=== PATIENT | female | born 1970 | race Caucasian/White ===

== ENCOUNTER 2021-07-23 21:54 | Inpatient (IN) | payer BC, SELFPAY ==
[2021-07-23 21:56] VITALS: BP 127/75; PULSE 112; RESP 18; O2SAT 98; BMI 48.0
--- NOTE | 2021-07-23 22:06 | ECG_ITS ---
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
--- NOTE | 2021-07-23 22:11 | W.ED.WEAKNES ---
Documented by User: Ruslan Mojica MD 07/23/21 22:58 HPI - Weakness General: Chief complaint: Weakness Stated complaint: GENERAL WEAKNESS Time Seen by Provider: 07/23/21 21:57 Source: patient Mode of arrival: EMS Limitations: no limitations History of Present Illness: HPI Narrative: Patient states she has generalized weakness that has been ongoing for few days. She states that she felt like she needed to take a bath last night and got in the bathtub around 5:30 PM. She states she was unable to get out of the bathtub until 7 AM when her cut her out of the tub. She states she has been laying on a blanket since 7 AM. She states she is too weak to stand on her own. She states she has had some nausea and vomiting this evening. Emesis is bilious. She states she has chronic liver disease due to fatty liver and alcoholic cirrhosis. She states her last alcohol use was in April of last year. She denies any particular pain. Complaint: generalized weakness, lack of energy and difficulty walking Duration: constant Location: generalized Migration: none Severity: severe Relieving factors: none Exacerbating factors: none Associated symptoms: Reports easy bruising, nausea and vomiting; Denies chest pain, chills, confusion, melena, decreased appetite, diaphoresis, dysuria, fever(s), headache(s), myalgias, rash, short of breath or syncope Review of Systems Const: Reports: fatigue and malaise; Denies: fever(s), chills or diaphoresis Eyes: Denies: change in vision ENMT: Denies: throat pain Card: Denies: chest pain or syncope Resp: Denies: dyspnea or wheezing GI: Reports: nausea and vomiting; Denies: abdominal pain or melena : Denies: flank pain or dysuria Musc: Reports: extremity swelling; Denies: neck pain or back pain Skin/Breast: Reports: other (Ecchymoses); Denies: rash or pruritus Neuro: Denies: headache(s) or confusion Psych: Denies: anxiety Rtevon/Lymph: Reports: easy bruising; Denies: easy bleeding or petechiae Physical Exam Const: COMMON NORMALS: no acute distress, patient oriented x3, no limitations and well nourished EXAM LIMITATIONS: no altered mental status GENERAL APPEARANCE: cooperative NUTRITIONAL APPEARANCE: obese and other (Morbid obesity) HENMT: COMMON NORMALS: normocephalic and atraumatic HEAD & SCALP: normocephalic and atraumatic FACE & SINUS: normal facial exam Eye: COMMON NORMALS: Equal, round and reactive pupils present and EOMs intact bilaterally SCLERA: scleral abnormal Laterality of scleral abnormality: positive bilateral (Mild) scleral icterus PUPIL: Yes Equal, round and reactive pupils present Neck/C-Spine: COMMON NORMALS: full ROM, no lymphadenopathy, supple, no meningeal signs and no JVD GENERAL: Yes normal visual inspection Lymph: LYMPHATIC: no lymphadenopathy noted Chest: COMMONS NORMALS: normal inspection of the chest and normal palpation of entire chest wall CHEST: No Ecchymosis present and No rash Resp: COMMON NORMALS: normal respiratory effort, No retractions, No use of accessory muscles and clear to auscultation bilaterally EFFORT & INSPECTION: No respiratory distress AUSCULTATION: clear to auscultation bilaterally Cardio: COMMON NORMALS: no JVD, regular rhythm and Peripheral pulses 2+ throughout JUGULAR VENOUS DISTENTION: no JVD RATE: tachycardic RHYTHM: regular rhythm PERIPHERAL PULSES: Peripheral pulses 2+ throughout OTHER: 3+ pitting edema of the lower extremities bilaterally. GI: COMMON NORMALS: Normal to inspection, nondistended, normoactive bowel sounds present and non-tender : COMMON NORMALS: Yes no CVA tenderness BLADDER/KIDNEY EXAM: Yes no CVA tenderness Back/Pelvis: COMMON NORMALS: no CVA tenderness Extremity: COMMON NORMALS: normal to inspection, full ROM and capillary refill normal OTHER: Bilateral lower extremity 3+ pitting edema Neuro: ADRIAN COMA SCALE: document GCS findings [place] coma scale eye opening: Spontaneous [place] coma scale verbal response: Orientated [place] coma scale motor response: Obey commands [place] coma scale total score: 15 COMMON NORMALS: patient oriented x3, CN's II-XII intact bilaterally, moves all extremities, no focal motor deficits and no sensory deficits noted MENINGEAL SIGNS: Yes no meningeal signs Psych: COMMON NORMALS: mental status grossly normal, Normal thought process present and cooperative THOUGHT PROCESS: Normal thought process present Skin: COMMON NORMALS: no rashes or lesions noted and no wounds NARRATIVE SKIN EXAM: Patient has mild jaundice. A few new ecchymoses. GENERAL SKIN EXAM: no rashes or lesions noted Course Vital Signs: Vital signs: Vital Signs Pulse Rate 112 H 01/15/22 21:56 Respiratory Rate 18 07/23/21 21:56 Blood Pressure 127/75 07/23/21 21:56 Pulse Oximetry 98 07/23/21 21:56 MDM - Weakness MDM Narrative: Medical decision making narrative: 2300 care was transferred to Dr. Moreno at shift change Lab Data: Labs: Lab Results 07/23/21 07/23/21 07/23/21 22:41 22:55 22:55 WBC RBC Hgb Hct MCV MCH MCHC RDW Plt Count MPV Neut % (Auto) Lymph % (Auto) [place] % (Auto) Eos % (Auto) Baso % (Auto) Neut # (Auto) Lymph # (Auto) [place] # (Auto) Eos # (Auto) Baso # (Auto) Nucleated RBC % (a uto) Nucleated RBCs # PT 20.70 SECONDS H S ECONDS (12.1-14.9) INR 1.74 H (0.8-1.2) APTT 39.2 SECONDS H SE CONDS (23.9-36.7) Sodium 124 mmol/L L mmol /L (136-145) Potassium 2.8 mmol/L L* mmo l/L (3.5-5.1) Chloride 82 mmol/L L mmol/ L (98-107) Carbon Dioxide 29 mmol/L mmol/L (22-29) Anion Gap 15.8 (5-19) BUN 10 mg/dL mg/dL (6-20) Creatinine 1.4 mg/dL H mg/dL (0.5-0.9) GFR Calculation 39.8 mL/min L mL/ min (90-130) Glucose 100 mg/dL mg/dL (65-115) Calculated Osmolal ity 257 mOsm/kg L mOs m/kg (285-295) Calcium 9.0 mg/dL mg/dL (8.5-10.5) Total Bilirubin 9.2 mg/dL H* mg/d L (0.15-1.2) AST 71 U/L H U/L (0-32) ALT 19 U/L U/L (0-33) Alkaline Phosphata se 210 IU/L H IU/L (35-105) Ammonia Creatine Kinase 211 U/L H U/L (26-192) Total Protein 7.8 g/dL g/dL (6.6-8.7) Albumin 3.2 g/dL L g/dL (3.5-5.2) Globulin 4.6 g/dL g/dL (1.3-4.6) TSH 0.57 uIU/mL uIU/m L (0.27-4.20) Free T4 2.00 ng/dL H ng/d L (0.82-1.77) Urine Color Ebony (Yellow) Urine Appearance Sl cloudy A (CLEAR) Urine pH 5 (5-7) Ur Specific Gravit y 1.025 (1.005-1.030) Urine Protein 1+ H (Negative) Urine Glucose (UA) Norm (Normal) Urine Ketones 1+ H (Negative) Urine Blood Neg (Negative) Urine Nitrate Negative (Negative) Urine Bilirubin 2+ H (Negative) Urine Urobilinogen 4+ mg/dL H mg/dL (Negative) Ur Leukocyte Dolores ase Trace H (Negative) Urine RBC 0-4 /hpf H /hpf (0-2) Urine WBC 5-10 /hpf H /hpf (0-5) Ur Squamous Epith Cells 15-25 /hpf H /hpf (0-5) Amorphous Sediment Not Reportable Urine Bacteria 3+ /hpf H /hpf (NONE) Hyaline Casts 10-15 /lpf H /lpf Urine Mucus 2+ /hpf /hpf 07/23/21 07/23/21 22:55 22:55 WBC 15.4 10^3/uL H 10 ^3/uL (4.0-10.0) RBC 3.20 10^6/uL L 10 ^6/uL (4.1-5.3) Hgb 10.4 g/dL L g/dL (11.5-15.3) Hct 29.3 % L % (37.0-47.0) MCV 91.6 fl fl (81-99) MCH 32.5 pg pg (28.0-34.0) MCHC 35.5 g/dL g/dL (30.0-36.0) RDW 16.4 % H % (12.1-15.1) Plt Count 214 10^3/cmm 10^3 /cmm (130-400) MPV 9.8 fL fL (7.4-10.4) Neut % (Auto) 83.6 % % Lymph % (Auto) 8.6 % % [place] % (Auto) 7.0 % % Eos % (Auto) 0.2 % % Baso % (Auto) 0.2 % % Neut # (Auto) 12.91 10^3/uL H 1 0^3/uL (1.8-7.7) Lymph # (Auto) 1.3 10^3/uL 10^3/ uL (0.8-4.8) [place] # (Auto) 1.1 10^3/uL H 10^ 3/uL (0.2-0.9) Eos # (Auto) 0.0 10^3/uL 10^3/ uL (0.0-0.8) Baso # (Auto) 0.0 10^3/uL 10^3/ uL (0.0-0.1) Nucleated RBC % (a uto) 0 % % Nucleated RBCs # 0.0 /100WBC /100W BC PT INR APTT Sodium Potassium Chloride Carbon Dioxide Anion Gap BUN Creatinine GFR Calculation Glucose Calculated Osmolal ity Calcium Total Bilirubin AST ALT Alkaline Phosphata se Ammonia 36 umol/L umol/L (11-51) Creatine Kinase Total Protein Albumin Globulin TSH Free T4 Urine Color Urine Appearance Urine pH Ur Specific Gravit y Urine Protein Urine Glucose (UA) Urine Ketones Urine Blood Urine Nitrate Urine Bilirubin Urine Urobilinogen Ur Leukocyte Dolores ase Urine RBC Urine WBC Ur Squamous Epith Cells Amorphous Sediment Urine Bacteria Hyaline Casts Urine Mucus EKG Data^: EKG 1: Attestation: I personally reviewed and interpreted this EKG as follows: EKG interpretation date: 07/23/21 EKG interpretation time: 22:38 Prior EKG tracings: not available for review Ischemic changes: non-specific ST-T wave changes Interpretation: EKG shows sinus tachycardia with nonspecific ST-T changes. Normal axis. Normal OR interval. Normal QRS. Normal QT interval. Discharge Plan Discharge Patient Disposition: Admitted As Inpatient Clinical Impression: Chronic alcoholic liver disease, Generalized weakness, Hyponatremia Condition: Stable Coding Level of Care Code ED Ecological Economist for Chg Fwd Exam Comprehensive Documented by User: Vinnie Moreno MD 07/24/21 00:06 HPI - Weakness General: Chief complaint: Weakness Stated complaint: GENERAL WEAKNESS Time Seen by Provider: 07/23/21 21:57 Course Vital Signs: Vital signs: Vital Signs Pulse Rate 112 H 07/23/21 21:56 Respiratory Rate 18 07/23/21 21:56 Blood Pressure 127/75 07/23/21 21:56 Pulse Oximetry 98 07/23/21 21:56 MDM - Weakness MDM Narrative: Medical decision making narrative: Patient presents here with generalized weakness with hyponatremia. She has alcoholic liver cirrhosis calling saying her elevated bilirubin as well. Lab Data: Labs: Lab Results 07/23/21 07/23/21 07/23/21 22:41 22:55 22:55 WBC RBC Hgb Hct MCV MCH MCHC RDW Plt Count MPV Neut % (Auto) Lymph % (Auto) [place] % (Auto) Eos % (Auto) Baso % (Auto) Neut # (Auto) Lymph # (Auto) [place] # (Auto) Eos # (Auto) Baso # (Auto) Nucleated RBC % (a uto) Nucleated RBCs # PT 20.70 SECONDS H S ECONDS (12.1-14.9) INR 1.74 H (0.8-1.2) APTT 39.2 SECONDS H SE CONDS (23.9-36.7) Sodium 124 mmol/L L mmol /L (136-145) Potassium 2.8 mmol/L L* mmo l/L (3.5-5.1) Chloride 82 mmol/L L mmol/ L (98-107) Carbon Dioxide 29 mmol/L mmol/L (22-29) Anion Gap 15.8 (5-19) BUN 10 mg/dL mg/dL (6-20) Creatinine 1.4 mg/dL H mg/dL (0.5-0.9) GFR Calculation 39.8 mL/min L mL/ min (90-130) Glucose 100 mg/dL mg/dL (65-115) Calculated Osmolal ity 257 mOsm/kg L mOs m/kg (285-295) Calcium 9.0 mg/dL mg/dL (8.5-10.5) Total Bilirubin 9.2 mg/dL H* mg/d L (0.15-1.2) AST 71 U/L H U/L (0-32) ALT 19 U/L U/L (0-33) Alkaline Phosphata se 210 IU/L H IU/L (35-105) Ammonia Creatine Kinase 211 U/L H U/L (26-192) Total Protein 7.8 g/dL g/dL (6.6-8.7) Albumin 3.2 g/dL L g/dL (3.5-5.2) Globulin 4.6 g/dL g/dL (1.3-4.6) TSH 0.57 uIU/mL uIU/m L (0.27-4.20) Free T4 2.00 ng/dL H ng/d L (0.82-1.77) Urine Color Ebony (Yellow) Urine Appearance Sl cloudy A (CLEAR) Urine pH 5 (5-7) Ur Specific Gravit y 1.025 (1.005-1.030) Urine Protein 1+ H (Negative) Urine Glucose (UA) Norm (Normal) Urine Ketones 1+ H (Negative) Urine Blood Neg (Negative) Urine Nitrate Negative (Negative) Urine Bilirubin 2+ H (Negative) Urine Urobilinogen 4+ mg/dL H mg/dL (Negative) Ur Leukocyte Dolores ase Trace H (Negative) Urine RBC 0-4 /hpf H /hpf (0-2) Urine WBC 5-10 /hpf H /hpf (0-5) Ur Squamous Epith Cells 15-25 /hpf H /hpf (0-5) Amorphous Sediment Not Reportable Urine Bacteria 3+ /hpf H /hpf (NONE) Hyaline Casts 10-15 /lpf H /lpf Urine Mucus 2+ /hpf /hpf 07/23/21 07/23/21 22:55 22:55 WBC 15.4 10^3/uL H 10 ^3/uL (4.0-10.0) RBC 3.20 10^6/uL L 10 ^6/uL (4.1-5.3) Hgb 10.4 g/dL L g/dL (11.5-15.3) Hct 29.3 % L % (37.0-47.0) MCV 91.6 fl fl (81-99) MCH 32.5 pg pg (28.0-34.0) MCHC 35.5 g/dL g/dL (30.0-36.0) RDW 16.4 % H % (12.1-15.1) Plt Count 214 10^3/cmm 10^3 /cmm (130-400) MPV 9.8 fL fL (7.4-10.4) Neut % (Auto) 83.6 % % Lymph % (Auto) 8.6 % % [place] % (Auto) 7.0 % % Eos % (Auto) 0.2 % % Baso % (Auto) 0.2 % % Neut # (Auto) 12.91 10^3/uL H 1 0^3/uL (1.8-7.7) Lymph # (Auto) 1.3 10^3/uL 10^3/ uL (0.8-4.8) [place] # (Auto) 1.1 10^3/uL H 10^ 3/uL (0.2-0.9) Eos # (Auto) 0.0 10^3/uL 10^3/ uL (0.0-0.8) Baso # (Auto) 0.0 10^3/uL 10^3/ uL (0.0-0.1) Nucleated RBC % (a uto) 0 % % Nucleated RBCs # 0.0 /100WBC /100W BC PT INR APTT Sodium Potassium Chloride Carbon Dioxide Anion Gap BUN Creatinine GFR Calculation Glucose Calculated Osmolal ity Calcium Total Bilirubin AST ALT Alkaline Phosphata se Ammonia 36 umol/L umol/L (11-51) Creatine Kinase Total Protein Albumin Globulin TSH Free T4 Urine Color Urine Appearance Urine pH Ur Specific Gravit y Urine Protein Urine Glucose (UA) Urine Ketones Urine Blood Urine Nitrate Urine Bilirubin Urine Urobilinogen Ur Leukocyte Dolores ase Urine RBC Urine WBC Ur Squamous Epith Cells Amorphous Sediment Urine Bacteria Hyaline Casts Urine Mucus Discharge Plan Discharge Patient Disposition: Admitted As Inpatient Clinical Impression: Chronic alcoholic liver disease, Generalized weakness, Hyponatremia Condition: Stable Coding Level of Care Code ED Ecological Economist for Karli Fwd Exam Comprehensive
--- NOTE | 2021-07-23 22:45 | PC.NURSE ---
patient received with c/o generalized weakness worse in legs. states normally uses a cane and a lift chair to get around the house. reprots getting in bath tub last night around 1700 and was unable to get out of tub till 0600 this AM when cut her out of the tub. then he drug her on a blanket to the living room where whe was unable to get in to chair. he helped her from lying to sitting through out the day by using the blanket. then terry decided to call for help because she was worried about dehydration and a pinched nerve because of no urination and no fluids since last night. plastic molding operator are strong and equal but little to no arm strength but it is equal upper and lower extremities. legs move with assist equal both sides. tele in place. no further emesis since ambulance. casey placed, IV attempted x2 unsuccessful, charge nurse called for attempt.
[2021-07-23 23:05] LABS: Basophils % 0.2 %; Eosinophils % 0.2 %; Hematocrit 29.3 % (37.0-47.0); Hemoglobin 10.4 g/dL (11.5-15.3); Lymphocytes # 1.3 10^3/uL (0.8-4.8); Lymphocytes % 8.6 %; Mean Corpuscular HGB Conc 35.5 g/dL (30.0-36.0); Mean Corpuscular Hemoglobin 32.5 pg (28.0-34.0); Mean Corpuscular Volume 91.6 fl (81-99); Mean Platelet Volume 9.8 fL (7.4-10.4); Monocytes # 1.1 10^3/uL (0.2-0.9); Neutrophils # 12.91 10^3/uL (1.8-7.7); Neutrophils % 83.6 %; Nucleated Red Blood Cells % 0 %; Platelet Count 214 10^3/cmm (130-400); Red Cell Distribution Width 16.4 % (12.1-15.1); White Blood Count 15.4 10^3/uL (4.0-10.0)
--- NOTE | 2021-07-23 23:14 | XRR_ITS ---
PROCEDURE INFORMATION: Exam: XR Chest Exam date and time: 07/23/2021 11:14 PM Age: 51 years old Clinical indication: Dyspnea; Additional info: SOB TECHNIQUE: Imaging protocol: XR of the chest. Views: 1 view. COMPARISON: No relevant prior studies available. FINDINGS: Lungs: The lungs are underinflated. Right apical and left basilar atelectasis versus scarring is appreciated. The lungs are otherwise clear. Pleural spaces: Unremarkable. No pleural effusion. No pneumothorax. Heart/Mediastinum: Unremarkable. No cardiomegaly. Bones/joints: Unremarkable. XR/XR chest 1V portable [id number] IMPRESSION: No acute cardiopulmonary abnormality.
[2021-07-23 23:20] LABS: INR 1.74 (0.8-1.2)
[2021-07-23 23:21] LABS: Partial Thromboplastin Time 39.2 SECONDS (23.9-36.7)
[2021-07-23 23:26] LABS: Ammonia 36 umol/L (11-51)
[2021-07-23 23:26] LABS: Protein Urine 1+ (Negative); Specific Gravity, Urine 1.025 (1.005-1.030); Urine Color Amber (Yellow); pH Urine 5 (5-7)
[2021-07-23 23:27] LABS: Add Urine Microscopic? YES; Bilirubin Urine 2+ (Negative); Blood Urine Neg (Negative); Glucose Urine UA Norm (Normal); Ketones Urine 1+ (Negative); Leukocyte Esterase Urine Trace (Negative); Nitrate Urine Negative (Negative); Urobilinogen Urine 4+ mg/dL (Negative)
[2021-07-23 23:30] LABS: Add Urine Culture? No; Bacteria Urine 3+ /hpf; Mucus Urine 2+ /hpf; RBC Urine 0-4 /hpf (0-2); Squamous Epithelial Cell Urine 15-25 /hpf (0-5)
[2021-07-23 23:36] LABS: Alanine Aminotransferase 19 U/L (0-33); Albumin Level 3.2 g/dL (3.5-5.2); Alkaline Phosphatase 210 IU/L (35-105); Anion Gap 15.8 (5-19); Aspartate Amino Transferase 71 U/L (0-32); Blood Urea Nitrogen 10 mg/dL (6-20); Carbon Dioxide 29 mmol/L (22-29); Chloride 82 mmol/L (98-107); Creatine Phosphokinase 211 U/L (26-192); Globulin 4.6 g/dL (1.3-4.6); Glomerular Filtration Rate 39.8 mL/min (90-130); Glucose 100 mg/dL (65-115); Osmolality Calculated 257 mOsm/kg (285-295); Sodium 124 mmol/L (136-145); Thyroid Stimulating Hormone 0.57 uIU/mL (0.27-4.20); Total Protein 7.8 g/dL (6.6-8.7)
[2021-07-23 23:38] LABS: Potassium 2.8 mmol/L (3.5-5.1); Total Bilirubin 9.2 mg/dL (0.15-1.2)
[2021-07-24] VITALS (10 sets, daily range): BP systolic 85–112; BP diastolic 48–72; PULSE 62–108; RESP 14–19; TEMP 36.4–36.7; O2SAT 92–98
[2021-07-24] MEDS: sodium chloride 0.9% 500 ML IV (00:03)
[2021-07-24 00:30] LABS: Adenovirus Not Detected (NOT DETECT); Chlamydia Pneumoniae Not Detected (NOT DETECT); Coronavirus 229E,HKU1,NL63,OC4 Not Detected (NOT DETECT); Human Metapneumovirus Not Detected (NOT DETECT); Human Rhinovirus/Enterovirus Not Detected (NOT DETECT); Influenza A Not Detected (NOT DETECT); Influenza A H1 Not Detected (NOT DETECT); Influenza A H1-2009 Not Detected (NOT DETECT); Influenza A H3 Not Detected (NOT DETECT); Influenza B Not Detected (NOT DETECT); Mycoplasma Pneumoniae Not Detected (NOT DETECT); Parainfluenza Virus Type 1 Not Detected (NOT DETECT); Parainfluenza Virus Type 2 Not Detected (NOT DETECT); Parainfluenza Virus Type 3 Not Detected (NOT DETECT); Parainfluenza Virus Type 4 Not Detected (NOT DETECT); Respiratory Syncytial Virus A Not Detected (NOT DETECT); Respiratory Syncytial Virus B Not Detected (NOT DETECT); SARS-COV-2 Not Detected (NOT DETECT)
--- NOTE | 2021-07-24 00:36 | P.HP_ITS ---
Providers/Chief Complaint Admitting Physician: Diamond Delgado Chief Complaint: GENERAL WEAKNESS History of Present Illness 51 y/o with past medical history significant for hypothyroidism, alcoholism unclear if in remission and chronic alcoholic liver cirrhosis who presented to ER with generalized weakness. History is somewhat limited as patient is a poor historian. She reported to be that she was in the bathtub where it is unclear if she had a fall but was unable to get herself out due to extreme weakness. This has been progressively worsening for the past week. She denied any documented fever, chills however did note some nausea. No chest pain or dyspnea. Denied abdominal pain, diarrhea or constipation. Lives at home with who helped her get out of the tub and contact EMS. Upon arrival to ER Her initial laboratory workup showed a WBC of 15.4, hemoglobin 10.4, hematocrit 29.3 and platelet count of 214. INR 1.74. Sodium 124, potassium 2.8, chloride 82, bicarb 29, BUN 10 and creatinine of 1.4. Total bilirubin elevated 9.2. AST of 71, ALT of 19 and alkaline phosphatase of 210. Ammonia level of 36. CK of 211. TSH is 0.57, free T4 of 2.0. Urinalysis showed trace leukocyte esterase, negative nitrites 5 to 10 WBC however 15 to 25 squamous epithelial cells. COVID-19 PCR was negative.Chest x-ray did not show a ny evidence of acute cardiopulmonary abnormality. In emergency room patient was given 500 cc bolus of IV fluids admitted to medicine. Review of Systems General: Reports: ROS unobtainable due to medical condition Medications/Allergies Allergies Allergy/AdvReac Type Severity Reaction Status Date / Time No Known Allergies Allergy Verified 07/23/21 22:07 PFSH Acute PFSH: Medical History (Updated 07/24/21 @ 06:06 by Diamond Delgado MD) Chronic alcoholic liver disease No pertinent family history Surgical History (Updated 07/24/21 @ 06:05 by Diamond Delgado MD) No pertinent past surgical history Social History (Updated 07/24/21 @ 06:05 by Diamond Delgado MD) Smoking and tobacco status: unknown if ever smoked Alcohol intake: former Substance/Drug Use: never Vitals/I&O/Wt Last Vital Signs Pulse 112 H 07/23/21 21:56 Resp 18 07/23/21 21:56 BP 127/75 07/23/21 21:56 Pulse Ox 98 07/23/21 21:56 Weight last 48 hrs Weight 127.006 kg Physical Exam Narrative: EXAM NARRATIVE: General: Alert, awake, unkempt HEENT: +Scleral icterus , EOMI CVS: RRR Chest ; non-labored respiration Abd: mild distended, nontender Ext; B/L LE edema Urinary Catheter Management^: Rainey: Cath Placed During This Visit: yes Urinary Catheter Date of Insertion: 07/23/21 Urinary Catheter Time of Insertion: 22:43 Data : 07/23/21 22:55 07/23/21 22:55 A&P Assessment and plan (1) Decompensation of cirrhosis of liver: Status: Acute Additional A&P Information Decompensated liver cirrhosis Ast 71, T.Bili 9.2, Cr 1.4, Grade 1 hepatic encephalopathy Repeat labs in am MELD 30 MDS 49.2 Will hold on steroids Repeat labs in am Verify if on aldactone/lactulose Will need close outpatient follow up with GI after discharge Hyponatremia NA 124 Likely due to liver cirrhosis in setting of Intravascular volume depletion UA NA,CL,Osm ordered Hold diuretics for now IVF in ER, hold on further IVF Repeat BMP in am Acute Kidney Injury No prior creatinine Cr. 1.4 Avoid nephrotoxic meds BMP in am Monitor u/o Hypokalemia K- 2.8 KCL 40 IV x1 Repeat BMP in am Telemetry Hypothyroidism TSH 0.57, FT4 2.0 Verify dose, will likely need to be decreased Abnormal UA UA trace leuk, neg nit, possible contaminated specimen Rocephin 1g IV q24hr Follow upon culture May need to repeat UA Procal in am GERD Protonix 40 mg PO daily Debility PT/OT consult Fall Precautions DVT ppx SCDs Verify home meds in am and resume Attestations Medical Necessity Statement*: Anticipate over 2 midnights stay in hospital for evaluation treatment Time Spent in Patient Care: Greater than 35 minutes (>than 50% of time spent in counselling and/or direct pt care on unit) . Coding Level of Care Code Acute Cable Engineer Outside Plant for Karli Medina Diagnoses Decompensation of cirrhosis of liver K72.90; K74.60
[2021-07-24] MEDS: potassium chloride premix 100 ML 25 MEQ IV (01:10)
[2021-07-24] MEDS: cefTRIAXone 1,000 MG in sodium chloride 0.9% (plus) 50 ML 100 MG IV ×2 (06:45→18:14)
[2021-07-24 07:58] LABS: Urine Random Chloride 10 mmol/L; Urine Random Sodium 10 mmol/L
--- NOTE | 2021-07-24 08:45 | USR_ITS ---
PROCEDURE INFORMATION: Exam: US Abdomen, Limited; Right Upper Quadrant Exam date and time: 07/24/2021 8:45 AM Age: 51 years old Clinical indication: Cirrhosis/liver failure. TECHNIQUE: Imaging protocol: US abdomen. Real time ultrasound with image documentation. Limited exam focused on the right upper quadrant. COMPARISON: No relevant prior studies available. FINDINGS: The liver is enlarged measuring 18.2 cm. There is cirrhotic hepatic morphology. There is poor color flow within the portal vein suggesting thrombosis or diminished flow. Moderate ascites. No biliary ductal dilatation. The common bile duct measures 0.3 cm. Gallbladder sludge is seen with thickened gallbladder wall. Probable poorly calcified gallbladder stone versus hypovascular mass. The right kidney measures 11.1 cm. No suspicious mass or hydronephrosis. The pancreas, aorta and IVC are not well seen due to bowel gas. US/US liver [id number] IMPRESSION: 1. Hepatomegaly with cirrhotic hepatic morphology and moderate ascites. 2. Poor color flow within the portal vein suggesting thrombosis or diminished flow. 3. Gallbladder sludge is seen with thickened gallbladder wall. Probable poorly calcified gallbladder stone versus hypovascular mass. Acute cholecystitis is not excluded. This can be further assessed on CT. HIDA scan may be required for definitive characterization. 4. Recommend CT of the abdomen hepatic protocol with and without contrast to further assess.
--- NOTE | 2021-07-24 09:08 | PM.PN ---
Subjective Subjective: Interval history: Patient is more alert this morning. Able to get more history from her. Apparently back in April she got diagnosed with cirrhosis and she has been seen by GI down in [place] namely Dr. Fiore. Apparently she has been in the hospital in April, May, June of last year. All of these hospitalizations were at [facility]. She states that her diagnosis is cirrhosis from a fatty liver and alcohol use. She has not drank any alcohol since April when she was diagnosed though. Each of her 3 previous hospitalizations she had an elevated white blood cell count and they were concerned of infection then as well. She is placed on antibiotics at those times also. Apparently ultrasound done in June showed some gallbladder issues but they did not feel it was safe to try to remove it. She has had a gastric bypass procedure in the past. Her called EMS this time after she had a significant increase in her weakness. Apparently she got down her tub over 48 hours ago. Her was not able to get her out and she remained in her tub for 24 hours. Her then cut the tub open and was able to get her out. They got her to her bed and let her rest over the next 24 hours hoping she would improve. When she did not they called EMS and they brought her in. She denies any fevers or chills or chest pain. She does have increased swelling a little more than baseline. Apparently she takes spironolactone 50 mg at home daily and also Lasix but does not know the dosing of that. She has had problems with her potassium being low in the past also. Vitals/I&O/Wt Last Vital Signs Temp 98.1 F 07/24/21 04:00 Pulse 103 H 07/24/21 04:00 Resp 16 07/24/21 04:00 BP 101/61 07/24/21 04:00 Pulse Ox 96 07/24/21 04:00 07/23/21 07/24/21 07/24/21 22:59 06:59 14:59 Intake Total 600 / 600 50 / 50 Output Total 100 / 100 Balance 500 / 500 50 / 50 Weight last 48 hrs Weight 284 lb Weight 284 lb 14.4 oz Weight 280 lb Physical Exam Narrative: EXAM NARRATIVE: General: No acute distress, Alert. Well nourished. Morbidly obese Heart: Regular rate and rhythm. No murmurs, rubs or gallops. Normal capillary refill. Lungs: Clear to auscultation. No wheezes, rhonchi or rales. Abdomen: Positive bowel sounds. Non-tender, significantly distended. No hepatosplenomegaly appreciated but she is morbidly obese.. No gaurding. Extremities: No clubbing, cyanosis. Negative Rylan's. She has 3+ pitting edema Urinary Catheter Management^: Rainey: Cath Placed During This Visit: yes Reason for Continuing Indwelling Catheter: Assist Healing of Perineal & Sacral Wounds- Incontinent Patients Urinary Catheter Date of Insertion: 07/23/21 Urinary Catheter Time of Insertion: 22:43 Data : 07/23/21 22:55 07/23/21 22:55 A&P Assessment and plan (1) Decompensation of cirrhosis of liver: - This is her primary concern manifesting as hyperbilirubinemia, weakness, hypokalemia, hyponatremia. -She also has an elevated white blood cell count. No obvious sign of infection at this time. Abdomen is not tender but cannot rule out hepatorenal syndrome. We will monitor closely for symptoms. She is currently on Rocephin and we will continue that for now. -We will try to obtain records from [facility] in regards to her work-up and evaluations. -Ultrasound of her liver today. Be aware of the fact that she has a known history of gallbladder disease. She also has a history of gastric bypass surgery. -Go and repeat her labs including her potassium and sodium. -Go ahead and restart her spironolactone. May need to add Lasix but will wait to see what her labs show. -Have physical therapy assess and treat. -Discussed with her that she may need to consider rehab or outpatient physical therapy at discharge. Status: Acute (2) Hypokalemia: Status: Acute (3) Acute kidney failure: Status: Acute (4) Hyponatremia: Status: Acute (5) Generalized weakness: Status: Acute Attestations Medical Necessity Statement*: This is a 51-year-old female with cirrhosis and acute decompensation of her liver requiring inpatient monitoring and treatment. Coding Level of Care Code Acute [employer] Field Coordinator for [facility] Diagnoses Decompensation of cirrhosis of liver K72.90; K74.60 Hypokalemia E87.6 Acute kidney failure N17.9 Hyponatremia E87.1 Generalized weakness R53.1
[2021-07-24] MEDS: pantoprazole DR 40 mg Tablet PO (09:44)
[2021-07-24] MEDS: spironolactone 25 mg Tablet 50 MG PO (09:50)
[2021-07-24 11:32] LABS: Alanine Aminotransferase 19 U/L (0-33); Albumin Level 2.4 g/dL (3.5-5.2); Alkaline Phosphatase 180 IU/L (35-105); Anion Gap 16.4 (5-19); Aspartate Amino Transferase 69 U/L (0-32); Blood Urea Nitrogen 11 mg/dL (6-20); Calcium 8.3 mg/dL (8.5-10.5); Carbon Dioxide 26 mmol/L (22-29); Chloride 83 mmol/L (98-107); Globulin 4.5 g/dL (1.3-4.6); Glomerular Filtration Rate 31.8 mL/min (90-130); Glucose 88 mg/dL (65-115); Osmolality Calculated 253 mOsm/kg (285-295); Potassium 3.4 mmol/L (3.5-5.1); Sodium 122 mmol/L (136-145); Total Protein 6.9 g/dL (6.6-8.7)
[2021-07-24] MEDS: sodium chloride 3% 500 ML 30 ML IV (13:07)
[2021-07-24 16:13] LABS: Anion Gap 13.4 (5-19); Blood Urea Nitrogen 12 mg/dL (6-20); Calcium 8.4 mg/dL (8.5-10.5); Carbon Dioxide 29 mmol/L (22-29); Chloride 86 mmol/L (98-107); Glomerular Filtration Rate 34.1 mL/min (90-130); Glucose 103 mg/dL (65-115); Osmolality Calculated 260 mOsm/kg (285-295); Potassium 3.4 mmol/L (3.5-5.1); Sodium 125 mmol/L (136-145)
[2021-07-24] MEDS: acetaminophen 325 mg Tablet 650 MG PO (22:11)
[2021-07-25] VITALS (8 sets, daily range): BP systolic 92–110; BP diastolic 48–62; PULSE 97–106; RESP 16–18; TEMP 36.6–36.7; O2SAT 92–98
[2021-07-25] MEDS: cefTRIAXone 1,000 MG in sodium chloride 0.9% (plus) 50 ML 100 MG IV ×2 (05:27→18:02)
[2021-07-25 05:32] LABS: Basophils % 0.2 %; Eosinophils # 0.4 10^3/uL (0.0-0.8); Eosinophils % 3.2 %; Hemoglobin 7.9 g/dL (11.5-15.3); Lymphocytes # 1.6 10^3/uL (0.8-4.8); Lymphocytes % 12.6 %; Mean Corpuscular HGB Conc 34.3 g/dL (30.0-36.0); Mean Corpuscular Hemoglobin 32.6 pg (28.0-34.0); Mean Platelet Volume 9.6 fL (7.4-10.4); Monocytes # 1.2 10^3/uL (0.2-0.9); Monocytes % 9.1 %; Neutrophils # 9.61 10^3/uL (1.8-7.7); Neutrophils % 74.3 %; Nucleated Red Blood Cells % 0 %; Platelet Count 153 10^3/cmm (130-400); Red Blood Count 2.42 10^6/uL (4.1-5.3); Red Cell Distribution Width 17.4 % (12.1-15.1)
[2021-07-25 05:48] LABS: Alanine Aminotransferase 17 U/L (0-33); Albumin Level 2.5 g/dL (3.5-5.2); Alkaline Phosphatase 163 IU/L (35-105); Anion Gap 14.4 (5-19); Aspartate Amino Transferase 56 U/L (0-32); Blood Urea Nitrogen 13 mg/dL (6-20); Calcium 8.1 mg/dL (8.5-10.5); Carbon Dioxide 28 mmol/L (22-29); Chloride 87 mmol/L (98-107); Globulin 3.5 g/dL (1.3-4.6); Glomerular Filtration Rate 29.8 mL/min (90-130); Glucose 86 mg/dL (65-115); Osmolality Calculated 261 mOsm/kg (285-295); Potassium 3.4 mmol/L (3.5-5.1); Sodium 126 mmol/L (136-145); Total Bilirubin 6.2 mg/dL (0.15-1.2)
[2021-07-25 05:53] LABS: Lactic Sepsis W/Reflex 0.9 mmol/L (0.5-2.2)
[2021-07-25 05:55] LABS: Procalcitonin 0.39 ng/mL (0-0.5)
[2021-07-25] MEDS: potassium chloride ER 20 mEq Tablet 40 MEQ PO (09:33)
[2021-07-25] MEDS: pantoprazole DR 40 mg Tablet PO (09:41)
[2021-07-25] MEDS: midodrine 5 mg TABLET 10 MG PO ×3 (09:41→20:03)
--- NOTE | 2021-07-25 11:58 | P.PN_ITS ---
Subjective Subjective: Interval history: History and physical was reviewed. Patient denies any abdominal pain currently. She denies any nausea. She feels perhaps slightly stronger than she did when she came in. She is hopeful she can go home eventually with home health. Medications: Reviewed: Yes Vitals/I&O/Wt Last Vital Signs Temp 97.9 F 07/25/21 04:00 Pulse 100 07/25/21 11:30 Resp 18 07/25/21 11:30 BP 96/59 07/25/21 11:30 Pulse Ox 98 07/25/21 11:30 07/24/21 07/25/21 07/25/21 22:59 06:59 14:59 Intake Total 170 / 340 910 / 1250 480 / 480 Output Total 420 / 420 Balance 170 / 340 490 / 830 480 / 480 Weight last 48 hrs Weight 128.82 kg Weight 128.82 kg Weight 129.228 kg Weight 127.006 kg Physical Exam Narrative: EXAM NARRATIVE: General exam is conversant and pleasant white female Skin demonstrate multiple bruises of various ages which she reports are secondary to her liver disease Neck is supple Cardiovascular regular rate and rhythm without murmur Lungs clear Abdomen is soft. Positive bowel sounds. Obese. No obvious fluid wave. Extremities 1+ edema bilaterally Neuro no obvious focal deficits. Urinary Catheter Management^: Rainey: Cath Placed During This Visit: yes Reason for Continuing Indwelling Catheter: Assist Healing of Perineal & Sacral Wounds- Incontinent Patients Urinary Catheter Date of Insertion: 07/23/21 Urinary Catheter Time of Insertion: 22:43 Data : 07/25/21 05:02 07/25/21 05:02 A&P Assessment and plan (1) Decompensation of cirrhosis of liver: From past history of this has been determined by previous gastroenterology evaluation to be secondary to chronic alcohol use as well as fatty liver. This appears decompensated on admission, with elevated bilirubin level INR is elevated, as expected with chronic liver disease. She follows up with Dr. Fiore, charge master specialist in [place]. MELD score is 30. No alcohol intake since April 2021 per patient. Currently she is on ceftriaxone. Although she does not have significant abdominal pain, this was started on admission possibly for prophylaxis. We will obtain a blood culture as infection could not be completely ruled out. We will also get a urine culture. Note her ammonia level was normal on admission Status: Acute (2) Acute kidney failure: Renal function has slowly worsened, while inpatient. She did get initial fluids in the ER. Aldactone, but not Lasix was continued Blood pressures have been somewhat soft, usually in the 90s systolic. Cannot rule out hepatorenal syndrome at this time Initiate midodrine, as well as albumin. [id number] cc bolus x1. She does not look significantly fluid overloaded currently. If renal function does not improve, consider nephrology consultation Check renal ultrasound Avoid renal toxic medications Status: Acute (3) Hyponatremia: Sodium is relatively stable currently, slightly up from admission Getting a small saline bolus today Recheck tomorrow No fluid restriction, or diuretics currently secondary to her renal failure Status: Acute (4) Hypokalemia: Supplement orally Magnesium was checked today and normal Status: Acute (5) Generalized weakness: May be secondary to her comorbidities Physical therapy and Occupational Therapy consultations are ongoing. Status: Acute (6) Anemia: Continue GI prophylaxis Repeat CBC tomorrow Consider transfusion if hemoglobin less than 7 or patient's symptomatic Anemia panel Fecal Hemoccult Status: Acute Additional A&P Information Full code Anticoagulation contraindicated secondary to significant anemia, elevated INR. SCDs are used. Attestations Medical Necessity Statement*: Will need continued hospitalization secondary to significant renal failure, possible hepatorenal syndrome Coding Level of Care Code Acute [place] for Karli Medina Diagnoses Decompensation of cirrhosis of liver K72.90; K74.60 Acute kidney failure N17.9 Hyponatremia E87.1 Hypokalemia E87.6 Generalized weakness R53.1 Anemia D64.9
[2021-07-25] MEDS: sodium chloride 0.9% 500 ML 999 ML IV (13:45)
[2021-07-25 13:55] LABS: Ferritin 960 ng/mL (15-150); Iron 47 ug/dL (37-145)
[2021-07-25 14:09] LABS: Vitamin B12 769 pg/mL (232-1245)
[2021-07-25 15:33] LABS: Osmolality Urine 330 mOsm/kg (50-1200)
[2021-07-25 19:01] LABS: Unsaturated Iron Binding < 17 ug/dL (112-347)
[2021-07-25] MEDS: acetaminophen 325 mg Tablet 650 MG PO (22:22)
[2021-07-26] VITALS (9 sets, daily range): BP systolic 102–117; BP diastolic 58–70; PULSE 86–100; RESP 17–18; TEMP 36.5–36.7; O2SAT 91–98
[2021-07-26] MEDS: cefTRIAXone 1,000 MG in sodium chloride 0.9% (plus) 50 ML 100 MG IV ×2 (05:52→17:48)
--- NOTE | 2021-07-26 06:00 | US_ITS ---
WS: [id number] RENAL ULTRASOUND HISTORY: renal failure COMPARISON: None available. TECHNIQUE: 2-D and color Doppler imaging of the kidney submitted. Right kidney: 12.3 cm x 6.8 cm x 4.5 cm. Normal echogenicity with no hydronephrosis or mass. Left kidney: 13.0 cm x 6.6 cm x 5.2 cm. Normal echogenicity with no hydronephrosis or mass. Aorta: Not visualized. Urinary Bladder: Rainey catheter in place. The urinary bladder is not distended. There is a small amount of ascites within the abdomen. Greatest in Morison's pouch and around the RIG HT kidney. US/US renal BI* [id number] IMPRESSION: 1. Normal renal ultrasound with no hydronephrosis. 2. Small amount of ascites.
[2021-07-26 07:29] LABS: Basophils % 0.4 %; Eosinophils # 0.7 10^3/uL (0.0-0.8); Eosinophils % 5.9 %; Hematocrit 23.5 % (37.0-47.0); Hemoglobin 7.8 g/dL (11.5-15.3); Lymphocytes # 1.7 10^3/uL (0.8-4.8); Lymphocytes % 15.4 %; Mean Corpuscular HGB Conc 33.2 g/dL (30.0-36.0); Mean Corpuscular Hemoglobin 32.2 pg (28.0-34.0); Mean Corpuscular Volume 97.1 fl (81-99); Monocytes # 1.1 10^3/uL (0.2-0.9); Monocytes % 9.5 %; Neutrophils # 7.71 10^3/uL (1.8-7.7); Neutrophils % 68.1 %; Nucleated Red Blood Cells % 0 %; Platelet Count 152 10^3/cmm (130-400); Red Blood Count 2.42 10^6/uL (4.1-5.3); Red Cell Distribution Width 17.8 % (12.1-15.1); White Blood Count 11.3 10^3/uL (4.0-10.0)
[2021-07-26 07:55] LABS: Alanine Aminotransferase 17 U/L (0-33); Albumin Level 3.1 g/dL (3.5-5.2); Alkaline Phosphatase 165 IU/L (35-105); Anion Gap 15.6 (5-19); Aspartate Amino Transferase 48 U/L (0-32); Blood Urea Nitrogen 14 mg/dL (6-20); Calcium 8.5 mg/dL (8.5-10.5); Carbon Dioxide 26 mmol/L (22-29); Chloride 88 mmol/L (98-107); Globulin 3.2 g/dL (1.3-4.6); Glomerular Filtration Rate 29.8 mL/min (90-130); Glucose 79 mg/dL (65-115); Osmolality Calculated 261 mOsm/kg (285-295); Potassium 3.6 mmol/L (3.5-5.1); Sodium 126 mmol/L (136-145); Total Bilirubin 6.2 mg/dL (0.15-1.2); Total Protein 6.3 g/dL (6.6-8.7)
[2021-07-26] MEDS: levothyroxine 125 mcg Tablet PO (08:26)
[2021-07-26] MEDS: midodrine 5 mg TABLET 10 MG PO ×3 (08:26→20:15)
[2021-07-26] MEDS: folic acid 1 mg Tablet PO (08:26)
[2021-07-26] MEDS: pantoprazole DR 40 mg Tablet PO (08:26)
--- NOTE | 2021-07-26 10:31 | P.PN_ITS ---
Subjective Subjective: Interval history: Feels better today. Less weak. Able to get up better. Think she could potentially go home with home health when she discharges. Urinating okay. Medications: Reviewed: Yes Vitals/I&O/Wt Last Vital Signs Temp 98.0 F 07/26/21 08:00 Pulse 98 07/26/21 08:00 Resp 18 07/26/21 08:00 BP 117/70 07/26/21 08:00 Pulse Ox 98 07/26/21 08:00 07/25/21 07/26/21 07/26/21 22:59 06:59 14:59 Intake Total 630 / 1950 390 / 2340 Output Total 250 / 250 680 / 930 Balance 380 / 1700 -290 / 1410 Weight last 48 hrs Weight 128.82 kg Physical Exam Narrative: EXAM NARRATIVE: General exam no distress Neck is supple Cardiovascular regular rate and rhythm without murmur Lungs clear Abdomen is soft. Positive bowel sounds. Obese. No obvious fluid wave. Extremities 1+ edema bilaterally Urinary Catheter Management^: Rainey: Cath Placed During This Visit: yes Reason for Continuing Indwelling Catheter: Assist Healing of Perineal & Sacral Wounds- Incontinent Patients Urinary Catheter Date of Insertion: 07/23/21 Urinary Catheter Time of Insertion: 22:43 Data : 07/26/21 06:29 07/26/21 06:29 Micro: Microbiology 07/25/21 13:08 Blood Culture - Preliminary Blood SPECIMEN COLLECTED 07/25/21 13:06 Blood Culture - Preliminary Blood SPECIMEN COLLECTED Other data: Renal ultrasound no obstruction A&P Assessment and plan (1) Decompensation of cirrhosis of liver: From past history of this has been determined by previous gastroenterology evaluation to be secondary to chronic alcohol use as well as fatty liver. This appears decompensated on admission, with elevated bilirubin level INR is elevated, as expected with chronic liver disease. She follows up with Dr. Fiore, telephone services sales representative in [place]. MELD score is 30. No alcohol intake since April 2021 per patient. Currently she is on ceftriaxone. Although she does not have significant abdominal pain, this was started on admission possibly for prophylaxis. Blood and urine culture have now been obtained Note her ammonia level was normal on admission Status: Acute (2) Acute kidney failure: Renal function seems to have stabilized over the last 24 hours on albumin and midodrine. Blood pressure has improved on midodrine Continue both midodrine and albumin, monitoring renal function for significant improvement Cannot rule out hepatorenal syndrome at this time If renal function does not improve as expected, consider nephrology consultation Avoid renal toxic medications Status: Acute (3) Hyponatremia: Sodium is relatively stable currently, slightly up from admission No fluid restriction, or diuretics currently secondary to her renal failure Status: Acute (4) Hypokalemia: Resolved Magnesium was checked and normal Status: Acute (5) Generalized weakness: May be secondary to her comorbidities Physical therapy and Occupational Therapy consultations are ongoing. Status: Acute (6) Anemia: Continue GI prophylaxis Repeat CBC tomorrow Consider transfusion if hemoglobin less than 7 or patient's symptomatic Mild decrease in folate noted on anemia panel. Folate started Fecal Hemoccult pending Status: Acute Additional A&P Information Full code Anticoagulation contraindicated secondary to significant anemia, elevated INR. SCDs are used. Attestations Medical Necessity Statement*: Needs continued hospitalization secondary to acute kidney injury in the face of hepatic failure Coding Level of Care Code Acute [employer] [facility] Diagnoses Decompensation of cirrhosis of liver K72.90; K74.60 Acute kidney failure N17.9 Hyponatremia E87.1 Hypokalemia E87.6 Generalized weakness R53.1 Anemia D64.9
[2021-07-26] MEDS: acetaminophen 325 mg Tablet 650 MG PO (21:55)
[2021-07-27] VITALS (8 sets, daily range): BP systolic 95–133; BP diastolic 56–73; PULSE 82–105; RESP 16–18; TEMP 36.5–36.9; O2SAT 92–96; BMI 48.7
[2021-07-27] MEDS: cefTRIAXone 1,000 MG in sodium chloride 0.9% (plus) 50 ML 100 MG IV ×2 (05:30→17:58)
[2021-07-27 06:13] LABS: Basophils # 0.1 10^3/uL (0.0-0.1); Basophils % 0.5 %; Eosinophils # 0.6 10^3/uL (0.0-0.8); Hematocrit 23.2 % (37.0-47.0); Hemoglobin 7.8 g/dL (11.5-15.3); Lymphocytes # 1.7 10^3/uL (0.8-4.8); Mean Corpuscular HGB Conc 33.6 g/dL (30.0-36.0); Mean Corpuscular Hemoglobin 32.1 pg (28.0-34.0); Mean Corpuscular Volume 95.5 fl (81-99); Mean Platelet Volume 9.8 fL (7.4-10.4); Monocytes # 1.1 10^3/uL (0.2-0.9); Monocytes % 11.6 %; Neutrophils # 6.25 10^3/uL (1.8-7.7); Neutrophils % 63.9 %; Nucleated Red Blood Cells % 0 %; Platelet Count 148 10^3/cmm (130-400); Red Blood Count 2.43 10^6/uL (4.1-5.3); Red Cell Distribution Width 17.8 % (12.1-15.1); White Blood Count 9.8 10^3/uL (4.0-10.0)
[2021-07-27 06:39] LABS: Alanine Aminotransferase 14 U/L (0-33); Albumin Level 3.2 g/dL (3.5-5.2); Alkaline Phosphatase 142 IU/L (35-105); Anion Gap 17.6 (5-19); Aspartate Amino Transferase 38 U/L (0-32); Blood Urea Nitrogen 13 mg/dL (6-20); Calcium 8.6 mg/dL (8.5-10.5); Carbon Dioxide 25 mmol/L (22-29); Chloride 88 mmol/L (98-107); Globulin 3.3 g/dL (1.3-4.6); Glomerular Filtration Rate 31.8 mL/min (90-130); Glucose 92 mg/dL (65-115); Osmolality Calculated 264 mOsm/kg (285-295); Potassium 3.6 mmol/L (3.5-5.1); Sodium 127 mmol/L (136-145); Total Bilirubin 5.3 mg/dL (0.15-1.2); Total Protein 6.5 g/dL (6.6-8.7)
[2021-07-27] MEDS: midodrine 5 mg TABLET 10 MG PO ×3 (08:32→21:47)
[2021-07-27] MEDS: levothyroxine 125 mcg Tablet PO (08:32)
[2021-07-27] MEDS: folic acid 1 mg Tablet PO (08:33)
[2021-07-27] MEDS: pantoprazole DR 40 mg Tablet PO (08:33)
--- NOTE | 2021-07-27 09:02 | PM.PN ---
Subjective Subjective: Interval history: Talia reports she feels okay. Even stronger today. No pain. Medications: Reviewed: Yes Vitals/I&O/Wt Last Vital Signs Temp 97.8 F 07/27/21 08:00 Pulse 100 07/27/21 08:00 Resp 16 07/27/21 08:00 BP 100/62 07/27/21 08:00 Pulse Ox 96 07/27/21 08:00 07/26/21 07/27/21 07/27/21 22:59 06:59 14:59 Intake Total 890 / 1230 150 / 1380 Output Total 1400 / 1400 Balance 890 / 1230 -1250 / -20 Physical Exam Narrative: EXAM NARRATIVE: General exam no distress Neck is supple Cardiovascular regular rate and rhythm without murmur Lungs clear Abdomen is soft. Positive bowel sounds. Obese. No obvious fluid wave. Extremities trace edema bilaterally Urinary Catheter Management^: Rainey: Cath Placed During This Visit: yes Reason for Continuing Indwelling Catheter: Assist Healing of Perineal & Sacral Wounds- Incontinent Patients Urinary Catheter Date of Insertion: 07/23/21 Urinary Catheter Time of Insertion: 22:43 Data : 07/27/21 05:28 07/27/21 05:28 Micro: Microbiology 07/25/21 14:45 Urine Culture - Final Urine Catheterized 07/25/21 13:06 Blood Culture - Preliminary Blood NEGATIVE TO DATE 07/25/21 13:08 Blood Culture - Preliminary Blood NEGATIVE TO DATE A&P Assessment and plan (1) Decompensation of cirrhosis of liver: From past history of this has been determined by previous gastroenterology evaluation to be secondary to chronic alcohol use as well as fatty liver. This appears decompensated on admission, with elevated bilirubin level INR is elevated, as expected with chronic liver disease. She follows up with Dr. Fiore, trend investigator in [place]. MELD score is 30. No alcohol intake since April 2021 per patient. Currently she is on ceftriaxone. Although she does not have significant abdominal pain, this was started on admission possibly for prophylaxis. Blood and urine culture have now been obtained and negative to date Note her ammonia level was normal on admission Status: Acute (2) Acute kidney failure: Renal function slightly better today. If it continues to improve consider discontinuing albumin and possibly midodrine tomorrow Holding diuretics Cannot rule out hepatorenal syndrome at this time Avoid renal toxic medications Continue Rainey currently. If renal function improves by tomorrow discontinue. Status: Acute (3) Hyponatremia: Sodium slightly improved No fluid restriction, or diuretics currently secondary to her renal failure Status: Acute (4) Hypokalemia: Resolved Magnesium was checked and normal Status: Acute (5) Generalized weakness: May be secondary to her comorbidities Physical therapy and Occupational Therapy consultations are ongoing. Status: Acute (6) Anemia: Continue GI prophylaxis Hemoglobin stable currently, 7.8 Consider EGD as an outpatient to screen for varices Mild decrease in folate noted on anemia panel. Folate started Fecal Hemoccult pending Status: Acute Additional A&P Information Full code Anticoagulation contraindicated secondary to significant anemia, elevated INR. SCDs are used. Possible discharge tomorrow depending upon renal function, blood pressure, etc. Attestations Medical Necessity Statement*: Needs can continued close follow-up for concern of acute kidney injury with injury in the face of liver failure Coding Level of Care Code Acute Permit Review Assistant for [facility] Diagnoses Decompensation of cirrhosis of liver K72.90; K74.60 Acute kidney failure N17.9 Hyponatremia E87.1 Hypokalemia E87.6 Generalized weakness R53.1 Anemia D64.9
--- NOTE | 2021-07-27 10:11 | PC.CHAP ---
Pastoral Care Encounter/Spiritual Assessment Type of Contact [] Declined die forger visit [] Patient/Family/Request visit [] Outpatient visit [] Follow-up visit [] Physician referral [] Code/Alert [x] Routine visit [] Staff referral [] Actively dying [] Patient sleeping [] Family support [] [] Out of room [] Palliative care [] [] Receiving care in room [] Pre-surgical visit [] Trauma [] Long length of stay [] ICU visit [] Other: Relational/Emotional Strength [x] Patient feels connected with others/family/visitors/staff [] Distress [] Loneliness/isolation [] Abandonment Spirituality of Patient [x] Person of Linn [] Attends Anabaptist of their Linn [x] Believes in Prayer [] Reads Bible or Mormonism materials [] There are Spiritual issues to be addressed Water Plumber Interventions [x] Prayer [x] Active listening [x] Non-anxious presence [x] Spiritual/emotional support [] Crisis/trauma care [] Spiritual counseling [] Bereavement support [] Provided bereavement packet [] Provided Bible/devotional materials [] Provided toy/stuffed animal, coloring book to patient or family member [] Provided Communion [] Anointing/[place] [] Salvation x Completed spiritual assessment [] Other: Impact on Illness or Injury [] Angry [] Fearful [] Anxious [] Often cries [] Exhaustion [] Unable to work [x]x Unable to attend yazdanism [x] Unable to walk/stand [] Unable to read [] Unable to drive [] Unable to eat/drink [] Unable to sleep [] Unable to be with family [] Patient intubated [] Other: Summary Time spent with patient 1`0 min
--- NOTE | 2021-07-27 19:23 | PC.NURSE ---
Report to shift mechanic nurse at this time.
[2021-07-28] VITALS: BP 115/64; PULSE 106; RESP 18; TEMP 36.6; O2SAT 94
[2021-07-28 04:00] VITALS: BP 116/70; PULSE 105; RESP 18; TEMP 36.7; O2SAT 95
[2021-07-28 05:06] LABS: Basophils # 0.1 10^3/uL (0.0-0.1); Basophils % 0.6 %; Eosinophils # 0.8 10^3/uL (0.0-0.8); Eosinophils % 7.6 %; Hematocrit 22.8 % (37.0-47.0); Hemoglobin 7.7 g/dL (11.5-15.3); Lymphocytes # 1.7 10^3/uL (0.8-4.8); Lymphocytes % 15.9 %; Mean Corpuscular HGB Conc 33.8 g/dL (30.0-36.0); Mean Corpuscular Hemoglobin 32.2 pg (28.0-34.0); Mean Corpuscular Volume 95.4 fl (81-99); Mean Platelet Volume 9.9 fL (7.4-10.4); Monocytes # 1.3 10^3/uL (0.2-0.9); Monocytes % 12.4 %; Neutrophils # 6.47 10^3/uL (1.8-7.7); Neutrophils % 62.2 %; Nucleated Red Blood Cells % 0 %; Platelet Count 153 10^3/cmm (130-400); Red Blood Count 2.39 10^6/uL (4.1-5.3); Red Cell Distribution Width 18.1 % (12.1-15.1); White Blood Count 10.4 10^3/uL (4.0-10.0)
[2021-07-28 05:30] LABS: Alanine Aminotransferase 13 U/L (0-33); Albumin Level 3.7 g/dL (3.5-5.2); Alkaline Phosphatase 136 IU/L (35-105); Anion Gap 17.6 (5-19); Aspartate Amino Transferase 36 U/L (0-32); Blood Urea Nitrogen 12 mg/dL (6-20); Calcium 8.9 mg/dL (8.5-10.5); Carbon Dioxide 25 mmol/L (22-29); Chloride 90 mmol/L (98-107); Glomerular Filtration Rate 36.8 mL/min (90-130); Glucose 92 mg/dL (65-115); Osmolality Calculated 267 mOsm/kg (285-295); Potassium 3.6 mmol/L (3.5-5.1); Sodium 129 mmol/L (136-145); Total Bilirubin 5.1 mg/dL (0.15-1.2); Total Protein 6.7 g/dL (6.6-8.7)
[2021-07-28 06:00] VITALS: PULSE 102
[2021-07-28 08:00] VITALS: BP 128/74; PULSE 115; RESP 18; TEMP 36.5; O2SAT 94
[2021-07-28] MEDS: cefTRIAXone 1,000 MG in sodium chloride 0.9% (plus) 50 ML 100 MG IV (08:00)
[2021-07-28] MEDS: folic acid 1 mg Tablet PO (08:41)
[2021-07-28] MEDS: pantoprazole DR 40 mg Tablet PO (08:41)
[2021-07-28] MEDS: levothyroxine 125 mcg Tablet PO (08:41)
[2021-07-28] MEDS: midodrine 5 mg TABLET PO (08:42)
--- NOTE | 2021-07-28 10:00 | PC.NURSE ---
Patient's Rainey Catheter removed intact at this time. Patient tolerated well.
[2021-07-28 12:00] VITALS: BP 127/73; PULSE 102; RESP 18; TEMP 36.8; O2SAT 96
--- NOTE | 2021-07-28 12:53 | PM.DCS ---
Discharge Providers Date of Admission: 07/24/21 00:11 Date of Discharge: July 28, 2021 Attending Provider at Admission: Diamond Delgado Attending Provider at Discharge: Al Alejandra MD Diagnoses at Discharge Discharge Diagnosis (1) Decompensation of cirrhosis of liver: Status: Acute (2) Acute kidney failure: Status: Acute (3) Hyponatremia: Status: Acute (4) Hypokalemia: Status: Acute (5) Generalized weakness: Status: Acute (6) Anemia: Status: Acute Reason for Visit Reason for Visit: GENERAL WEAKNESS Hospital Course Hospital Course Talia is a 51-year-old white female with history of liver disease who presented to the hospital with significant weakness. She did not have abdominal discomfort. Anemia was discovered with hemoglobin around 8 on admission. She was placed on IV antibiotics prophylactically. There was no obvious easily obtained ascitic fluid to rule out SBP. Blood cultures were drawn. Secondary to some acute kidney injury also present diuretics were held. There was possibility of hepatorenal syndrome so midodrine, as well as albumin was initiated. Over the course of her hospital stay initial hypotension improved, renal function slowly improved, and by July 28 it was thought she could be discharged to home. She will finish at least 5 more days of Cipro, have a CBC and BMP in 4 days, close follow-up with her primary care provider as well as her agricultural equipment salesperson. also wanted me to look at her left axilla which she had had some bumps that are going on for quite some time with occasional drainage. This appears to be hidradenitis suppurativa, but I counseled them to follow-up with her primary care provider regarding further instructions. Renal ultrasound was also done while in the hospital which showed no obstruction. I discussed with him to avoid anti-inflammatories, take all medicine as directed, weigh daily, fluid restriction and diuretics would likely need to be readded in the coming week as directed by their primary. I discussed with them that she may need an EGD for screening for esophageal varices in the near future. Physical Exam Narrative: EXAM NARRATIVE: General exam no distress Neck is supple Cardiovascular regular rate and rhythm without murmur. She was not tachycardic Lungs clear Abdomen is soft, nontender Extremities no cyanosis clubbing or edema Urinary Catheter Management^: Rainey: Cath Placed During This Visit: yes, but has since been removed by the nurse Reason for Continuing Indwelling Catheter: Decision to DC Catheter Urinary Catheter Date of Insertion: 07/23/21 Urinary Catheter Time of Insertion: 22:43 Date Urinary Catheter Removed: 07/28/21 Time Urinary Catheter Discontinued: 10:00 Discharge Data Data Completed and Pending: Completed Studies During Hospitalization Category Date Time Status XR chest 1V jasmin ble [id number] Stat Exams 07/23/21 23:14 Completed US liver [id number] Ro utine Ultrasound 07/24/21 08:45 Completed US renal BI* [id number] Routine Ultrasound 07/26/21 06:00 Completed Pending at discharge Category Date Time Status Blood Culture Sta t Lab 07/25/21 13:08 Results Immunochemical Fe edith OCB Routine Lab 07/25/21 12:14 Uncollected Labs from last 24 hours 07/28/21 07/28/21 04:32 04:32 WBC 10.4 H RBC 2.39 L Hgb 7.7 L Hct 22.8 L MCV 95.4 MCH 32.2 MCHC 33.8 RDW 18.1 H Plt Count 153 MPV 9.9 Neut % (Auto) 62.2 Lymph % (Auto) 15.9 [place] % (Auto) 12.4 Eos % (Auto) 7.6 Baso % (Auto) 0.6 Neut # (Auto) 6.47 Lymph # (Auto) 1.7 [place] # (Auto) 1.3 H Eos # (Auto) 0.8 Baso # (Auto) 0.1 Nucleated RBC % (a uto) 0 Nucleated RBCs # 0.0 Sodium 129 L Potassium 3.6 Chloride 90 L Carbon Dioxide 25 Anion Gap 17.6 BUN 12 Creatinine 1.5 H GFR Calculation 36.8 L Glucose 92 Calculated Osmolal ity 267 L Calcium 8.9 Total Bilirubin 5.1 H AST 36 H ALT 13 Alkaline Phosphata se 136 H Total Protein 6.7 Albumin 3.7 Globulin 3.0 Vitals: Last Vital Signs Temp 97.7 F 07/28/21 08:00 Pulse 115 H 07/28/21 08:00 Resp 18 07/28/21 08:00 BP 128/74 07/28/21 08:00 Pulse Ox 94 07/28/21 08:00 Discharge Plan Discharge Patient Disposition: Home Condition: Stable Prescriptions: New pantoprazole 40 mg Tablet,Delayed Release (Dr/Ec) 40 mg PO DAILY Qty: 30 RF: 0 ciprofloxacin HCl [Cipro] 500 mg tablet 500 mg PO BID Qty: 10 RF: 0 Continued Euthyrox 125 mcg tablet 125 mcg PO DAILY RF: 0 Discontinued furosemide 40 mg tablet 40 mg PO DAILY RF: 0 spironolactone 25 mg tablet 50 mg PO DAILY RF: 0 Discharge Orders: Discharge Order (Routine); Ordered 07/28/21 Ordered By: Al Alejandra Discharge Diet: Regular Discharge Activity: Increase activity as tolerated Patient Instructions: Opioid Safety Activity Restrictions/Additional Instructions: Take all medicine as prescribed Follow-up as directed Consider EGD in the future, with history of anemia esophageal varices will need to be ruled out Weigh yourself daily CBC, CMP per [facility] August 01 Follow-up with Dr. Fiore, your hepatology/c.o.d. biller in [place] on August 09 Follow-up with your primary care provider in the next week, moving up appointment if possible. Note that your blood work will need to go to your primary care provider that you are having drawn on Sunday. Discharge Attestations Time Spent in Discharge Care*: greater than 30 min Quality Metrics Clinical Quality Measures During this hospital stay, did patient experience: None Coding Level of Care Code Acute Chg FW DC note Diagnoses Decompensation of cirrhosis of liver K72.90; K74.60 Acute kidney failure N17.9 Hyponatremia E87.1 Hypokalemia E87.6 Generalized weakness R53.1 Anemia D64.9
[2021-07-28 14:50] VITALS: BP 127/73; PULSE 102; RESP 18; TEMP 36.8; O2SAT 96
--- NOTE | 2021-07-28 14:51 | PC.NURSE ---
IV removed intact. Patient tolerated well. Patient is A&Ox3. Respirations even and non-labored on room air. Reviewed patient discharge with patient and at this time. Patient and verbalized understanding of discharge instructions including follow up appointments and medications. Patient assisted into wheel chair and pushed to private car.
== END 2021-07-28 14:30 | disposition home or self-care (01) | DRG 441 ==
LOC: ER 07-24 00:05 → MEDSURG 07-24 00:12
PROVIDERS: Family Medicine; Admitting Provider Hospitalist; Emergency Provider Emergency Medicine; Visit Provider Internal Medicine
DX: K72.90 Hepatic failure, unspecified without coma (principal); K76.7 Hepatorenal syndrome; N17.9 Acute kidney failure, unspecified; E87.1 Hypo-osmolality and hyponatremia; E87.6 Hypokalemia; D64.9 Anemia, unspecified; K76.0 Fatty (change of) liver, not elsewhere classified; E03.9 Hypothyroidism, unspecified; F10.20 Alcohol dependence, uncomplicated; K21.9 Gastro-esophageal reflux disease without esophagitis; Z98.84 Bariatric surgery status; K70.31 Alcoholic cirrhosis of liver with ascites; I95.9 Hypotension, unspecified; L73.2 Hidradenitis suppurativa
CPT/HCPCS: 12345; 36415; 51702; 71045; 76705; 76770; 76857; 80048; 80053; 81001; 82140; 82436; 82550; 82607; 82728; 82746; 83540; 83550; 83605; 83735; 83935; 84145; 84300; 84439; 84443; 85025; 85610; 85730; 87040; 87086; 87635; 93005; 94664; 96360; 97110; 97116; 97161; 97167; 97530; 99285; J0696; J3480; J7040; J7131; P9047

== ENCOUNTER 2021-08-13 18:49 | Inpatient (IN) | payer BC, SELFPAY ==
[2021-08-13 19:04] VITALS: BP 100/59; PULSE 103; RESP 22; TEMP 36.6; O2SAT 99; BMI 52.3
--- NOTE | 2021-08-13 19:19 | XRR_ITS ---
PROCEDURE INFORMATION: Exam: XR Chest Exam date and time: 08/13/2021 7:19 PM Age: 51 years old Clinical indication: Dyspnea; Additional info: SOB, left shoulder pain TECHNIQUE: Imaging protocol: XR of the chest. Views: 1 view. COMPARISON: CR (CHEST, ) 07/23/2021 11:25 PM FINDINGS: Lungs: Hazy opacification of left lower lung is new from prior. Pleural spaces: Probable left pleural effusion. Negative for pneumothorax. Heart/Mediastinum: Unremarkable. No cardiomegaly. Bones/joints: Unremarkable. XR/XR chest 1V portable [id number] IMPRESSION: 1. Query small left pleural effusion new since comparison. 2. Left lower lobe airspace opacification is nonspecific. This may represent atelectasis or pneumonia.
--- NOTE | 2021-08-13 19:19 | ECG_ITS ---
[facility] Test Date: 2021-08-13 Pat Name: Talia Randhawa Department: Room: 255 Gender: Female Account Development Associate: : 1970 Requested By: Jose Rolon Order Number: [id number] Lyndsey MD: Jessica Ruiz M.D. Measurements Intervals [place] Rate: 98 P: 32 SD: 140 QRS: 30 QRSD: 104 T: -20 QT: 371 QTc: 474 Interpretive Statements SINUS RHYTHM PROBABLE LATERAL MYOCARDIAL INFARCTION , OF INDETERMINATE AGE [35 ms Q WAVE IN I/aVL/V5/V6] INFERIOR MYOCARDIAL INFARCTION , OF INDETERMINATE AGE [40+ ms Q WAVE AND/OR ST/T ABNORMALITY IN II/aVF] Compared to ECG 07/23/2021 22:33:44 Myocardial infarct finding now present Sinus tachycardia no longer present T-wave abnormality no longer present Electronically Signed On 08-14-2021 17:00:17 DEPLOYMENT MANAGER by Jessica Ruiz M.D. [email or web address]
--- NOTE | 2021-08-13 19:26 | W.ED.SOB ---
HPI - SOB/Dyspnea General: Chief Complaint: ER Hold Stated Complaint: SOB Time Seen by Provider: 08/13/21 18:56 Source: patient History of Present Illness: HPI Narrative: 51-year-old female who was released from an outside facility last night. She called an ambulance to her home today because she was increasingly short of breath. She says that she was placed on oxygen by EMS, with some improvement. She is generally weak. She had been admitted for renal failure and hyponatremia at this facility a couple of weeks ago, and readmitted there for similar complaints. She states that she has gained quite a bit of water weight . She has had a cough, but no sputum production and no fever. She has a history of chronic liver disease as well MD elicited complaint: shortness of breath and cough Pertinent past history: other Onset (ago): day(s) Context: recent illness Timing: constant Severity: moderate Exacerbating factors: exertion Relieving factors: oxygen Known history of: other Associated symptoms: Reports cough; Deny abdominal pain, chest congestion, chest pain, diaphoresis, dizziness, extremity pain, fever(s), nausea or vomiting Treatment prior to arrival: oxygen Review of Systems Const: Denies: fever(s) or diaphoresis ENMT: Denies: throat pain Card: Denies: chest pain Resp: Denies: chest congestion GI: Denies: abdominal pain, nausea or vomiting Musc: Denies: extremity pain Skin/Breast: Denies: rash Neuro: Denies: dizziness [facility] ED PFSH: Medical History (Updated 08/13/21 @ 22:11 by Jose Alcantara DO) Chronic alcoholic liver disease No pertinent family history Surgical History (Updated 07/24/21 @ 06:05 by Diamond Delgado MD) No pertinent past surgical history Social History (Updated 07/24/21 @ 06:05 by Diamond Delgado MD) Smoking and tobacco status: unknown if ever smoked Alcohol intake: former Physical Exam Const: GENERAL APPEARANCE: cooperative NUTRITIONAL APPEARANCE: obese ORIENTATION/CONSCIOUSNESS: Yes awake, Yes oriented to person, Yes oriented to place and Yes oriented to time HENMT: COMMON NORMALS: normocephalic and Normal external nose present HEAD & SCALP: normocephalic FACE & SINUS: normal facial exam NOSE: Normal external nose present and Normal nares present Eye: COMMON NORMALS: Equal, round and reactive pupils present and EOMs intact bilaterally SCLERA: scleral abnormal Laterality of scleral abnormality: positive bilateral scleral icterus PUPIL: Yes Equal, round and reactive pupils present Chest: COMMONS NORMALS: normal inspection of the chest Resp: COMMON NORMALS: normal respiratory effort, No use of accessory muscles and clear to auscultation bilaterally AUSCULTATION: clear to auscultation bilaterally Cardio: COMMON NORMALS: regular rate and regular rhythm RATE: regular rate RHYTHM: regular rhythm GI: COMMON NORMALS: Soft to palpation INSPECTION: Yes Abdominal wall edema and Yes abdominal distension PALPATION: Yes Soft to palpation Extremity: GENERAL: Yes edema (3+) Neuro: SENSORIUM/ORIENTATION: Yes oriented to person, Yes oriented to place and Yes oriented to time Psych: ATTITUDE: Yes calm ACTIVITY/MOTOR BEHAVIOR: Yes appropriate eye contact Course Consultations: Consultation #Dhaval: cherelle Time: 02:03 Vital Signs: Vital signs: Vital Signs Temperature 97.8 F 08/13/21 19:04 Pulse Rate 93 08/14/21 01:02 Respiratory Rate 18 08/14/21 01:04 Blood Pressure 104/57 08/14/21 01:04 Pulse Oximetry 100 08/14/21 01:04 MDM - SOB/Dyspnea Medical Decision Making Hemoglobin is stable at 7.7. Sodium is 131. Creatinine is stable at 1.3. She is not hypoxic on her blood gas. Her saturations have been 100% on her 2 L here. She does have a small pleural effusion on chest x-ray. Her BNP is 3400, which we have no comparison for earlier. She had been taken off of her diuretics due to the acute renal failure. She says that she was placed back on them during her hospital stay at the outside facility, and took her dose, but had not urinated. She has mild mental status changes on exam. Her ammonia level is 97. 2 weeks ago was 36. She will be admitted for pulmonary edema, with oxygen dependence, and hepatic encephalopathy. Lab Data : 08/13/21 19:38 08/13/21 19:38 Labs/Radiology: Radiology Impressions Chest X-Ray 08/13/21 19:19 IMPRESSION: 1. Query small left pleural effusion new since comparison. 2. Left lower lobe airspace opacification is nonspecific. This may represent atelectasis or pneumonia. Abdomen/Pelvis CT 08/13/21 23:01 IMPRESSION: 1. Large volume ascites. 2. Negative for biliary obstruction. Laboratory Results WBC 10.3 10^3/uL (4.0-10.0) H 08/13/21 19:38 RBC 2.33 10^6/uL (4.1-5.3) L 08/13/21 19:38 Hgb 7.7 g/dL (11.5-15.3) L 08/13/21 19:38 Hct 22.8 % (37.0-47.0) L 08/13/21 19: MCV 97.9 fl (81-99) 08/13/21 19:38 MCH 33.0 pg (28.0-34.0) 08/13/21 19: MCHC 33.8 g/dL (30.0-36.0) 08/13/21 19: RDW 19.3 % (12.1-15.1) H 08/13/21 19:38 Plt Count 144 10^3/cmm (130-400) 08/13/21 19: MPV 9.1 fL (7.4-10.4) 08/13/21 19:38 Neut % (Auto) 61.1 % 08/13/21 19:38 Lymph % (Auto) 15.5 % 08/13/21 19:38 [place] % (Auto) 12.8 % 08/13/21 19:38 Eos % (Auto) 8.8 % 08/13/21 19:38 Baso % (Auto) 0.9 % 08/13/21 19:38 Neut # (Auto) 6.28 10^3/uL (1.8-7.7) 08/13/21 19:38 Lymph # (Auto) 1.6 10^3/uL (0.8-4.8) 08/13/21 19:38 [place] # (Auto) 1.3 10^3/uL (0.2-0.9) H 08/13/21 19:38 Eos # (Auto) 0.9 10^3/uL (0.0-0.8) H 08/13/21 19:38 Baso # (Auto) 0.1 10^3/uL (0.0-0.1) 08/13/21 19:38 Nucleated RBC % (auto) 0 % 08/13/21 19: Nucleated RBCs # 0.0 /100WBC 08/13/21 19:38 D-Dimer 10.99 ug/mIFEU (0-0.59) H 08/13/21 21:21 Specimen Type Arterial 08/13/21 19:56 Sample Site Radial, left 08/13/21 19:56 ABG pH 7.45 (7.35-7.45) 08/13/21 19:56 ABG pCO2 36.3 mmHg (35-45) 08/13/21 19:56 ABG pO2 98.4 mmHg (80.0-100.0) 08/13/21 19:56 ABG HCO3 25.3 mmol/L (22-26) 08/13/21 19:56 ABG Base Excess 1.3 mmol/L (-2.0-2.0) 08/13/21 19:56 Caleb Test Pos 08/13/21 19:56 Hematocrit 24.5 % (37-47) L 08/13/21 19:56 Hgb O2 Saturation 96.8 % (95-100) 08/13/21 19:56 Carboxyhemoglobin 1.5 %THgb (0.4-20.1) 08/13/21 19:56 Methemoglobin 0.6 % (0.4-1.5) 08/13/21 19:56 Total Hemoglobin 8.0 g/dL (12-16) L 08/13/21 19:56 O2 Delivery Device Nc 08/13/21 19:56 O2 Liters/Min 2.0 % 08/13/21 19:56 Slitting Machine Operator Helper ID Buttr 08/13/21 19:56 Sodium 131 mmol/L (136-145) L 08/13/21 19:38 Potassium 3.9 mmol/L (3.5-5.1) 08/13/21 19:38 Chloride 99 mmol/L (98-107) 08/13/21 19:38 Carbon Dioxide 20 mmol/L (22-29) L 08/13/21 19:38 Anion Gap 15.9 (5-19) 08/13/21 19:38 BUN 19 mg/dL (6-20) 08/13/21 19:38 Creatinine 1.3 mg/dL (0.5-0.9) H 08/13/21 19:38 GFR Calculation 43.4 mL/min (90-130) L 08/13/21 19:38 Glucose 120 mg/dL (65-115) H 08/13/21 19:38 Calculated Osmolality 275 mOsm/kg (285-295) L 08/13/21 19:38 Lactic Acid 1.3 mmol/L (0.5-2.2) 08/13/21 19:38 Calcium 8.8 mg/dL (8.5-10.5) 08/13/21 19:38 Total Bilirubin 5.3 mg/dL (0.15-1.2) H 08/13/21 19:38 AST 61 U/L (0-32) H 08/13/21 19:38 ALT 13 U/L (0-33) 08/13/21 19:38 Alkaline Phosphatase 143 IU/L (35-105) H 08/13/21 19:38 Ammonia 97 umol/L (11-51) H 08/13/21 21:21 C-Reactive Protein 37.6 mg/L (0.0-4.9) H 08/13/21 19:38 NT-Pro-B Natriuret Pep 3483 pg/mL (0-125) H 08/13/21 19:38 Total Protein 6.3 g/dL (6.6-8.7) L 08/13/21 19:38 Albumin 2.9 g/dL (3.5-5.2) L 08/13/21 19:38 Globulin 3.4 g/dL (1.3-4.6) 08/13/21 19:38 Procalcitonin 0.21 ng/mL (0-0.5) 08/13/21 19:38 Urine Color Yellow (Yellow) 08/13/21 22:43 Urine Appearance Sl cloudy (CLEAR) A 08/13/21 22:43 Urine pH 5 (5-7) 08/13/21 22:43 Ur Specific [place] 1.015 (1.005-1.030) 08/13/21 22:43 Urine Protein Neg (Negative) 08/13/21 22:43 Urine Glucose (UA) Norm (Normal) 08/13/21 22:43 Urine Ketones Negative (Negative) 08/13/21 22:43 Urine Blood Trace (Negative) H 08/13/21 22:43 Urine Nitrate Negative (Negative) 08/13/21 22:43 Urine Bilirubin 1+ (Negative) H 08/13/21 22:43 Urine Urobilinogen Norm mg/dL (Negative) 08/13/21 22:43 Ur Leukocyte Esterase 2+ (Negative) H 08/13/21 22:43 Urine RBC 5-10 /hpf (0-2) H 08/13/21 22:43 Urine WBC >100 /hpf (0-5) H 08/13/21 22:43 Ur Squamous Epith Cells 5-10 /hpf (0-5) H 08/13/21 22:43 Amorphous Sediment Not Reportable 08/13/21 22:43 Urine Bacteria 1+ /hpf (NONE) H 08/13/21 22:43 Hyaline Casts 0-4 /lpf H 08/13/21 22:43 Urine Yeast 2+ /hpf H 08/13/21 22:43 SARS-CoV-2 Ag (Rapid) Negative (Negative) 08/13/21 19:35 Discharge Plan Discharge Patient Disposition: Admitted As Inpatient Clinical Impression: Acute hepatic encephalopathy, Pulmonary edema, Acute hypoxemic respiratory failure Condition: Stable Coding Level of Care Code ED Licensed Life And Health Agent for Karli Fwd Exam Comprehensive
[2021-08-13 20:02] LABS: Basophils # 0.1 10^3/uL (0.0-0.1); Basophils % 0.9 %; Eosinophils # 0.9 10^3/uL (0.0-0.8); Eosinophils % 8.8 %; Hematocrit 22.8 % (37.0-47.0); Hemoglobin 7.7 g/dL (11.5-15.3); Lymphocytes # 1.6 10^3/uL (0.8-4.8); Lymphocytes % 15.5 %; Mean Corpuscular HGB Conc 33.8 g/dL (30.0-36.0); Mean Corpuscular Volume 97.9 fl (81-99); Mean Platelet Volume 9.1 fL (7.4-10.4); Monocytes # 1.3 10^3/uL (0.2-0.9); Monocytes % 12.8 %; Neutrophils # 6.28 10^3/uL (1.8-7.7); Neutrophils % 61.1 %; Nucleated Red Blood Cells % 0 %; Platelet Count 144 10^3/cmm (130-400); Red Blood Count 2.33 10^6/uL (4.1-5.3); Red Cell Distribution Width 19.3 % (12.1-15.1); White Blood Count 10.3 10^3/uL (4.0-10.0)
[2021-08-13 20:08] LABS: ABG PCO2 36.3 mmHg (35-45); ABG PH Result 7.45 (7.35-7.45); Arterial Blood Gas Hematocrit 24.5 % (37-47); Base Excess ABG 1.3 mmol/L (-2.0-2.0); Blood Gas Allen Test Pos; Blood Gas Sample Site Radial, left; Blood Gas Sample Type Arterial; Carboxyhemoglobin 1.5 %THgb (0.4-20.1); HCO3 ABG 25.3 mmol/L (22-26); HGB O2 Sat 96.8 % (95-100); Methemoglobin 0.6 % (0.4-1.5); Oxygen Device NC; PO2 ABG 98.4 mmHg (80.0-100.0)
[2021-08-13 20:28] LABS: Lactic Sepsis W/Reflex 1.3 mmol/L (0.5-2.2)
[2021-08-13 20:33] LABS: SARS Covid-2 Antigen Negative (Negative)
[2021-08-13 20:38] LABS: NT Pro B Type Natriuretic Pept 3483 pg/mL (0-125); Procalcitonin 0.21 ng/mL (0-0.5)
[2021-08-13 20:49] LABS: Alanine Aminotransferase 13 U/L (0-33); Albumin Level 2.9 g/dL (3.5-5.2); Alkaline Phosphatase 143 IU/L (35-105); Anion Gap 15.9 (5-19); Aspartate Amino Transferase 61 U/L (0-32); Blood Urea Nitrogen 19 mg/dL (6-20); C Reactive Protein 37.6 mg/L (0.0-4.9); Calcium 8.8 mg/dL (8.5-10.5); Carbon Dioxide 20 mmol/L (22-29); Chloride 99 mmol/L (98-107); Globulin 3.4 g/dL (1.3-4.6); Glomerular Filtration Rate 43.4 mL/min (90-130); Glucose 120 mg/dL (65-115); Osmolality Calculated 275 mOsm/kg (285-295); Potassium 3.9 mmol/L (3.5-5.1); Sodium 131 mmol/L (136-145); Total Bilirubin 5.3 mg/dL (0.15-1.2); Total Protein 6.3 g/dL (6.6-8.7)
[2021-08-13 21:45] LABS: Ammonia 97 umol/L (11-51)
[2021-08-13 21:59] LABS: D Dimer 10.99 ug/mIFEU (0-0.59)
--- NOTE | 2021-08-13 23:01 | CTR_ITS ---
PROCEDURE INFORMATION: Exam: CT Abdomen And Pelvis With Contrast Exam date and time: 08/13/2021 11:01 PM Age: 51 years old Clinical indication: Condition or disease; Prior surgery; Surgery date: 6+ months; Surgery type: Hyst, gastric bypass; Patient HX: Known liver disease, ascites, distention; Additional info: Ascites hyperbilirubinemia, per Dr. Gaspar TECHNIQUE: Imaging protocol: Computed tomography of the abdomen and pelvis with contrast. Radiation optimization: All CT scans at this facility use at least one of these dose optimization techniques: automated exposure control; mA and/or kV adjustment per patient size (includes targeted exams where dose is matched to clinical indication); or iterative reconstruction. Contrast material: VISI 320; Contrast volume: 95 ml; Contrast route: INTRAVENOUS (IV); COMPARISON: [place] liver [id number] 07/24/2021 1:07 PM RADIATION DOSE METRICS: Total DLP (mGy-cm): 1963.69 FINDINGS: Tubes, catheters and devices: Rainey catheter present. Lungs: Left lower lobe compressive atelectasis. Pleural spaces: Moderate volume left pleural effusion. Liver: Normal. No mass. Gallbladder and bile ducts: Cholelithiasis. No inflammatory gallbladder wall thickening. Negative for biliary system dilation. Pancreas: Atrophic pancreas. Spleen: Normal. No splenomegaly. Adrenal glands: Normal. No mass. Kidneys and ureters: Normal. No hydronephrosis. Stomach and bowel: Surgical change to the proximal stomach. Probable gastric bypass surgery. Negative for bowel obstruction. Negative for bowel perforation. Diverticulosis coli. Appendix: No evidence of appendicitis. Intraperitoneal space: Large volume diffuse ascites without loculation. No free air. Vasculature: Unremarkable. No abdominal aortic aneurysm. Lymph nodes: Unremarkable. No enlarged lymph nodes. Urinary bladder: Decompressed bladder. Reproductive: Hysterectomy. Bones/joints: Unremarkable. No acute fracture. Soft tissues: Body wall anasarca. CT/CT abdomen pelvis w con* [id number] IMPRESSION: 1. Large volume ascites. 2. Negative for biliary obstruction.
[2021-08-13] MEDS: FUROsemide 10 mg/mL SDV 10mL 80 MG IVP (23:20)
[2021-08-13 23:24] LABS: Bilirubin Urine 1+ (Negative); Blood Urine Trace (Negative); Glucose Urine UA Norm (Normal); Ketones Urine Negative (Negative); Nitrate Urine Negative (Negative); Protein Urine Neg (Negative); Specific Gravity, Urine 1.015 (1.005-1.030); Urine Color Yellow (Yellow); Urobilinogen Urine Norm (Negative); pH Urine 5 (5-7)
[2021-08-13 23:25] VITALS: BP 98/71; PULSE 80; RESP 38; O2SAT 100
[2021-08-13 23:25] LABS: Add Urine Microscopic? YES; Leukocyte Esterase Urine 2+ (Negative)
[2021-08-13 23:36] LABS: Add Urine Culture? Yes; Bacteria Urine 1+ /hpf; Hyaline Casts Urine 0-4 /lpf; Other Sediment, Urine BUD YEAST W/HYPHAE; WBC Urine >100 /hpf (0-5)
[2021-08-13] MEDS: iodixanol 320 mg/mL 100mL Btl IV (23:38)
[2021-08-14] VITALS (9 sets, daily range): BP systolic 96–115; BP diastolic 55–76; PULSE 72–105; RESP 18–87; TEMP 36.7–36.9; O2SAT 95–100
--- NOTE | 2021-08-14 01:48 | PM.HP ---
Providers/Chief Complaint Chief Complaint: SOB History of Present Illness Talia Randhawa is a 51 year old female With past medical history of decompensated liver cirrhosis likely secondary to alcohol use disorder, hypothyroidism came in with chief complaint of , worsening shortness of breath, generalized weakness, confusion, worsening bilateral lower extremity edema, she was discharged from [facility] likely after being managed for KAT yesterday, came in today as she continued to feel bad. She denies any fever, abdominal pain , nausea vomiting. Upon arrival in the ER she was worked up for above-mentioned complaint: Pertinent imaging studies: CT abdomen pelvis w con:Large volume ascites. Left lower lobe compressive atelectasis.Moderate volume left pleural effusion. Xray Chest : 1. Query small left pleural effusion new since comparison. Left lower lobe airspace opacification is nonspecific. This may represent atelectasis or pneumonia. Pertinent labs: WBC 10.3, H&H 7.7 / 22.8 , plt : 144 , serum sodium 131, serum potassium 3.9, BUN serum creatinine 19/ 1.3, Total bilirubin 5.3, AST 61 ALT 13 ALP 143, proBNP 3483, procalcitonin 0.21, serum ammonia 96 D-dimer 10.99 ABG: pH 7.45 PCO2 36, PO2 98.4 Urinalysis dirty: Rapid Covid negative She received 80 of Lasix IV one-time dose in the ER Review of Systems General: Reports: 10 or more systems reviewed and unremarkable except in HPI and below Const: Denies: fever(s), chills, body aches, change in appetite or diaphoresis Resp: Denies: wheezing or pain on inspiration GI: Denies: abdominal pain, nausea, vomiting, diarrhea or constipation : Denies: flank pain Musc: Denies: back pain or extremity pain Neuro: Denies: headache(s), difficulty walking or confusion Medications/Allergies Home Medications Medication Instructions Recorded Confirmed Last Taken Type levothyroxine 125 mcg tablet 125 mcg PO DAILY 07/24/21 07/24/21 Unknown History (Euthyrox) ciprofloxacin HCl 500 mg tablet 500 mg PO BID #10 tab 07/28/21 Unknown Rx (Cipro) pantoprazole 40 mg tablet,delayed 40 mg PO DAILY #30 tab 07/28/21 Unknown Rx release Allergies Allergy/AdvReac Type Severity Reaction Status Date / Time No Known Allergies Allergy Verified 07/23/21 22:07 PFSH Acute PFSH: Medical History (Updated 08/14/21 @ 02:33 by Phillip Gaspar MD) Chronic alcoholic liver disease No pertinent family history Surgical History (Updated 07/24/21 @ 06:05 by Diamond Delgado MD) No pertinent past surgical history Social History (Updated 07/24/21 @ 06:05 by Diamond Delgado MD) Smoking and tobacco status: unknown if ever smoked Alcohol intake: former Vitals/I&O/Wt Last Vital Signs Temp 97.8 F 08/13/21 19:04 Pulse 93 08/14/21 01:02 Resp 18 08/14/21 01:04 BP 104/57 08/14/21 01:04 Pulse Ox 100 08/14/21 01:04 Weight last 48 hrs Weight 138.346 kg Physical Exam HENMT: COMMON NORMALS: normocephalic and atraumatic HEAD & SCALP: normocephalic and atraumatic Chest: COMMONS NORMALS: normal inspection of the chest and normal palpation of entire chest wall CHEST: Yes Symmetrical chest wall rise Resp: COMMON NORMALS: normal respiratory effort, No retractions, No use of accessory muscles and clear to auscultation bilaterally EFFORT & INSPECTION: Yes symmetric chest movement AUSCULTATION: clear to auscultation bilaterally OTHER: Diminished Air Entry in lt lung daugherty Cardio: COMMON NORMALS: regular rate, regular rhythm, S1 normal heart sound present, S2 normal heart sound present, No gallops present (Cardio), No murmurs present (Cardio), No rub (Cardio) and Peripheral pulses 2+ throughout RATE: regular rate RHYTHM: regular rhythm HEART SOUNDS: S1 normal heart sound present and S2 normal heart sound present PERIPHERAL PULSES: Peripheral pulses 2+ throughout GI: COMMON NORMALS: Soft to palpation, non-tender, No hepatosplenomegaly present and no masses AUSCULTATION: Yes normoactive bowel sounds PALPATION: Yes Soft to palpation and Yes No hepatosplenomegaly present RECTAL EXAM: deferred OTHER: Obese abdomen Extremity: OTHER: 2 + b/l Pitting Edema Neuro: COMMON NORMALS: patient oriented x3 Urinary Catheter Management: Rainey: Cath Placed During This Visit: yes Urinary Catheter Date of Insertion: 08/13/21 Urinary Catheter Time of Insertion: 23:04 Data : 08/14/21 04:38 08/14/21 04:38 Micro: Microbiology 08/13/21 19:21 Blood Culture - Preliminary Blood SPECIMEN COLLECTED 08/13/21 19:38 Blood Culture - Preliminary Blood SPECIMEN COLLECTED A&P Assessment and plan (1) Acute hepatic encephalopathy: Status: Acute (2) Hyponatremia: Status: Acute (3) Chronic alcoholic liver disease: Status: Acute (4) Generalized weakness: Status: Acute (5) Hyponatremia: Status: Acute (6) Hepatic encephalopathy: Status: Acute (7) SOB (shortness of breath): Status: Acute (8) Pleural effusion: Status: Acute (9) Ascites: Status: Acute (10) Anemia: Status: Acute (11) Acute kidney injury superimposed on CKD: Status: Acute (12) Hyperbilirubinemia: Status: Acute (13) UTI (urinary tract infection): Status: Acute (14) Decompensated hepatic cirrhosis: Status: Acute Plan Assessment Grade 1 hepatic encephalopathy Shortness of breath secondary to gross ascites and left-sided pleural effusion Gross ascites Left-sided pleural effusion Decompensated liver cirrhosis ( MELD , CHILD -Rivera ) Hyperbilirubinema Hypothyroidism UTI anemia CKD stage 3b Plan: Continue Lasix 40 mg IV daily with spironolactone 50 mg PO BID Ultrasound-guided paracentesis Follow ascitic fluid cell count and differential Low clinical suspicion for SBP as the patient has no abdominal tenderness no fever Follow urine culture Blood culture Continue ceftriaxone 1 g IV daily Continue fluconazole 200 mg IV daily Monitor CBC, transfuse if hemoglobin level less than 7 Lactulose 30 g p.o. every 6H target 3 to 4 soft bowel movements Monitor serum ammonia level Continue Protonix 40 mg p.o. daily Lovenox for DVT prophylaxis CODE STATUS: Full code Attestations Medical Necessity Statement*: Patient needs to be in hospital for management of hepatic encephalopathy gross ascites shortness of breath. Anticipated length of stay greater than 2 midnightS. Time Spent in Patient Care: Greater than 35 minutes (>than 50% of time spent in counselling and/or direct pt care on unit). Coding Level of Care Code Acute Net Developer Contract for Vidhyag Fwd Exam Detailed Diagnoses Acute hepatic encephalopathy K72.00 Hyponatremia E87.1 Chronic alcoholic liver disease K70.9 Generalized weakness R53.1 Hyponatremia E87.1 Hepatic encephalopathy K72.90 SOB (shortness of breath) R06.02 Pleural effusion J90 Ascites R18.8 Anemia D64.9 Acute kidney injury superimposed on CKD N17.9; N18.9 Hyperbilirubinemia E80.6 UTI (urinary tract infection) N39.0 Decompensated hepatic cirrhosis K72.90; K74.60
[2021-08-14] MEDS: lactulose oral liq 20 gm/30 mL UDC 30 GM PO ×3 (02:56→20:53)
[2021-08-14] MEDS: enoxaparin 40 mg/0.4 mL Syringe SUBCUT (02:56)
[2021-08-14] MEDS: cefTRIAXone 1,000 MG in sodium chloride 0.9% (plus) 50 ML 100 MG IV (02:56)
[2021-08-14] MEDS: fluconazole premix 200 MG/100 ML PREMIX 100 MG IV (04:14)
[2021-08-14 04:56] LABS: Basophils # 0.1 10^3/uL (0.0-0.1); Eosinophils # 0.8 10^3/uL (0.0-0.8); Eosinophils % 8.5 %; Hematocrit 23.2 % (37.0-47.0); Hemoglobin 7.5 g/dL (11.5-15.3); Lymphocytes # 1.7 10^3/uL (0.8-4.8); Lymphocytes % 18.6 %; Mean Corpuscular HGB Conc 32.3 g/dL (30.0-36.0); Mean Corpuscular Hemoglobin 32.6 pg (28.0-34.0); Mean Corpuscular Volume 100.9 fl (81-99); Mean Platelet Volume 9.6 fL (7.4-10.4); Monocytes # 1.2 10^3/uL (0.2-0.9); Neutrophils # 5.41 10^3/uL (1.8-7.7); Nucleated Red Blood Cells % 0 %; Platelet Count 141 10^3/cmm (130-400); Red Cell Distribution Width 19.5 % (12.1-15.1); White Blood Count 9.3 10^3/uL (4.0-10.0)
[2021-08-14 05:12] LABS: INR 1.72 (0.8-1.2)
--- NOTE | 2021-08-14 05:14 | PC.NURSE ---
Pt. spouse is helping patient to scoot to the top of the bed. I offered to help them move her up in bed and they stated , No, they had it, and it helps build her strength to do it herself.
[2021-08-14 05:30] LABS: Alanine Aminotransferase 13 U/L (0-33); Albumin Level 3.1 g/dL (3.5-5.2); Alkaline Phosphatase 153 IU/L (35-105); Anion Gap 15.6 (5-19); Aspartate Amino Transferase 65 U/L (0-32); Blood Urea Nitrogen 21 mg/dL (6-20); Calcium 8.1 mg/dL (8.5-10.5); Carbon Dioxide 24 mmol/L (22-29); Chloride 98 mmol/L (98-107); Globulin 3.3 g/dL (1.3-4.6); Glomerular Filtration Rate 39.8 mL/min (90-130); Glucose 130 mg/dL (65-115); NT Pro B Type Natriuretic Pept 3198 pg/mL (0-125); Osmolality Calculated 283 mOsm/kg (285-295); Potassium 3.6 mmol/L (3.5-5.1); Sodium 134 mmol/L (136-145); Total Bilirubin 5.9 mg/dL (0.15-1.2); Total Protein 6.4 g/dL (6.6-8.7)
[2021-08-14 05:36] LABS: Creatinine Clr Calc Pharmacy 66.9059
--- NOTE | 2021-08-14 07:24 | PC.NURSE ---
report to Sherry on [employer]
[2021-08-14] MEDS: spironolactone 25 mg Tablet 50 MG PO (11:13)
[2021-08-14] MEDS: pantoprazole DR 40 mg Tablet PO (11:14)
--- NOTE | 2021-08-14 11:28 | PM.PN ---
Subjective Subjective: Interval history: Patient has alcohol-related liver cirrhosis Her diagnosis was done in April last year She was recently discharged from [facility] a day ago was not able to move her legs at all at home that is why she presented to this hospital She has not been diagnosed with hepatorenal syndrome however is stating that her kidney function improved with use of fluids instead of diuretics at back to [facility] She does not have a biopsy of her liver however mining plant operator in [place] has diagnosed her, if needed is requesting following up with a physical therapist assistant or mining plant operator back in [place] She will be a good candidate for TIPS and liver transplant Does not take lactulose or rifaximin at home She does not have DIC abnormal coagulation profile related to liver failure Vitals/I&O/Wt Last Vital Signs Temp 98.0 F 08/14/21 07:57 Pulse 92 08/14/21 07:57 Resp 18 08/14/21 07:57 BP 96/61 08/14/21 07:57 Pulse Ox 100 08/14/21 07:57 08/13/21 08/14/21 08/14/21 22:59 06:59 14:59 Intake Total 150 / 150 Balance 150 / 150 Weight last 48 hrs Weight 138.346 kg Physical Exam Narrative: EXAM NARRATIVE: Generalized anasarca Morbidly obese Ascites No active signs of hepatic encephalopathy Does not have strokelike symptoms Able to move her arms, because of anasarca not able to freely move her extremities Awake and alert Icteric, pale complexion Abdomen is soft, distended, visceral obesity and ascites Urinary Catheter Management: Rainey: Cath Placed During This Visit: yes Urinary Catheter Date of Insertion: 08/13/21 Urinary Catheter Time of Insertion: 23:04 Data : 08/14/21 04:38 08/14/21 04:38 Micro: Microbiology 08/13/21 19:21 Blood Culture - Preliminary Blood SPECIMEN COLLECTED 08/13/21 19:38 Blood Culture - Preliminary Blood SPECIMEN COLLECTED A&P Assessment and plan (1) Decompensated hepatic cirrhosis: Status: Acute (2) UTI (urinary tract infection): Status: Acute (3) Hyperbilirubinemia: Status: Acute (4) Acute kidney injury superimposed on CKD: Status: Acute (5) Ascites: Status: Acute (6) Pleural effusion: Status: Acute (7) SOB (shortness of breath): Status: Acute (8) Pulmonary edema: Status: Acute (9) Anemia: Status: Acute (10) Coagulopathy: Status: Acute (11) Chronic alcoholic liver disease: Status: Acute (12) Generalized weakness: Status: Acute Plan Decompensated liver cirrhosis Abnormal coagulation profile Jaundice without fever however hypotension noted, no active signs of cholangitis, high bilirubin noted We will give her albumin for next 2 days She is not hypoperfusion lactic acid is 1.3 She has severe anasarca To prevent further deterioration she will need liver transplant evaluation and TIPS procedure evaluation as well Creatinine has worsened concern for hepatorenal syndrome Continue ceftriaxone empirical coverage Currently on lower regimen of Lasix and spironolactone because of low blood pressure I will continue midodrine and albumin Family prefers [place] physical therapist assistant Regular diet Requested paracentesis INR is 1.7 related to liver pathology, might happen on Sunday Add lactulose and rifaximin however does not have severe hepatic encephalopathy grade, We will follow with urine cultures ceftriaxone will suffice UTI microorganism coverage child sullivan class C Attestations Medical Necessity Statement*: Continue medical management Time Spent in Patient Care: 15 Coding Level of Care Code Acute Manufacturing Engineering Technician for Chg Fwd Diagnoses Decompensated hepatic cirrhosis K72.90; K74.60 UTI (urinary tract infection) N39.0 Hyperbilirubinemia E80.6 Acute kidney injury superimposed on CKD N17.9; N18.9 Ascites R18.8 Pleural effusion J90 SOB (shortness of breath) R06.02 Pulmonary edema J81.1 Anemia D64.9 Coagulopathy D68.9 Chronic alcoholic liver disease K70.9 Generalized weakness R53.1
--- NOTE | 2021-08-14 15:45 | PC.NURSE ---
PER DR. FOREMAN CAN STAY AT BEDSIDE.
[2021-08-14] MEDS: midodrine 5 mg TABLET PO ×2 (16:10→20:53)
[2021-08-14] MEDS: FUROsemide 10 mg/mL SDV 4mL 40 MG IVP (21:47)
[2021-08-14] MEDS: acetaminophen 325 mg Tablet 650 MG PO (23:40)
[2021-08-15] VITALS: BP 100/65; PULSE 97; RESP 16; TEMP 36.6; O2SAT 100
[2021-08-15] MEDS: cefTRIAXone 1,000 MG in sodium chloride 0.9% (plus) 50 ML 100 MG IV (02:16)
[2021-08-15] MEDS: enoxaparin 40 mg/0.4 mL Syringe SUBCUT (02:16)
--- NOTE | 2021-08-15 02:25 | US_ITS ---
WS: [id number] ULTRASOUND-GUIDED PARACENTESIS CLINICAL INFORMATION: Ascites COMPARISON: None. Procedure Informed consent: The risks, benefits, and alternatives of the procedure were discussed with the alexis ent. Verbal and written consent was obtained. Timeout: A timeout was performed to confirm the correct patient, procedure, and site. Preparation: A suitable skin site was identified. The patient was prepped and draped in usual sterile fashion. Lidocaine 1% was used for local anesthesia. Catheter: 4 [place] One-step Yueh catheter. Side: RIGHT Lower quadrant. Fluid Volume: 5000 ml Color: Brown Complications: None. US/US paracentesis abd w [id number] IMPRESSION: Uncomplicated ultrasound-guided paracentesis. Removal of 5000 cc ascites
[2021-08-15] MEDS: fluconazole premix 200 MG/100 ML PREMIX 100 MG IV (02:47)
[2021-08-15 04:00] VITALS: BP 98/58; PULSE 98; RESP 24; TEMP 36.8; O2SAT 95
--- NOTE | 2021-08-15 06:43 | PC.NURSE ---
SHIFT SUMMARY Has slept for intervals tonight. On bedpan X5 for mod to large loose BM's. Is obese as well as quite edematous judy in bilat legs and ascitic abdomen. Is to have a US Guided paracentesis today. Says has never had this done but is hoping she will feel better. c/o not being able to lay flat due to SOB. Only tolerates HOB down for brief periods when on and off bedpain and cleaning. O2 in place per NC. Says doesn't think it helps much. Has occ coughing episodes with prod of some clesr sputum. Occ blood noted from nost when she cleans it out. Humidity was applied to O2. Receiving IV antibiotics as well as Albumin and IV Lasix. Rainey with 350ml output. Urine very dark. Skin with jaundice noted. Was given po Tylenol X1 for c/o headache. Redness in dmo area, groins and under breasts and abd folds. Interdry in place and [facility] [place] ointment used. Stool for OB was sent to lab tonight. stays at bedside
[2021-08-15 06:45] LABS: Basophils # 0.1 10^3/uL (0.0-0.1); Basophils % 0.6 %; Eosinophils % 9.5 %; Hematocrit 22.3 % (37.0-47.0); Hemoglobin 7.2 g/dL (11.5-15.3); Lymphocytes # 1.6 10^3/uL (0.8-4.8); Lymphocytes % 15.2 %; Mean Corpuscular HGB Conc 32.3 g/dL (30.0-36.0); Mean Corpuscular Volume 99.1 fl (81-99); Mean Platelet Volume 9.3 fL (7.4-10.4); Monocytes # 1.4 10^3/uL (0.2-0.9); Neutrophils # 6.37 10^3/uL (1.8-7.7); Nucleated Red Blood Cells % 0 %; Platelet Count 132 10^3/cmm (130-400); Red Blood Count 2.25 10^6/uL (4.1-5.3); Red Cell Distribution Width 19.9 % (12.1-15.1); White Blood Count 10.4 10^3/uL (4.0-10.0)
[2021-08-15 06:53] LABS: INR 1.81 (0.8-1.2)
[2021-08-15 07:03] LABS: Alanine Aminotransferase 13 U/L (0-33); Albumin Level 3.4 g/dL (3.5-5.2); Alkaline Phosphatase 140 IU/L (35-105); Anion Gap 17.7 (5-19); Aspartate Amino Transferase 64 U/L (0-32); Blood Urea Nitrogen 20 mg/dL (6-20); Calcium 9.5 mg/dL (8.5-10.5); Carbon Dioxide 20 mmol/L (22-29); Chloride 102 mmol/L (98-107); Globulin 3.2 g/dL (1.3-4.6); Glomerular Filtration Rate 34.1 mL/min (90-130); Glucose 112 mg/dL (65-115); Magnesium 1.7 mg/dL (1.7-2.3); Osmolality Calculated 285 mOsm/kg (285-295); Potassium 3.7 mmol/L (3.5-5.1); Sodium 136 mmol/L (136-145); Total Bilirubin 5.4 mg/dL (0.15-1.2); Total Protein 6.6 g/dL (6.6-8.7)
[2021-08-15 08:00] VITALS: BP 115/67; PULSE 94; RESP 18; TEMP 36.4; O2SAT 100
[2021-08-15] MEDS: levothyroxine 125 mcg Tablet PO (09:19)
[2021-08-15] MEDS: pantoprazole DR 40 mg Tablet PO (09:19)
[2021-08-15] MEDS: midodrine 5 mg TABLET PO ×3 (09:19→20:44)
[2021-08-15] MEDS: FUROsemide 10 mg/mL SDV 4mL 40 MG IVP (09:19)
[2021-08-15 12:00] VITALS: BP 98/59; PULSE 95; RESP 18; TEMP 36.6; O2SAT 99
[2021-08-15] MEDS: FUROsemide 10 mg/mL SDV 4mL 80 MG IVP (13:50)
[2021-08-15 16:00] VITALS: BP 102/58; PULSE 94; RESP 18; TEMP 36.7; O2SAT 99
[2021-08-15 16:41] LABS: Mononuclear #, Pertinoneal Fl 0.075 10^3/uL; Polynuclear # Cells, Perit 0.033 10^3/uL
[2021-08-15 16:44] LABS: Color, Peritoneal Fluid Yellow (Pale Yellow)
[2021-08-15 16:45] LABS: Pathology Referral Yes; RBC Pertioneal Fluid 2 10^3/uL; WBC Peritoneal Fluid 108 /uL
--- NOTE | 2021-08-15 16:53 | P.PN_ITS ---
Subjective Subjective: Interval history: Patient reports being very uncomfortable and short of breath. Full the paracentesis will improve her breathing. also in room at time of exam. Patient has on been unable to stay out of the hospital long enough to have follow-up with GI and/or liver specialist. Medications: Medication Review Details: Patient was not on spironolactone. Vitals/I&O/Wt Last Vital Signs Temp 98.1 F 08/15/21 16:00 Pulse 94 08/15/21 16:00 Resp 18 08/15/21 16:00 BP 102/58 08/15/21 16:00 Pulse Ox 99 08/15/21 16:00 08/15/21 08/15/21 08/15/21 06:59 14:59 22:59 Intake Total 490 / 790 340 / 340 100 / 440 Output Total 350 / 1350 Balance 140 / -560 340 / 340 100 / 440 Weight last 48 hrs Weight 138.346 kg Physical Exam Narrative: EXAM NARRATIVE: Patient seen sitting upright in bed. She is in mild distress at rest. Skin: Patient with scratches and currently itching skin while during exam. Heart: Normal S1-S2 without murmurs clicks gallops rubs Lungs: Clear to auscultation without wheezes rales or rhonchi Abdomen: Anasarca firm indurated skin in pannus right side worse than left due to patient's laying more on right side. Erythematous appearance to the skin as well. Patient has veins visualized in abdomen Extremities diffuse pitting edema to groin Neurologic: Oriented to person place time and situation Urinary Catheter Management: Rainey: Cath Placed During This Visit: yes Urinary Catheter Date of Insertion: 08/13/21 Urinary Catheter Time of Insertion: 23:04 Data : 08/15/21 05:10 08/15/21 05:10 Micro: Microbiology 08/13/21 22:43 Urine Culture - Preliminary Urine Catheterized Yeast species 08/15/21 04:00 Occult Blood (FIT) - Final Stool Routine Collection 08/13/21 19:21 Blood Culture - Preliminary Blood NEGATIVE TO DATE 08/13/21 19:38 Blood Culture - Preliminary Blood NEGATIVE TO DATE A&P Assessment and plan (1) Decompensated hepatic cirrhosis: Status: Acute (2) UTI (urinary tract infection): Status: Acute (3) Hyperbilirubinemia: Status: Acute (4) Acute kidney injury superimposed on CKD: Status: Acute (5) Ascites: Status: Acute (6) Pleural effusion: Status: Acute (7) SOB (shortness of breath): Status: Acute (8) Pulmonary edema: Status: Acute (9) Anemia: Status: Acute (10) Coagulopathy: Status: Acute (11) Chronic alcoholic liver disease: Status: Acute (12) Generalized weakness: Status: Acute Plan Decompensated liver cirrhosis-patient's Lasix dose increased to twice daily dosing and albumin dosed AC Lasix. I discussed this with pharmacy to schedule appropriately. Patient is planned for paracentesis today with ascitic fluid analysis. Abnormal coagulation profile Jaundice without fever however hypotension noted, no active signs of cholangitis, high bilirubin noted She is not hypoperfusion lactic acid is 1.3 She has severe anasarca To prevent further deterioration she will need liver transplant evaluation and TIPS procedure evaluation as well. Patient needs outpatient GI/liver specialist follow-up. Will attempt to arrange. 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 Patient will require IV diuresis and albumin for improvement may need to consider transfer for to a transplant center. Coding Level of Care Code Acute [place] Fishing Crew [facility] Diagnoses Decompensated hepatic cirrhosis K72.90; K74.60 UTI (urinary tract infection) N39.0 Hyperbilirubinemia E80.6 Acute kidney injury superimposed on CKD N17.9; N18.9 Ascites R18.8 Pleural effusion J90 SOB (shortness of breath) R06.02 Pulmonary edema J81.1 Anemia D64.9 Coagulopathy D68.9 Chronic alcoholic liver disease K70.9 Generalized weakness R53.1
[2021-08-15 18:14] LABS: Appearance, Peritoneal Fluid Clear (Clear)
[2021-08-15 20:00] VITALS: BP 97/56; PULSE 101; RESP 18; TEMP 36.7; O2SAT 97
--- NOTE | 2021-08-15 20:56 | PC.NURSE ---
i reported high pulse 101 to nurse
[2021-08-15] MEDS: hyDROXYzine 25 mg Capsule PO (21:59)
[2021-08-16] VITALS: BP 94/56; PULSE 99; RESP 18; TEMP 36.7; O2SAT 96
[2021-08-16] MEDS: enoxaparin 40 mg/0.4 mL Syringe SUBCUT (01:43)
[2021-08-16] MEDS: cefTRIAXone 1,000 MG in sodium chloride 0.9% (plus) 50 ML 100 MG IV (01:43)
[2021-08-16] MEDS: fluconazole premix 200 MG/100 ML PREMIX 100 MG IV (02:18)
[2021-08-16 04:00] VITALS: BP 110/60; PULSE 95; RESP 18; TEMP 36.6; O2SAT 92
[2021-08-16 06:33] LABS: Basophils # 0.1 10^3/uL (0.0-0.1); Basophils % 0.9 %; Eosinophils # 1.2 10^3/uL (0.0-0.8); Eosinophils % 12.7 %; Hematocrit 22.5 % (37.0-47.0); Hemoglobin 7.1 g/dL (11.5-15.3); Lymphocytes # 1.5 10^3/uL (0.8-4.8); Lymphocytes % 16.4 %; Mean Corpuscular HGB Conc 31.6 g/dL (30.0-36.0); Mean Corpuscular Hemoglobin 32.3 pg (28.0-34.0); Mean Corpuscular Volume 102.3 fl (81-99); Mean Platelet Volume 9.4 fL (7.4-10.4); Monocytes # 1.3 10^3/uL (0.2-0.9); Monocytes % 13.7 %; Neutrophils # 5.19 10^3/uL (1.8-7.7); Neutrophils % 55.7 %; Nucleated Red Blood Cells % 0 %; Platelet Count 126 10^3/cmm (130-400); Red Cell Distribution Width 20.3 % (12.1-15.1); White Blood Count 9.3 10^3/uL (4.0-10.0)
[2021-08-16 07:10] LABS: Alanine Aminotransferase 12 U/L (0-33); Albumin Level 3.4 g/dL (3.5-5.2); Alkaline Phosphatase 122 IU/L (35-105); Anion Gap 17.6 (5-19); Aspartate Amino Transferase 53 U/L (0-32); Blood Urea Nitrogen 24 mg/dL (6-20); Calcium 9.2 mg/dL (8.5-10.5); Carbon Dioxide 19 mmol/L (22-29); Chloride 102 mmol/L (98-107); Glomerular Filtration Rate 34.1 mL/min (90-130); Glucose 111 mg/dL (65-115); Osmolality Calculated 285 mOsm/kg (285-295); Potassium 3.6 mmol/L (3.5-5.1); Sodium 135 mmol/L (136-145); Total Bilirubin 4.9 mg/dL (0.15-1.2); Total Protein 6.4 g/dL (6.6-8.7)
[2021-08-16 07:42] VITALS: BP 103/61; PULSE 93; RESP 15; TEMP 36.9; O2SAT 97
[2021-08-16 08:00] VITALS: BP 103/61; PULSE 93; RESP 15; TEMP 36.9
[2021-08-16] MEDS: midodrine 5 mg TABLET PO ×3 (08:52→21:24)
[2021-08-16] MEDS: levothyroxine 125 mcg Tablet PO (08:52)
[2021-08-16] MEDS: pantoprazole DR 40 mg Tablet PO (08:52)
[2021-08-16] MEDS: FUROsemide 10 mg/mL SDV 4mL 80 MG IVP ×2 (08:53→16:05)
[2021-08-16] MEDS: lactulose oral liq 20 gm/30 mL UDC 30 GM PO ×2 (08:55→16:05)
--- NOTE | 2021-08-16 10:01 | PM.PN ---
Subjective Subjective: Patient remains uncomfortable and short of breath. Not feeling that the paracentesis helped her breathing. remains at bedside. Patient has not been unable to stay out of the hospital long enough to have follow-up with GI and/or liver specialist. Requests something for itch. Medications: Medication Review Details: Patient was not on spironolactone on admission Vitals/I&O/Wt Last Vital Signs Temp 98.5 F 08/16/21 07:42 Pulse 93 08/16/21 07:42 Resp 15 08/16/21 07:42 BP 103/61 08/16/21 07:42 Pulse Ox 97 08/16/21 07:42 08/15/21 08/16/21 08/16/21 22:59 06:59 14:59 Intake Total 220 / 560 390 / 950 Output Total 670 / 670 50 / 50 Balance 220 / 560 -280 / 280 -50 / -50 Physical Exam Narrative: Patient seen sitting upright in bed. She looks more comfortable to me. Skin: Patient with scratches and currently itching skin while during exam. Heart: Normal S1-S2 without murmurs clicks gallops rubs Lungs: Clear to auscultation without wheezes rales or rhonchi Abdomen: Anasarca firm indurated skin in pannus right side worse than left due to patient's laying more on right side. Erythematous appearance to the skin as well. Patient has veins visualized in abdomen Extremities diffuse non-pitting edema to groin Neurologic: Oriented to person place time and situation Urinary Catheter Management: Rainey: Cath Placed During This Visit: yes Urinary Catheter Date of Insertion: 08/13/21 Urinary Catheter Time of Insertion: 23:04 Data : 08/16/21 06:04 08/16/21 06:04 Micro: Microbiology 08/15/21 15:15 Gram Stain - Final Ankle - Ascites 08/13/21 22:43 Urine Culture - Preliminary Urine Catheterized Yeast species 08/15/21 04:00 Occult Blood (FIT) - Final Stool Routine Collection A&P Assessment and plan (1) Decompensated hepatic cirrhosis: Status: Acute (2) UTI (urinary tract infection): Status: Acute (3) Hyperbilirubinemia: Status: Acute (4) Acute kidney injury superimposed on CKD: Status: Acute (5) Ascites: Status: Acute (6) Pleural effusion: Status: Acute (7) SOB (shortness of breath): Status: Acute (8) Pulmonary edema: Status: Acute (9) Anemia: Status: Acute (10) Coagulopathy: Status: Acute (11) Chronic alcoholic liver disease: Status: Acute (12) Generalized weakness: Status: Acute Plan Decompensated liver cirrhosis with severe diuretic resistant anasarca- patient's Lasix dose doubled and increased to twice daily dosing and albumin dosed AC Lasix. Will assess outpt today and adjust as needed. Patient only had 5 L removed yesterday. May need another 5 L off prior to d/c? Otherwise schedule q2 week paracentesis as outpt with removal of 10 L and dose of albumin at time of paracentesis. Abnormal coagulation profile consistent with liver cirrhosis/failure. Jaundice To prevent further deterioration she will need liver transplant evaluation and TIPS procedure evaluation as well. Patient needs outpatient GI/liver specialist follow-up. Светлана PICKARD with CM called [place] and made appointment for October and pt is placed on cancelation list. Instructions given to pt/ to call daily. Pt needs set up with a liver transplant service. Pt requests [place] so [facility]? Will attempt to arrange. Creatinine currently stable. Stop ceftriaxone since cell count is ok. continue midodrine and albumin 2 g Na diet Pt on lactulose and rifaximin placed on admission however does not have hepatic encephalopathy grade, urine cultures negative for bacterial infection - ceftriaxone stopped. Yeast in urine. asymptomatic. child sullivan class C Attestations Medical Necessity Statement*: Severe ansarca. Evaluate for need for further paracentesis. 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
--- NOTE | 2021-08-16 10:07 | PC.CHAP ---
Pastoral Care Encounter/Spiritual Assessment Type of Contact [] Declined liability claims adjuster visit [] Patient/Family/Request visit [] Outpatient visit [] Follow-up visit [] Physician referral [] Code/Alert [x] Routine visit [] Staff referral [] Actively dying [] Patient sleeping [] Family support [] [] Out of room [] Palliative care [] [] Receiving care in room [] Pre-surgical visit [] Trauma [] Long length of stay [] ICU visit [] Other: Relational/Emotional Strength [x] Patient feels connected with others/family/visitors/staff [] Distress [] Loneliness/isolation [] Abandonment Spirituality of Patient [x] Person of Linn [x] Attends Druze of their Linn [x] Believes in Prayer [x] Reads Bible or Taoism materials [] There are Spiritual issues to be addressed Drop Count Associate Interventions [x] Prayer [x] Active listening [x] Non-anxious presence [x] Spiritual/emotional support [] Crisis/trauma care [] Spiritual counseling [] Bereavement support [] Provided bereavement packet [] Provided Bible/devotional materials [] Provided toy/stuffed animal, coloring book to patient or family member [] Provided Communion [] Anointing/[place] [] Salvation [x] Completed spiritual assessment [] Other: Impact on Illness or Injury [] Angry [] Fearful [] Anxious [] Often cries [] Exhaustion [] Unable to work [] Unable to attend samaritan [] Unable to walk/stand [] Unable to read [] Unable to drive [] Unable to eat/drink [] Unable to sleep [] Unable to be with family [] Patient intubated [] Other: Summary Pt has fatty liver disease and has been in the hospital six times since April. As liability claims adjuster was visiting, doctor came in so liability claims adjuster left and returned a short time later. Pt says she needs to see a specialist. She has insurance in [place] so hoping to be able to go to [place] rather than [place]. She and her , who was present for the visit, are familiar with [place] since her youngest son has seizures since age 9 [facility]. Pt stated she is a person of linn but not currently attending christianity. She had her attended a christianity for a long period of time but there was a split in the christianity and they have yet to find another christianity they are comfortable in. They like small churches and old hymns. Pt has two sons that live in the area and her has 4 children. Time spent with patient 20m
[2021-08-16] MEDS: hyDROXYzine 25 mg Capsule PO ×2 (10:46→17:39)
[2021-08-16 12:00] VITALS: BP 110/70; PULSE 96; RESP 17; TEMP 37; O2SAT 98
[2021-08-16 20:00] VITALS: BP 98/70; PULSE 93; RESP 17; TEMP 36.9; O2SAT 97
[2021-08-16] MEDS: acetaminophen 325 mg Tablet 650 MG PO (23:50)
[2021-08-17] VITALS (9 sets, daily range): BP systolic 92–118; BP diastolic 58–71; PULSE 86–100; RESP 17–113; TEMP 36.5–37; O2SAT 94–100
[2021-08-17] MEDS: fluconazole premix 200 MG/100 ML PREMIX 100 MG IV (02:50)
[2021-08-17] MEDS: enoxaparin 40 mg/0.4 mL Syringe SUBCUT (02:55)
[2021-08-17 05:51] LABS: Basophils # 0.1 10^3/uL (0.0-0.1); Basophils % 0.9 %; Eosinophils # 1.3 10^3/uL (0.0-0.8); Eosinophils % 12.6 %; Hemoglobin 7.3 g/dL (11.5-15.3); Lymphocytes # 1.5 10^3/uL (0.8-4.8); Mean Corpuscular HGB Conc 30.4 g/dL (30.0-36.0); Mean Corpuscular Hemoglobin 32.4 pg (28.0-34.0); Mean Corpuscular Volume 106.7 fl (81-99); Mean Platelet Volume 9.3 fL (7.4-10.4); Monocytes # 1.5 10^3/uL (0.2-0.9); Monocytes % 14.2 %; Neutrophils # 6.09 10^3/uL (1.8-7.7); Neutrophils % 57.8 %; Nucleated Red Blood Cells % 0 %; Platelet Count 126 10^3/cmm (130-400); Red Blood Count 2.25 10^6/uL (4.1-5.3); Red Cell Distribution Width 21.1 % (12.1-15.1); White Blood Count 10.5 10^3/uL (4.0-10.0)
[2021-08-17 06:18] LABS: Alanine Aminotransferase 12 U/L (0-33); Albumin Level 3.5 g/dL (3.5-5.2); Alkaline Phosphatase 127 IU/L (35-105); Anion Gap 18.3 (5-19); Aspartate Amino Transferase 64 U/L (0-32); Blood Urea Nitrogen 23 mg/dL (6-20); Carbon Dioxide 18 mmol/L (22-29); Chloride 103 mmol/L (98-107); Globulin 2.5 g/dL (1.3-4.6); Glomerular Filtration Rate 34.1 mL/min (90-130); Glucose 110 mg/dL (65-115); Osmolality Calculated 286 mOsm/kg (285-295); Potassium 3.3 mmol/L (3.5-5.1); Sodium 136 mmol/L (136-145); Total Bilirubin 4.3 mg/dL (0.15-1.2)
[2021-08-17] MEDS: lactulose oral liq 20 gm/30 mL UDC 30 GM PO (09:11)
[2021-08-17] MEDS: FUROsemide 10 mg/mL SDV 4mL 80 MG IVP ×2 (09:11→15:32)
[2021-08-17] MEDS: midodrine 5 mg TABLET PO ×3 (09:11→20:28)
[2021-08-17] MEDS: levothyroxine 125 mcg Tablet PO (09:11)
[2021-08-17] MEDS: pantoprazole DR 40 mg Tablet PO (09:11)
[2021-08-17] MEDS: sodium chloride 0.9% (100 ml) 100 ML 50 ML (12:52)
--- NOTE | 2021-08-17 13:47 | P.PN_ITS ---
Subjective Subjective: Patient was seen and examined this morning, she is awake and alert No active signs of encephalopathy She is okay with transfer to [facility] or [facility] for TIPS liver transplant evaluation, she is avoiding to go to [facility], is stating that they will be more than happy for outpatient skilled therapy or home health services if available Vitals/I&O/Wt Last Vital Signs Temp 98.0 F 08/17/21 13:20 Pulse 100 08/17/21 13:20 Resp 113 H 08/17/21 13:20 BP 113/68 08/17/21 13:20 Pulse Ox 98 08/17/21 13:20 08/16/21 08/17/21 08/17/21 22:59 06:59 14:59 Intake Total 100 / 450 120 / 570 200 / 200 Output Total 550 / 600 Balance -450 / -150 120 / -30 200 / 200 Physical Exam Narrative: Patient was laying supine in her bed Saturating well on 2 L nasal cannula Ascites no significant improvement Bilateral lower extremity pitting edema, generalized body wall anasarca Awake and alert No active signs of encephalopathy Bilateral breath sounds with mild rhonchi at the bases Awake and alert cooperative Urinary Catheter Management: Rainey: Cath Placed During This Visit: yes Urinary Catheter Date of Insertion: 08/13/21 Urinary Catheter Time of Insertion: 23:04 Data : 08/17/21 05:18 08/17/21 05:18 Micro: Microbiology 08/15/21 15:15 Gram Stain - Final Ankle - Ascites Body Fluid Culture - Preliminary A&P Assessment and plan (1) Decompensated hepatic cirrhosis: Status: Acute (2) Hyperbilirubinemia: Status: Acute (3) Acute kidney injury superimposed on CKD: Status: Acute (4) Ascites: Status: Acute (5) Pleural effusion: Status: Acute (6) Coagulopathy: Status: Acute (7) Generalized weakness: Status: Acute (8) Anemia: Status: Acute Plan Decompensated liver cirrhosis 5 L removed, resistant to hypervolemia Creatinine stable at 1.6 Patient is agreeable to be transferred to [facility] or [place] if she gets accepted for liver transplant evaluation or TIPS For her acute on chronic anemia I will give her 1 unit PRBC, this mostly related to hypersplenism No active GI bleed, FOBT negative DVT prophylaxis Lovenox we will put on hold Continue IV Lasix Add bicarb Change lactulose frequency to every 12 No active signs of hepatic encephalopathy Active jaundice, no signs of cholangitis, afebrile Attestations Medical Necessity Statement*: Continue medical management Time Spent in Patient Care: 15mins Coding Level of Care Code 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
[2021-08-17] MEDS: sodium bicarbonate 650 mg Tablet PO ×2 (15:31→20:28)
[2021-08-17 16:12] LABS: Hematocrit 22.6 % (37.0-47.0); Hemoglobin 7.5 g/dL (11.5-15.3)
--- NOTE | 2021-08-17 20:13 | PC.NURSE ---
i reported high reps 20 to nurse
[2021-08-18] VITALS: BP 110/67; PULSE 88; RESP 18; O2SAT 92
--- NOTE | 2021-08-18 | US_ITS ---
WS: [id number] ULTRASOUND-GUIDED THERAPEUTIC PARACENTESIS Procedure, risks, and complications have been explained to the patient. Consent is obtained. Utilizing aseptic technique and 1% buffered lidocaine, a small dermatome was made through which a 5 F rench Yueh catheter was inserted. Approximately 2300 ml of dark yellow peritoneal fluid was obtained without difficulty. No complications encountered. US/US paracentesis abd w [id number] IMPRESSION: Uncomplicated paracentesis yielding 2300 ml of peritoneal fluid.
[2021-08-18 04:00] VITALS: BP 116/72; PULSE 84; RESP 18; TEMP 36.7; O2SAT 93
[2021-08-18 05:36] LABS: Basophils # 0.1 10^3/uL (0.0-0.1); Basophils % 0.5 %; Eosinophils # 1.4 10^3/uL (0.0-0.8); Eosinophils % 13.1 %; Hematocrit 23.7 % (37.0-47.0); Hemoglobin 7.8 g/dL (11.5-15.3); Lymphocytes # 1.3 10^3/uL (0.8-4.8); Lymphocytes % 12.6 %; Mean Corpuscular HGB Conc 32.9 g/dL (30.0-36.0); Mean Corpuscular Volume 97.1 fl (81-99); Mean Platelet Volume 10.2 fL (7.4-10.4); Monocytes # 1.2 10^3/uL (0.2-0.9); Monocytes % 11.7 %; Neutrophils # 6.34 10^3/uL (1.8-7.7); Neutrophils % 61.6 %; Nucleated Red Blood Cells % 0 %; Platelet Count 142 10^3/cmm (130-400); Red Blood Count 2.44 10^6/uL (4.1-5.3); White Blood Count 10.3 10^3/uL (4.0-10.0)
[2021-08-18 05:56] LABS: Alanine Aminotransferase 13 U/L (0-33); Albumin Level 3.7 g/dL (3.5-5.2); Alkaline Phosphatase 121 IU/L (35-105); Aspartate Amino Transferase 65 U/L (0-32); Blood Urea Nitrogen 22 mg/dL (6-20); Calcium 9.4 mg/dL (8.5-10.5); Carbon Dioxide 20 mmol/L (22-29); Chloride 102 mmol/L (98-107); Creatinine Clr Calc Pharmacy 66.9059; Globulin 2.4 g/dL (1.3-4.6); Glomerular Filtration Rate 39.8 mL/min (90-130); Glucose 114 mg/dL (65-115); Osmolality Calculated 286 mOsm/kg (285-295); Sodium 136 mmol/L (136-145); Total Bilirubin 4.8 mg/dL (0.15-1.2); Total Protein 6.1 g/dL (6.6-8.7)
[2021-08-18 05:57] LABS: Anion Gap 17.2 (5-19); Potassium 3.2 mmol/L (3.5-5.1)
[2021-08-18 08:00] VITALS: BP 99/57; PULSE 102; RESP 17; TEMP 37.1; O2SAT 99
[2021-08-18] MEDS: levothyroxine 125 mcg Tablet PO (09:59)
[2021-08-18] MEDS: FUROsemide 10 mg/mL SDV 4mL 80 MG IVP ×2 (09:59→15:34)
[2021-08-18] MEDS: sodium bicarbonate 650 mg Tablet PO ×3 (09:59→20:04)
[2021-08-18] MEDS: midodrine 5 mg TABLET PO ×3 (09:59→20:04)
[2021-08-18] MEDS: pantoprazole DR 40 mg Tablet PO (09:59)
--- NOTE | 2021-08-18 13:27 | PM.PN ---
Subjective Subjective: Unfortunately she did not qualify for home health services, [facility] school plant consultant recommended continuing albumin, diuretics may be another paracentesis for symptom relief No acute indication for TIPS or liver transplant evaluation, she does not live in [place] however does have insurance from [place] which will not benefit to expedite her case at [facility] Hemoglobin stable Plan for another paracentesis Vitals/I&O/Wt Last Vital Signs Temp 98.7 F 08/18/21 08:00 Pulse 102 H 08/18/21 08:00 Resp 17 08/18/21 08:00 BP 99/57 08/18/21 08:00 Pulse Ox 99 08/18/21 08:00 08/17/21 08/18/21 08/18/21 22:59 06:59 14:59 Intake Total 460 / 760 360 / 1120 200 / 200 Output Total 800 / 800 Balance -340 / -40 360 / 320 200 / 200 Physical Exam Narrative: Patient endorsing feeling better Appropriate mood and affect S1, S2 Complexion slightly better however still icteric Anasarca Distended abdomen ascites visceral obesity with prominent abdominal wall veins 2+ pitting edema of legs Awake and alert Nonfocal neuro exam EOMI, PERRLA Urinary Catheter Management: Rainey: Cath Placed During This Visit: yes Urinary Catheter Date of Insertion: 08/13/21 Urinary Catheter Time of Insertion: 23:04 Data : 08/18/21 05:26 08/18/21 05:26 Micro: Microbiology 08/15/21 15:15 Gram Stain - Final Ankle - Ascites Body Fluid Culture - Final 08/13/21 19:21 Blood Culture - Preliminary Blood NEGATIVE TO DATE 08/13/21 22:43 Urine Culture - Final Urine Catheterized Xiao albicans A&P Assessment and plan (1) Decompensated hepatic cirrhosis: Status: Acute (2) Hyperbilirubinemia: Status: Acute (3) Acute kidney injury superimposed on CKD: Status: Acute (4) Ascites: Status: Acute (5) Hepatic encephalopathy: Status: Acute (6) Hypokalemia: Status: Acute (7) Chronic alcoholic liver disease: Status: Acute (8) Generalized weakness: Status: Acute Plan Anemia secondary to portal hypertension status post 1 unit PRBC Status post 5 L paracentesis Hypokalemia: Repleted Encephalopathy resolved Discontinue lactulose current regimen and do 30 mg p.o. daily Continue IV Lasix with albumin Hold DVT prophylaxis Spironolactone held due to worsening creatinine Acute on chronic kidney disease, creatinine did respond to some extent with diuretics, hepatorenal syndrome has not been officially diagnosed [facility] did not recommend TIPS or liver transplant evaluation on stat basis, facesheet has been faxed, they will call the patient to make an appointment in the clinic for further evaluation I did speak with Dr. 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
--- NOTE | 2021-08-18 14:54 | PC.NURSE ---
DR. SOSA IN ROOM AT THIS TIME, PERFORMING BEDSIDE PARACENTESIS, CONSENT WAS SIGNED WITH DR. SOSA, TIME OUT PERFORMED. PT VSS-COMFORTABLE WITH NO COMPLAINTS AT THIS TIME.
[2021-08-18] MEDS: potassium chloride ER 20 mEq Tablet 40 MEQ PO (15:33)
[2021-08-18 15:42] VITALS: BP 106/64; PULSE 97; RESP 16; TEMP 36.8; O2SAT 100
--- NOTE | 2021-08-18 18:43 | PC.NURSE ---
2350 pulled off during paracentesis
[2021-08-18 20:00] VITALS: BP 100/61; PULSE 94; RESP 16; TEMP 36.7; O2SAT 100
[2021-08-18] MEDS: acetaminophen 325 mg Tablet 650 MG PO (20:04)
[2021-08-19] VITALS: BP 99/62; PULSE 103; RESP 18; O2SAT 97
--- NOTE | 2021-08-19 01:11 | PC.NURSE ---
i reported high pulse 103 to nurse
[2021-08-19 04:00] VITALS: BP 98/50; PULSE 79; RESP 16; TEMP 36.8; O2SAT 96
[2021-08-19 06:29] LABS: Basophils # 0.1 10^3/uL (0.0-0.1); Basophils % 0.6 %; Eosinophils # 1.4 10^3/uL (0.0-0.8); Eosinophils % 13.1 %; Hematocrit 23.8 % (37.0-47.0); Hemoglobin 7.7 g/dL (11.5-15.3); Lymphocytes # 1.3 10^3/uL (0.8-4.8); Lymphocytes % 12.4 %; Mean Corpuscular HGB Conc 32.4 g/dL (30.0-36.0); Mean Corpuscular Hemoglobin 31.8 pg (28.0-34.0); Mean Corpuscular Volume 98.3 fl (81-99); Monocytes # 1.3 10^3/uL (0.2-0.9); Monocytes % 12.4 %; Neutrophils # 6.32 10^3/uL (1.8-7.7); Nucleated Red Blood Cells % 0 %; Platelet Count 146 10^3/cmm (130-400); Red Blood Count 2.42 10^6/uL (4.1-5.3); Red Cell Distribution Width 21.2 % (12.1-15.1); White Blood Count 10.4 10^3/uL (4.0-10.0)
[2021-08-19 07:39] VITALS: BP 95/57; PULSE 101; RESP 16; TEMP 36.7; O2SAT 99
[2021-08-19] MEDS: sodium bicarbonate 650 mg Tablet PO ×2 (08:42→15:07)
[2021-08-19] MEDS: FUROsemide 10 mg/mL SDV 4mL 80 MG IVP (08:42)
[2021-08-19] MEDS: levothyroxine 125 mcg Tablet PO (08:42)
[2021-08-19] MEDS: midodrine 5 mg TABLET PO ×2 (08:42→15:07)
[2021-08-19] MEDS: pantoprazole DR 40 mg Tablet PO (08:42)
[2021-08-19] MEDS: potassium chloride ER 20 mEq Tablet 40 MEQ PO (08:42)
--- NOTE | 2021-08-19 11:00 | PM.DCS ---
Discharge Providers Date of Admission: 08/14/21 00:32 Date of Discharge: August 19, 2021 Attending Provider at Admission: Phillip Gaspar MD Attending Provider at Discharge: Kandy Ji MD Diagnoses at Discharge Discharge Diagnosis (1) Decompensated hepatic cirrhosis: Status: Acute (2) Hyperbilirubinemia: Status: Acute (3) Acute kidney injury superimposed on CKD: Status: Acute (4) Ascites: Status: Acute (5) Hepatic encephalopathy: Status: Acute (6) Hypokalemia: Status: Acute (7) Chronic alcoholic liver disease: Status: Acute (8) Generalized weakness: Status: Acute Reason for Visit Reason for Visit: SOB Hospital Course Hospital Course HPI by admitting MD Talia Randhawa is a 51 year old female With past medical history of decompensated liver cirrhosis likely secondary to alcohol use disorder, hypothyroidism came in with chief complaint of , worsening shortness of breath, generalized weakness, confusion, worsening bilateral lower extremity edema, she was discharged from [facility] likely after being managed for KAT yesterday, came in today as she continued to feel bad. She denies any fever, abdominal pain ,? nausea vomiting. Upon arrival in the ER she was worked up for above-mentioned complaint: Pertinent imaging studies: CT abdomen pelvis w con:Large volume ascites. Left lower lobe compressive atelectasis.Moderate volume left pleural effusion. Xray Chest : 1. Query small left pleural effusion new since comparison.? Left lower lobe airspace opacification is nonspecific. This may represent? atelectasis or pneumonia. Pertinent labs: WBC 10.3, H&H 7.7 / 22.8 , plt : 144 , serum sodium 131, serum potassium 3.9, BUN serum creatinine 19/ 1.3, Total bilirubin 5.3, AST 61 ALT 13 ALP 143, proBNP 3483, procalcitonin 0.21, serum ammonia 96 D-dimer 10.99 ABG: pH 7.45 PCO2 36, PO2 98.4 Urinalysis dirty: Rapid Covid negative She received 80 of Lasix IV one-time dose in the ER Hosp course:- Patient was admitted for management and evaluation of worsening anasarca related to alcohol-related cirrhosis. Her case was presented to team lead in [place] and liver transplant specialist in [place] Dr. Rojas. Paracentesis was requested during hospitalization, 3300 ml and then 2300 mL drained. No signs of SBP, ceftriaxone was discontinued along lactulose and rifaximin. Initially there was concern for hepatic encephalopathy with high ammonia level of 97 which improved with lactulose. She did not straits any hemoptysis or GI bleed however hemoglobin was trickling down. She was given 1 unit PRBC. She was kept on higher dose of IV Lasix twice daily regimen along albumin every 8 hour regimen. Despite albumin, Lasix and paracentesis her anasarca did not improve at all, liver transplant team will call her to make arrangements for outpatient evaluation. is telling me that they already bought [employer] insurance and they are in the midst of getting [place] address so liver transplant evaluation could be expedited at [facility]. She will be discharged home on spironolactone and diuretic high regimen, I have given her prescription for every 3-week paracentesis Child Rivera class C She will need TIPS procedure in the interim before liver transplant for recurrent ascites Physical Exam Narrative: Generalized anasarca Appropriate mood and affect S1, S2 Complexion slightly better however still icteric Anasarca Distended abdomen ascites visceral obesity with prominent abdominal wall veins 2+ pitting edema of legs Awake and alert Nonfocal neuro exam EOMI, PERRLA Urinary Catheter Management: Rainey: Cath Placed During This Visit: yes Urinary Catheter Date of Insertion: 08/13/21 Urinary Catheter Time of Insertion: 23:04 Discharge Data Studies Completed and Pending Completed Studies During Hospitalization Category Date Time Status CT abdomen pelvis w con* [id number] Urgent Cat Scan 08/13/21 23:01 Completed XR chest 1V portable [id number] Urgent Exams 08/13/21 19:19 [place] w [id number] Routine Ultrasound 08/18/21 Completed [place]acentesis abd w [id number] Urgent Ultrasound 08/15/21 02:25 Completed Radiology Impressions Chest X-Ray 08/13/21 19:19 IMPRESSION: 1. Query small left pleural effusion new since comparison. 2. Left lower lobe airspace opacification is nonspecific. This may represent atelectasis or pneumonia. Abdomen/Pelvis CT 08/13/21 23:01 IMPRESSION: 1. Large volume ascites. 2. Negative for biliary obstruction. Paracentesis Ultrasound 08/18/21 00:00 IMPRESSION: Uncomplicated paracentesis yielding 2300 ml of peritoneal fluid. Laboratory Results WBC 10.4 10^3/uL (4.0-10.0) H 08/19/21 05:47 RBC 2.42 10^6/uL (4.1-5.3) L 08/19/21 05:47 Hgb 7.7 g/dL (11.5-15.3) L 08/19/21 05:47 Hct 23.8 % (37.0-47.0) L 08/19/21 05:47 MCV 98.3 fl (81-99) 08/19/21 05:47 MCH 31.8 pg (28.0-34.0) 08/19/21 05:47 MCHC 32.4 g/dL (30.0-36.0) 08/19/21 05:47 RDW 21.2 % (12.1-15.1) H 08/19/21 05:47 Plt Count 146 10^3/cmm (130-400) 08/19/21 05:47 MPV 11.0 fL (7.4-10.4) H 08/19/21 05:47 Neut % (Auto) 61.0 % 08/19/21 05:47 Lymph % (Auto) 12.4 % 08/19/21 05:47 [place] % (Auto) 12.4 % 08/19/21 05:47 Eos % (Auto) 13.1 % 08/19/21 05:47 Baso % (Auto) 0.6 % 08/19/21 05:47 Neut # (Auto) 6.32 10^3/uL (1.8-7.7) 08/19/21 05:47 Lymph # (Auto) 1.3 10^3/uL (0.8-4.8) 08/19/21 05:47 [place] # (Auto) 1.3 10^3/uL (0.2-0.9) H 08/19/21 05:47 Eos # (Auto) 1.4 10^3/uL (0.0-0.8) H 08/19/21 05:47 Baso # (Auto) 0.1 10^3/uL (0.0-0.1) 08/19/21 05:47 Nucleated RBC % (auto) 0 % 08/19/21 05:47 Total Counted Cancelled 08/15/21 15:15 Nucleated RBCs # 0.0 /100WBC 08/19/21 05:47 Differential Comment Cancelled 08/15/21 15:15 PT 21.40 SECONDS (12.1-14.9) H 08/15/21 05:10 INR 1.81 (0.8-1.2) H 08/15/21 05:10 APTT 50.0 SECONDS (23.9-36.7) H 08/15/21 05:10 D-Dimer 10.99 ug/mIFEU (0-0.59) H 08/13/21 21:21 Specimen Type Arterial 08/13/21 19:56 Sample Site Radial, left 08/13/21 19:56 ABG pH 7.45 (7.35-7.45) 08/13/21 19:56 ABG pCO2 36.3 mmHg (35-45) 08/13/21 19:56 ABG pO2 98.4 mmHg (80.0-100.0) 08/13/21 19:56 ABG HCO3 25.3 mmol/L (22-26) 08/13/21 19:56 ABG Base Excess 1.3 mmol/L (-2.0-2.0) 08/13/21 19:56 Caleb Test Pos 08/13/21 19:56 Hematocrit 24.5 % (37-47) L 08/13/21 19:56 Hgb O2 Saturation 96.8 % (95-100) 08/13/21 19:56 Carboxyhemoglobin 1.5 %THgb (0.4-20.1) 08/13/21 19:56 Methemoglobin 0.6 % (0.4-1.5) 08/13/21 19:56 Total Hemoglobin 8.0 g/dL (12-16) L 08/13/21 19:56 O2 Delivery Device Nc 08/13/21 19:56 O2 Liters/Min 2.0 % 08/13/21 19:56 Poker Dealer ID Buttr 08/13/21 19:56 Sodium Cancelled 08/19/21 05:47 Potassium Cancelled 08/19/21 05:47 Chloride Cancelled 08/19/21 05:47 Carbon Dioxide Cancelled 08/19/21 05:47 Anion Gap Cancelled 08/19/21 05:47 BUN Cancelled 08/19/21 05:47 Creatinine Cancelled 08/19/21 05:47 GFR Calculation Cancelled 08/19/21 05:47 Glucose Cancelled 08/19/21 05:47 Calculated Osmolality Cancelled 08/19/21 05:47 Lactic Acid 1.3 mmol/L (0.5-2.2) 08/13/21 19:38 Calcium Cancelled 08/19/21 05:47 Magnesium 1.7 mg/dL (1.7-2.3) 08/15/21 05:10 Total Bilirubin 4.8 mg/dL (0.15-1.2) H 08/18/21 05:26 AST 65 U/L (0-32) H 08/18/21 05:26 ALT 13 U/L (0-33) 08/18/21 05:26 Alkaline Phosphatase 121 IU/L (35-105) H 08/18/21 05:26 Ammonia 97 umol/L (11-51) H 08/13/21 21:21 C-Reactive Protein 37.6 mg/L (0.0-4.9) H 08/13/21 19:38 NT-Pro-B Natriuret Pep 3198 pg/mL (0-125) H 08/14/21 04:38 Total Protein 6.1 g/dL (6.6-8.7) L 08/18/21 05:26 Albumin 3.7 g/dL (3.5-5.2) 08/18/21 05:26 Globulin 2.4 g/dL (1.3-4.6) 08/18/21 05:26 Procalcitonin 0.21 ng/mL (0-0.5) 08/13/21 19:38 Urine Color Yellow (Yellow) 08/13/21 22:43 Urine Appearance Sl cloudy (CLEAR) A 08/13/21 22:43 Urine pH 5 (5-7) 08/13/21 22:43 Ur Specific [place] 1.015 (1.005-1.030) 08/13/21 22:43 Urine Protein Neg (Negative) 08/13/21 22:43 Urine Glucose (UA) Norm (Normal) 08/13/21 22:43 Urine Ketones Negative (Negative) 08/13/21 22:43 Urine Blood Trace (Negative) H 08/13/21 22:43 Urine Nitrate Negative (Negative) 08/13/21 22:43 Urine Bilirubin 1+ (Negative) H 08/13/21 22:43 Urine Urobilinogen Norm mg/dL (Negative) 08/13/21 22:43 Ur Leukocyte Esterase 2+ (Negative) H 08/13/21 22:43 Urine RBC 5-10 /hpf (0-2) H 08/13/21 22:43 Urine WBC >100 /hpf (0-5) H 08/13/21 22:43 Ur Squamous Epith Cells 5-10 /hpf (0-5) H 08/13/21 22:43 Amorphous Sediment Not Reportable 08/13/21 22:43 Urine Bacteria 1+ /hpf (NONE) H 08/13/21 22:43 Hyaline Casts 0-4 /lpf H 08/13/21 22:43 Urine Yeast 2+ /hpf H 08/13/21 22:43 Fluid Color Cancelled 08/15/21 15:15 Fluid Appearance Cancelled 08/15/21 15:15 Fluid WBC Cancelled 08/15/21 15:15 Fluid RBC Cancelled 08/15/21 15:15 Fluid Tot Cell Count Cancelled 08/15/21 15:15 Fld Polynuclear WBCs # Cancelled 08/15/21 15:15 Fld Polynuclear WBCs % Cancelled 08/15/21 15:15 Fl Mononucl WBCs #(Auto) Cancelled 08/15/21 15:15 Fl Mononuclear % Auto Cancelled 08/15/21 15:15 Peritoneal Color Yellow (Pale Yellow) 08/15/21 15:15 Peritoneal Appearance Clear (Clear) 08/15/21 15:15 Peritoneal WBC 108 /uL 08/15/21 15:15 Peritoneal RBC 2 10^3/uL 08/15/21 15:15 Periton Mononu # Auto 0.075 10^3/uL 08/15/21 15:15 Mononuclear WBCs % 69.500 % 08/15/21 15:15 Polynuclear WBCs % 30.500 % 08/15/21 15:15 Perit Polynuc WBCs # 0.033 10^3/uL 08/15/21 15:15 Peritoneal Diff Commnt Yes 08/15/21 15:15 Pleural Color Cancelled 08/15/21 15:15 Pleural Appearance Cancelled 08/15/21 15:15 Pleural WBC Cancelled 08/15/21 15:15 Pleural RBC Cancelled 08/15/21 15:15 Pleural Other Cells Cancelled 08/15/21 15:15 Pleural Polynuclear % Cancelled 08/15/21 15:15 Pleural Mononuclear % Cancelled 08/15/21 15:15 SARS-CoV-2 Ag (Rapid) Negative (Negative) 08/13/21 19:35 Path Cons w/Slide Cancelled 08/15/21 15:15 Blood Type A Positive 08/17/21 09:05 Rho(D) Type Positive 08/17/21 09:05 Antibody Screen Negative 08/17/21 09:05 Crossmatch See Detail 08/17/21 09:05 Vitals Last Vital Signs Temp 98.0 F 08/19/21 07:39 Pulse 101 H 08/19/21 07:39 Resp 16 08/19/21 07:39 BP 95/57 08/19/21 07:39 Pulse Ox 99 08/19/21 07:39 Discharge Plan Discharge Patient Disposition: Home Condition: Stable Prescriptions: New Lasix 80 mg tablet 80 mg PO BID Qty: 90 7RF spironolactone 100 mg tablet 100 mg PO DAILY Qty: 90 5RF lactulose 10 gram/15 mL solution 10 g PO DAILY PRN (Reason: laxative effect) Qty: 946 5RF potassium chloride 20 mEq tablet extended release 20 meq PO DAILY Qty: 90 5RF Continued levothyroxine [Euthyrox] 125 mcg tablet 125 mcg PO DAILY 0RF pantoprazole 40 mg Tablet,Delayed Release (Dr/Ec) 40 mg PO DAILY Qty: 30 0RF midodrine 5 mg tablet 5 mg PO TID 0RF Discontinued furosemide 40 mg tablet 40 mg PO BID 0RF spironolactone 25 mg tablet 25 mg PO DAILY 0RF Discharge Orders: Discharge Order (Routine); Ordered 08/19/21 Ordered By: Kandy Ji Other Ambulatory Orders: US paracentesis abd w [id number] ( DIRECTED) Timeframe: [id number] Facility: [facility] - Location: Radiology Ordered By: Kandy Ji US paracentesis abd w [id number] ( DIRECTED) Timeframe: 20210910 Facility: [facility] - Location: Radiology Ordered By: Kandy Ji US paracentesis abd w [id number] ( DIRECTED) Timeframe: [id number] Facility: [facility] - Location: Radiology Ordered By: Gaitan Garrison US paracentesis abd w [id number] ( DIRECTED) Timeframe: [id number] Facility: [facility] - Location: Radiology Ordered By: Gaitan Garrison US paracentesis abd w [id number] ( DIRECTED) Timeframe: [id number] Facility: [facility] - Location: Radiology Ordered By: Gaitan Garrison US paracentesis abd w [id number] ( DIRECTED) Timeframe: [id number] Facility: [facility] - Location: Radiology Ordered By: Gaitan Garrison US paracentesis abd w [id number] ( DIRECTED) Timeframe: [id number] Facility: [facility] - Location: Radiology Ordered By: Gaitan Garrison US paracentesis abd w [id number] ( DIRECTED) Timeframe: [id number] Facility: [facility] - Location: Radiology Ordered By: Gaitan Garrison US paracentesis abd w [id number] ( DIRECTED) Timeframe: [id number] Facility: [facility] - Location: Radiology Ordered By: Gaitan Garrison US paracentesis abd w [id number] ( DIRECTED) Timeframe: [id number] Facility: [facility] - Location: Radiology Ordered By: Kandy Ji DME: Walker (Order) Timeframe: 2 Days Location: None Selected Ordered By: Kandy Ji Physical Therapy Eval and Treat Outpatient ( DIRECTED) Timeframe: [id number] Facility: [facility] - Location: Physical Therapy [facility] Ordered By: Kandy Ji Referrals: Dr. Leroy Fiore [Other] - 10/25/21 1:30 pm (You are currently scheduled to see Dr Fiore as listed. They have placed you on the cancellation list and will be calling you to come in sooner if at all possible. You might check with them a few times a week at end of day to see if anyone has cancelled for the following day or two. Your information has been sent to them for continuity of care purposes for this hospitalization. ) Discharge Diet: Cardiac Discharge Activity: Use walker/crutches as instructed Patient Instructions: Spironolactone (By mouth), Furosemide (By mouth), Potassium Chloride (By mouth), Lactulose (By mouth), Pulmonary Edema (ED), Opioid Safety Activity Restrictions/Additional Instructions: Continue the diuretics/Lasix you were prescribed during your hospitalization. You should see your primary physician by Sunday for repeat blood count, as well as to check your kidney function. Return for chest pain, worsening shortness of breath despite treatment, any other concerning symptoms. Please call centralized scheduling at to schedule your outpatient ultrasound paracentesis of the abdomen. Please make sure to be NPO (nothing by mouth) 4 hours prior to procedure. Discharge Attestations Time Spent in Discharge Care*: less than 30 min Quality Metrics Clinical Quality Measures [ No reported AMI, CVA or VTE this stay] Coding Level of Care Code Acute Chg FW DC note Diagnoses Decompensated hepatic cirrhosis K72.90; K74.60 Hyperbilirubinemia E80.6 Acute kidney injury superimposed on CKD N17.9; N18.9 Ascites R18.8 Hepatic encephalopathy K72.90 Hypokalemia E87.6 Chronic alcoholic liver disease K70.9 Generalized weakness R53.1
[2021-08-19 11:20] VITALS: BP 92/56; PULSE 97; RESP 16; TEMP 36.6; O2SAT 98
[2021-08-19 16:39] VITALS: BP 100/50; PULSE 97; RESP 16; TEMP 36.6; O2SAT 98
--- NOTE | 2021-08-19 16:41 | PC.NURSE ---
IV's removed intact. Patient tolerated well. Patient is A&Ox3. Respirations even and non-labored on room air. Reviewed discharge instructions with patient and at this time. Patient and verbalized understanding of follow up appointment and how to take medications. Patient assisted into wheel chaired and pushed to private car.
== END 2021-08-19 16:30 | disposition home or self-care (01) | DRG 432 ==
LOC: ER 22:42 → MEDSURG 08-14 05:47
PROVIDERS: Admitting Provider Internal Medicine; Emergency Provider Emergency Medicine; Visit Provider Internal Medicine
DX: K70.31 Alcoholic cirrhosis of liver with ascites (principal); J96.01 Acute respiratory failure with hypoxia; E87.1 Hypo-osmolality and hyponatremia; K76.6 Portal hypertension; N17.9 Acute kidney failure, unspecified; N39.0 Urinary tract infection, site not specified; J90 Pleural effusion, not elsewhere classified; D68.9 Coagulation defect, unspecified; F10.10 Alcohol abuse, uncomplicated; K70.40 Alcoholic hepatic failure without coma; E03.9 Hypothyroidism, unspecified; D64.9 Anemia, unspecified; N18.32 Chronic kidney disease, stage 3b; I95.9 Hypotension, unspecified
CPT/HCPCS: 36415; 36430; 36600; 49083; 51702; 71045; 74177; 80053; 80500; 81001; 82140; 82274; 82805; 83605; 83735; 83880; 84145; 85014; 85018; 85025; 85378; 85610; 85730; 86140; 86850; 86900; 86920; 87040; 87070; 87075; 87086; 87106; 87205; 87426; 89050; 93005; 96365; 96367; 96372; 96375; 99285; J0696; J1450; J1650; J1940; P9016; P9047; Q9967

== ENCOUNTER 2021-08-26 10:29 | Day surgery (SDC) | payer BC, SELFPAY ==
[2021-08-24 10:11] VITALS: BMI 52.8
--- NOTE | 2021-08-26 10:50 | US_ITS ---
WS: [id number] ULTRASOUND-GUIDED THERAPEUTIC PARACENTESIS Procedure, risks, and complications have been explained to the patient. Consent is obtained. Utilizing aseptic technique and 1% buffered lidocaine, a small dermatome was made through which a 5 F rench Yueh catheter was inserted. Approximately 1600 ml of clear peritoneal fluid was obtained witho ut difficulty. No complications encountered. US/US paracentesis abd w [id number] IMPRESSION: Uncomplicated paracentesis yielding 1600 ml of peritoneal fluid.
[2021-08-26 11:02] VITALS: BP 89/57; PULSE 101; RESP 20; TEMP 37; O2SAT 99
[2021-08-26 11:19] VITALS: BP 90/52
[2021-08-26 12:10] LABS: INR 1.89 (0.8-1.2)
== END 2021-08-26 13:34 | disposition home or self-care (01) ==
LOC: GILAB 10:31
PROVIDERS: Radiology Diagnostic Radiology; Visit Provider Internal Medicine
PROC: (CPT 49082; principal; 2021-08-26 12:00)
DX: R18.8 Other ascites (principal); K72.90 Hepatic failure, unspecified without coma; E80.6 Other disorders of bilirubin metabolism
CPT/HCPCS: 36415; 49083; 85610

== ENCOUNTER 2021-08-29 10:34 | Outpatient (RCR) | payer BC, SELFPAY | END 2021-09-05 23:59 | disposition home or self-care (01) | LOC: SPT 10:34 | PROVIDERS: Referring Provider Internal Medicine; Visit Provider Internal Medicine | DX: K70.9 Alcoholic liver disease, unspecified (principal); R53.1 Weakness; E87.1 Hypo-osmolality and hyponatremia; K72.90 Hepatic failure, unspecified without coma | CPT/HCPCS: 97163 ==

== ENCOUNTER 2021-09-02 17:36 | Inpatient (IN) | payer BC, SELFPAY ==
--- NOTE | 2021-09-02 17:48 | XRR_ITS ---
PROCEDURE INFORMATION: Exam: XR Chest Exam date and time: 09/02/2021 5:48 PM Age: 51 years old Clinical indication: Dyspnea TECHNIQUE: Imaging protocol: XR of the chest. Views: 1 view. COMPARISON: CR (CHEST, ) 08/13/2021 8:04 PM FINDINGS: Lungs: Interval development of mild interstitial pulmonary edema with superimposed alveolar edema versus atelectasis versus pneumonia in the left lower lobe. Pleural spaces: Interval development of a small left pleural effusion. No pneumothorax. Heart/Mediastinum: The cardiac silhouette is mildly enlarged. Mediastinal contours are unremarkable. Vasculature: Vascular calcifications in the aorta. Bones/joints: Unremarkable for age. XR/XR chest 1V portable [id number] IMPRESSION: 1. Interval development of mild interstitial pulmonary edema with superimposed alveolar edema versus atelectasis versus pneumonia in the left lower lobe. Recommend followup chest imaging to insure resolution of these findings. 2. Interval development of a small left pleural effusion. 3. Incidental/nonacute findings are listed in the report.
--- NOTE | 2021-09-02 17:48 | ECG_ITS ---
[facility] [place] [facility] Test Date: 2021-09-02 Pat Name: Talia Randhawa Department: Room: Gender: Female Signal Integrity Engineer: : 1970 Requested By: Kath Kohli Order Number: [id number] Lyndsey MD: Cody Hebert M.D. Measurements Intervals [place] Rate: 85 P: 48 NC: 155 QRS: 65 QRSD: 104 T: 31 QT: 414 QTc: 495 Interpretive Statements SINUS RHYTHM POSSIBLE INFERIOR MYOCARDIAL INFARCTION , PROBABLY OLD [30 ms Q WAVE IN II/aVF] Compared to ECG 08/13/2021 19:29:22 No significant changes Electronically Signed On 09-03-2021 6:58:09 [employer] by Cody Hebert M.D. [id number]
[2021-09-02 17:55] VITALS: PULSE 87; RESP 19; O2SAT 96; BMI 42.2
[2021-09-02 18:06] VITALS: BP 107/46; PULSE 85; RESP 19; O2SAT 98
--- NOTE | 2021-09-02 18:27 | CTR_ITS ---
PROCEDURE INFORMATION: Exam: CT Head Without Contrast Exam date and time: 09/02/2021 6:27 PM Age: 51 years old Clinical indication: Altered mental status/memory loss; Confusion or disorientation; Patient HX: Confusion and weakness; Additional info: AMS TECHNIQUE: Imaging protocol: Computed tomography of the head without contrast. Sagittal and coronal reformatted images were created and reviewed. Radiation optimization: All CT scans at this facility use at least one of these dose optimization techniques: automated exposure control; mA and/or kV adjustment per patient size (includes targeted exams where dose is matched to clinical indication); or iterative reconstruction. COMPARISON: No relevant prior studies available. RADIATION DOSE METRICS: Total DLP (mGy-cm): 1697.31 FINDINGS: Brain: Focal area of increased density in the posterior left frontal lobe periventricular white matter measuring 3.6 x 2.4 x 8.4 mm (series 602, image 12 and series 5, image 36). Is uncertain whether this represents a focal acute intraparenchymal hemorrhage or a parenchymal calcification. No acute infarct. No intra-axial or extra-axial masses. No midline shift. No extra-axial fluid collections. Cruz-white matter differentiation is unremarkable. Cerebral ventricles: No hydrocephalus. Paranasal sinuses: Small mucous retention cysts in the posterior left ethmoid and right sphenoid sinuses. Other visualized paranasal sinuses are clear. Mastoid air cells: Mastoid air cells are clear bilaterally. Orbital cavity: Globes and lenses, extraocular muscles, and optic nerves are intact bilaterally. No acute intraorbital abnormality. Bones/joints: Mild right nasal septal deviation. Soft tissues: The extracranial soft tissues are unremarkable. CT/CT head wo con* [id number] IMPRESSION: Focal area of increased density in the posterior left frontal lobe periventricular white matter. Is uncertain whether this represents a focal acute intraparenchymal hemorrhage or a parenchymal calcification. No cerebral edema. No mass effect. No midline shift. No hydrocephalus. Recommend short-term follow-up imaging in 6 hours for re-evaluation of this finding.
[2021-09-02] MEDS: sodium chloride 0.9% 1,000 ML 999 ML IV (18:49)
--- NOTE | 2021-09-02 18:54 | ED_ITS ---
Documented by User: Kath Kohli MD 09/02/21 22:09 HPI - General Adult General: Chief complaint: Altered Mental Status Stated complaint: WEAKNESS Time Seen by Provider: 09/02/21 17:47 History of Present Illness: Patient is a 51-year-old female with a history of De Jesus cirrhosis, chronic hyponatremia, who presents the emergency room for evaluation of altered mental status since 9 AM this morning. Per , patient at baseline is fully functional. However around 9 AM this morning, patient was noted upon awakening to be confused and forgetful. Patient reports feeling increasingly fatigued. reports the patient is unable to take her breakfast and unable to perform her daily ADLs. In the past, patient has had a history of hyponatremia and when she feels confused, usually her sodium runs low per . Patient denies any chest pain, shortness breath, palpitation, nausea/vomiting, diarrhea, melena/hematochezia. denies any prior history of hepatic encephalopathy. Patient denies any hematemesis or abdominal pain. Onset: 9am Duration:ongoing Location:home Severity:moderate Associated symptoms: Reports confusion; Deny chest pain, dyspnea, nausea, rash, palpitations or vomiting Review of Systems Const: Denies: fever(s) or chills Eyes: Denies: change in vision ENMT: Denies: mouth pain Card: Denies: chest pain or palpitations Resp: Denies: dyspnea or non-productive cough GI: Denies: abdominal pain, nausea, vomiting or diarrhea : Denies: dysuria Musc: Denies: extremity pain Skin/Breast: Denies: rash or new lesions Neuro: Reports: confusion; Denies: weakness in extremities Psych: Reports: other (Normal mood) Trevon/Lymph: Denies: easy bruising PFS ED PFSH: Medical History Chronic alcoholic liver disease Coagulopathy Generalized weakness Hyponatremia Hyponatremia No pertinent family history Pulmonary edema Surgical History No pertinent past surgical history Social History Smoking and tobacco status: unknown if ever smoked Alcohol intake: former Physical Exam Const: COMMON NORMALS: alert HENMT: COMMON NORMALS: atraumatic HEAD & SCALP: atraumatic MOUTH: moist mucous membranes not abnormal Eye: COMMON NORMALS: EOMs intact bilaterally and conjunctivae normal CONJUNCTIVA: Yes conjunctivae normal Neck/C-Spine: COMMON NORMALS: full ROM and supple Resp: COMMON NORMALS: normal respiratory effort and clear to auscultation bilaterally AUSCULTATION: clear to auscultation bilaterally Cardio: COMMON NORMALS: regular rate RATE: regular rate GI: COMMON NORMALS: Soft to palpation and non-tender PALPATION: Yes Soft to palpation OTHER: +abdominal distension, positive fluid wave. No focal TTP. NO guarding rebound, guarding, rigidity. No CVA tenderness to percussion. Neg Carter/Neg McBurney's point tenderness, no suprabupic tenderness to palpation. Extremity: COMMON NORMALS: full ROM Neuro: SENSORIUM/ORIENTATION: Yes alert MOTOR EXAM: No Abnormal motor strength present and Other motor observations present (no focal motor deficits) OTHER: AAOx2, GCS 14, following command, no focal neurological deficit. Neuro exam grossly intact Psych: COMMON NORMALS: speech normal SPEECH: Yes normal speech MOOD & AFFECT: Yes euthymic mood Course Vital Signs: Vital signs: Vital Signs Pulse Rate 88 09/02/21 23:58 Respiratory Rate 19 H 09/02/21 23:58 Blood Pressure 102/57 09/02/21 23:58 Pulse Oximetry 99 09/02/21 23:58 MDM - General Adult Medical Decision Making 81-year-old female with history of hyponatremia, De Jesus cirrhosis presenting to the emergency room for concerns of acute altered mental status/confusion since diarrhea this morning. On arrival, patient is AAO x2, GCS 14. Hemodynamically stable. Abdominal distention noted. No focal tenderness to palpation. Lab work-up for altered mental status showed ammonia level of 157. Cr of 2.4 w/ baseline of 1.4-1.6. CT brain showed possible artifact versus brain bleed. I discussed case with virtual radiologist recommend repeat CT scan. Patient will have a repeat CT scan at 12:30 AM. Case signed out to Dr. Alcantara pending repeat CT scan at 12:30am Lab Data : 09/02/21 19:45 09/02/21 19:45 Radiology Impressions Chest X-Ray 09/02/21 17:48 IMPRESSION: 1. Interval development of mild interstitial pulmonary edema with superimposed alveolar edema versus atelectasis versus pneumonia in the left lower lobe. Recommend followup chest imaging to insure resolution of these findings. 2. Interval development of a small left pleural effusion. 3. Incidental/nonacute findings are listed in the report. Head CT 09/03/21 00:30 IMPRESSION: 1. Negative for acute intracranial abnormality. 2. Stable findings from prior imaging. Laboratory Results WBC 11.2 10^3/uL (4.0-10.0) H 09/02/21 19:45 Corrected WBC Cancelled 09/02/21 18:21 RBC 2.50 10^6/uL (4.1-5.3) L 09/02/21 19:45 Hgb 7.9 g/dL (11.5-15.3) L 09/02/21 19:45 Hct 27.6 % (37.0-47.0) L 09/02/21 19:45 MCV 110.4 fl (81-99) H 09/02/21 19:45 MCH 31.6 pg (28.0-34.0) 09/02/21 19:45 MCHC 28.6 g/dL (30.0-36.0) L 09/02/21 19:45 RDW 20.8 % (12.1-15.1) H 09/02/21 19:45 Plt Count 158 10^3/cmm (130-400) 09/02/21 19:45 MPV 10.9 fL (7.4-10.4) H 09/02/21 19:45 Gran % Cancelled 09/02/21 18:21 Neut % (Auto) 76.6 % 09/02/21 19:45 Lymph % (Auto) 8.2 % 09/02/21 19:45 Garza % (Auto) 13.2 % 09/02/21 19:45 Eos % (Auto) 0.9 % 09/02/21 19:45 Baso % (Auto) 0.4 % 09/02/21 19:45 Neut # (Auto) 8.57 10^3/uL (1.8-7.7) H 09/02/21 19:45 Lymph # (Auto) 0.9 10^3/uL (0.8-4.8) 09/02/21 19:45 Garza # (Auto) 1.5 10^3/uL (0.2-0.9) H 09/02/21 19:45 Eos # (Auto) 0.1 10^3/uL (0.0-0.8) 09/02/21 19:45 Baso # (Auto) 0.0 10^3/uL (0.0-0.1) 09/02/21 19:45 Absolute Gran (auto) Cancelled 09/02/21 18:21 Nucleated RBC % (auto) 0 % 09/02/21 19:45 Nucleated RBCs # 0.0 /100WBC 09/02/21 19:45 Sodium 135 mmol/L (136-145) L 09/02/21 19:45 Potassium 5.2 mmol/L (3.5-5.1) H 09/02/21 19:45 Chloride 99 mmol/L (98-107) 09/02/21 19:45 Carbon Dioxide 21 mmol/L (22-29) L 09/02/21 19:45 Anion Gap 20.2 (5-19) H 09/02/21 19:45 BUN 32 mg/dL (6-20) H 09/02/21 19:45 Creatinine 2.4 mg/dL (0.5-0.9) H 09/02/21 19:45 GFR Calculation 21.4 mL/min (90-130) L 09/02/21 19:45 Glucose 122 mg/dL (65-115) H 09/02/21 19:45 Calculated Osmolality 288 mOsm/kg (285-295) 09/02/21 19:45 Calcium 9.6 mg/dL (8.5-10.5) 09/02/21 19:45 Total Bilirubin 6.9 mg/dL (0.15-1.2) H 09/02/21 19:45 AST 61 U/L (0-32) H 09/02/21 19:45 ALT 22 U/L (0-33) 09/02/21 19:45 Alkaline Phosphatase 243 IU/L (35-105) H 09/02/21 19:45 Ammonia 157 umol/L (11-51) H 09/02/21 19:45 Troponin T Baseline 41 ng/L (0-10) H 09/02/21 19:45 Troponin T 120 Minute 41.16 ng/L (0-10) H 09/02/21 22:05 Delta Troponin T 0.16 ABS# (0-10) 09/02/21 22:05 Total Protein 6.6 g/dL (6.6-8.7) 09/02/21 19:45 Albumin 3.1 g/dL (3.5-5.2) L 09/02/21 19:45 Globulin 3.5 g/dL (1.3-4.6) 09/02/21 19:45 Lipase 24 U/L (13-60) 09/02/21 19:45 Urine Color Ebony (Yellow) 09/02/21 18:55 Urine Appearance Clear (CLEAR) 09/02/21 18:55 Urine pH 5 (5-7) 09/02/21 18:55 Ur Specific [place] 1.020 (1.005-1.030) 09/02/21 18:55 Urine Protein Neg (Negative) 09/02/21 18:55 Urine Glucose (UA) Norm (Normal) 09/02/21 18:55 Urine Ketones Negative (Negative) 09/02/21 18:55 Urine Blood Neg (Negative) 09/02/21 18:55 Urine Nitrate Negative (Negative) 09/02/21 18:55 Urine Bilirubin 1+ (Negative) H 09/02/21 18:55 Urine Urobilinogen Neg mg/dL (Negative) 09/02/21 18:55 Ur Leukocyte Esterase Negative (Negative) 09/02/21 18:55 Imaging Data Other Imaging: Radiologist's impression: [address] [address] XRay Report Signed Patient: Talia Randhawa Unit #: [id number] : 1970 Age/Sex: 51 / F ADM Date: 09/02/21 Loc: ER Room/Bed: Attending Dr: Ordering Provider/Ordering MD: Kath Kohli MD Date of Service: 09/02/21 Procedure(s): XR chest 1V portable [id number] Accession Number(s): [id number] Report Number: [id number] PROCEDURE INFORMATION: Exam: XR Chest Exam date and time: 09/02/2021 5:48 PM Age: 51 years old Clinical indication: Dyspnea TECHNIQUE: Imaging protocol: XR of the chest. Views: 1 view. COMPARISON: CR (CHEST, ) 08/13/2021 8:04 PM FINDINGS: Lungs: Interval development of mild interstitial pulmonary edema with superimposed alveolar edema versus atelectasis versus pneumonia in the left lower lobe. Pleural spaces: Interval development of a small left pleural effusion. No pneumothorax. Heart/Mediastinum: The cardiac silhouette is mildly enlarged. Mediastinal contours are unremarkable. Vasculature: Vascular calcifications in the aorta. Bones/joints: Unremarkable for age. XR/XR chest 1V portable [id number] IMPRESSION: 1. Interval development of mild interstitial pulmonary edema with superimposed alveolar edema versus atelectasis versus pneumonia in the left lower lobe. Recommend followup chest imaging to insure resolution of these findings. 2. Interval development of a small left pleural effusion. 3. Incidental/nonacute findings are listed in the report. ? Dictated By: Carol Ann Booker MD Signed By: Carol Ann Booker MD Signed Date/Time: 09/02/211825 DD/ [address] [place] [address] CT Scan Report Signed with Addenda Patient: Talia Randhawa Unit #: [id number] : 1970 Age/Sex: 51 / F ADM Date: 09/02/21 Loc: ER Room/Bed: Attending Dr: Ordering Provider/Ordering MD: Kath Kohli MD Date of Service: 09/02/21 Procedure(s): CT head wo con* [id number] Accession Number(s): [id number] Report Number: [id number]/CT head wo con* [id number] THIS REPORT CONTAINS FINDINGS THAT MAY BE CRITICAL TO PATIENT CARE. The findings were verbally communicated via telephone conference with KATH Brito at 7:29 PM STRATEGIC PLANNING DIRECTOR on 09/02/2021. The findings were acknowledged and understood. ? Addendum Dictated By: ?Carol Ann Booker MD Addendum Signed By: ?Carol Ann Booker MD Signed Date/Time: 09/02/211930 Addendum Cosigned By: ? PROCEDURE INFORMATION: Exam: CT Head Without Contrast Exam date and time: 09/02/2021 6:27 PM Age: 51 years old Clinical indication: Altered mental status/memory loss; Confusion or disorientation; Patient HX: Confusion and weakness; Additional info: AMS TECHNIQUE: Imaging protocol: Computed tomography of the head without contrast.? Sagittal and coronal reformatted images were created and reviewed.? Radiation optimization: All CT scans at this facility use at least one of these dose optimization techniques: automated exposure control; mA and/or kV adjustment per patient size (includes targeted exams where dose is matched to clinical indication); or iterative reconstruction. COMPARISON: No relevant prior studies available. RADIATION DOSE METRICS: Total DLP (mGy-cm): 1697.31 FINDINGS: Brain: Focal area of increased density in the posterior left frontal lobe periventricular white matter measuring 3.6 x 2.4 x 8.4 mm (series 602, image 12 and series 5, image 36). Is uncertain whether this represents a focal acute intraparenchymal hemorrhage or a parenchymal calcification. No acute infarct. No intra-axial or extra-axial masses. No midline shift. No extra-axial fluid collections. Cruz-white matter differentiation is unremarkable. Cerebral ventricles: No hydrocephalus. Paranasal sinuses: Small mucous retention cysts in the posterior left ethmoid and right sphenoid sinuses. Other visualized paranasal sinuses are clear. Mastoid air cells: Mastoid air cells are clear bilaterally. Orbital cavity: Globes and lenses, extraocular muscles, and optic nerves are intact bilaterally. No acute intraorbital abnormality. Bones/joints: Mild right nasal septal deviation. Soft tissues: The extracranial soft tissues are unremarkable. CT/CT head wo con* [id number] IMPRESSION: Focal area of increased density in the posterior left frontal lobe periventricular white matter. Is uncertain whether this represents a focal acute intraparenchymal hemorrhage or a parenchymal calcification. No cerebral edema. No mass effect. No midline shift. No hydrocephalus. Recommend short-term follow-up imaging in 6 hours for re-evaluation of this finding. ? Dictated By: Carol Ann Booker MD Signed By: Carol Ann Booker MD Signed Date/Time: 09/02/211916 DD/ 1827 Discharge Plan Discharge Patient Disposition: Admitted As Inpatient Clinical Impression: Acute hepatic encephalopathy, Altered mental status, Acute kidney injury superimposed on CKD, Acute hypotension Condition: Serious Coding Level of Care Code ED Senior Security Engineer for Chg Fwd Exam Comprehensive Documented by User: Jose Alcantara DO 09/03/21 01:05 HPI - General Adult General: Chief complaint: Altered Mental Status Stated complaint: WEAKNESS Time Seen by Provider: 09/02/21 17:47 PFS ED PFSH: Medical History Chronic alcoholic liver disease Coagulopathy Generalized weakness Hyponatremia Hyponatremia No pertinent family history Pulmonary edema Surgical History No pertinent past surgical history Social History Smoking and tobacco status: unknown if ever smoked Alcohol intake: former Course Vital Signs: Vital signs: Vital Signs Pulse Rate 88 09/02/21 23:58 Respiratory Rate 19 H 09/02/21 23:58 Blood Pressure 102/57 09/02/21 23:58 Pulse Oximetry 99 09/02/21 23:58 [facility] - General Adult Medical Decision Making 81-year-old female with history of hyponatremia, De Jesus cirrhosis presenting to the emergency room for concerns of acute altered mental status/confusion since diarrhea this morning. On arrival, patient is AAO x2, GCS 14. Hemodynamically stable. Abdominal distention noted. No focal tenderness to palpation. Lab work-up for altered mental status showed ammonia level of 157. Cr of 2.4 w/ baseline of 1.4-1.6. CT brain showed possible artifact versus brain bleed. I discussed case with virtual radiologist recommend repeat CT scan. Patient will have a repeat CT scan at 12:30 AM. Case signed out to Dr. Alcantara pending repeat CT scan at 12:30am Patient checked out to me by previous physician at shift change. CT repeated at 0030 is stable from prior, and is read as no acute abnormality. This lady has been hypotensive, currently with a pressure of 83/56, and as high as 105 systolic. Her ammonia level is 157. She has acute kidney injury. Should go to the ICU. Lab Data : 09/02/21 19:45 09/02/21 19:45 Radiology Impressions Chest X-Ray 09/02/21 17:48 IMPRESSION: 1. Interval development of mild interstitial pulmonary edema with superimposed alveolar edema versus atelectasis versus pneumonia in the left lower lobe. Recommend followup chest imaging to insure resolution of these findings. 2. Interval development of a small left pleural effusion. 3. Incidental/nonacute findings are listed in the report. Head CT 09/03/21 00:30 IMPRESSION: 1. Negative for acute intracranial abnormality. 2. Stable findings from prior imaging. Laboratory Results WBC 11.2 10^3/uL (4.0-10.0) H 09/02/21 19:45 Corrected WBC Cancelled 09/02/21 18:21 RBC 2.50 10^6/uL (4.1-5.3) L 09/02/21 19:45 Hgb 7.9 g/dL (11.5-15.3) L 09/02/21 19:45 Hct 27.6 % (37.0-47.0) L 09/02/21 19:45 MCV 110.4 fl (81-99) H 09/02/21 19:45 MCH 31.6 pg (28.0-34.0) 09/02/21 19:45 MCHC 28.6 g/dL (30.0-36.0) L 09/02/21 19:45 RDW 20.8 % (12.1-15.1) H 09/02/21 19:45 Plt Count 158 10^3/cmm (130-400) 09/02/21 19:45 MPV 10.9 fL (7.4-10.4) H 09/02/21 19:45 Gran % Cancelled 09/02/21 18:21 Neut % (Auto) 76.6 % 09/02/21 19:45 Lymph % (Auto) 8.2 % 09/02/21 19:45 Garza % (Auto) 13.2 % 09/02/21 19:45 Eos % (Auto) 0.9 % 09/02/21 19:45 Baso % (Auto) 0.4 % 09/02/21 19:45 Neut # (Auto) 8.57 10^3/uL (1.8-7.7) H 09/02/21 19:45 Lymph # (Auto) 0.9 10^3/uL (0.8-4.8) 09/02/21 19:45 Garza # (Auto) 1.5 10^3/uL (0.2-0.9) H 09/02/21 19:45 Eos # (Auto) 0.1 10^3/uL (0.0-0.8) 09/02/21 19:45 Baso # (Auto) 0.0 10^3/uL (0.0-0.1) 09/02/21 19:45 Absolute Gran (auto) Cancelled 09/02/21 18:21 Nucleated RBC % (auto) 0 % 09/02/21 19:45 Nucleated RBCs # 0.0 /100WBC 09/02/21 19:45 Sodium 135 mmol/L (136-145) L 09/02/21 19:45 Potassium 5.2 mmol/L (3.5-5.1) H 09/02/21 19:45 Chloride 99 mmol/L (98-107) 09/02/21 19:45 Carbon Dioxide 21 mmol/L (22-29) L 09/02/21 19:45 Anion Gap 20.2 (5-19) H 09/02/21 19:45 BUN 32 mg/dL (6-20) H 09/02/21 19:45 Creatinine 2.4 mg/dL (0.5-0.9) H 09/02/21 19:45 GFR Calculation 21.4 mL/min (90-130) L 09/02/21 19:45 Glucose 122 mg/dL (65-115) H 09/02/21 19:45 Calculated Osmolality 288 mOsm/kg (285-295) 09/02/21 19:45 Calcium 9.6 mg/dL (8.5-10.5) 09/02/21 19:45 Total Bilirubin 6.9 mg/dL (0.15-1.2) H 09/02/21 19:45 AST 61 U/L (0-32) H 09/02/21 19:45 ALT 22 U/L (0-33) 09/02/21 19:45 Alkaline Phosphatase 243 IU/L (35-105) H 09/02/21 19:45 Ammonia 157 umol/L (11-51) H 09/02/21 19:45 Troponin T Baseline 41 ng/L (0-10) H 09/02/21 19:45 Troponin T 120 Minute 41.16 ng/L (0-10) H 09/02/21 22:05 Delta Troponin T 0.16 ABS# (0-10) 09/02/21 22:05 Total Protein 6.6 g/dL (6.6-8.7) 09/02/21 19:45 Albumin 3.1 g/dL (3.5-5.2) L 09/02/21 19:45 Globulin 3.5 g/dL (1.3-4.6) 09/02/21 19:45 Lipase 24 U/L (13-60) 09/02/21 19:45 Urine Color Ebony (Yellow) 09/02/21 18:55 Urine Appearance Clear (CLEAR) 09/02/21 18:55 Urine pH 5 (5-7) 09/02/21 18:55 Ur Specific [place] 1.020 (1.005-1.030) 09/02/21 18:55 Urine Protein Neg (Negative) 09/02/21 18:55 Urine Glucose (UA) Norm (Normal) 09/02/21 18:55 Urine Ketones Negative (Negative) 09/02/21 18:55 Urine Blood Neg (Negative) 09/02/21 18:55 Urine Nitrate Negative (Negative) 09/02/21 18:55 Urine Bilirubin 1+ (Negative) H 09/02/21 18:55 Urine Urobilinogen Neg mg/dL (Negative) 09/02/21 18:55 Ur Leukocyte Esterase Negative (Negative) 09/02/21 18:55 Discharge Plan Discharge Patient Disposition: Admitted As Inpatient Clinical Impression: Acute hepatic encephalopathy, Altered mental status, Acute kidney injury supe rimposed on CKD, Acute hypotension Condition: Serious Coding Level of Care Code ED Senior Security Engineer for Chg Fwd Exam Comprehensive
--- NOTE | 2021-09-02 19:48 | ECG_ITS ---
[facility] Test Date: 2021-09-03 Pat Name: Talia Randhawa Department: Room: ICU12 Gender: Female Chaperon: : 1970 Requested By: Kath Kohli Order Number: [id number] Lyndsey MD: Reza Nelson M.D. Measurements Intervals [place] Rate: 85 P: 45 AR: 118 QRS: 67 QRSD: 100 T: 31 QT: 391 QTc: 467 Interpretive Statements SINUS RHYTHM WITH SHORT AR INTERVAL Compared to ECG 09/02/2021 17:59:58 Short AR interval now present Myocardial infarct finding no longer present Electronically Signed On 09-03-2021 18:07:08 NON LICENSED NUCLEAR PLANT OPERATOR by Reza Nelson M.D. [email or web address] geneva medical centerCellEra/store/[id number]
[2021-09-02 20:09] VITALS: BP 108/42; PULSE 83; RESP 17; O2SAT 97
[2021-09-02 20:09] LABS: Basophils % 0.4 %; Eosinophils # 0.1 10^3/uL (0.0-0.8); Eosinophils % 0.9 %; Hematocrit 27.6 % (37.0-47.0); Hemoglobin 7.9 g/dL (11.5-15.3); Lymphocytes # 0.9 10^3/uL (0.8-4.8); Lymphocytes % 8.2 %; Mean Corpuscular HGB Conc 28.6 g/dL (30.0-36.0); Mean Corpuscular Hemoglobin 31.6 pg (28.0-34.0); Mean Corpuscular Volume 110.4 fl (81-99); Mean Platelet Volume 10.9 fL (7.4-10.4); Monocytes # 1.5 10^3/uL (0.2-0.9); Monocytes % 13.2 %; Neutrophils # 8.57 10^3/uL (1.8-7.7); Neutrophils % 76.6 %; Nucleated Red Blood Cells % 0 %; Platelet Count 158 10^3/cmm (130-400); Red Cell Distribution Width 20.8 % (12.1-15.1); White Blood Count 11.2 10^3/uL (4.0-10.0)
[2021-09-02 20:21] LABS: Troponin(5th) Baseline 41 ng/L (0-10)
[2021-09-02 20:24] LABS: Alanine Aminotransferase 22 U/L (0-33); Albumin Level 3.1 g/dL (3.5-5.2); Alkaline Phosphatase 243 IU/L (35-105); Anion Gap 20.2 (5-19); Aspartate Amino Transferase 61 U/L (0-32); Blood Urea Nitrogen 32 mg/dL (6-20); Calcium 9.6 mg/dL (8.5-10.5); Carbon Dioxide 21 mmol/L (22-29); Chloride 99 mmol/L (98-107); Globulin 3.5 g/dL (1.3-4.6); Glomerular Filtration Rate 21.4 mL/min (90-130); Glucose 122 mg/dL (65-115); Lipase 24 U/L (13-60); Osmolality Calculated 288 mOsm/kg (285-295); Potassium 5.2 mmol/L (3.5-5.1); Sodium 135 mmol/L (136-145); Total Bilirubin 6.9 mg/dL (0.15-1.2); Total Protein 6.6 g/dL (6.6-8.7)
[2021-09-02 20:28] LABS: Add Urine Microscopic? NO; Charge for UA Resulting for Rev
[2021-09-02 20:33] LABS: Creatinine Clr Calc Pharmacy 34.2894
[2021-09-02 20:34] LABS: Bilirubin Urine 1+ (Negative); Blood Urine Neg (Negative); Glucose Urine UA Norm (Normal); Ketones Urine Negative (Negative); Leukocyte Esterase Urine Negative (Negative); Nitrate Urine Negative (Negative); Protein Urine Neg (Negative); Urine Appearance Clear (CLEAR); Urine Color Amber (Yellow); Urobilinogen Urine Neg (Negative); pH Urine 5 (5-7)
[2021-09-02 20:58] LABS: Ammonia 157 umol/L (11-51)
[2021-09-02 22:32] VITALS: BP 82/51; PULSE 84; RESP 17; O2SAT 97
[2021-09-02 22:34] LABS: Troponin 5 2HR 41.16 ng/L (0-10)
[2021-09-02 22:37] LABS: Troponin 5 2HR Delta 0.16 ABS# (0-10)
--- NOTE | 2021-09-02 23:48 | ECG_ITS ---
[facility] Test Date: 2021-09-03 Pat Name: Talia Randhawa Department: Room: ICU12 Gender: Female Green Promotions Specialist: : 1970 Requested By: Kath Kohli Order Number: [id number] Lyndsey MD: Reza Nelson M.D. Measurements Intervals [place] Rate: 84 P: 48 MI: 125 QRS: 63 QRSD: 105 T: 31 QT: 426 QTc: 504 Interpretive Statements SINUS RHYTHM WITH SINUS ARRHYTHMIA Compared to ECG 09/03/2021 00:37:29 Short MI interval no longer present Electronically Signed On 09-03-2021 18:07:11 LUMP MACHINE OPERATOR by Reza Nelson M.D. [email or web address] [email or web address] [email or web address] [email or web address] hospital7 [employer]/store/OM/[id number]
[2021-09-02 23:58] VITALS: BP 102/57; PULSE 88; RESP 19; O2SAT 99
[2021-09-03] VITALS (67 sets, daily range): BP systolic 51–119; BP diastolic 31–81; PULSE 71–102; RESP 8–25; TEMP 32.3–36.6; O2SAT 53–99
--- NOTE | 2021-09-03 00:30 | CTR_ITS ---
PROCEDURE INFORMATION: Exam: CT Head Without Contrast Exam date and time: 09/03/2021 12:30 AM Age: 51 years old Clinical indication: Other: Left posterior frontal hyperdensity. ; Patient HX: 6 hour f/u for left posterior frontal hyperdensity that was inconclusive for hemorrhage vs calcification. ; Additional info: Possible brain bleed? TECHNIQUE: Imaging protocol: Computed tomography of the head without contrast. Radiation optimization: All CT scans at this facility use at least one of these dose optimization techniques: automated exposure control; mA and/or kV adjustment per patient size (includes targeted exams where dose is matched to clinical indication); or iterative reconstruction. COMPARISON: CT head wo con* [id number] 09/02/2021 7:02 PM RADIATION DOSE METRICS: Total DLP (mGy-cm): 856.47 FINDINGS: Brain: Small linear hyperattenuating structure in the left posterior periventricular white matter area is stable from comparison imaging and most likely customer service representative teacher of calcification. No convincing evidence of intracranial hemorrhage. Cruz matter and white matter interfaces are preserved. No midline shift of brain. No cerebral sulcal effacement. Cerebral ventricles: No ventriculomegaly. Paranasal sinuses: Visualized sinuses are unremarkable. No fluid levels. Mastoid air cells: Visualized mastoid air cells are well aerated. Bones/joints: Unremarkable. No acute fracture. Soft tissues: Unremarkable. CT/CT head wo con* [id number] IMPRESSION: 1. Negative for acute intracranial abnormality. 2. Stable findings from prior imaging.
--- NOTE | 2021-09-03 01:41 | P.HP_ITS ---
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 Patient stated she had similar symptoms as prior. Upon arrival to hospital patient was noted to be confused. Head CT initially performed showed possible intraparenmal hemorrhage however head CT was repeated which did not show any acute intracranial abnormality. Lab work up showed a WBC of 11.2, hemoglobin of 7.9, hematocrit of 27.6 and a a platelet count of 158. Sodium 135, potassium 5.2, chloride 99, bicarb 21, BUN 32 and a creatinine of 2.4. Ammonia of 157. Chest x-ray showed interval development of mild interstitial pulmonary edema with superimposed alveolar edema versus atelectasis versus pneumonia in the left lower lobe.At the time of my eval patient was awake hwoever weak. BP was noted to be 68/40. Was started on levophed and broad specturm abx. Review of Systems 2 General: Reports: 10 or more systems reviewed and unremarkable except in HPI and below Medications/Allergies Home Medications Medication Instructions Recorded Confirmed Last Taken Type levothyroxine 125 mcg tablet 125 mcg PO DAILY 07/24/21 08/24/21 Unknown History (Euthyrox) midodrine 5 mg tablet 5 mg PO TID 08/14/21 08/24/21 Unknown History furosemide 80 mg tablet (Lasix) 80 mg PO BID #90 tab 08/19/21 08/24/21 Unknown Rx lactulose 10 gram/15 mL oral 10 g (15 mL) PO DAILY PRN #946 ml 08/19/21 08/24/21 Unknown Rx solution potassium chloride 20 mEq 20 meq PO DAILY #90 tab 08/19/21 08/24/21 Unknown Rx tablet,extended release spironolactone 100 mg tablet 100 mg PO DAILY #90 tab 08/19/21 08/24/21 Unknown Rx pantoprazole 40 mg tablet,delayed 40 mg PO DAILY 08/26/21 08/26/21 Unknown History release Allergies Allergy/AdvReac Type Severity Reaction Status Date / Time No Known Allergies Allergy Verified 09/02/21 17:54 PFSH Acute PFSH: Medical History Chronic alcoholic liver disease Coagulopathy Generalized weakness Hyponatremia Hyponatremia No pertinent family history Pulmonary edema Surgical History No pertinent past surgical history Social History Smoking and tobacco status: unknown if ever smoked Alcohol intake: former Vitals/I&O/Wt Last Vital Signs Pulse 88 09/03/21 01:08 Resp 8 L 09/03/21 01:08 BP 83/56 09/03/21 01:08 Pulse Ox 97 09/03/21 01:08 Weight last 48 hrs Weight 111.584 kg Physical Exam Narrative: General : Chronically ill apearrin g HEENT; Scleral icterus CVS: RRr Chest ; Decreased at baseas ABD distended. No focal tenderness Ext : + Edema / Anasarca Skin ; Nonspecific dermatitis diffuse. Urinary Catheter Management: Rainey: Cath Placed During This Visit: yes Urinary Catheter Date of Insertion: 09/02/21 Urinary Catheter Time of Insertion: 18:50 Data : 09/02/21 19:45 09/02/21 19:45 A&P Assessment and plan (1) Acute hepatic encephalopathy: Status: Acute (2) Altered mental status: Status: Acute (3) Acute kidney injury superimposed on CKD: Status: Acute (4) Acute hypotension: Status: Acute (5) Decompensated hepatic cirrhosis: Status: Acute (6) Hyperbilirubinemia: Status: Acute (7) Ascites: Status: Acute (8) Pleural effusion: Status: Acute (9) HCAP (healthcare-associated pneumonia): Status: Acute Plan Decompensated liver cirrhosis / Hepatic encephalopathy / Ascietes End stage liver disease - MELD around 30 based on INR from 18th AST 61, ALT 22, ALP 243, Total bili 6.9 Repeat CMP in am Recent paracentesis Plan for TIPS eval Not currently on transplant list. Ammonia 157 - Resume lactulose Suspected LLL pneumonia Will tx for HCAP -recent hospitalization Will also cover for anerobe Vancomycin / zosyn renal dosing Blood culture x 2 Procal in am - may be unreliable given liver/renal dysfunction CBC in am De-escalate abx baseded on clinical course and culture Acute on chronic renal failure Baseline 1.4 - > increased to 2.4 Pre-renal with component of hepatorenal syndrome Consider nephrology consult in am Hold Aldactone Avoid hypotension Levophed for SBP goal > 90 Troponin elevation 2hr delta 16 Not consistent with ACS Likely due to ch. illness with worseng renal failrue Consider ECHo Chronic Hypotension Midodrine 5 m PO TID May need to increase to 10 mg Anemia of chronic disease Hb 7.9 Stable No evidence of bleeding Generalized Rash Nonspecific dermatitis Not new Nonpruritic May benifit from skin biopsy Monitor Hypothyroidism Levothyroixine 125 mcg PO daily GERD Protonix 40 mg PO daily Debility PT/OT consult Fall Precautions DVT ppx SCDS Attestations Medical Necessity Statement*: Will require > 2 midnight stay in hospital for eval and treatment Time Spent in Patient Care: Greater than 35 minutes Critical Care Time: Critical Care Time (min): 65 Coding Level of Care Code Acute Basin Finish Operator Tig Welder for Chg Fwd Diagnoses Acute hepatic encephalopathy K72.00 Altered mental status R41.82 Acute kidney injury superimposed on CKD N17.9; N18.9 Acute hypotension I95.9 Decompensated hepatic cirrhosis K72.90; K74.60 Hyperbilirubinemia E80.6 Ascites R18.8 Pleural effusion J90 HCAP (healthcare-associated pneumonia) J18.9
--- NOTE | 2021-09-03 01:45 | PC.NURSE ---
Urine cath output at 0115- 650ml.
--- NOTE | 2021-09-03 02:30 | PC.NURSE ---
Nurse at bedside unsuccessful to start iv by ultrasound. NO needs identified at this time.
[2021-09-03] MEDS: norepinephrine 8 MG in dextrose 5 % 500 ML 7.62 MG IV (03:01)
[2021-09-03] MEDS: pantoprazole 40 mg SDV IVP (03:03)
--- NOTE | 2021-09-03 03:10 | PC.NURSE ---
Pt. has low temp of 93 degree fahrenheit. Placed abiola hugger to warm patient.
--- NOTE | 2021-09-03 04:34 | PC.PHAR ---
Pharmacokinetic dosing service Date: 09/03/21 Time: 429 Objective: Patient: Ramin Delgado Floor: ICU-12 Age: 51 yo Serum creatinine: 2.4 mg/dL Height: 64.0 Inches Weight (kg): 111.584 Diagnosis: Relevant medical/social history: Cultures and sensitivities: Other labs: Assessment: IBW (kg): 54.70 Dosing wt(kg): 111.584 Estimated Creatinine clearance (ml/min): 24.2 CRCL method: Cockcroft and Gault using ibw(default). Drug selected: Vancomycin Loading dose (mg): 0 Vd (liters): 100.4 (factor used: 0.9 L/kg) Pedro (hr-1): 0.024 Half life (hrs): 28.88 Recommended dose: 1500 mg Interval: 36 hrs Infusion time (hrs): 1.5 Predicted peak (mcg/mL): 25.4 Predicted trough (mcg/mL): 11.10 Total body weight is being used for vancomycin dosing. Renal function is stable [ ] /unstable [ ] Recommendations: Give Vancomycin 1500 mg q 36 hrs with an expected Cpeak of 25.4 mcg/ml and an expected Ctrough of 11.10 mcg/ml Renal dosing of other antibiotics (review renal dosing of other medications and list guidelines here): Thank you for the consult, will continue to follow. Signature: Rosemary French [facility]
[2021-09-03] MEDS: levothyroxine 125 mcg Tablet PO (05:08)
[2021-09-03] MEDS: vancomycin 1,500 MG/300 ML PIGGYBACK 200 MG IV (05:08)
--- NOTE | 2021-09-03 07:29 | PM.CCNAC ---
Critical Care Event Note 51-year-old female with a past medical history significant for hypothyroidism, liver cirrhosis due to alcoholism with subsequent recurrent ascites requiring paracenteses, encephalopathy on lactulose, who was recenlty discharged from hospital now presenting again with generalized weakeness currently being manged for Decompensated liver cirrhosis / Hepatic encephalopathy / Ascietes/HRS.Was requiring high amount of levophed and was in need of other important medications namely. vasopressin,albumin,broad spectrum abxs,with possibility of CRRT in next 24hrs.RT I.J Central line was placed for further stabilization. Patient tolerated the procedure well, post CVC placement xray chest was done, which showed good placement of CVC without complications. The high probability of a clinically significant, sudden or life threatening deterioration of the patient's [] system(s) required my full and direct attention, intervention and personal management. The critical care time is as shown. This time is in addition to time spent performing any reported procedures but includes the following: [x] Data and vital sign review and interpretation [x] Patient assessment, examination and intervention [x] Documentation [x] Medication orders and management Critical Care Time Code activated: No Critical Care Time (min): 45 Procedures Central Line Placement^ Right IJ: Time out performed: Yes Patient placed on monitor/pulse ox: Yes MD prep: mask, gown and gloves Central line prep: Chlorhexidine scrub and sterile drapes applied Local anesthesia used: lidocaine 2% Amount of anesthesia used (ml): 10 Ultrasound used for placement: Yes Central line lumen inserted: triple Post procedure: sutured in place, good blood return, all ports aspirated, flushed, capped and sterile dressing applied Post procedure x-ray: tip of catheter in good position and no pneumothorax seen Patient tolerated procedure: well and no complications Coding Level of Care Code Acute Component Assembler Supervisor for Karli Medina
--- NOTE | 2021-09-03 07:38 | PM.ACPR ---
Acute Procedures Central Line Placement: Right IJ: Time out performed: Yes Patient placed on monitor/pulse ox: Yes MD prep: mask, gown and gloves Central line prep: Chlorhexidine scrub Local anesthesia used: lidocaine 2% Amount of anesthesia used (ml): 10 Ultrasound used for placement: Yes Central line lumen inserted: triple Post procedure: sutured in place, good blood return, all ports aspirated, flushed, capped and sterile dressing applied Post procedure x-ray: tip of catheter in good position and no pneumothorax seen Patient tolerated procedure: well and no complications
--- NOTE | 2021-09-03 08:42 | XRR_ITS ---
PROCEDURE INFORMATION: Exam: XR Chest Exam date and time: 09/03/2021 8:42 AM Age: 51 years old Clinical indication: Device placement; Other: RT i. J central line placement check TECHNIQUE: Imaging protocol: XR of the chest. Views: 1 view. COMPARISON: CR (CHEST, ) 09/02/2021 5:56 PM FINDINGS: Tubes, catheters and devices: A right internal jugular catheter is present with the tip projecting on the right atrium. Lungs: There is left basilar opacity similar to the previous study consistent with basilar consolidation/atelectasis and effusion. Pleural spaces: No pneumothorax. Heart/Mediastinum: Unremarkable. No cardiomegaly. Bones/joints: Unremarkable. XR/XR chest 1V portable [id number] IMPRESSION: 1. The tip of the right jugular venous catheter projects on the right atrium. 2. Stable left basilar consolidation/atelectasis and effusion.
[2021-09-03] MEDS: lidocaine 2% INJ 20 mL (09:05)
[2021-09-03] MEDS: piperacillin-tazobactam 3.375 GM in sodium chloride 0.9% (plus) 50 ML IV ×2 (09:11→14:11)
[2021-09-03] MEDS: hydrocortisone 100 mg/2 mL SDV IVP ×2 (09:11→21:19)
[2021-09-03] MEDS: midodrine 5 mg TABLET 10 MG PO ×3 (09:12→21:19)
[2021-09-03] MEDS: lactulose oral liq 20 gm/30 mL UDC PO ×3 (10:11→21:19)
[2021-09-03] MEDS: acetaminophen 325 mg Tablet 650 MG PO (10:12)
--- NOTE | 2021-09-03 10:13 | P.CONIM_ITS ---
Providers/Reason For Consult Consulting Physician/Specialty*: Helga Escalante DO, telenephrology Reason for Consult*: Acute Kidney Injury Requesting Physician: Parth Cristina MD Attending Physician: Parth Cristina MD History of Present Illness History of Present Illness Talia Randhawa is a 51 year old female,history of ESLD, in ICU with hypotension, KAT, possible sepsis, HRS. Essentially anuric. baseline serum Cr 1.4 - 1.8 mg/dL over past couple of months. Review of Systems General: Reports: ROS unobtainable due to medical condition Medications/Allergies Home Medications Medication Instructions Recorded Confirmed Last Taken Type levothyroxine 125 mcg tablet 125 mcg PO DAILY 07/24/21 09/03/21 Unknown History (Euthyrox) midodrine 5 mg tablet 5 mg PO TID 08/14/21 09/03/21 Unknown History furosemide 80 mg tablet (Lasix) 80 mg PO BID #90 tab 08/19/21 09/03/21 Unknown Rx lactulose 10 gram/15 mL oral 10 g (15 mL) PO DAILY PRN #946 ml 08/19/21 09/03/21 Unknown Rx solution potassium chloride 20 mEq 20 meq PO DAILY #90 tab 08/19/21 09/03/21 Unknown Rx tablet,extended release spironolactone 100 mg tablet 100 mg PO DAILY #90 tab 08/19/21 09/03/21 Unknown Rx pantoprazole 40 mg tablet,delayed 40 mg PO DAILY 08/26/21 09/03/21 Unknown History release hydroxyzine pamoate 25 mg capsule 12 mg PO Q12H PRN 09/03/21 09/03/21 Unknown History Allergies Allergy/AdvReac Type Severity Reaction Status Date / Time No Known Allergies Allergy Verified 09/03/21 10:48 Current Medications Generic Name Dose Route Start Last Admin Trade Name Freq PRN Reason Stop Dose Admin Acetaminophen 650 mg 09/03/21 01:39 09/03/21 10:12 Acetaminophen 325 Mg Tablet PO 650 mg Q6H PRN Administration Mild/Mod Pain Or Temp >/= 101 Hydrocortisone Sodium Succinate 100 mg 09/03/21 09:00 09/03/21 09:11 Hydrocortisone 100 Mg/2 Ml Sdv IVP 100 mg Q12H SHERYL Administration Norepinephrine Bitartrate 8 mg 508 mls @ 0 mls/hr 09/03/21 02:45 09/03/21 05:03 / Dextrose IV 20 mcg/min .Q0M SHERYL 76.2 mls/hr Titration Protocol Per Protocol Piperacillin Sod/Tazobactam 50 mls @ 12.5 mls/hr 09/03/21 06:00 09/03/21 09:11 Sod 3.375 gm/ Sodium Chloride IV 12.5 mls/hr Q8H SHERYL Administration Protocol Vancomycin/PEG/NADA/Lysine/Water 1,500 mg in 300 mls @ 200 mls/hr 09/03/21 05 :00 09/03/21 09:20 Vancocin IV Infused Q36H SHERYL Infusion Albumin Human 25 gm in 100 mls @ 60 mls/hr 09/03/21 08:30 09/03/21 10:10 Albumin IV 60 mls/hr Q8H SHERYL Administration Vasopressin 100 unit/ Sodium 100 mls @ 0 mls/hr 09/03/21 09:00 09/03/21 09:30 Chloride IV 0.02 unit/min .Q0M SHERYL 1.2 mls/hr Titration Protocol Per Protocol Lactulose 20 gm 09/03/21 04:15 09/03/21 10:11 Lactulose Oral Liq 20 Gm/30 Ml Udc PO 20 gm Q6H SHERYL Administration Levothyroxine Sodium 125 mcg 09/03/21 06:00 09/03/21 05:08 Levothyroxine 125 Mcg Tablet PO 125 mcg QAM SHERYL Administration Midodrine 10 mg 09/03/21 09:00 09/03/21 09:12 Midodrine 5 Mg Tablet PO 10 mg TID SHERYL Administration Pantoprazole Sodium 40 mg 09/03/21 01:45 09/03/21 03:03 Pantoprazole 40 Mg Sdv IVP 40 mg Q24H SHERYL Administration Rifaximin 550 mg 09/03/21 09:00 09/03/21 09:12 Rifaximin 550 Mg Tablet PO 550 mg BID SHERYL Administration Protocol PFSH Acute 2 PFSH: Medical History Chronic alcoholic liver disease Coagulopathy Generalized weakness Hyponatremia Hyponatremia No pertinent family history Pulmonary edema Surgical History No pertinent past surgical history Social History Smoking and tobacco status: unknown if ever smoked Alcohol intake: former Vitals/I&O/Wt Last Vital Signs Temp 94.8 F L 09/03/21 05:57 Pulse 83 09/03/21 05:19 Resp 19 H 09/03/21 04:00 BP 83/62 09/03/21 04:00 Pulse Ox 81 L 09/03/21 03:50 09/02/21 09/03/21 09/03/21 22:59 06:59 14:59 Intake Total 53.086 / 53.086 300.07 / 300.07 Output Total 50 / 50 Balance 3.086 / 3.086 300.07 / 300.07 Weight last 48 hrs Weight 145.15 kg Weight 111.584 kg Physical Exam Const: COMMON NORMALS: no acute distress GENERAL APPEARANCE: lethargic (arousable, states she feel lousy ) ORIENTATION/CONSCIOUSNESS: Yes lethargic (arousable, states she feel lousy ) Extremity: GENERAL: Yes edema Neuro: SENSORIUM/ORIENTATION: Yes lethargic (arousable, states she feel lousy ) Urinary Catheter Management: Rainey: Cath Placed During This Visit: yes Reason for Continuing Indwelling Catheter: Accurate Measurement of Urinary Output in Critically Ill Patients Urinary Catheter Date of Insertion: 09/02/21 Urinary Catheter Time of Insertion: 18:50 Data : 09/02/21 19:45 09/03/21 09:50 Other Labs: ? bili 6.9, NH3 157, albumin 3.1, Ca 9.6 Urine Na 18 urine Cr 116, FeNa < 1% Micro: Microbiology 09/03/21 09:53 Blood Culture - Preliminary Blood SPECIMEN COLLECTED 09/03/21 09:50 Blood Culture - Preliminary Blood SPECIMEN COLLECTED CXR: Radiologist's impression: 1. The tip of the right jugular venous catheter projects on the right atrium. 2. Stable left basilar consolidation/atelectasis and effusion. CT Abd/Pel: Radiologist's impression: 08/13/21 with contrast Large volume ascites Adrenal glands: Normal. No mass. Kidneys and ureters: Normal. No hydronephrosis. US: Radiologist's impression: 07/26/21 Right kidney: 12.3 cm x 6.8 cm x 4.5 cm. Normal echogenicity with no hydronephrosis or mass. Left kidney: 13.0 cm x 6.6 cm x 5.2 cm. Normal echogenicity with no hydronephrosis or mass. A&P Assessment and plan (1) Hepatorenal syndrome: Status: Acute Plan Seen and examined at bedside via telemedicine with assistance of RN 1. Acute oligoanuric kidney injury: Urine sodium/FeNa consistent with HRS, on levophed, vasopressin and IV albumin 2. Hepatic encephalopathy, ESLD 3. Pneumonia, possible sepsis Recommend: continue current rx. Discussed possible need for HD with family member at bedside. Dose vancomycin by level. Consider transfer to liver transplant center. Consult Attestations 2 Medical Necessity Statement: critically ill in ICU Time Spent in Patient Care: 16 - 35 minutes Coding Level of Care Code Acute Chainer for Karli Medina Diagnoses Hepatorenal syndrome K76.7
[2021-09-03 10:28] LABS: INR 2.25 (0.8-1.2)
[2021-09-03 10:39] LABS: Thyroid Stimulating Hormone 2.02 uIU/mL (0.27-4.20)
[2021-09-03 10:41] LABS: Procalcitonin 0.35 ng/mL (0-0.5)
[2021-09-03 10:43] LABS: Cortisol Random 58.78 ug/dL (2.47-19.5)
[2021-09-03 10:51] LABS: Alanine Aminotransferase 22 U/L (0-33); Albumin Level 3.1 g/dL (3.5-5.2); Alkaline Phosphatase 258 IU/L (35-105); Aspartate Amino Transferase 60 U/L (0-32); Blood Urea Nitrogen 32 mg/dL (6-20); Calcium 9.4 mg/dL (8.5-10.5); Carbon Dioxide 20 mmol/L (22-29); Chloride 100 mmol/L (98-107); Glomerular Filtration Rate 22.4 mL/min (90-130); Glucose 139 mg/dL (65-115); Osmolality Calculated 291 mOsm/kg (285-295); Sodium 136 mmol/L (136-145); Total Protein 6.1 g/dL (6.6-8.7)
[2021-09-03 11:00] LABS: Vancomycin Random 17.7 ug/mL (20.0-40.0)
[2021-09-03 11:13] LABS: Creatinine Urine, Random 116 mg/dL (28-217)
[2021-09-03] MEDS: norepinephrine 8 MG in dextrose 5 % 500 ML 76.2 MG IV (11:13)
[2021-09-03 11:14] LABS: Urine Random Sodium 18 mmol/L
--- NOTE | 2021-09-03 14:45 | P.PN_ITS ---
Subjective Subjective: Patient was seen this morning, multiple times, with also at present -She is alert to person, to place, not to time -She does follow commands -She complains of shortness of breath but is on room air -Does complain of a diffuse rash -Has abdominal pain complaints -Does have bilateral extremity edema complaints - at bedside tells me that she has been recently more confused, -They have been following up with liver transplant specialist in [place] yet -Last alcohol drink was in April -Denies any drug use -Denies any chest pain -I discussed with patient and family and at bedside that currently patient is in septic shock, requiring multiple pressors, she is quite critically ill, she is also developing acute renal failure, diffuse edema -She is developing hepatorenal syndrome -She is currently stable, but her prognosis is guarded -As she has underlying liver failure, this is proving to be difficult to monitor sepsis, no fluid overload -We can consider transferring to liver transplant center, however she has not seen anyone for evaluation of liver transplant, which would prove to be difficult -I advised, the goal for now was to stabilize her, treat her infection, -She might require dialysis depending on her urine output and her kidney function, and her fluid status will continue to monitor Vitals/I&O/Wt Last Vital Signs Temp 97.4 F L 09/03/21 08:00 Pulse 96 09/03/21 13:30 Resp 18 09/03/21 13:30 BP 100/47 09/03/21 13:30 Pulse Ox 96 09/03/21 13:30 09/02/21 09/03/21 09/03/21 22:59 06:59 14:59 Intake Total 53.086 / 53.086 1202.094 / 1202.094 Output Total 50 / 50 Balance 3.086 / 3.086 1202.094 / 1202.094 Weight last 48 hrs Weight 145.15 kg Weight 111.584 kg Physical Exam Const: COMMON NORMALS: no acute distress EXAM LIMITATIONS: altered mental status ORIENTATION/CONSCIOUSNESS: Yes awake, Yes oriented to person and Yes oriented to place; not oriented to time HENMT: COMMON NORMALS: normocephalic HEAD & SCALP: normocephalic Neck/C-Spine: COMMON NORMALS: no JVD Resp: COMMON NORMALS: normal respiratory effort, No retractions and No use of accessory muscles AUSCULTATION: diminished lung sounds diffuse Cardio: COMMON NORMALS: no JVD, regular rate, regular rhythm, S1 normal heart sound present and S2 normal heart sound present RATE: regular rate RHYTHM: regular rhythm HEART SOUNDS: S1 normal heart sound present and S2 normal heart sound present GI: COMMON NORMALS: Normal to inspection, nondistended, normoactive bowel sounds present, Soft to palpation, No hepatosplenomegaly present and no masses PALPATION: Yes Soft to palpation, Yes Tenderness to palpation present (GI) (Diffuse tenderness) and Yes No hepatosplenomegaly present Neuro: SENSORIUM/ORIENTATION: Yes oriented to person, Yes oriented to place and No oriented to time Skin: NARRATIVE SKIN EXAM: Diffuse macular rash Urinary Catheter Management: Rainey: Cath Placed During This Visit: yes Reason for Continuing Indwelling Catheter: Accurate Measurement of Urinary Ou tput in Critically Ill Patients Urinary Catheter Date of Insertion: 09/02/21 Urinary Catheter Time of Insertion: 18:50 Data : 09/02/21 19:45 09/03/21 09:50 Micro: Microbiology 09/03/21 09:53 Blood Culture - Preliminary Blood SPECIMEN COLLECTED 09/03/21 09:50 Blood Culture - Preliminary Blood SPECIMEN COLLECTED A&P Assessment and plan (1) Acute hepatic encephalopathy: Status: Acute (2) Altered mental status: Status: Acute (3) Acute kidney injury superimposed on CKD: Status: Acute (4) Acute hypotension: Status: Acute (5) Decompensated hepatic cirrhosis: Status: Acute (6) Hyperbilirubinemia: Status: Acute (7) Ascites: Status: Acute (8) Pleural effusion: Status: Acute (9) HCAP (healthcare-associated pneumonia): Status: Acute (10) Septic shock: Status: Acute (11) Hepatorenal syndrome: Status: Acute Plan Septic shock -Secondary to left lower lobe pneumonia, possible spontaneous bacterial peritonitis -Requiring multiple pressors, vasopressin, Levophed -We will give 100 g of albumin for SBP -Broad-spectrum antibiotic therapy as below -Maintain map around 65 Decompensated liver cirrhosis / Hepatic encephalopathy / Ascietes End stage liver disease - MELD around 30 based on INR from 18th AST 61, ALT 22, ALP 243, Total bili 6.9 Recent paracentesis Plan for TIPS eval once medically stable Not currently on transplant list. Ammonia 157 - Resume lactulose, rifaximin Suspected LLL pneumonia Will tx for HCAP -recent hospitalization Will also cover for anerobe Vancomycin / zosyn renal dosing Blood culture x 2 Procal in am - may be unreliable given liver/renal dysfunction CBC in am De-escalate abx baseded on clinical course and culture Acute on chronic renal failure Baseline 1.4 - > increased to 2.4 Pre-renal with component of hepatorenal syndrome Consider nephrology consult in am Hold Aldactone Avoid hypotension Levophed for SBP goal > 90 Troponin elevation 2hr delta 16 Not consistent with ACS Likely due to ch. illness with worseng renal failrue Consider ECHo Chronic Hypotension Midodrine 5 m PO TID May need to increase to 10 mg Anemia of chronic disease Hb 7.9 Stable No evidence of bleeding Generalized Rash Nonspecific dermatitis Not new Nonpruritic May benifit from skin biopsy Monitor Hypothyroidism Levothyroixine 125 mcg PO daily GERD Protonix 40 mg PO daily Debility PT/OT consult Fall Precautions DVT ppx SCDS Attestations Medical Necessity Statement*: Patient requires hospitalization for septic shock, pneumonia, acute renal failure, liver failure, hepatorenal syndrome Coding Level of Care Code Acute Car Record Clerk for Chg Fwd Diagnoses Acute hepatic encephalopathy K72.00 Altered mental status R41.82 Acute kidney injury superimposed on CKD N17.9; N18.9 Acute hypotension I95.9 Decompensated hepatic cirrhosis K72.90; K74.60 Hyperbilirubinemia E80.6 Ascites R18.8 Pleural effusion J90 HCAP (healthcare-associated pneumonia) J18.9 Septic shock A41.9; R65.21 Hepatorenal syndrome K76.7
[2021-09-03] MEDS: norepinephrine 8 MG in dextrose 5 % 500 ML 30.48 MG IV (19:20)
--- NOTE | 2021-09-03 19:30 | PC.NURSE ---
Pt. resting in bed with bipap in place. Pt. is anxious. Will continue to monitor and medicate for anxiety to keep respiratory status sufficient.
[2021-09-04] VITALS (45 sets, daily range): BP systolic 84–139; BP diastolic 35–81; PULSE 80–100; RESP 9–21; TEMP 36.4–36.8; O2SAT 89–99
[2021-09-04] MEDS: pantoprazole 40 mg SDV IVP (02:41)
[2021-09-04 04:47] LABS: Basophils % 0.1 %; Eosinophils % 0.3 %; Hemoglobin 7.4 g/dL (11.5-15.3); Lymphocytes # 1.4 10^3/uL (0.8-4.8); Lymphocytes % 11.9 %; Mean Corpuscular HGB Conc 32.2 g/dL (30.0-36.0); Mean Corpuscular Hemoglobin 31.2 pg (28.0-34.0); Mean Platelet Volume 10.6 fL (7.4-10.4); Monocytes # 1.3 10^3/uL (0.2-0.9); Monocytes % 11.3 %; Neutrophils # 8.75 10^3/uL (1.8-7.7); Neutrophils % 75.8 %; Nucleated Red Blood Cells % 0 %; Platelet Count 176 10^3/cmm (130-400); Red Blood Count 2.37 10^6/uL (4.1-5.3); Red Cell Distribution Width 20.8 % (12.1-15.1); White Blood Count 11.6 10^3/uL (4.0-10.0)
[2021-09-04 05:06] LABS: INR 2.31 (0.8-1.2)
[2021-09-04 05:14] LABS: NT Pro B Type Natriuretic Pept 14454 pg/mL (0-125); Procalcitonin 0.44 ng/mL (0-0.5)
[2021-09-04 05:26] LABS: Alanine Aminotransferase 20 U/L (0-33); Alkaline Phosphatase 259 IU/L (35-105); Anion Gap 23.3 (5-19); Aspartate Amino Transferase 58 U/L (0-32); Blood Urea Nitrogen 33 mg/dL (6-20); C Reactive Protein 54.1 mg/L (0.0-4.9); Calcium 9.9 mg/dL (8.5-10.5); Carbon Dioxide 19 mmol/L (22-29); Chloride 99 mmol/L (98-107); Creatine Phosphokinase 27 U/L (26-192); Globulin 2.7 g/dL (1.3-4.6); Glomerular Filtration Rate 21.4 mL/min (90-130); Glucose 152 mg/dL (65-115); Magnesium 2.2 mg/dL (1.7-2.3); Osmolality Calculated 292 mOsm/kg (285-295); Phosphorus 5.7 mg/dL (2.5-4.5); Potassium 5.3 mmol/L (3.5-5.1); Sodium 136 mmol/L (136-145); Total Bilirubin 6.7 mg/dL (0.15-1.2); Total Protein 6.7 g/dL (6.6-8.7)
[2021-09-04] MEDS: levothyroxine 125 mcg Tablet PO (06:17)
[2021-09-04] MEDS: norepinephrine 8 MG in dextrose 5 % 500 ML 53.34 MG IV ×2 (07:18→18:08)
--- NOTE | 2021-09-04 08:18 | PM.PN ---
Subjective Subjective: lethargic, arousable, states she hurts all over Medications: Reviewed: Yes Vitals/I&O/Wt Last Vital Signs Temp 98.2 F 09/04/21 00:00 Pulse 90 09/04/21 06:00 Resp 16 09/04/21 04:00 BP 102/66 09/04/21 04:00 Pulse Ox 92 09/04/21 04:00 09/03/21 09/04/21 09/04/21 22:59 06:59 14:59 Intake Total 821.856 / 2023.950 419.10 / 2443.050 Output Total 200 / 200 150 / 350 Balance 621.856 / 1823.950 269.10 / 2093.050 Weight last 48 hrs Weight 142.428 kg Weight 145.15 kg Weight 111.584 kg Physical Exam Const: COMMON NORMALS: no acute distress Extremity: OTHER: edema Urinary Catheter Management: Rainey: Cath Placed During This Visit: yes Reason for Continuing Indwelling Catheter: Accurate Measurement of Urinary Output in Critically Ill Patients Urinary Catheter Date of Insertion: 09/02/21 Urinary Catheter Time of Insertion: 18:50 Data : 09/04/21 03:59 09/04/21 10:15 Other Labs: BNP 14,400 Micro: Microbiology 09/03/21 09:53 Blood Culture - Preliminary Blood SPECIMEN COLLECTED 09/03/21 09:50 Blood Culture - Preliminary Blood SPECIMEN COLLECTED A&P Assessment and plan (1) Hepatorenal syndrome: Status: Acute Plan Seen and examined at bedside via telemedicine with assistance of RN 1. Acute oligoanuric kidney injury: Urine sodium/FeNa consistent with HRS, on levophed. vasopressin and IV albumin discontinued 2. Hepatic encephalopathy, ESLD 3. Pneumonia, possible sepsis Recommend: Spoke with patient, and hospitalist. Will initiate CVVHD today. Surgeon will place femoral line. Attestations Medical Necessity Statement*: see above Time Spent in Patient Care: 16 - 35 minutes Coding Level of Care Code Acute County Attorney for Karli Medina Diagnoses Hepatorenal syndrome K76.7
[2021-09-04] MEDS: midodrine 5 mg TABLET 10 MG PO ×2 (08:43→15:09)
[2021-09-04] MEDS: hydrocortisone 100 mg/2 mL SDV IVP ×2 (08:44→20:25)
[2021-09-04 09:41] LABS: Ammonia 84 umol/L (11-51)
--- NOTE | 2021-09-04 10:11 | PM.CONSULT ---
Providers/Reason For Consult Consulting Physician/Specialty*: General Surgery Esequiel Quiñonez MD Reason for Consult*: Request for temporary hemodialysis catheter placement. Attending Physician: Parth Cristina MD History of Present Illness History of Present Illness Talia Randhawa is a 51 year old female in the ICU with end-stage liver disease, hepatorenal syndrome and signs of sepsis. She is retaining more and more fluid; she is severely ill; the drier take off tender has asked for a temporary hemodialysis catheter placement for possible CRRT. The patient is currently on Levophed but is not intubated. Review of Systems General: Reports: ROS unobtainable due to medical condition Medications/Allergies Home Medications Medication Instructions Recorded Confirmed Last Taken Type levothyroxine 125 mcg tablet 125 mcg PO DAILY 07/24/21 09/03/21 Unknown History (Euthyrox) midodrine 5 mg tablet 5 mg PO TID 08/14/21 09/03/21 Unknown History furosemide 80 mg tablet (Lasix) 80 mg PO BID #90 tab 08/19/21 09/03/21 Unknown Rx lactulose 10 gram/15 mL oral 10 g (15 mL) PO DAILY PRN #946 ml 08/19/21 09/03/21 Unknown Rx solution potassium chloride 20 mEq 20 meq PO DAILY #90 tab 08/19/21 09/03/21 Unknown Rx tablet,extended release spironolactone 100 mg tablet 100 mg PO DAILY #90 tab 08/19/21 09/03/21 Unknown Rx pantoprazole 40 mg tablet,delayed 40 mg PO DAILY 08/26/21 09/03/21 Unknown History release hydroxyzine pamoate 25 mg capsule 12 mg PO Q12H PRN 09/03/21 09/03/21 Unknown History Allergies Allergy/AdvReac Type Severity Reaction Status Date / Time No Known Allergies Allergy Verified 09/03/21 10:48 Current Medications Generic Name Dose Route Start Last Admin Trade Name Freq PRN Reason Stop Dose Admin Acetaminophen 650 mg 09/03/21 01:39 09/03/21 10:12 Acetaminophen 325 Mg Tablet PO 650 mg Q6H PRN Administration Mild/Mod Pain Or Temp >/= 101 Hydrocortisone Sodium Succinate 100 mg 09/03/21 09:00 09/04/21 08:44 Hydrocortisone 100 Mg/2 Ml Sdv IVP 100 mg Q12H SHERYL Administration Norepinephrine Bitartrate 8 mg 508 mls @ 0 mls/hr 09/03/21 02:45 09/04/21 07:18 / Dextrose IV 14 mcg/min .Q0M SHERYL 53.34 mls/hr Administration Protocol Per Protocol Vancomycin/PEG/NADA/Lysine/Water 1,500 mg in 300 mls @ 200 mls/hr 09/03/21 05:00 09/03/21 09:20 Vancocin IV Infused Q36H SHERYL Infusion Vasopressin 100 unit/ Sodium 100 mls @ 0 mls/hr 09/03/21 09:00 09/03/21 11:50 Chloride IV 0 unit/min .Q0M SHERYL 0 mls/hr Titration Protocol Per Protocol Imipenem/Cilastatin Sodium 500 100 mls @ 200 mls/hr 09/03/21 17:30 09/04/21 08:44 mg/ Sodium Chloride IV 100 mls/hr Q8H SHERYL Administration Protocol Lactulose 20 gm 09/03/21 04:15 09/04/21 04:11 Lactulose Oral Liq 20 Gm/30 Ml Udc PO Not Given Q6H SHERYL Levothyroxine Sodium 125 mcg 09/03/21 06:00 09/04/21 06:17 Levothyroxine 125 Mcg Tablet PO 125 mcg QAM SHERYL Administration Midodrine 10 mg 09/03/21 09:00 09/04/21 08:43 Midodrine 5 Mg Tablet PO 10 mg TID SHERYL Administration Pantoprazole Sodium 40 mg 09/03/21 01:45 09/04/21 02:41 Pantoprazole 40 Mg Sdv IVP 40 mg Q24H SHERYL Administration Rifaximin 550 mg 09/03/21 09:00 09/04/21 08:44 Rifaximin 550 Mg Tablet PO 550 mg BID SHERYL Administration Protocol PFSH Acute PFSH: Medical History (Updated 09/04/21 @ 10:27 by Esequiel Quiñonez MD) Chronic alcoholic liver disease Coagulopathy Generalized weakness Hyponatremia Hyponatremia Pulmonary edema Surgical History (Updated 09/04/21 @ 10:21 by Esequiel Quiñonez MD) History of 2 sections History of total abdominal hysterectomy Family History Other No pertinent family history Social History Smoking and tobacco status: unknown if ever smoked Alcohol intake: former Vitals/I&O/Wt Last Vital Signs Temp 98.2 F 09/04/21 08:00 Pulse 100 09/04/21 08:00 Resp 19 H 09/04/21 08:00 BP 89/39 09/04/21 08:00 Pulse Ox 93 09/04/21 08:00 09/03/21 09/04/21 09/04/21 22:59 06:59 14:59 Intake Total 821.856 / 2543.050 519.10 / 2543.050 Output Total 200 / 350 150 / 350 Balance 621.856 / 2193.050 369.10 / 2193.050 Weight last 48 hrs Weight 314 lb Weight 320 lb Weight 246 lb Physical Exam Narrative: The patient was encountered in her room in the intensive care unit. She keeps her eyes closed but can slowly respond to most questions. Many times she will stop and midsentence as if she is forgetting what she was saying. She screams out and cries every time she even senses movement around her. I went to lift the sheet off of her feet to examine her distal extremities and she screamed and cried. The pupils seem equal. She has symmetric air movement anteriorly. The heart seems regular. The abdomen is super obese but has bowel sounds. She has some edema in the soft tissues of the abdomen. I have some difficulty feeling a femoral pulse. The lower extremities reveal edema. Urinary Catheter Management: Rainey: Cath Placed During This Visit: yes Reason for Continuing Indwelling Catheter: Accurate Measurement of Urinary Output in Critically Ill Patients Urinary Catheter Date of Insertion: 09/02/21 Urinary Catheter Time of Insertion: 18:50 Data : 09/04/21 03:59 09/04/21 03:59 Other Labs: Laboratory Tests 09/04/21 03:59 PT 25.90 H INR 2.31 H Micro: Microbiology 09/03/21 09:53 Blood Culture - Preliminary Blood NEGATIVE TO DATE 09/03/21 09:50 Blood Culture - Preliminary Blood NEGATIVE TO DATE A&P Assessment and plan (1) Acute kidney injury superimposed on CKD: This patient appears very ill. I have discussed temporary dialysis catheter with the patient and her . We discussed her end-stage liver disease, hepatorenal syndrome, etc. The patient is also anemic and coagulopathic. We specifically discussed risks of bleeding, infection, risks of anesthesia, , etc. In addition, given her body habitus, I told the patient and her I think the safest way to proceed is to try to get a femoral venous catheter in place under ultrasound guidance. They both seem to understand and are agreeable to proceeding today. It is clear that we are not going do be able do do this in the intensive care unit given her body habitus and apparent sense/level of discomfort. Plans for attempted placement of a temporary femoral hemodialysis catheter placement in the operating room today. Status: Acute (2) Hepatorenal syndrome: Status: Acute (3) Septic shock: Status: Acute Consult Attestations Medical Necessity Statement: See admitting service's notation. Coding Level of Care Code Acute Concrete Journeyman for Karli Medina Diagnoses Acute kidney injury superimposed on CKD N17.9; N18.9 Hepatorenal syndrome K76.7 Septic shock A41.9; R65.21
--- NOTE | 2021-09-04 10:13 | PC.NURSE ---
Dr. Quiñonez at bedside to discuss placement of a temporary dialysis catheter in the OR today. Consent obtained.
--- NOTE | 2021-09-04 10:40 | ANES.PREANE2 ---
Pre-Anesthetic Assessment Height/Weight: Height 1.63 m Weight 142.428 kg Temp Pulse Resp BP Pulse Ox 98.2 F 97 16 106/55 96 09/04/21 08:00 09/04/21 10:00 09/04/21 10:00 09/04/21 10:00 09/04/21 10:00 Preop Diagnosis: hepatorenal syndrome Operation Date: 09/04/21 11:20 Proposed Procedures p Dialysis Catheter Insertion(Not Applicable) - Esequiel Quiñonez MD Familial anesthetic complications: None Was Beta Khushboo taken within 24 hours: N/A Was Clonidine taken within 24 hours: N/A Last intake: > 8 hrs Social Alcohol and No alcohol Exam alert, oriented x 3, clear to auscultation bilaterally and regular rate & rhythm Airway Mallampati: Class IV Dentition: full Pulmonary pleural effusion CV/HEM Anemia hepatorenal syndrome, KAT Hepatic Cirrhosis ascites, hepatic encephalopathy Anesthetic Plan ASA status: 4E Anesthesia: MAC Medications/Allergies Home Medications Medication Instructions Recorded Confirmed Last Taken Type levothyroxine 125 mcg tablet 125 mcg PO DAILY 07/24/21 09/03/21 Unknown History (Euthyrox) midodrine 5 mg tablet 5 mg PO TID 08/14/21 09/03/21 Unknown History furosemide 80 mg tablet (Lasix) 80 mg PO BID #90 tab 08/19/21 09/03/21 Unknown Rx lactulose 10 gram/15 mL oral 10 g (15 mL) PO DAILY PRN #946 ml 08/19/21 09/03/21 Unknown Rx solution potassium chloride 20 mEq 20 meq PO DAILY #90 tab 08/19/21 09/03/21 Unknown Rx tablet,extended release spironolactone 100 mg tablet 100 mg PO DAILY #90 tab 08/19/21 09/03/21 Unknown Rx pantoprazole 40 mg tablet,delayed 40 mg PO DAILY 08/26/21 09/03/21 Unknown History release hydroxyzine pamoate 25 mg capsule 12 mg PO Q12H PRN 09/03/21 09/03/21 Unknown History Allergies Allergy/AdvReac Type Severity Reaction Status Date / Time No Known Allergies Allergy Verified 09/03/21 10:48 Current Medications Generic Name Dose Route Start Last Admin Trade Name Freq PRN Reason Stop Dose Admin Acetaminophen 650 mg 09/03/21 01:39 09/03/21 10:12 Acetaminophen 325 Mg Tablet PO 650 mg Q6H PRN Administration Mild/Mod Pain Or Temp >/= 101 Hydrocortisone Sodium Succinate 100 mg 09/03/21 09:00 09/04/21 08:44 Hydrocortisone 100 Mg/2 Ml Sdv IVP 100 mg Q12H SHERYL Administration Norepinephrine Bitartrate 8 mg 508 mls @ 0 mls/hr 09/03/21 02:45 09/04/21 07:18 / Dextrose IV 14 mcg/min .Q0M SHERYL 53.34 mls/hr Administration Protocol Per Protocol Vancomycin/PEG/NADA/Lysine/Water 1,500 mg in 300 mls @ 200 mls/hr 09/03/21 05:00 09/03/21 09:20 Vancocin IV Infused Q36H SHERYL Infusion Vasopressin 100 unit/ Sodium 100 mls @ 0 mls/hr 09/03/21 09:00 09/03/21 11:50 Chloride IV 0 unit/min .Q0M SHERYL 0 mls/hr Titration Protocol Per Protocol Imipenem/Cilastatin Sodium 500 100 mls @ 200 mls/hr 09/03/21 17:30 09/04/21 08:44 mg/ Sodium Chloride IV 100 mls/hr Q8H SHERYL Administration Protocol Lactulose 20 gm 09/03/21 04:15 09/04/21 04:11 Lactulose Oral Liq 20 Gm/30 Ml Udc PO Not Given Q6H SHERYL Levothyroxine Sodium 125 mcg 09/03/21 06:00 09/04/21 06:17 Levothyroxine 125 Mcg Tablet PO 125 mcg QAM SHERYL Administration Midodrine 10 mg 09/03/21 09:00 09/04/21 08:43 Midodrine 5 Mg Tablet PO 10 mg TID SHERYL Administration Pantoprazole Sodium 40 mg 09/03/21 01:45 09/04/21 02:41 Pantoprazole 40 Mg Sdv IVP 40 mg Q24H SHERYL Administration Rifaximin 550 mg 09/03/21 09:00 09/04/21 08:44 Rifaximin 550 Mg Tablet PO 550 mg BID SHERYL Administration Protocol [facility] Anesthesia Medical History (Updated 09/04/21 @ 10:27 by Esequiel Quiñonez MD) Chronic alcoholic liver disease Coagulopathy Generalized weakness Hyponatremia Hyponatremia Pulmonary edema Surgical History (Updated 09/04/21 @ 10:21 by Esequiel Quiñonez MD) History of 2 sections History of total abdominal hysterectomy Family History Other No pertinent family history Social History Smoking and tobacco status: unknown if ever smoked Alcohol intake: former Data Anesthesia : 09/04/21 03:59 09/04/21 03:59 Short CBC 09/02/21 09/02/21 09/04/21 Range/Units 18:21 19:45 03:59 WBC Cancelled 11.2 H 11.6 H Hgb Cancelled 7.9 L 7.4 L Hct Cancelled 27.6 L 23.0 L MCV Cancelled 110.4 H 97.0 Plt Count Cancelled 158 176 Neut % (Auto) Cancelled 76.6 75.8 Neut # (Auto) Cancelled 8.57 H 8.75 H BMP 09/02/21 09/02/21 09/03/21 18:21 19:45 09:50 Sodium Cancelled 135 L 136 Potassium Cancelled 5.2 H 5.0 Chloride Cancelled 99 100 Carbon Dioxide Cancelled 21 L 20 L BUN Cancelled 32 H 32 H Creatinine Cancelled 2.4 H 2.3 H Glucose Cancelled 122 H 139 H Calcium Cancelled 9.6 9.4 09/04/21 03:59 Sodium 136 Potassium 5.3 H Chloride 99 Carbon Dioxide 19 L BUN 33 H Creatinine 2.4 H Glucose 152 H Calcium 9.9 Cardiac Enzymes 09/02/21 09/02/21 09/02/21 Range/Units 18:21 19:45 22:05 Creatine Kinase (26-192) U/L Troponin T Baseline Cancelled 41 H Troponin T 120 Minute 41.16 H (0-10) ng/L Delta Troponin T 0.16 (0-10) ABS# NT-Pro-B Natriuret Pep (0-125) pg/mL 09/04/21 Range/Units 03:59 Creatine Kinase 27 (26-192) U/L Troponin T Baseline Troponin T 120 Minute (0-10) ng/L Delta Troponin T (0-10) ABS# NT-Pro-B Natriuret Pep 28259 H (0-125) pg/mL Liver Function 09/02/21 09/02/21 09/03/21 Range/Units 18:21 19:45 09:50 Total Bilirubin Cancelled 6.9 H 7.0 H AST Cancelled 61 H 60 H ALT Cancelled Alkaline Phosphatase Cancelled 243 H 258 H Albumin Cancelled 3.1 L 3.1 L 09/04/21 Range/Units 03:59 Total Bilirubin 6.7 H AST 58 H ALT 20 Alkaline Phosphatase 259 H Albumin 4.0 Urine 09/02/21 Range/Units 18:55 Urine Color Ebony (Yellow) Urine Appearance Clear (CLEAR) Urine pH 5 (5-7) Ur Specific [place] 1.020 (1.005-1.030) Urine Protein Neg (Negative) Urine Glucose (UA) Norm (Normal) Urine Ketones Negative (Negative) Urine Nitrate Negative (Negative) Urine Bilirubin 1+ H (Negative) Ur Leukocyte Esterase Negative (Negative) Coags 09/03/21 09/04/21 09/04/21 09:50 03:59 03:59 PT 25.30 H 25.90 H INR 2.25 H 2.31 H C-Reactive Protein 54.1 H Microbiology 09/03/21 09:53 Blood Culture - Preliminary Blood NEGATIVE TO DATE 09/03/21 09:50 Blood Culture - Preliminary Blood NEGATIVE TO DATE Cardiac Studies: No Data to Display
--- NOTE | 2021-09-04 10:51 | PC.NURSE ---
to OR with OR staff
[2021-09-04] MEDS: heparin porcine 10,000 unit/mL SDV 4 mL 2000 UNIT XX (11:20)
[2021-09-04 11:22] LABS: Albumin Level 4.2 g/dL (3.5-5.2); Anion Gap 23.2 (5-19); Blood Urea Nitrogen 35 mg/dL (6-20); Calcium 9.8 mg/dL (8.5-10.5); Carbon Dioxide 20 mmol/L (22-29); Chloride 98 mmol/L (98-107); Glomerular Filtration Rate 21.4 mL/min (90-130); Glucose 163 mg/dL (65-115); Magnesium 2.2 mg/dL (1.7-2.3); Phosphorus 5.6 mg/dL (2.5-4.5); Potassium 5.2 mmol/L (3.5-5.1); Sodium 136 mmol/L (136-145)
--- NOTE | 2021-09-04 11:36 | PM.OP ---
Operative Report Date of procedure: September 04, 2021 Pre-op diagnosis: Preop Diagnosis Renal failure, hepatorenal syndrome, end-stage liver disease, sepsis. Post-op diagnosis: Same. Procedure done: Placement of a 12 [place] dual-lumen 20 cm temporary hemodialysis catheter into the right femoral vein utilizing intraoperative ultrasound guidance. Pathology: None sent. Surgeon: General Surgery Esequiel Quiñonez MD Estimated blood loss: 10 mL. Complications: None. Procedure: The patient was brought to the operating room on her ICU bed. A monitored anesthetic was induced. The right femoral region was prepped and draped in a sterile fashion. 1% lidocaine was used for local anesthesia. The ultrasound was draped and the right femoral vein was identified by its size and compressibility. The right femoral vein was accessed with a needle and syringe. The J-wire was easily passed down the wire which was then removed. A small incision was made at the skin at the entrance point of the J-wire. The tract was sequentially dilated with the dilators that came in the hemodialysis catheter kit. The catheter was then finally placed over the wire and the wire was withdrawn. There was good venous blood flow on aspiration of both ports. Both ports were flushed with heparin solution. The hemodialysis catheter was sewn in place with some interrupted sutures of 3-0 nylon that came in the kit. The site was then sterilely dressed. The patient was taken back to the intensive care unit in stable condition postoperatively.
[2021-09-04 11:42] LABS: Hepatitis B Core AB, Total Non-Reactive (Nonreactive); Hepatitis B Surface AB 4.6 (11.5-1000); Hepatitis B Surface Antigen Non-Reactive (Nonreactive); Hepatitis C Virus Antibody Non-Reactive (Nonreactive)
--- NOTE | 2021-09-04 11:42 | PC.NURSE ---
patient back from OR temporary dialysis cath noted to the right femoral site. vital signs as noted. see pacu documentation.
--- NOTE | 2021-09-04 12:19 | PC.NURSE ---
2 rings removed from the left hand and given to the at bedside. mother and present during ring exchange
--- NOTE | 2021-09-04 13:38 | ANE.PACU2 ---
Inpatient post-anesthesia follow up: Airway intact: Yes Vital signs: Temperature 97.7 F Pulse Rate 88 Respiratory Rate 20 Blood Pressure 96/54 Pulse Oximetry 93 Oxygen Delivery Me thod Room Air Oxygen Flow Rate Fraction of Inspir ed Oxygen Hydration adequate: Yes Nausea and vomiting: No Pain level: 3 Mental status: Baseline
--- NOTE | 2021-09-04 13:39 | PM.PN ---
Subjective Subjective: Patient was seen this morning, she is alert to person, not to place, not to time, displaying increased confusion, on room air, continues to be septic, but blood pressures hovering MAP 60-65, on Levophed, vasopressin, on room air, continues to complain of lower extremity pain, abdominal pain, diffuse rash Vitals/I&O/Wt Last Vital Signs Temp 97.7 F 09/04/21 11:46 Pulse 88 09/04/21 12:45 Resp 20 H 09/04/21 12:45 BP 96/54 09/04/21 12:45 Pulse Ox 93 09/04/21 12:45 09/03/21 09/04/21 09/04/21 22:59 06:59 14:59 Intake Total 821.856 / 2023.950 519.10 / 2543.050 0 / 0 Output Total 200 / 200 150 / 350 0 / 0 Balance 621.856 / 1823.950 369.10 / 2193.050 0 / 0 Weight last 48 hrs Weight 142.428 kg Weight 145.15 kg Weight 111.584 kg Physical Exam Const: COMMON NORMALS: no acute distress EXAM LIMITATIONS: altered mental status ORIENTATION/CONSCIOUSNESS: Yes awake and Yes oriented to person; not oriented to place and not oriented to time Resp: COMMON NORMALS: normal respiratory effort, No retractions, No use of accessory muscles and clear to auscultation bilaterally AUSCULTATION: clear to auscultation bilaterally Cardio: COMMON NORMALS: regular rate, regular rhythm, S1 normal heart sound present and S2 normal heart sound present RATE: regular rate RHYTHM: regular rhythm HEART SOUNDS: S1 normal heart sound present and S2 normal heart sound present GI: COMMON NORMALS: Normal to inspection, nondistended, normoactive bowel sounds present, Soft to palpation, non-tender and No hepatosplenomegaly present PALPATION: Yes Soft to palpation and Yes No hepatosplenomegaly present Extremity: NARRATIVE EXTREMITY EXAM: 2+ pitting edema bilateral extremities Neuro: SENSORIUM/ORIENTATION: Yes oriented to person, No oriented to place and No oriented to time Skin: NARRATIVE SKIN EXAM: Diffuse macular rash, also has evidence of uremic santana Urinary Catheter Management: Rainey: Cath Placed During This Visit: yes Reason for Continuing Indwelling Catheter: Accurate Measurement of Urinary Output in Critically Ill Patients Urinary Catheter Date of Insertion: 09/02/21 Urinary Catheter Time of Insertion: 18:50 Data : 09/04/21 03:59 09/04/21 10:15 Micro: Microbiology 09/03/21 09:53 Blood Culture - Preliminary Blood NEGATIVE TO DATE 09/03/21 09:50 Blood Culture - Preliminary Blood NEGATIVE TO DATE A&P Assessment and plan (1) Acute hepatic encephalopathy: Status: Acute (2) Altered mental status: Status: Acute (3) Acute kidney injury superimposed on CKD: Status: Acute (4) Acute hypotension: Status: Acute (5) Decompensated hepatic cirrhosis: Status: Acute (6) Hyperbilirubinemia: Status: Acute (7) Ascites: Status: Acute (8) Pleural effusion: Status: Acute (9) HCAP (healthcare-associated pneumonia): Status: Acute (10) Septic shock: Status: Acute (11) Hepatorenal syndrome: Status: Acute Plan Septic shock -Secondary to left lower lobe pneumonia, possible spontaneous bacterial peritonitis -Also component related to patient's underlying liver cirrhosis -Requiring multiple pressors, vasopressin, Levophed -Stress dose steroids -We will give 100 g of albumin for SBP, repeat day 3 -Broad-spectrum antibiotic therapy as below -Maintain map around 65 Acute encephalopathy -Secondary to sepsis, pneumonia, SBP, hyperammonemia, Spontaneous bacterial peritonitis -Continue Primaxin -Received 100 g of albumin day monitor, repeat day 3 -We will do CT scan abdomen pelvis -Can consider paracentesis -Follow cultures Decompensated liver cirrhosis / Hepatic encephalopathy/ascites/ hyperbilirubinemia/anemia End stage liver disease - MELD around 30 based on INR from 18th AST 61, ALT 22, ALP 243, Total bili 6.9 Recent paracentesis Plan for TIPS eval once medically stable Not currently on transplant list. Ammonia in the 80s- Resume lactulose, rifaximin Suspected LLL pneumonia Will tx for HCAP -recent hospitalization Will also cover for anerobe Vancomycin /Primaxin renal dosing Blood culture x 2 De-escalate abx baseded on clinical course and culture Acute on chronic renal failure Baseline 1.4 - > increased to 2.4 Pre-renal with component of hepatorenal syndrome Nephrology consulted Hold Aldactone Avoid hypotension Levophed for SBP goal > 90 Due to worsening renal failure, decreased urine output, persistent lower extremity edema, anasarca will have dialysis catheter placement for CRRT Troponin elevation 2hr delta 16 Not consistent with ACS Likely due to ch. illness with worseng renal failrue Consider ECHo Chronic Hypotension Midodrine increase midodrine to 10 every 6 May need to increase to 10 mg Anemia of chronic disease Hb 7.4 Stable No evidence of bleeding Generalized Rash Nonspecific dermatitis Not new Nonpruritic May benifit from skin biopsy Likely uremic santana Monitor Hypothyroidism Levothyroixine 125 mcg PO daily GERD Protonix 40 mg PO daily Debility PT/OT consult Fall Precautions DVT ppx SCDS Attestations Medical Necessity Statement*: Patient requires hospitalization for hepatorenal syndrome, healthcare associated morning, septic shock, liver failure, acute hepatic encephalopathy, KAT, decompensated liver cirrhosis, critical care time spent over 55 minutes Coding Level of Care Code 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
--- NOTE | 2021-09-04 14:32 | PC.NURSE ---
CRRT orders This nurse clarified CRRT orders with Dr. Escalante, fluid removal 1500 in 24 hours, blood flow rate 200 ml/min, no dialysate order in chart, t.o. given for dialysate 1,000 ml/hr CRRT Started approximately 1430
[2021-09-04] MEDS: PrismaSol BGK 4/2.5 - 5,000 mL Bag 5000 ML CRRT ×2 (15:03→19:00)
[2021-09-04] MEDS: vancomycin 1,500 MG/300 ML PIGGYBACK 200 MG IV (16:04)
[2021-09-04] MEDS: lactulose oral liq 20 gm/30 mL UDC PO (16:05)
[2021-09-04] MEDS: acetaminophen 325 mg Tablet 650 MG PO (16:29)
[2021-09-04 16:54] LABS: Albumin Level 3.9 g/dL (3.5-5.2); Blood Urea Nitrogen 33 mg/dL (6-20); Calcium 9.4 mg/dL (8.5-10.5); Carbon Dioxide 19 mmol/L (22-29); Chloride 99 mmol/L (98-107); Glomerular Filtration Rate 21.4 mL/min (90-130); Glucose 172 mg/dL (65-115); Magnesium 2.1 mg/dL (1.7-2.3); Phosphorus 5.3 mg/dL (2.5-4.5); Sodium 136 mmol/L (136-145)
--- NOTE | 2021-09-04 18:22 | PC.NURSE ---
Dr. Cristina at bedside approximately 1600 observed CRRT. approved order for PRN morphine IVP for pain
--- NOTE | 2021-09-04 18:23 | PC.NURSE ---
uneventful end of shift since this nurse took over care at 1330, patient tolerating CRRT at this time, more alert since through CRRT treatment at this time, at bedside
[2021-09-04 21:25] LABS: Anion Gap 19.9 (5-19); Blood Urea Nitrogen 32 mg/dL (6-20); Calcium 9.4 mg/dL (8.5-10.5); Carbon Dioxide 21 mmol/L (22-29); Chloride 100 mmol/L (98-107); Glomerular Filtration Rate 21.4 mL/min (90-130); Glucose 160 mg/dL (65-115); Magnesium 2.3 mg/dL (1.7-2.3); Osmolality Calculated 292 mOsm/kg (285-295); Phosphorus 4.9 mg/dL (2.5-4.5); Potassium 4.9 mmol/L (3.5-5.1); Sodium 136 mmol/L (136-145)
[2021-09-05] VITALS (60 sets, daily range): BP systolic 83–132; BP diastolic 48–83; PULSE 65–96; RESP 10–31; TEMP 35.6–36.4; O2SAT 89–98
[2021-09-05] MEDS: pantoprazole 40 mg SDV IVP (01:19)
[2021-09-05] MEDS: morphine 4 mg/mL SDV 1 mL IVP (01:34)
[2021-09-05 03:25] LABS: Basophils % 0.1 %; Eosinophils % 0.2 %; Hematocrit 20.9 % (37.0-47.0); Hemoglobin 6.9 g/dL (11.5-15.3); Lymphocytes # 1.1 10^3/uL (0.8-4.8); Lymphocytes % 12.3 %; Mean Corpuscular Hemoglobin 31.7 pg (28.0-34.0); Mean Corpuscular Volume 95.9 fl (81-99); Mean Platelet Volume 10.6 fL (7.4-10.4); Monocytes # 0.9 10^3/uL (0.2-0.9); Monocytes % 9.4 %; Neutrophils # 7.16 10^3/uL (1.8-7.7); Neutrophils % 76.9 %; Nucleated Red Blood Cells % 0.3 %; Platelet Count 119 10^3/cmm (130-400); Red Blood Count 2.18 10^6/uL (4.1-5.3); Red Cell Distribution Width 20.9 % (12.1-15.1); White Blood Count 9.3 10^3/uL (4.0-10.0)
[2021-09-05 03:33] LABS: INR 2.34 (0.8-1.2)
[2021-09-05 03:37] LABS: Lactate (Lactic Acid level) 1.4 mmol/L (0.5-2.2)
[2021-09-05 03:47] LABS: NT Pro B Type Natriuretic Pept 16331 pg/mL (0-125); Procalcitonin 0.29 ng/mL (0-0.5)
[2021-09-05 03:49] LABS: ABG PCO2 36.1 mmHg (35-45); ABG PH Result 7.43 (7.35-7.45); Arterial Blood Gas Hematocrit 22.7 % (37-47); Base Excess ABG -0.3 mmol/L (-2.0-2.0); Blood Gas Allen Test Pos; Blood Gas Sample Site Radial, right; Blood Gas Sample Type Arterial; HCO3 ABG 23.9 mmol/L (22-26); Oxygen Device ROOM AIR
[2021-09-05 04:00] LABS: C Reactive Protein 40.8 mg/L (0.0-4.9); Creatine Phosphokinase 25 U/L (26-192); Magnesium 2.3 mg/dL (1.7-2.3); Phosphorus 5.4 mg/dL (2.5-4.5)
[2021-09-05 05:59] LABS: Alanine Aminotransferase 17 U/L (0-33); Albumin Level 3.8 g/dL (3.5-5.2); Alkaline Phosphatase 242 IU/L (35-105); Anion Gap 19.8 (5-19); Aspartate Amino Transferase 58 U/L (0-32); Blood Urea Nitrogen 31 mg/dL (6-20); Calcium 9.2 mg/dL (8.5-10.5); Carbon Dioxide 22 mmol/L (22-29); Chloride 101 mmol/L (98-107); Globulin 2.7 g/dL (1.3-4.6); Glomerular Filtration Rate 23.6 mL/min (90-130); Glucose 138 mg/dL (65-115); Osmolality Calculated 295 mOsm/kg (285-295); Potassium 4.8 mmol/L (3.5-5.1); Sodium 138 mmol/L (136-145); Total Protein 6.5 g/dL (6.6-8.7)
[2021-09-05 06:03] LABS: Creatinine Clr Calc Pharmacy 43.2281
[2021-09-05] MEDS: PrismaSol BGK 4/2.5 - 5,000 mL Bag 5000 ML CRRT ×2 (07:04→11:58)
[2021-09-05 08:42] LABS: Lactate Dehydrogenase 228 U/L (135-214)
[2021-09-05 08:49] LABS: Hematocrit 21.5 % (37.0-47.0)
[2021-09-05 08:53] LABS: Retic Production Index 1.29; Reticulocyte % 2.4 % (0.5-2.0)
[2021-09-05] MEDS: hydrocortisone 100 mg/2 mL SDV IVP ×2 (08:56→21:17)
[2021-09-05] MEDS: levothyroxine 125 mcg Tablet PO (08:56)
[2021-09-05] MEDS: midodrine 5 mg TABLET 10 MG PO ×2 (08:56→16:05)
[2021-09-05 10:02] LABS: INR 2.49 (0.8-1.2)
[2021-09-05 10:03] LABS: Partial Thromboplastin Time 50.9 SECONDS (23.9-36.7)
[2021-09-05 10:10] LABS: Albumin Level 3.7 g/dL (3.5-5.2); Anion Gap 19.7 (5-19); Blood Urea Nitrogen 29 mg/dL (6-20); Calcium 9.2 mg/dL (8.5-10.5); Carbon Dioxide 22 mmol/L (22-29); Chloride 101 mmol/L (98-107); Glomerular Filtration Rate 24.9 mL/min (90-130); Glucose 150 mg/dL (65-115); Magnesium 2.2 mg/dL (1.7-2.3); Phosphorus 5.1 mg/dL (2.5-4.5); Potassium 4.7 mmol/L (3.5-5.1); Sodium 138 mmol/L (136-145)
[2021-09-05 10:13] LABS: D Dimer 5.57 ug/mIFEU (0-0.59)
[2021-09-05] MEDS: FUROsemide 10 mg/mL SDV 10mL 80 MG IVP (10:41)
[2021-09-05] MEDS: lactulose oral liq 20 gm/30 mL UDC PO ×2 (10:42→16:06)
[2021-09-05] MEDS: octreotide 100 mcg/mL SDV 200 MCG SUBCUT ×3 (10:43→21:18)
[2021-09-05 10:48] LABS: LAB Peripheral Smear Sent for Review
--- NOTE | 2021-09-05 11:00 | P.PN_ITS ---
Subjective Subjective: Ms. Randhawa is seen and examined on CRRT today. Tolerating the therapy well. Off vasopressor agents now. She has some mild global edema, breathing comfortably on room air. Extubated and she currently feels comfortable. No overt uremic symptoms. Rainey catheter remains in place with 10 mL of urine output per hour. Vitals/I&O/Wt Last Vital Signs Temp 96.1 F L 09/05/21 08:30 Pulse 67 09/05/21 10:00 Resp 19 H 09/05/21 10:00 BP 117/77 09/05/21 10:00 Pulse Ox 96 09/05/21 08:30 09/04/21 09/05/21 09/05/21 22:59 06:59 14:59 Intake Total 1029.031 / 1129.031 100 / 1229.031 480.772 / 480.772 Output Total 100 / 100 Balance 929.031 / 1029.031 100 / 1129.031 452.772 / 452.772 Weight last 48 hrs Weight 141.719 kg Weight 142.428 kg Physical Exam Narrative: Constitutional: Awake, comfortable HEENT: Wet mucosa, no jvp, non icteric Lungs: Bilaterally clear without discernible wheeze, rales in all lung zones CVS: S1 S2, no murmurs Abdo: Soft, BS ok Ext 4: global 1-2+ edema, peripheral perfusion with no cyanosis Neurological: Grossly non-focal Urinary Catheter Management: Rainey: Cath Placed During This Visit: yes Reason for Continuing Indwelling Catheter: Accurate Measurement of Urinary Output in Critically Ill Patients Urinary Catheter Date of Insertion: 09/02/21 Urinary Catheter Time of Insertion: 18:50 Data : 09/05/21 03:00 09/05/21 09:40 Micro: Microbiology 09/03/21 09:53 Blood Culture - Preliminary Blood NEGATIVE TO DATE 09/03/21 09:50 Blood Culture - Preliminary Blood NEGATIVE TO DATE A&P Assessment and plan (1) Hepatorenal syndrome: Status: Acute Plan 1. Acute kidney injury Clinical picture consistent with hepatorenal syndrome, currently on CRRT. Currently hemodynamics remained stable, will stop CRRT today with a view for daily evaluation for intermittent hemodialysis/reinitiation of CRRT. We will add octreotide, midodrine on board. Lasix 80mg ivp x 1 today Strict I's and O's Dose medication for GFR less than 15 2. Sepsis Being treated for pneumonia and SBP with combination antibiotics 3. Chemistry Minor noncritical aberration, looks pretty good 4. Hemodynamics Blood pressure and pulse remain relatively stable at this time. Family at bedside, discussed this case with them. Of note renal failure in the setting of end-stage liver disease is a very poor prognosticator, at this time would also consider family counseling with palliation if she is not a candidate for liver transplant. Gonzales Johnson MD Nephrology [phone] Patient seen and examined via telemedicine, with the assistance of the bedside RN > 25 min spent in evaluation and mgmt of patient Attestations Medical Necessity Statement*: KAT Coding Level of Care Code Acute [facility] for [facility] Diagnoses Hepatorenal syndrome K76.7
[2021-09-05 11:11] LABS: Fibrinogen 56 mg/dL (174-498)
--- NOTE | 2021-09-05 11:24 | US_ITS ---
WS: [id number] ULTRASOUND ABDOMEN LIMITED CLINICAL INFORMATION: hepatobiliary (elev tbili and AP) and ascites check COMPARISON: None. FINDINGS: Technically difficult examination. Liver Size: Enlarged Craniocaudal length: 20.9 cm. Echogenicity: Coarse Surface nodularity: None. Mass (size and location): None. Bile ducts Intrahepatic ducts: Normal. Common bile duct diameter: Not well seen. Gallbladder Dilated gallbladder with cholelithiasis Gallstones: Present Gallbladder sludge: None. Gallbladder wall thickening: Mild measuring 2.7 mm Pericholecystic fluid: None. Sonographic Carter sign: Absent. Pancreas Not visualized Right kidney: Normal. Hydronephrosis: None. Size: 11.2 cm x 6.1 cm x 4.5 cm. Abdominal aorta and IVC Visualized portions are normal. Ascites: Perihepatic ascites US/US abdomen limited [id number] IMPRESSION: Technically difficult examination due to body habitus 1. Hepatomegaly with coarse hepatic echotexture likely due to fatty infiltrati on or hepatocellular disease. Correlation with liver function tests. 2. Dilated gallbladder with cholelithiasis. Mild gallbladder wall thickening s ome of which is likely due to hepatocellular disease. 3. Common bile duct not well seen. No intrahepatic biliary ductal dilatation. 4. No hydronephrosis in RIGHT kidney. 5. Perihepatic ascites
--- NOTE | 2021-09-05 11:26 | P.PN_ITS ---
Subjective Subjective: Denies pain. Feels numb all over after receiving morphine. Having some broth for breakfast. Denies nausea or abdominal discomfort. Vitals/I&O/Wt Last Vital Signs Temp 96.1 F L 09/05/21 08:30 Pulse 67 09/05/21 10:00 Resp 19 H 09/05/21 10:00 BP 117/77 09/05/21 10:00 Pulse Ox 96 09/05/21 08:30 09/04/21 09/05/21 09/05/21 22:59 06:59 14:59 Intake Total 1029.031 / 1129.031 100 / 1229.031 480.772 / 480.772 Output Total 100 / 100 Balance 929.031 / 1029.031 100 / 1129.031 452.772 / 452.772 Weight last 48 hrs Weight 141.719 kg Weight 142.428 kg Physical Exam Const: COMMON NORMALS: no acute distress NUTRITIONAL APPEARANCE: obese morbidly obese ORIENTATION/CONSCIOUSNESS: Yes awake, Yes oriented to person, Yes oriented to place and Yes Other orientation findings (Names the year is 2022 initially) HENMT: COMMON NORMALS: oropharynx normal Eye: SCLERA: scleral abnormal Laterality of scleral abnormality: positive bilateral scleral icterus Neck/C-Spine: COMMON NORMALS: no JVD Resp: COMMON NORMALS: normal respiratory effort and clear to auscultation bilaterally AUSCULTATION: clear to auscultation bilaterally Cardio: COMMON NORMALS: no JVD, regular rhythm, S1 normal heart sound present, S2 normal heart sound present and No murmurs present (Cardio) RHYTHM: regular rhythm HEART SOUNDS: S1 normal heart sound present and S2 normal heart sound present GI: COMMON NORMALS: Normal to inspection, nondistended, normoactive bowel sounds present, Soft to palpation and non-tender PALPATION: Yes Soft to palpation Extremity: COMMON NORMALS: no joint enlargement and no pedal edema Neuro: COMMON NORMALS: moves all extremities SENSORIUM/ORIENTATION: Yes o riented to person and Yes oriented to place Skin: GENERAL SKIN EXAM: other (Dry, scaly skin over torso, upper arms, improving rash, few excoriations) Urinary Catheter Management: Rainey: Cath Placed During This Visit: yes Reason for Continuing Indwelling Catheter: Accurate Measurement of Urinary Output in Critically Ill Patients Urinary Catheter Date of Insertion: 09/02/21 Urinary Catheter Time of Insertion: 18:50 Data : 09/05/21 03:00 09/05/21 09:40 Micro: Microbiology 09/03/21 09:53 Blood Culture - Preliminary Blood NEGATIVE TO DATE 09/03/21 09:50 Blood Culture - Preliminary Blood NEGATIVE TO DATE A&P Assessment and plan (1) Septic shock: Gradually coming off pressors. Off vasopressin. Down to 1 mcg/min Levophed. Continue to wean down as tolerating. Going to come off CRRT later today. Hemoglobin down to 6.9. Requested LDH, haptoglobin, DIC panel. With worse platelet level, anemia, requested peripheral smear. Continue biotics for pneumonia. CT scan had been requested but had been on hold due to CRRT. This is going to stop later today. We will additionally assess ultrasound right upper quadrant given elevation of T bili, alk phos. Assess amount of ascites. Concern was expressed for possible SBP. Discussed with her and mother regarding possible paracentesis, although coagulation studies are abnormal Status: Acute (2) Acute hepatic encephalopathy: Slightly better, does not get the year correctly from first try. Ammonia had been improving. Recheck. Continue lactulose. Continue treatment of septic shock. Empiric antibiotics. Status: Acute (3) Altered mental status: Status: Acute (4) Acute kidney injury superimposed on CKD: CRRT. To stop today. Reassess renal function, I&O. Midodrine. Agree with octreotide. Status: Acute (5) Acute hypotension: Status: Acute (6) Decompensated hepatic cirrhosis: With concern for hepatorenal syndrome. With resolution of septic shock will need consideration of liver transplant. Status: Acute (7) Hyperbilirubinemia: Assess right upper quadrant ultrasound, CT abdomen pelvis. Status: Acute (8) Ascites: Status: Acute (9) Pleural effusion: Status: Acute (10) HCAP (healthcare-associated pneumonia): Continue empiric antibiotic coverage. Status: Acute (11) Hepatorenal syndrome: Status: Acute Plan Decompensated liver cirrhosis / Hepatic encephalopathy/ascites/ hyperbilirubinemia/anemia Troponin elevation 2hr delta 16 Not consistent with ACS Likely due to ch. illness with worseng renal failrue Consider ECHo Chronic Hypotension Midodrine increase midodrine to 10 every 6 May need to increase to 10 mg Anemia of chronic disease Acute on chronic anemia Generalized Rash Nonspecific dermatitis appears with improvement. Dry, scaly skin with excoriations of torso, upper arms. Not significantly erythematous. Hypothyroidism Levothyroixine 125 mcg PO daily GERD Protonix 40 mg PO daily Debility PT/OT consult Fall Precautions DVT ppx SCDS Attestations Medical Necessity Statement*: Continue admission for assessment management of septic shock in a lady with advanced liver cirrhosis, hepatorenal syndrome with KAT on CKD, acute on chronic anemia, pneumonia, possible SBP with recurrent ascites. Critical Care Time: The high probability of a clinically significant, sudden or life threatening deterioration of the patient's hemodynamic, hepatic, renal system(s) with septic shock, hepatorenal syndrome required my full and direct attention, intervention and personal management. The critical care time is as shown. This time is in addition to time spent performing any reported procedures but includes the following: x Data and vital sign review and interpretation x Patient assessment, examination and intervention x Documentation x Medication orders and management Critical Care Time (min): 55 Coding Level of Care Code Acute Rn Emergency for [facility] Fwd Diagnoses Acute hepatic encephalopathy K72.00 Altered mental status R41.82 Acute kidney injury superimposed on CKD N17.9; N18.9 Acute hypotension I95.9 Decompensated hepatic cirrhosis K72.90; K74.60 Hyperbilirubinemia E80.6 Ascites R18.8 Pleural effusion J90 HCAP (healthcare-associated pneumonia) J18.9 Septic shock A41.9; R65.21 Hepatorenal syndrome K76.7
[2021-09-05] MEDS: sodium chloride 0.9% (100 ml) 100 ML (11:27)
[2021-09-05] MEDS: heparin, porcine 1,000 unit/mL INJ 10 mL HE (15:12)
--- NOTE | 2021-09-05 16:07 | PC.NURSE ---
Francisco gutiérrez orders, Nurse discontinued CRRT at 1430, after blood had been given. Total net negative in the 24 hour period in which CRRT was done is -1503.4. Levophed is no longer needed and has been titrated off. Patient is currently alert and oriented to person, place, and time. Occasionally oriented to situation. Patient is lethargic, but reports gaining strength compared to yesterday and has more use of her arms.
[2021-09-05 16:58] LABS: Hemoglobin 7.9 g/dL (11.5-15.3)
[2021-09-05 17:15] LABS: Albumin Level 3.9 g/dL (3.5-5.2); Anion Gap 19.9 (5-19); Blood Urea Nitrogen 29 mg/dL (6-20); Calcium 9.3 mg/dL (8.5-10.5); Carbon Dioxide 21 mmol/L (22-29); Chloride 101 mmol/L (98-107); Glomerular Filtration Rate 26.4 mL/min (90-130); Glucose 153 mg/dL (65-115); Magnesium 2.3 mg/dL (1.7-2.3); Phosphorus 5.5 mg/dL (2.5-4.5); Potassium 4.9 mmol/L (3.5-5.1); Sodium 137 mmol/L (136-145)
[2021-09-05 21:51] LABS: Albumin Level 3.6 g/dL (3.5-5.2); Anion Gap 18.9 (5-19); Blood Urea Nitrogen 30 mg/dL (6-20); Calcium 9.2 mg/dL (8.5-10.5); Carbon Dioxide 21 mmol/L (22-29); Chloride 102 mmol/L (98-107); Glomerular Filtration Rate 22.4 mL/min (90-130); Glucose 165 mg/dL (65-115); Magnesium 2.4 mg/dL (1.7-2.3); Phosphorus 5.4 mg/dL (2.5-4.5); Potassium 4.9 mmol/L (3.5-5.1); Sodium 137 mmol/L (136-145)
[2021-09-06] VITALS (48 sets, daily range): BP systolic 102–131; BP diastolic 53–96; PULSE 70–91; RESP 10–30; TEMP 36–36.6; O2SAT 89–98
[2021-09-06] MEDS: pantoprazole 40 mg SDV IVP (01:39)
[2021-09-06] MEDS: midodrine 5 mg TABLET 10 MG PO ×4 (03:32→21:28)
[2021-09-06] MEDS: lactulose oral liq 20 gm/30 mL UDC PO ×3 (03:32→15:27)
[2021-09-06 04:41] LABS: Hematocrit 23.7 % (37.0-47.0); Hemoglobin 7.6 g/dL (11.5-15.3); Lymphocytes # 0.9 10^3/uL (0.8-4.8); Lymphocytes % 10.2 %; Mean Corpuscular HGB Conc 32.1 g/dL (30.0-36.0); Mean Corpuscular Hemoglobin 31.3 pg (28.0-34.0); Mean Corpuscular Volume 97.5 fl (81-99); Mean Platelet Volume 10.7 fL (7.4-10.4); Monocytes # 0.8 10^3/uL (0.2-0.9); Monocytes % 8.6 %; Neutrophils # 7.07 10^3/uL (1.8-7.7); Neutrophils % 80.3 %; Nucleated Red Blood Cells % 0.2 %; Platelet Count 97 10^3/cmm (130-400); Red Blood Count 2.43 10^6/uL (4.1-5.3); Red Cell Distribution Width 20.8 % (12.1-15.1); White Blood Count 8.8 10^3/uL (4.0-10.0)
[2021-09-06 04:57] LABS: INR 2.22 (0.8-1.2)
[2021-09-06 04:58] LABS: Partial Thromboplastin Time 43.2 SECONDS (23.9-36.7)
[2021-09-06] MEDS: vancomycin 1,500 MG/300 ML PIGGYBACK 200 MG IV (05:06)
[2021-09-06] MEDS: levothyroxine 125 mcg Tablet PO (05:06)
[2021-09-06 05:07] LABS: D Dimer 6.63 ug/mIFEU (0-0.59); Lactate (Lactic Acid level) 2.4 mmol/L (0.5-2.2); Vancomycin Trough 18.3 ug/mL (10-15)
[2021-09-06 05:16] LABS: Fibrinogen 65 mg/dL (174-498); NT Pro B Type Natriuretic Pept 17474 pg/mL (0-125); Procalcitonin 0.27 ng/mL (0-0.5)
[2021-09-06 05:27] LABS: Alanine Aminotransferase 18 U/L (0-33); Albumin Level 3.7 g/dL (3.5-5.2); Alkaline Phosphatase 241 IU/L (35-105); Anion Gap 18.8 (5-19); Aspartate Amino Transferase 77 U/L (0-32); Blood Urea Nitrogen 30 mg/dL (6-20); C Reactive Protein 32.2 mg/L (0.0-4.9); Calcium 9.3 mg/dL (8.5-10.5); Carbon Dioxide 21 mmol/L (22-29); Chloride 101 mmol/L (98-107); Creatine Phosphokinase 27 U/L (26-192); Glomerular Filtration Rate 21.4 mL/min (90-130); Glucose 184 mg/dL (65-115); Magnesium 2.4 mg/dL (1.7-2.3); Osmolality Calculated 293 mOsm/kg (285-295); Phosphorus 5.3 mg/dL (2.5-4.5); Potassium 4.8 mmol/L (3.5-5.1); Sodium 136 mmol/L (136-145); Total Bilirubin 6.1 mg/dL (0.15-1.2); Total Protein 6.7 g/dL (6.6-8.7)
[2021-09-06] MEDS: hydrocortisone 100 mg/2 mL SDV IVP ×2 (08:54→21:28)
[2021-09-06] MEDS: octreotide 100 mcg/mL SDV 200 MCG SUBCUT ×3 (08:55→21:28)
--- NOTE | 2021-09-06 09:34 | PM.PN ---
Subjective Subjective: Talia feels generally well today and has no specific complaints. High-dose Lasix given yesterday with minimal urine output, only 80 mL over the last 24 hours. CRRT held yesterday morning. No uremic symptoms. Chemistry looks pretty good, some mild lower extremity edema, breathing comfortably on room air. Lungs are clear on examination. Medications: Reviewed: Yes Vitals/I&O/Wt Last Vital Signs Temp 96.9 F L 09/06/21 02:16 Pulse 85 09/06/21 06:00 Resp 22 H 09/06/21 04:00 BP 107/58 09/06/21 04:00 Pulse Ox 92 09/06/21 04:00 09/05/21 09/06/21 09/06/21 22:59 06:59 14:59 Intake Total 200 / 322.577 4994 / 2010.772 Output Total 75 / 113 Balance 200 / 912.772 985 / 1897.772 Weight last 48 hrs Weight 143.199 kg Weight 141.719 kg Physical Exam Narrative: Constitutional: Awake, comfortable HEENT: Wet mucosa, no jvp, non icteric Lungs: Bilaterally clear without discernible wheeze, rales in all lung zones CVS: S1 S2, no murmurs Abdo: Soft, BS ok Ext 4: global 1-2+ edema, peripheral perfusion with no cyanosis Neurological: Grossly non-focal Urinary Catheter Management: Rainey: Cath Placed During This Visit: yes Reason for Continuing Indwelling Catheter: Accurate Measurement of Urinary Output in Critically Ill Patients Urinary Catheter Date of Insertion: 09/02/21 Urinary Catheter Time of Insertion: 18:50 Data : 09/06/21 04:03 09/06/21 04:03 A&P Assessment and plan (1) Hepatorenal syndrome: Status: Acute Plan 1. Acute kidney injury Clinical picture consistent with hepatorenal syndrome, currently on CRRT. Remains oligoanuric. No acute indication for dialysis today, but will likely be necessary tomorrow. Cont octreotide, midodrine Lasix 80mg ivp x 1 today Strict I's and O's Dose medication for GFR less than 15 2. Sepsis Being treated for pneumonia and SBP with combination antibiotics Heomdynamics more stable and off vasopressors 3. Chemistry Minor noncritical aberration, looks pretty good 4. Hemodynamics Blood pressure and pulse remain relatively stable at this time. Family at bedside, discussed this case with them. Of note renal failure in the setting of end-stage liver disease is a very poor prognosticator, at this time would also consider family counseling with palliation if she is not a candidate for liver transplant. 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
[2021-09-06] MEDS: FUROsemide 10 mg/mL SDV 10mL 80 MG IVP (09:39)
[2021-09-06 10:26] LABS: Albumin Level 3.5 g/dL (3.5-5.2); Anion Gap 18.2 (5-19); Blood Urea Nitrogen 31 mg/dL (6-20); Calcium 9.1 mg/dL (8.5-10.5); Carbon Dioxide 19 mmol/L (22-29); Chloride 101 mmol/L (98-107); Glomerular Filtration Rate 21.4 mL/min (90-130); Glucose 250 mg/dL (65-115); Magnesium 2.3 mg/dL (1.7-2.3); Phosphorus 5.3 mg/dL (2.5-4.5); Potassium 4.2 mmol/L (3.5-5.1); Sodium 134 mmol/L (136-145)
[2021-09-06 10:33] LABS: Creatinine Clr Calc Pharmacy 39.8878
--- NOTE | 2021-09-06 10:54 | PM.PN ---
Subjective Subjective: Today she is doing better she feels. She feels little bit stronger. Denies pain or discomfort. She is requesting to advance diet to regular. Vitals/I&O/Wt Last Vital Signs Temp 97.9 F 09/06/21 08:30 Pulse 79 09/06/21 10:00 Resp 15 09/06/21 10:00 BP 117/60 09/06/21 10:00 Pulse Ox 92 09/06/21 10:00 09/05/21 09/06/21 09/06/21 22:59 06:59 14:59 Intake Total 200 / 899.042 9698 / 2010.772 500 / 500 Output Total 75 / 113 Balance 200 / 912.772 985 / 1897.772 500 / 500 Weight last 48 hrs Weight 143.199 kg Weight 141.719 kg Physical Exam Const: COMMON NORMALS: no acute distress GENERAL APPEARANCE: cooperative NUTRITIONAL APPEARANCE: obese morbidly obese ORIENTATION/CONSCIOUSNESS: Yes awake, Yes oriented to person, Yes oriented to place and Yes Other orientation findings HENMT: COMMON NORMALS: oropharynx normal Eye: SCLERA: scleral abnormal Laterality of scleral abnormality: positive bilateral scleral icterus Neck/C-Spine: COMMON NORMALS: no JVD Resp: COMMON NORMALS: normal respiratory effort and clear to auscultation bilaterally AUSCULTATION: clear to auscultation bilaterally Cardio: COMMON NORMALS: no JVD, regular rhythm, S1 normal heart sound present, S2 normal heart sound present and No murmurs present (Cardio) RHYTHM: regular rhythm HEART SOUNDS: S1 normal heart sound present and S2 normal heart sound present GI: COMMON NORMALS: Normal to inspection, nondistended, normoactive bowel sounds present, Soft to palpation and non-tender PALPATION: Yes Soft to palpation Extremity: COMMON NORMALS: no joint enlargement GENERAL: Yes edema (3+) Neuro: COMMON NORMALS: moves all extremities SENSORIUM/ORIENTATION: Yes oriented to person and Yes oriented to place Skin: GENERAL SKIN EXAM: other (Dry, scaly skin over torso, upper arms, improving rash, few excoriations) Urinary Catheter Management: Rainey: Cath Placed During This Visit: yes Reason for Continuing Indwelling Catheter: Accurate Measurement of Urinary Output in Critically Ill Patients Urinary Catheter Date of Insertion: 09/02/21 Urinary Catheter Time of Insertion: 18:50 Data : 09/06/21 04:03 09/06/21 09:51 A&P Assessment and plan (1) Septic shock: Weaned off pressor. Septic shock appears to have resolved. Temperatures have been on the low side, but improving with bear hugger. Tachycardia improved. Leukocytosis resolved. She is more awake and alert. Coagulation disturbance noted, although doubt DIC. Fibrinogen low at 65, although likely due to liver dysfunction. D-dimer is elevation, although so far has not been safe for empiric anticoagulation. Appears may have some hemolysis with low haptoglobin, although LDH just borderline. Haptoglobin 10. Peripheral smear pending. Discussed with Dr. Samaniego, we will try to get peripheral smear out to him to assess for schistocytes, possibility of TTP, Although plasmic score appears to be low. ISTH criteria not suggestive of overt DIC. She is not actively bleeding currently. Hold off transfusion. Consider prophylactic dose anticoagulant if we can replace her fibrinogen. Off pressors. Oliguric, will need additional dialysis. Received 1 unit PRBC transfusion on 09/05. With partial response, hemoglobin up to 7.6. Continue antibiotics for pneumonia. Possible SBP. CT scan usually not performed due to her being on CRRT. Requested ultrasound yesterday, hepatomegaly noted with coarse hepatic echotexture. Dilated gallbladder with cholelithiasis. Mild gallbladder wall thickening some which is likely due to hepatocellular disease. Common bile duct not well seen. No intrahepatic biliary duct dilation. No hydronephrosis right kidney. Perihepatic ascites. Spoke w [facility] hepatology Dr Rena alexander consideration of possible priority for transplant, currently no bed available, will need to confirm last time she had alcoholic drinks, although this seems to be more distant past, however, additional issue would be BMI with cut off of 40, and is not an [place] resident. Consideration could be given for transfer for optimization of condition otherwise given decompensated liver cirrhosis, however, will need to check back regarding beds as there is no waiting list. Possibly can check with [facility], [facility], [facility]. Could not reach her for update. Status: Acute (2) Acute hepatic encephalopathy: Better. She is more alert, more independent, eating breakfast on her own today. Request for regular diet. Request to de-escalate lactulose, but discussed with her we need to continue and have at least 2 bowel movements per day. She states that the issue had been in the past that she has protracted diarrhea with intensive lactulose. Discussed we will decrease lactulose to stop after 2 bowel movements in a day. She is agreeable. Ammonia had been improving. Recheck. Continue lactulose. Underlying infections, pneumonia, possible SBP. Empiric antibiotics. Status: Acute (3) Altered mental status: Status: Acute (4) Acute kidney injury superimposed on CKD: Appreciate nephrology recommendations. Will be needing additional dialysis given persistent oliguria. Continue midodrine, octreotide. Monitor blood pressures. Consider resuming low rate pressor. Reassess renal function, I&O. Status: Acute (5) Acute hypotension: Status: Acute (6) Decompensated hepatic cirrhosis: With concern for hepatorenal syndrome. As above. Status: Acute (7) Hyperbilirubinemia: As above. Status: Acute (8) Ascites: Status: Acute (9) Pleural effusion: Status: Acute (10) HCAP (healthcare-associated pneumonia): Continue empiric antibiotic coverage. Status: Acute (11) Hepatorenal syndrome: Status: Acute Plan Decompensated liver cirrhosis / Hepatic encephalopathy/ascites/ hyperbilirubinemia/anemia Troponin elevation Likely demand ischemia. Chronic Hypotension Midodrine Anemia of chronic disease Acute on chronic anemia Generalized Rash Nonspecific dermatitis appears with improvement. Dry, scaly skin with excoriations of torso, upper arms. Not significantly erythematous. Hypothyroidism Levothyroixine 125 mcg PO daily GERD Protonix 40 mg PO daily Debility PT/OT consult Fall Precautions DVT ppx SCDS Attestations Medical Necessity Statement*: Continue admission for cyst management of pneumonia, possible CAP, UTI, KAT requiring hemodialysis with prerenal syndrome in a lady with decompensated liver cirrhosis. 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
[2021-09-06 13:22] LABS: LAB Peripheral Smear Sent for Review
[2021-09-06 17:20] LABS: Albumin Level 3.8 g/dL (3.5-5.2); Anion Gap 21.2 (5-19); Blood Urea Nitrogen 32 mg/dL (6-20); Calcium 9.3 mg/dL (8.5-10.5); Carbon Dioxide 19 mmol/L (22-29); Chloride 102 mmol/L (98-107); Glomerular Filtration Rate 19.5 mL/min (90-130); Glucose 183 mg/dL (65-115); Magnesium 2.4 mg/dL (1.7-2.3); Phosphorus 5.2 mg/dL (2.5-4.5); Potassium 4.2 mmol/L (3.5-5.1); Sodium 138 mmol/L (136-145)
--- NOTE | 2021-09-06 18:10 | PC.NURSE ---
Addendum entered by Colby Magallanes RN 09/06/21 18:36: SHift Summary: Uneventful shift. Patient rested in bed throughout most of day, but was able to stand at bedside for 2-3 minute while working with PT. Patient is stronger and more coordinated than yesterday, requiring minimal assistance with tray set up for meals. Plan for dialysis tommorow. Urine output remained low despite 80 mg of lasix, 100mL total output during 12 hour shift. Patient had 2 bowel movements. Central line and dialysis dressings changed Original Note: SHift Summary: Uneventful shift. Patient rested in bed throughout most of day, but was able to stand at bedside for 2-3 minute while working with PT. Patient is stronger and more coordinated than yesterday, requiring minimal assistance with tray set up for meals. Plan for dialysis tommorow. Urine output remained low despite 80 mg of lasix, 100mL total output during 12 hour shift.
[2021-09-06] MEDS: fluconazole premix 200 MG/100 ML PREMIX 100 MG IV (18:25)
[2021-09-06 21:58] LABS: Albumin Level 3.7 g/dL (3.5-5.2); Anion Gap 19.9 (5-19); Blood Urea Nitrogen 33 mg/dL (6-20); Calcium 8.2 mg/dL (8.5-10.5); Carbon Dioxide 20 mmol/L (22-29); Chloride 102 mmol/L (98-107); Glomerular Filtration Rate 21.4 mL/min (90-130); Glucose 181 mg/dL (65-115); Magnesium 2.3 mg/dL (1.7-2.3); Phosphorus 5.6 mg/dL (2.5-4.5); Potassium 3.9 mmol/L (3.5-5.1); Sodium 138 mmol/L (136-145)
[2021-09-06 22:03] LABS: Creatinine Clr Calc Pharmacy 39.8878
[2021-09-07] VITALS (42 sets, daily range): BP systolic 102–140; BP diastolic 57–96; PULSE 72–91; RESP 11–22; TEMP 36.3–36.6; O2SAT 92–97
[2021-09-07] MEDS: pantoprazole 40 mg SDV IVP (01:43)
[2021-09-07] MEDS: sodium chloride 0.9% (100 ml) 200 ML 50 ML (03:16)
[2021-09-07] MEDS: midodrine 5 mg TABLET 10 MG PO ×4 (03:26→21:46)
[2021-09-07 04:37] LABS: Basophils % 0.2 %; Eosinophils % 0.1 %; Hemoglobin 7.9 g/dL (11.5-15.3); Lymphocytes # 0.9 10^3/uL (0.8-4.8); Mean Corpuscular HGB Conc 31.6 g/dL (30.0-36.0); Mean Corpuscular Hemoglobin 31.5 pg (28.0-34.0); Mean Corpuscular Volume 99.6 fl (81-99); Monocytes # 0.8 10^3/uL (0.2-0.9); Neutrophils # 7.93 10^3/uL (1.8-7.7); Neutrophils % 80.3 %; Nucleated Red Blood Cells % 0.2 %; Platelet Count 103 10^3/cmm (130-400); Red Blood Count 2.51 10^6/uL (4.1-5.3); Red Cell Distribution Width 20.1 % (12.1-15.1); White Blood Count 9.9 10^3/uL (4.0-10.0)
[2021-09-07 04:42] LABS: INR 1.97 (0.8-1.2)
[2021-09-07 04:43] LABS: Partial Thromboplastin Time 38.1 SECONDS (23.9-36.7)
[2021-09-07 04:46] LABS: Albumin Level 3.6 g/dL (3.5-5.2); Anion Gap 21.1 (5-19); Blood Urea Nitrogen 35 mg/dL (6-20); Calcium 9.3 mg/dL (8.5-10.5); Carbon Dioxide 19 mmol/L (22-29); Chloride 102 mmol/L (98-107); Glomerular Filtration Rate 18.7 mL/min (90-130); Glucose 166 mg/dL (65-115); Magnesium 2.4 mg/dL (1.7-2.3); Phosphorus 5.6 mg/dL (2.5-4.5); Potassium 4.1 mmol/L (3.5-5.1); Sodium 138 mmol/L (136-145)
[2021-09-07 04:53] LABS: D Dimer 7.17 ug/mIFEU (0-0.59)
[2021-09-07 05:05] LABS: Fibrinogen 72 mg/dL (174-498)
[2021-09-07] MEDS: levothyroxine 125 mcg Tablet PO (05:31)
--- NOTE | 2021-09-07 05:54 | PC.NURSE ---
Called Dr. Loredo at 0552 in regards to the patient's urine output color change. The beginning of my shift it was tea-colored and slowly throughout the shift it turned dark red/bloody. Per Dr. Loredo to just watch it for now and he will pass it along to day shift. I, as well, will pass along to the dayshift RN in bedside report.
--- NOTE | 2021-09-07 09:51 | PM.PN ---
Subjective Subjective: Talia is seen and examined on hemodialysis today. Tolerating the therapy well so far. Hemodynamics appear stable. No new acute issues for her. Urine output remains low despite high-dose IV Lasix yesterday Medications: Reviewed: Yes Vitals/I&O/Wt Last Vital Signs Temp 97.6 F 09/07/21 09:45 Pulse 85 09/07/21 09:45 Resp 13 09/07/21 09:45 BP 122/68 09/07/21 09:45 Pulse Ox 94 09/07/21 09:45 09/06/21 09/07/21 09/07/21 22:59 06:59 14:59 Intake Total 1606 / 2586 580.833 / 3166.833 Output Total 50 / 100 150 / 250 Balance 1556 / 2486 430.833 / 2916.833 Weight last 48 hrs Weight 144.651 kg Weight 143.199 kg Physical Exam Narrative: Constitutional: Awake, comfortable HEENT: Wet mucosa, no jvp, non icteric Lungs: Bilaterally clear without discernible wheeze, rales in all lung zones CVS: S1 S2, no murmurs Abdo: Soft, BS ok Ext 4: global 1-2+ edema, peripheral perfusion with no cyanosis Neurological: Grossly non-focal Urinary Catheter Management: Rainey: Cath Placed During This Visit: yes Reason for Continuing Indwelling Catheter: Accurate Measurement of Urinary Output in Critically Ill Patients Urinary Catheter Date of Insertion: 09/02/21 Urinary Catheter Time of Insertion: 18:50 Data : 09/07/21 04:14 09/07/21 04:14 Micro: Microbiology 09/05/21 16:30 Occult Blood (FIT) - Final Stool Routine Collection A&P Assessment and plan (1) Hepatorenal syndrome: Status: Acute Plan 1. Acute kidney injury Clinical picture consistent with hepatorenal syndrome Seen on dialysis today Plan next treatment on Sunday If no recovery over next few days will need a permacath on Sunday Cont octreotide, midodrine Lasix 80mg ivp x 1 today Strict I's and O's Dose medication for GFR less than 15 2. Sepsis Being treated for pneumonia and SBP with combination antibiotics Heomdynamics more stable and off vasopressors 3. Chemistry Minor noncritical aberration, looks pretty good 4. Hemodynamics Blood pressure and pulse remain relatively stable at this time. Family at bedside, discussed this case with them. Of note renal failure in the setting of end-stage liver disease is a very poor prognosticator, at this time would also consider family counseling with palliation if she is not a candidate for liver transplant. 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
[2021-09-07] MEDS: FUROsemide 10 mg/mL SDV 10mL 80 MG IVP (10:24)
[2021-09-07] MEDS: heparin, porcine 1,000 unit/mL INJ 10 mL HE (10:30)
--- NOTE | 2021-09-07 10:33 | PC.NURSE ---
MAR other delay due to dialysis just finishing and care of other critical patient.
[2021-09-07] MEDS: hydrocortisone 100 mg/2 mL SDV IVP (10:40)
--- NOTE | 2021-09-07 10:43 | PC.CHAP ---
Pastoral Care Encounter/Spiritual Assessment Type of Contact [] Declined jig bore operator visit [] Patient/Family/Request visit [] Outpatient visit [] Follow-up visit [] Physician referral [] Code/Alert [x] Routine visit [] Staff referral [] Actively dying [] Patient sleeping [x] Family support [] [] Out of room [] Palliative care [] [x] Receiving care in room [] Pre-surgical visit [] Trauma [] Long length of stay [x] ICU visit [] Other: Relational/Emotional Strength [] Patient feels connected with others/family/visitors/staff [] Distress [] Loneliness/isolation [] Abandonment Spirituality of Patient [] Person of Linn [] Attends Confucianism of their Linn [] Believes in Prayer [] Reads Bible or Catholic materials [] There are Spiritual issues to be addressed Cryptographer Interventions [x] Prayer [x] Active listening [x] Non-anxious presence [x] Spiritual/emotional support [] Crisis/trauma care [] Spiritual counseling [] Bereavement support [] Provided bereavement packet [] Provided Bible/devotional materials [] Provided toy/stuffed animal, coloring book to patient or family member [] Provided Communion [] Anointing/[place] [] Salvation [x] Completed spiritual assessment [] Other: Impact on Illness or Injury [] Angry [] Fearful [] Anxious [] Often cries [] Exhaustion [] Unable to work [] Unable to attend oriental orthodox [] Unable to walk/stand [] Unable to read [] Unable to drive [] Unable to eat/drink [] Unable to sleep [] Unable to be with family [] Patient intubated [] Other: Summary patient setting up having dialyses... present.. Time spent with patient 10 min
[2021-09-07] MEDS: octreotide 100 mcg/mL SDV 200 MCG SUBCUT ×3 (10:54→21:45)
[2021-09-07] MEDS: fluconazole premix 200 MG/100 ML PREMIX 100 MG IV (11:18)
--- NOTE | 2021-09-07 12:17 | P.PN_ITS ---
Subjective Subjective: She is feeling better. Denies pain or discomfort. Is not short of breath. Vitals/I&O/Wt Last Vital Signs Temp 97.6 F 09/07/21 10:03 Pulse 84 09/07/21 10:03 Resp 12 09/07/21 10:03 BP 132/75 09/07/21 10:03 Pulse Ox 95 09/07/21 10:03 09/06/21 09/07/21 09/07/21 22:59 06:59 14:59 Intake Total 1606 / 2586 580.833 / 3166.833 82 / 82 Output Total 50 / 100 150 / 250 Balance 1556 / 2486 430.833 / 2916.833 82 / 82 Weight last 48 hrs Weight 144.651 kg Weight 143.199 kg Physical Exam Narrative: is at bedside. Const: COMMON NORMALS: no acute distress GENERAL APPEARANCE: cooperative NUTRITIONAL APPEARANCE: obese morbidly obese ORIENTATION/CONSCIOUSNESS: Yes awake, Yes oriented to person, Yes oriented to place and Yes Other orientation findings HENMT: COMMON NORMALS: oropharynx normal Eye: SCLERA: scleral abnormal Laterality of scleral abnormality: positive bilateral scleral icterus Neck/C-Spine: COMMON NORMALS: no JVD Resp: COMMON NORMALS: normal respiratory effort and clear to auscultation bilaterally AUSCULTATION: clear to auscultation bilaterally Cardio: COMMON NORMALS: no JVD, regular rhythm, S1 normal heart sound present, S2 normal heart sound present and No murmurs present (Cardio) RHYTHM: regular rhythm HEART SOUNDS: S1 normal heart sound present and S2 normal heart sound present GI: COMMON NORMALS: Normal to inspection, nondistended, normoactive bowel sounds present, Soft to palpation and non-tender PALPATION: Yes Soft to palpation Extremity: COMMON NORMALS: no joint enlargement GENERAL: Yes edema (2-3+) Neuro: COMMON NORMALS: moves all extremities SENSORIUM/ORIENTATION: Yes oriented to person and Yes oriented to place Skin: GENERAL SKIN EXAM: other (Dry, scaly skin over torso, upper arms, improving rash, few excoriations) Urinary Catheter Management: Rainey: Cath Placed During This Visit: yes Reason for Continuing Indwelling Catheter: Accurate Measurement of Urinary Output in Critically Ill Patients Urinary Catheter Date of Insertion: 09/02/21 Urinary Catheter Time of Insertion: 18:50 Data : 09/07/21 04:14 09/07/21 04:14 Micro: Microbiology 09/05/21 16:30 Occult Blood (FIT) - Final Stool Routine Collection A&P Assessment and plan (1) Acute kidney injury superimposed on CKD: Additional dialysis today. Appreciate nephrology recommendations. May need to also continue at discharge with dialysis given persistent KAT, oliguria. Continue midodrine, octreotide. Monitor blood pressures. Off pressor. Reassess renal function, I&O. Status: Acute (2) Coagulopathy: Fibrinogen up to 72 after cryoprecipitate yesterday. Additional cryoprecipitate unit today. Start heparin for VT prophylaxis. Status: Acute (3) Decompensated hepatic cirrhosis: With concern for hepatorenal syndrome. No beds available for transfer to [facility], [facility]. We are also checking flu. At [facility] not a candidate for transplantation currently given BMI, and has been less than 6 months since last alcoholic drink. Reported to be at the end of April. She is currently also not a resident of [place] having moved from the [facility] to [place]. states they are considering whether to possibly move back to [place] in the future. Will need hepatology follow-up. Consideration for liver transplantation if becomes a candidate. BMI back in July was 48. Meld score has been 34-36. Status: Acute (4) Septic shock: Taper down stress dose steroids. Weaned off pressor. Continue antibiotics. Move to medical surgical unit. Septic shock appears to have resolved. Temperatures have been on the low side, but im proving with bear hugger. Tachycardia improved. Leukocytosis resolved. She remains awake and alert. Continue antibiotics for pneumonia. Possible SBP. GB US not suggestive of cholecystitis, cholangitis. Discussed with her some GB dilation, cholelithiasis, wall thickening. CT scan usually not performed due to her being on CRRT. Requested ultrasound yesterday, hepatomegaly noted with coarse hepatic echotexture. Dilated gallbladder with cholelithiasis. Mild gallbladder wall thickening some which is likely due to hepatocellular disease. Common bile duct not well seen. No intrahepatic biliary duct dilation. No hydronephrosis right kidney. Perihepatic ascites. Status: Acute (5) Acute hepatic encephalopathy: Better. Still rather sluggish, takes her a while to process information. Continue lactulose, aim for 2-3 soft bowel movements per day. Underlying infections, pneumonia, possible SBP. Empiric antibiotics. Status: Acute (6) Altered mental status: Status: Acute (7) Acute hypotension: Status: Acute (8) Hyperbilirubinemia: As above. Status: Acute (9) Ascites: Status: Acute (10) Pleural effusion: Status: Acute (11) HCAP (healthcare-associated pneumonia): Continue empiric antibiotic coverage. Status: Acute (12) Hepatorenal syndrome: Status: Acute (13) UTI (urinary tract infection): Possible candidal UTI, continue albicans growing in urine, started on Diflucan. Status: Acute Plan Troponin elevation Likely demand ischemia. Chronic Hypotension Midodrine Anemia of chronic disease Acute on chronic anemia Generalized Rash Nonspecific dermatitis appears with improvement. Dry, scaly skin with excori ations of torso, upper arms. Not significantly erythematous. Hypothyroidism Levothyroixine 125 mcg PO daily GERD Protonix 40 mg PO daily Debility PT/OT consult Fall Precautions DVT ppx SCDS Attestations Medical Necessity Statement*: Continue admission for assessment management of hepatorenal syndrome, requiring dialysis, decompensated liver cirrhosis, coagulopathy, pneumonia, UTI, possible SBP. Coding Level of Care Code Acute Wireless Sales Representative for g Fwd Diagnoses Septic shock A41.9; R65.21 Acute hepatic encephalopathy K72.00 Altered mental status R41.82 Acute kidney injury superimposed on CKD N17.9; N18.9 Acute hypotension I95.9 Decompensated hepatic cirrhosis K72.90; K74.60 Hyperbilirubinemia E80.6 Ascites R18.8 Pleural effusion J90 HCAP (healthcare-associated pneumonia) J18.9 Hepatorenal syndrome K76.7 Coagulopathy D68.9 UTI (urinary tract infection) N39.0
--- NOTE | 2021-09-07 12:43 | USCV_ITS ---
Talia Randhawa Age: 51 Gender: F : 1970 Exam Date: 09/07/2021 14:16 Ordering Phys: Noman Sebastian MD Technologist: ROGER Exam Location: [facility] [place] Indication: EVAL FOR DVT HISTORY: Lower extremity swelling. PROCEDURES: Venous duplex imaging was performed in bilateral lower extremities. The venous duplex Doppler examination of both lower extremities was performed in the standard fashion. In addition, the posterior tibial and peroneal trunk were evaluated. Serial compression, augmentation maneuvers, and spectral Doppler flow evaluation were performed. FINDINGS: Examination was technically limited due to body habitus. Normal 2-D Doppler and augmentation and compressibility throughout the lower extremity venous structures. Additional imaging through the proximal calf veins also reveals no thrombus. Limited evaluation of the greater saphenous vein is patent with no thrombus.. CONCLUSIONS No DVT bilateral lower extremities. Dr. Adelia Petit DO (Electronically Signed) Final Date: 07 September 2021 16:00 S
[2021-09-07] MEDS: heparin 5,000 unit/mL INJ 1 mL 5000 UNIT SUBCUT (15:06)
[2021-09-07] MEDS: vancomycin 1,500 MG/300 ML PIGGYBACK 200 MG IV (17:23)
--- NOTE | 2021-09-07 18:32 | PC.NURSE ---
Shift Note Pt rested in bed throughout shift. She received Hemodialysis today, 3 liters removed. She tolerated it very well. No B/P issues noted today. She remains on room air. She was incontinent of a massive loose BM. Bathing provided. She has very dry skin with flakes. During bathing flakes came off and tiny areas would ooze blood. She received in unit of Cryoprecipitate today. HD cath in groin is patent and dressing changed today. CVL in right neck patent with good blood return. Lasix 80mg admin IVP today. Urine out put of 150ml. Frequent safety and comfort rounds continue. Orders and/or nursing care completed as indicated. Patient monitored for response to intervention and treatment(s). Education provided includes Vancomycin, Zosyn and flucanizole and Octreotide Patient and/or fuels sales representative verbalized understanding of plan of care, and medications. Will continue to monitor.
--- NOTE | 2021-09-07 19:48 | PC.NURSE ---
Pt has flaking skin. Pt has several band-aids on abdomen covering subq injection sites. Pt very sleepy, but wakes up easily. Small amount of blood present in tubing of catheter.
[2021-09-07] MEDS: acetaminophen 325 mg Tablet 650 MG PO (21:45)
[2021-09-07] MEDS: hydrocortisone 100 mg/2 mL SDV 50 MG IVP (21:45)
[2021-09-07] MEDS: lactulose oral liq 20 gm/30 mL UDC PO (21:46)
[2021-09-08] VITALS (47 sets, daily range): BP systolic 104–141; BP diastolic 68–90; PULSE 0–94; RESP 13–26; TEMP 36.2–37.7; O2SAT 88–98
[2021-09-08] MEDS: pantoprazole 40 mg SDV IVP (01:51)
[2021-09-08] MEDS: heparin 5,000 unit/mL INJ 1 mL 5000 UNIT SUBCUT ×2 (01:51→14:22)
--- NOTE | 2021-09-08 02:35 | PC.NURSE ---
SCDs temporarily taken off per patient's request.
[2021-09-08] MEDS: midodrine 5 mg TABLET 10 MG PO ×4 (03:01→21:37)
[2021-09-08 05:33] LABS: Basophils % 0.1 %; Eosinophils % 0.1 %; Hematocrit 26.1 % (37.0-47.0); Hemoglobin 8.2 g/dL (11.5-15.3); Lymphocytes # 0.7 10^3/uL (0.8-4.8); Lymphocytes % 7.1 %; Mean Corpuscular HGB Conc 31.4 g/dL (30.0-36.0); Mean Corpuscular Hemoglobin 31.7 pg (28.0-34.0); Mean Corpuscular Volume 100.8 fl (81-99); Mean Platelet Volume 11.1 fL (7.4-10.4); Monocytes # 0.9 10^3/uL (0.2-0.9); Monocytes % 8.5 %; Neutrophils # 8.41 10^3/uL (1.8-7.7); Neutrophils % 81.4 %; Nucleated Red Blood Cells % 0.3 %; Platelet Count 96 10^3/cmm (130-400); Red Blood Count 2.59 10^6/uL (4.1-5.3); Red Cell Distribution Width 20.2 % (12.1-15.1); White Blood Count 10.3 10^3/uL (4.0-10.0)
[2021-09-08 05:49] LABS: Alanine Aminotransferase 9 U/L (0-33); Albumin Level 3.7 g/dL (3.5-5.2); Alkaline Phosphatase 230 IU/L (35-105); Anion Gap 19.4 (5-19); Aspartate Amino Transferase 56 U/L (0-32); Blood Urea Nitrogen 24 mg/dL (6-20); Calcium 9.3 mg/dL (8.5-10.5); Carbon Dioxide 21 mmol/L (22-29); Chloride 101 mmol/L (98-107); Globulin 3.2 g/dL (1.3-4.6); Glomerular Filtration Rate 26.4 mL/min (90-130); Glucose 163 mg/dL (65-115); Osmolality Calculated 294 mOsm/kg (285-295); Potassium 3.4 mmol/L (3.5-5.1); Sodium 138 mmol/L (136-145); Total Bilirubin 4.1 mg/dL (0.15-1.2); Total Protein 6.9 g/dL (6.6-8.7)
[2021-09-08 05:57] LABS: INR 1.78 (0.8-1.2); Partial Thromboplastin Time 38.9 SECONDS (23.9-36.7)
[2021-09-08] MEDS: levothyroxine 125 mcg Tablet PO (06:08)
[2021-09-08 06:12] LABS: D Dimer 7.49 ug/mIFEU (0-0.59)
[2021-09-08 06:15] LABS: Fibrinogen 93 mg/dL (174-498)
[2021-09-08] MEDS: fluconazole 100 mg Tablet PO (08:07)
[2021-09-08] MEDS: lactulose oral liq 20 gm/30 mL UDC PO (08:07)
[2021-09-08] MEDS: octreotide 100 mcg/mL SDV 200 MCG SUBCUT ×3 (08:53→21:37)
[2021-09-08] MEDS: hydrocortisone 100 mg/2 mL SDV 50 MG IVP (08:54)
--- NOTE | 2021-09-08 10:13 | PM.PN ---
Subjective Subjective: Talia is doing well today without any specific concerns or complaints. Dialysis went well yesterday. I did give her another dose of Lasix, however, she only made 250 mL of urine in response to this which is better than it has been. No extremity edema, breathing comfortably, no hypervolemic symptoms, no uremic symptoms. Medications: Reviewed: Yes Vitals/I&O/Wt Last Vital Signs Temp 100 F H 09/08/21 08:00 Pulse 77 09/08/21 08:00 Resp 14 09/08/21 08:00 BP 123/79 09/08/21 08:00 Pulse Ox 95 09/08/21 08:00 09/07/21 09/08/21 09/08/21 22:59 06:59 14:59 Intake Total 400 / 1292 500 / 1792 100 / 100 Output Total 150 / 150 100 / 250 Balance 250 / 1142 400 / 1542 100 / 100 Weight last 48 hrs Weight 142.609 kg Weight 144.651 kg Physical Exam Narrative: Constitutional: Awake, comfortable HEENT: Wet mucosa, no jvp, non icteric Lungs: Bilaterally clear without discernible wheeze, rales in all lung zones CVS: S1 S2, no murmurs Abdo: Soft, BS ok Ext 4: global 1-2+ edema, peripheral perfusion with no cyanosis Neurological: Grossly non-focal Urinary Catheter Management: Rainey: Cath Placed During This Visit: yes Reason for Continuing Indwelling Catheter: Accurate Measurement of Urinary Output in Critically Ill Patients Urinary Catheter Date of Insertion: 09/02/21 Urinary Catheter Time of Insertion: 18:50 Data : 09/08/21 04:05 09/08/21 04:05 Micro: Microbiology 09/03/21 09:53 Blood Culture - Final Blood NO GROWTH AFTER 5 DAYS 09/03/21 09:50 Blood Culture - Final Blood NO GROWTH AFTER 5 DAYS A&P Assessment and plan (1) Hepatorenal syndrome: Status: Acute Plan 1. Acute kidney injury Clinical picture consistent with hepatorenal syndrome Plan next treatment on Sunday Oligoanuric despite high-dose Lasix. Likely to have a protracted recovery time. Okay for permacath really at any time now. Cont octreotide, midodrine Lasix 80mg ivp x 1 today Strict I's and O's Dose medication for GFR less than 15 2. Sepsis Being treated for pneumonia and SBP with combination antibiotics Heomdynamics more stable and off vasopressors 3. Chemistry Minor noncritical aberration, looks pretty good 4. Hemodynamics Blood pressure and pulse remain relatively stable at this time. Gonzales Johnson MD Nephrology [phone] Patient seen and examined via telemedicine, with the assistance of the bedside RN > 25 min spent in evaluation and mgmt of patient Attestations Medical Necessity Statement*: eval for renal failure Coding Level of Care Code Acute Family And Divorce Legal Assistant for g Adam Diagnoses Hepatorenal syndrome K76.7
--- NOTE | 2021-09-08 18:16 | PC.NURSE ---
Shift Note Frequent safety and comfort rounds continue. Orders and nursing care completed as indicated. Patient monitored for response to intervention and medication Education provided includes lactulose importance and liver failure Patient understand Will continue to monitor.
--- NOTE | 2021-09-08 20:16 | P.PN_ITS ---
Subjective Subjective: She states she is feeling well today. Denies any complaints. No pain or discomfort. No trouble breathing. No nausea vomiting or diarrhea. No abdominal discomfort. Tolerating breakfast. Vitals/I&O/Wt Last Vital Signs Temp 100 F H 09/08/21 08:00 Pulse 74 09/08/21 16:00 Resp 17 09/08/21 16:00 BP 132/89 09/08/21 16:00 Pulse Ox 98 09/08/21 16:00 09/08/21 09/08/21 09/08/21 06:59 14:59 22:59 Intake Total 500 / 1792 700 / 700 300 / 1000 Output Total 100 / 250 125 / 125 Balance 400 / 1542 700 / 700 175 / 875 Weight last 48 hrs Weight 142.609 kg Weight 144.651 kg Physical Exam Const: COMMON NORMALS: no acute distress GENERAL APPEARANCE: cooperative NUTRITIONAL APPEARANCE: obese morbidly obese ORIENTATION/CONSCIOUSNESS: Yes awake, Yes oriented to person, Yes oriented to place and Yes Other orientation findings HENMT: COMMON NORMALS: oropharynx normal Eye: SCLERA: scleral abnormal Laterality of scleral abnormality: positive bilateral scleral icterus Neck/C-Spine: COMMON NORMALS: no JVD Resp: COMMON NORMALS: normal respiratory effort and clear to auscultation bilaterally AUSCULTATION: clear to auscultation bilaterally Cardio: COMMON NORMALS: no JVD, regular rhythm, S1 normal heart sound present, S2 normal heart sound present and No murmurs present (Cardio) RHYTHM: regular rhythm HEART SOUNDS: S1 normal heart sound present and S2 normal heart sound present GI: COMMON NORMALS: Normal to inspection, nondistended, normoactive bowel sounds present, Soft to palpation and non-tender PALPATION: Yes Soft to palpation Extremity: COMMON NORMALS: no joint enlargement GENERAL: Yes edema (2-3+) Neuro: COMMON NORMALS: moves all extremities SENSORIUM/ORIENTATION: Yes oriented to person and Yes oriented to place Skin: GENERAL SKIN EXAM: other (Dry, scaly skin over torso, upper arms, improving rash, few excoriations) Urinary Catheter Management: Rainey: Cath Placed During This Visit: yes Reason for Continuing Indwelling Catheter: Accurate Measurement of Urinary Output in Critically Ill Patients Urinary Catheter Date of Insertion: 09/02/21 Urinary Catheter Time of Insertion: 18:50 Data : 09/08/21 04:05 09/08/21 04:05 Micro: Microbiology 09/08/21 11:33 Blood Culture - Preliminary Blood SPECIMEN COLLECTED 09/08/21 11:35 Blood Culture - Preliminary Blood SPECIMEN COLLECTED 09/03/21 09:53 Blood Culture - Final Blood NO GROWTH AFTER 5 DAYS 09/03/21 09:50 Blood Culture - Final Blood NO GROWTH AFTER 5 DAYS A&P Assessment and plan (1) Acute kidney injury superimposed on CKD: Will initiate arrangements for tunneled catheter as anticipated to require dialysis for longer time. Today noted a low-grade fever, 100 Fahrenheit, will reassess and once afebrile initiate catheter placement. Appreciate nephrology recommendations. May need to also continue at discharge with dialysis given persistent KAT, oliguria. Continue midodrine, octreotide. Monitor blood pressures. Off pressor. Reassess renal function, I&O. Transfer to medical surgical floor. Status: Acute (2) Coagulopathy: Fibrinogen up to 93. Hold off additional cryoprecipitate. Started heparin for VT prophylaxis. Status: Acute (3) Decompensated hepatic cirrhosis: With concern for hepatorenal syndrome. No beds available for transfer to [facility], [facility]. We are also checking flu. At [facility] not a candidate for transplantation currently given BMI, and has been less than 6 months since last alcoholic drink. Reported to be at the end of April. She is currently also not a resident of [place] having moved from the [facility] to [place]. states they are considering whether to possibly move back to [place] in the future. Will need hepatology follow-up. Consideration for liver transplantation if becomes a candidate. BMI back in July was 48. Meld score has been 34-36. We have had no luck finding a bed, for now holding off additional transfer for says she is improving, perhaps could resume on outpatient side arrangements for follow-up with hepatology. Status: Acute (4) Septic shock: Septic shock resolved. Decrease hydrocortisone. Low-grade fever today 100 Fahrenheit. Not have a clear cause as she is feeling well symptomatically. Oxygenating well. No abdominal symptoms. Continue empiric antibiotics as currently. Pneumonia. Possible SBP. Requested blood culture. Continue fluconazole with suspected genitourinary infection. GB US not suggestive of cholecystitis, cholangitis. Discussed with her some GB dilation, cholelithiasis, wall thickening. CT scan usually not performed due to her being on CRRT. Requested ultrasound yesterday, hepatomegaly noted with coarse hepatic echotexture. Dilated gallbladder with cholelithiasis. Mild gallbladder wall thickening some which is likely due to hepatocellular disease. Common bile duct not well seen. No intrahepatic biliary duct dilation. No hydronephrosis right kidney. Perihepatic ascites. Status: Acute (5) Acute hepatic encephalopathy: Better. Still rather sluggish, takes her a while to process information. Continue lactulose, aim for 2-3 soft bowel movements per day. Underlying infections, pneumonia, possible SBP. Empiric antibiotics. Status: Acute (6) Altered mental status: Status: Acute (7) Acute hypotension: Status: Acute (8) Hyperbilirubinemia: As above. Status: Acute (9) Ascites: Status: Acute (10) Pleural effusion: Status: Acute (11) HCAP (healthcare-associated pneumonia): Continue empiric antibiotic coverage. Status: Acute (12) Hepatorenal syndrome: Status: Acute (13) UTI (urinary tract infection): Possible candidal UTI, continue albicans growing in urine, continue on Diflucan. Status: Acute Plan Physical deconditioning: Continue mobilization with therapy. Continue post discharge planning. Troponin elevation Likely demand ischemia. Chronic Hypotension Midodrine Anemia of chronic disease Acute on chronic anemia Generalized Rash Nonspecific dermatitis appears with improvement. Dry, scaly skin with excoriations of torso, upper arms. Not significantly erythematous. Hypothyroidism Levothyroixine 125 mcg PO daily GERD Protonix 40 mg PO daily Debility PT/OT consult Fall Precautions DVT ppx SCDS Attestations Medical Necessity Statement*: Continue admission for assessment management of acute kidney injury, prerenal syndrome, reassessment with low-grade fever, arrangements for tunneled catheter, outpatient hemodialysis. Coding Level of Care Code Acute Social Science Manager for [facility] Fwd Diagnoses Acute kidney injury superimposed on CKD N17.9; N18.9 Coagulopathy D68.9 Decompensated hepatic cirrhosis K72.90; K74.60 Septic shock A41.9; R65.21 Acute hepatic encephalopathy K72.00 Altered mental status R41.82 Acute hypotension I95.9 Hyperbilirubinemia E80.6 Ascites R18.8 Pleural effusion J90 HCAP (healthcare-associated pneumonia) J18.9 Hepatorenal syndrome K76.7 UTI (urinary tract infection) N39.0
[2021-09-08] MEDS: hydrocortisone 100 mg/2 mL SDV 25 MG IVP (21:44)
[2021-09-08] MEDS: LORazepam 2 mg/mL INJ 1 mL 1 MG IVP (21:58)
[2021-09-09] VITALS (30 sets, daily range): BP systolic 110–138; BP diastolic 66–93; PULSE 72–101; RESP 13–28; TEMP 36.2–37; O2SAT 85–96; BMI 53.1
[2021-09-09] MEDS: heparin 5,000 unit/mL INJ 1 mL 5000 UNIT SUBCUT ×2 (01:22→13:08)
[2021-09-09] MEDS: pantoprazole 40 mg SDV IVP (01:22)
[2021-09-09] MEDS: midodrine 5 mg TABLET 10 MG PO ×3 (04:42→16:31)
[2021-09-09 05:28] LABS: Basophils % 0.1 %; Hematocrit 26.4 % (37.0-47.0); Hemoglobin 8.2 g/dL (11.5-15.3); Lymphocytes # 0.7 10^3/uL (0.8-4.8); Lymphocytes % 6.3 %; Mean Corpuscular HGB Conc 31.1 g/dL (30.0-36.0); Mean Corpuscular Hemoglobin 31.5 pg (28.0-34.0); Mean Corpuscular Volume 101.5 fl (81-99); Mean Platelet Volume 10.6 fL (7.4-10.4); Monocytes # 1.1 10^3/uL (0.2-0.9); Monocytes % 8.9 %; Neutrophils # 9.75 10^3/uL (1.8-7.7); Neutrophils % 82.7 %; Nucleated Red Blood Cells % 0 %; Platelet Count 76 10^3/cmm (130-400); Red Cell Distribution Width 20.8 % (12.1-15.1); White Blood Count 11.8 10^3/uL (4.0-10.0)
[2021-09-09 05:47] LABS: Alanine Aminotransferase 7 U/L (0-33); Albumin Level 3.7 g/dL (3.5-5.2); Alkaline Phosphatase 208 IU/L (35-105); Aspartate Amino Transferase 49 U/L (0-32); Blood Urea Nitrogen 30 mg/dL (6-20); Calcium 8.4 mg/dL (8.5-10.5); Carbon Dioxide 24 mmol/L (22-29); Chloride 103 mmol/L (98-107); Globulin 2.5 g/dL (1.3-4.6); Glomerular Filtration Rate 22.4 mL/min (90-130); Glucose 166 mg/dL (65-115); Osmolality Calculated 302 mOsm/kg (285-295); Sodium 141 mmol/L (136-145); Total Bilirubin 3.8 mg/dL (0.15-1.2); Total Protein 6.2 g/dL (6.6-8.7)
[2021-09-09 06:05] LABS: Vancomycin Trough 29.7 ug/mL (10-15)
[2021-09-09] MEDS: levothyroxine 125 mcg Tablet PO (06:58)
--- NOTE | 2021-09-09 07:03 | PC.NURSE ---
Shift Note Frequent safety and comfort rounds continue. Orders and/or nursing care completed as indicated. Patient monitored for response to intervention and treatment(s). Education provided includes medication and treatment plan. Patient verbalized understanding of teaching. Patient became very anxious around 0, informed night hospitalist-telephone orders given for Ativan 1 mg one time dose. Administered Ativan, then called patient to update him on patient condition. Patient resting comfortably throughout the remainder of shift. Patient remains alert/oriented and had no complaints of pain overnight. Several wounds noted, please see wound assessment for detail. Rainey catheter drained 150 mls of dark evaristo urine overnight. Will continue to monitor.
[2021-09-09] MEDS: fluconazole 100 mg Tablet PO (08:42)
[2021-09-09] MEDS: hydrocortisone 100 mg/2 mL SDV 25 MG IVP ×2 (08:43→21:17)
[2021-09-09] MEDS: lactulose oral liq 20 gm/30 mL UDC PO (08:43)
[2021-09-09] MEDS: heparin, porcine 1,000 unit/mL INJ 10 mL HE (08:46)
[2021-09-09] MEDS: octreotide 100 mcg/mL SDV 200 MCG SUBCUT (08:55)
--- NOTE | 2021-09-09 09:39 | PM.PN ---
Subjective Subjective: Seen on dialysis tolerating well. Bps look more robust. Little urine output. Some LE edema. Breathing comfortably. No uremic Sx. Medications: Reviewed: Yes Vitals/I&O/Wt Last Vital Signs Temp 98.6 F 09/09/21 07:30 Pulse 91 09/09/21 08:00 Resp 20 H 09/09/21 08:00 BP 129/83 09/09/21 08:00 Pulse Ox 93 09/09/21 08:00 09/08/21 09/09/21 09/09/21 22:59 06:59 14:59 Intake Total 300 / 1000 580 / 1580 250 / 250 Output Total 125 / 125 150 / 275 Balance 175 / 875 430 / 1305 250 / 250 Weight last 48 hrs Weight 140.614 kg Weight 142.609 kg Physical Exam Narrative: Constitutional: Awake, comfortable HEENT: Wet mucosa, no jvp, non icteric Lungs: Bilaterally clear without discernible wheeze, rales in all lung zones CVS: S1 S2, no murmurs Abdo: Soft, BS ok Ext 4: global 1-2+ edema, peripheral perfusion with no cyanosis Neurological: Grossly non-focal Urinary Catheter Management: Rainey: Cath Placed During This Visit: yes Reason for Continuing Indwelling Catheter: Accurate Measurement of Urinary Output in Critically Ill Patients Urinary Catheter Date of Insertion: 09/02/21 Urinary Catheter Time of Insertion: 18:50 Data : 09/09/21 04:45 09/09/21 04:45 Micro: Microbiology 09/08/21 11:33 Blood Culture - Preliminary Blood SPECIMEN COLLECTED 09/08/21 11:35 Blood Culture - Preliminary Blood SPECIMEN COLLECTED 09/03/21 09:53 Blood Culture - Final Blood NO GROWTH AFTER 5 DAYS 09/03/21 09:50 Blood Culture - Final Blood NO GROWTH AFTER 5 DAYS A&P Assessment and plan (1) Hepatorenal syndrome: Status: Acute Plan 1. Acute kidney injury Clinical picture consistent with hepatorenal syndrome Seen on dialysis Plan next treatment on Sunday, will watch over the weekend DC octreotide and midodrine now prn Strict I's and O's Dose medication for GFR less than 15 2. Sepsis Being treated for pneumonia and SBP with combination antibiotics Heomdynamics more stable and off vasopressors 3. Chemistry Low K, 3K bath on dialysis Recheck later this afternoon 4. Hemodynamics Blood pressure and pulse remain relatively stable at this time. Gonzales Johnson MD Nephrology [phone] Patient seen and examined via telemedicine, with the assistance of the bedside RN > 25 min spent in evaluation and mgmt of patient Attestations Medical Necessity Statement*: Eval for KAT Coding Level of Care Code Acute Personal Banking Advisor for Chg Fwd Diagnoses Hepatorenal syndrome K76.7
--- NOTE | 2021-09-09 09:39 | PC.NURSE ---
Dr. Johnson rounded via telehealth, gave t.o. to add hold parameters to midodrine if systolic >120, no dialysis planned over weekend, able to get tunneled dialysis cath any time on nephrology opinion, and hold octreotide
--- NOTE | 2021-09-09 09:58 | PC.CHAP ---
Pastoral Care Encounter/Spiritual Assessment Type of Contact [] Declined abrasive grader helper visit [] Patient/Family/Request visit [] Outpatient visit [] Follow-up visit [] Physician referral [] Code/Alert [x] Routine visit [] Staff referral [] Actively dying [] Patient sleeping [] Family support [] [] Out of room [] Palliative care [] [] Receiving care in room [] Pre-surgical visit [] Trauma [] Long length of stay [x] ICU visit [] Other: Relational/Emotional Strength [] Patient feels connected with others/family/visitors/staff [] Distress [] Loneliness/isolation [] Abandonment Spirituality of Patient [] Person of Linn [] Attends Jewish of their Linn [] Believes in Prayer [] Reads Bible or Jewish materials [] There are Spiritual issues to be addressed Photolith Operator Interventions [x] Prayer [x] Active listening [x] Non-anxious presence [x] Spiritual/emotional support [] Crisis/trauma care [] Spiritual counseling [] Bereavement support [] Provided bereavement packet [] Provided Bible/devotional materials [] Provided toy/stuffed animal, coloring book to patient or family member [] Provided Communion [] Anointing/[place] [] Salvation [x] Completed spiritual assessment [] Other: Impact on Illness or Injury [] Angry [] Fearful [] Anxious [] Often cries [] Exhaustion [] Unable to work [] Unable to attend church [] Unable to walk/stand [] Unable to read [] Unable to drive [] Unable to eat/drink [] Unable to sleep [] Unable to be with family [] Patient intubated [] Other: Summary setting up in chair... feeling better Time spent with patient 5 min
--- NOTE | 2021-09-09 09:59 | PC.CHAP ---
Pastoral Care Encounter/Spiritual Assessment Type of Contact [] Declined enterprise integration architect visit [] Patient/Family/Request visit [] Outpatient visit [] Follow-up visit [] Physician referral [] Code/Alert [x] Routine visit [] Staff referral [] Actively dying [] Patient sleeping [x] Family support [] [] Out of room [] Palliative care [] [] Receiving care in room [] Pre-surgical visit [] Trauma [] Long length of stay [x] ICU visit [x] Other: REVISIT... had a rough night,, getting dialysis-- Relational/Emotional Strength [] Patient feels connected with others/family/visitors/staff [] Distress [] Loneliness/isolation [] Abandonment Spirituality of Patient [] Person of Linn [] Attends Taoist of their Linn [] Believes in Prayer [] Reads Bible or Yazdanism materials [] There are Spiritual issues to be addressed Aitchbone Breaker Interventions [x] Prayer [] Active listening [] Non-anxious presence [] Spiritual/emotional support [] Crisis/trauma care [] Spiritual counseling [] Bereavement support [] Provided bereavement packet [] Provided Bible/devotional materials [] Provided toy/stuffed animal, coloring book to patient or family member [] Provided Communion [] Anointing/[place] [] Salvation [x] Completed spiritual assessment [] Other: Impact on Illness or Injury [] Angry [] Fearful [] Anxious [] Often cries [] Exhaustion [] Unable to work [] Unable to attend oriental orthodox [] Unable to walk/stand [] Unable to read [] Unable to drive [] Unable to eat/drink [] Unable to sleep [] Unable to be with family [] Patient intubated [] Other: Summary Time spent with patient
--- NOTE | 2021-09-09 13:04 | PC.NURSE ---
Report called to Med surg
[2021-09-09 14:33] LABS: Potassium 2.9 mmol/L (3.5-5.1)
--- NOTE | 2021-09-09 14:38 | PC.NURSE ---
Notified Dr. Sebastian of critical potassium 2.9
--- NOTE | 2021-09-09 16:11 | PC.NURSE ---
orders not to give remaining doses today since patient has had several BMs per ICU
[2021-09-09] MEDS: potassium chloride ER 20 mEq Tablet 40 MEQ PO (18:25)
--- NOTE | 2021-09-09 21:08 | P.PN_ITS ---
Subjective Subjective: She had a difficult night. She was getting anxious yesterday, states realizing everything that has been going on. came in and spent the night at the bedside. She is doing little better today, but tired. Undergoing hemodialysis, tolerating well. Denies any new symptoms. No new cough, shortness of breath, no nausea vomiting abdominal discomfort or diarrhea. Denies any new pain. Vitals/I&O/Wt Last Vital Signs Temp 98.6 F 09/09/21 07:30 Pulse 81 09/09/21 16:00 Resp 16 09/09/21 16:00 BP 132/71 09/09/21 16:00 Pulse Ox 95 09/09/21 15:59 09/09/21 09/09/21 09/09/21 06:59 14:59 22:59 Intake Total 580 / 1580 650 / 650 1440 / 2090 Output Total 150 / 275 Balance 430 / 1305 650 / 650 1440 / 2090 Weight last 48 hrs Weight 140.614 kg Weight 142.609 kg Physical Exam Narrative: is at bedside. Const: COMMON NORMALS: no acute distress GENERAL APPEARANCE: cooperative NUTRITIONAL APPEARANCE: obese morbidly obese ORIENTATION/CONSCIOUSNESS: Yes oriented to person, Yes oriented to place and Yes Other orientation findings OTHER: Somnolent HENMT: COMMON NORMALS: oropharynx normal Eye: SCLERA: scleral abnormal Laterality of scleral abnormality: positive bilateral scleral icterus Neck/C-Spine: COMMON NORMALS: no JVD Resp: COMMON NORMALS: normal respiratory effort and clear to auscultation bilaterally AUSCULTATION: clear to auscultation bilaterally Cardio: COMMON NORMALS: no JVD, regular rhythm, S1 normal heart sound present, S2 normal heart sound present and No murmurs present (Cardio) RHYTHM: regular rhythm HEART SOUNDS: S1 normal heart sound present and S2 normal heart sound present GI: COMMON NORMALS: Normal to inspection, nondistended, normoactive bowel s ounds present, Soft to palpation and non-tender PALPATION: Yes Soft to pa lpation Extremity: COMMON NORMALS: no joint enlargement GENERAL: Yes edema (2-3+) Neuro: COMMON NORMALS: moves all extremities SENSORIUM/ORIENTATION: Yes oriented to person and Yes oriented to place Skin: GENERAL SKIN EXAM: other (Dry, scaly skin over torso, upper arms, improving rash, few excoriations) Urinary Catheter Management: Rainey: Cath Placed During This Visit: yes Reason for Continuing Indwelling Catheter: Accurate Measurement of Urinary Output in Critically Ill Patients Urinary Catheter Date of Insertion: 09/02/21 Urinary Catheter Time of Insertion: 18:50 Data : 09/09/21 04:45 09/09/21 13:36 Micro: Microbiology 09/08/21 11:33 Blood Culture - Preliminary Blood NEGATIVE TO DATE 09/08/21 11:35 Blood Culture - Preliminary Blood NEGATIVE TO DATE A&P Assessment and plan (1) Acute kidney injury superimposed on CKD: Follow-up additional blood cultures after episode of fever. Tunneled catheter although for now, will see if can be placed later over the or Sunday. Today noted a low-grade fever, 100 Fahrenheit on 09/08. Appreciate nephrology recommendations. May need to also continue at discharge with dialysis given persistent KAT, oliguria. Continue midodrine. Monitor blood pressures. Off octreotide. Off pressor. Reassess renal function, I&O. Disposition planning, treatment for placement to SNF for rehabilitation given deconditioning. Arrangements for post discharge hemodialysis. Status: Acute (2) Coagulopathy: Recheck DIC panel. Fibrinogen up to 93. Hold off additional cryoprecipitate. Started heparin for VT prophylaxis. Status: Acute (3) Decompensated hepatic cirrhosis: Recheck ammonia level. Today somewhat somewhat, though did have a difficult night yesterday. Recheck DIC panel. With concern for hepatorenal syndrome. No beds available for transfer to [facility], [facility]. We are also checking flu. At [facility] not a candidate for transplantation currently given BMI, and has been less than 6 months since last alcoholic drink. Reported to be at the end of April. She is currently also not a resident of [place] having moved from the [facility] to [place]. states they are considering whether to possibly move back to [place] in the future. Will need hepatology follow-up. Consideration for liver transplantation if becomes a candidate. BMI back in July was 48. Meld score has been 34-36. We have had no luck finding a bed, for now holding off additional transfer for says she is improving, perhaps could resume on outpatient side arrangements for follow-up with hepatology. Status: Acute (4) Septic shock: Septic shock resolved. Switch to prednisone. Taper steroids. Low-grade fever today 100 Fahrenheit. Not have a clear cause as she is feeling well symptomatically. Oxygenating well. No abdominal symptoms. Continue empiric antibiotics as currently. Pneumonia. Possible SBP. Requested blood culture. Continue fluconazole with suspected genitourinary infection. GB US not suggestive of cholecystitis, cholangitis. Discussed with her some GB dilation, cholelithiasis, wall thickening. CT scan usually not performed due to her being on CRRT. Requested ultrasound yesterday, hepatomegaly noted with coarse hepatic echotexture. Dilated gallbladder with cholelithiasis. Mild gallbladder wall thickening some which is likely due to hepatocellular disease. Common bile duct not well seen. No intrahepatic biliary duct dilation. No hydronephrosis right kidney. Perihepatic ascites. Status: Acute (5) Acute hepatic encephalopathy: Recheck ammonia. He is having bowel movements. Somewhat somnolent today. Better. Still rather sluggish, takes her a while to process information. Continue lactulose, aim for 2-3 soft bowel movements per day. Underlying infections, pneumonia, possible SBP. Empiric antibiotics. Status: Acute (6) Altered mental status: Status: Acute (7) Acute hypotension: Status: Acute (8) Hyperbilirubinemia: As above. Status: Acute (9) Ascites: Status: Acute (10) Pleural effusion: Status: Acute (11) HCAP (healthcare-associated pneumonia): Continue empiric antibiotic coverage. Status: Acute (12) Hepatorenal syndrome: Status: Acute (13) UTI (urinary tract infection): Possible candidal UTI, continue albicans growing in urine, continue on Diflucan. Status: Acute Plan Physical deconditioning: Continue mobilization with therapy. Continue post discharge planning. Troponin elevation Likely demand ischemia. Chronic Hypotension Midodrine Anemia of chronic disease Acute on chronic anemia Generalized Rash Nonspecific dermatitis appears with improvement. Dry, scaly skin with excoriations of torso, upper arms. Not significantly erythematous. Hypothyroidism Levothyroixine 125 mcg PO daily GERD Protonix 40 mg PO daily Debility PT/OT consult Fall Precautions DVT ppx SCDS Attestations Medical Necessity Statement*: Continue admission for additional assessment following episode of low-grade temp, pending placement of tunneled dialysis catheter, discharge planning and arrangements. Coding Level of Care Code Acute Cosmetic Chemist for g Fwd Diagnoses Acute kidney injury superimposed on CKD N17.9; N18.9 Coagulopathy D68.9 Decompensated hepatic cirrhosis K72.90; K74.60 Septic shock A41.9; R65.21 Acute hepatic encephalopathy K72.00 Altered mental status R41.82 Acute hypotension I95.9 Hyperbilirubinemia E80.6 Ascites R18.8 Pleural effusion J90 HCAP (healthcare-associated pneumonia) J18.9 Hepatorenal syndrome K76.7 UTI (urinary tract infection) N39.0
[2021-09-10] VITALS (8 sets, daily range): BP systolic 112–131; BP diastolic 67–80; PULSE 80–91; RESP 16–18; TEMP 36.6–36.8; O2SAT 92–96
[2021-09-10] MEDS: heparin 5,000 unit/mL INJ 1 mL 5000 UNIT SUBCUT ×2 (02:02→14:44)
[2021-09-10] MEDS: midodrine 5 mg TABLET 10 MG PO ×4 (02:05→20:47)
[2021-09-10] MEDS: pantoprazole 40 mg SDV IVP (02:20)
[2021-09-10] MEDS: levothyroxine 125 mcg Tablet PO (05:15)
[2021-09-10 05:52] LABS: Basophils % 0.1 %; Eosinophils % 0.3 %; Hematocrit 26.6 % (37.0-47.0); Hemoglobin 8.2 g/dL (11.5-15.3); Lymphocytes # 0.8 10^3/uL (0.8-4.8); Mean Corpuscular HGB Conc 30.8 g/dL (30.0-36.0); Mean Corpuscular Hemoglobin 31.8 pg (28.0-34.0); Mean Corpuscular Volume 103.1 fl (81-99); Mean Platelet Volume 11.1 fL (7.4-10.4); Monocytes % 9.6 %; Neutrophils # 8.15 10^3/uL (1.8-7.7); Neutrophils % 80.2 %; Nucleated Red Blood Cells % 0 %; Platelet Count 73 10^3/cmm (130-400); Red Blood Count 2.58 10^6/uL (4.1-5.3); Red Cell Distribution Width 20.9 % (12.1-15.1); White Blood Count 10.2 10^3/uL (4.0-10.0)
[2021-09-10 05:57] LABS: INR 1.77 (0.8-1.2); Partial Thromboplastin Time 35.7 SECONDS (23.9-36.7)
[2021-09-10 05:59] LABS: D Dimer 3.69 ug/mIFEU (0-0.59)
[2021-09-10 06:05] LABS: Vancomycin Random 21.3 ug/mL (20.0-40.0)
[2021-09-10 06:06] LABS: Alanine Aminotransferase 8 U/L (0-33); Albumin Level 3.2 g/dL (3.5-5.2); Alkaline Phosphatase 233 IU/L (35-105); Anion Gap 15.5 (5-19); Aspartate Amino Transferase 61 U/L (0-32); Blood Urea Nitrogen 22 mg/dL (6-20); Calcium 8.9 mg/dL (8.5-10.5); Carbon Dioxide 25 mmol/L (22-29); Chloride 104 mmol/L (98-107); Globulin 3.1 g/dL (1.3-4.6); Glomerular Filtration Rate 34.1 mL/min (90-130); Glucose 157 mg/dL (65-115); Osmolality Calculated 299 mOsm/kg (285-295); Potassium 3.5 mmol/L (3.5-5.1); Sodium 141 mmol/L (136-145); Total Bilirubin 3.6 mg/dL (0.15-1.2); Total Protein 6.3 g/dL (6.6-8.7)
[2021-09-10 06:08] LABS: Ammonia 121 umol/L (11-51)
--- NOTE | 2021-09-10 09:02 | PM.PN ---
Subjective Subjective: Melanie feels relatively well today with no acute complaints. Dialysis went well yesterday. Some extremity edema, no other hypervolemic symptoms. No uremic symptoms. She still has minimal urine output. Ammonia level noted to be elevated but she has very mild mental fogginess. Medications: Reviewed: Yes Vitals/I&O/Wt Last Vital Signs Temp 97.8 F 09/10/21 07:40 Pulse 83 09/10/21 07:40 Resp 18 09/10/21 07:40 BP 122/68 09/10/21 07:40 Pulse Ox 92 09/10/21 07:40 09/09/21 09/10/21 09/10/21 22:59 06:59 14:59 Intake Total 1439 100 / 2190 Output Total 0 / 0 175 / 175 Balance 1439 -2014 Weight last 48 hrs Weight 136.123 kg Weight 140.614 kg Physical Exam Narrative: Constitutional: Awake, comfortable HEENT: Wet mucosa, no jvp, non icteric Lungs: Bilaterally clear without discernible wheeze, rales in all lung zones CVS: S1 S2, no murmurs Abdo: Soft, BS ok Ext 4: global 1-2+ edema, peripheral perfusion with no cyanosis Neurological: Grossly non-focal Urinary Catheter Management: Rainey: Cath Placed During This Visit: yes Reason for Continuing Indwelling Catheter: Accurate Measurement of Urinary Output in Critically Ill Patients Urinary Catheter Date of Insertion: 09/02/21 Urinary Catheter Time of Insertion: 18:50 Data : 09/10/21 05:20 09/10/21 05:20 Micro: Microbiology 09/08/21 11:33 Blood Culture - Preliminary Blood NEGATIVE TO DATE 09/08/21 11:35 Blood Culture - Preliminary Blood NEGATIVE TO DATE A&P Assessment and plan (1) Hepatorenal syndrome: Status: Acute Plan 1. Acute kidney injury Clinical picture consistent with hepatorenal syndrome Plan next treatment on Sunday, will watch over the weekend Permacath on Sunday Monitoring for renal recovery Strict I's and O's Dose medication for GFR less than 15 2. Sepsis Being treated for pneumonia and SBP with combination antibiotics Heomdynamics more stable and off vasopressors 3. Chemistry Look good 4. Hemodynamics Blood pressure and pulse remain relatively stable at this time. Gonzales Johnson MD Nephrology [phone] Patient seen and examined via telemedicine, with the assistance of the bedside RN > 25 min spent in evaluation and mgmt of patient Attestations Medical Necessity Statement*: Eval for KAT Coding Level of Care Code Acute Trouble Lineman for Karli Medina Diagnoses Hepatorenal syndrome K76.7
[2021-09-10] MEDS: fluconazole 100 mg Tablet PO (09:17)
[2021-09-10] MEDS: predniSONE 20 mg Tablet PO (09:17)
[2021-09-10 09:39] LABS: Fibrinogen 92 mg/dL (174-498)
[2021-09-10] MEDS: acetaminophen 325 mg Tablet 650 MG PO (18:11)
--- NOTE | 2021-09-10 19:58 | P.PN_ITS ---
Subjective Subjective: She is feeling better today. She sitting up in chair. She denies chest pain pressure. No shortness of breath. No nausea vomiting. No abdominal discomfort. Vitals/I&O/Wt Last Vital Signs Temp 97.9 F 09/10/21 16:00 Pulse 91 09/10/21 16:00 Resp 18 09/10/21 16:00 BP 131/80 09/10/21 16:00 Pulse Ox 94 09/10/21 16:00 09/10/21 09/10/21 09/10/21 06:59 14:59 22:59 Intake Total 100 / 2190 700 / 700 Output Total 175 / 175 150 / 150 250 / 400 Balance -2014 550 / 550 -250 / 300 Weight last 48 hrs Weight 136.123 kg Weight 140.614 kg Physical Exam Narrative: is at bedside. Const: COMMON NORMALS: no acute distress GENERAL APPEARANCE: cooperative NUTRITIONAL APPEARANCE: obese morbidly obese ORIENTATION/CONSCIOUSNESS: Yes awake HENMT: COMMON NORMALS: oropharynx normal Eye: SCLERA: scleral abnormal Laterality of scleral abnormality: positive bilateral scleral icterus Neck/C-Spine: COMMON NORMALS: no JVD Resp: COMMON NORMALS: normal respiratory effort and clear to auscultation bilaterally AUSCULTATION: clear to auscultation bilaterally Cardio: COMMON NORMALS: no JVD, regular rhythm, S1 normal heart sound present, S2 normal heart sound present and No murmurs present (Cardio) RHYTHM: regular rhythm HEART SOUNDS: S1 normal heart sound present and S2 normal heart sound present GI: COMMON NORMALS: Normal to inspection, nondistended, normoactive bowel sounds present, Soft to palpation and non-tender PALPATION: Yes Soft to palpation Extremity: COMMON NORMALS: no joint enlargement GENERAL: Yes edema (2-3+) Neuro: COMMON NORMALS: moves all extremities Skin: GENERAL SKIN EXAM: other (Dry, scaly skin over torso, upper arms, improving rash, few excoriations) Urinary Catheter Management: Rainey: Cath Placed During This Visit: yes Reason for Continuing Indwelling Catheter: Assist healing open wound Urinary Catheter Date of Insertion: 09/02/21 Urinary Catheter Time of Insertion: 18:50 Data : 09/10/21 05:20 09/10/21 05:20 Micro: Microbiology 09/08/21 11:33 Blood Culture - Preliminary Blood NEGATIVE TO DATE 09/08/21 11:35 Blood Culture - Preliminary Blood NEGATIVE TO DATE A&P Assessment and plan (1) Acute kidney injury superimposed on CKD: Appreciate nephrology recommendations. Continue to monitor renal function i mprovement, pending decision regarding placement of tunneled catheter. Continue to monitor culture from growth as well. Follow-up additional blood cultures after episode of fever. Tunneled catheter although for now, will see if can be placed later over the or Sunday. Noted a low-grade fever, 100 Fahrenheit on 09/08. Continue midodrine. Monitor blood pressures. Off octreotide. Off pressor. Reassess renal function, I&O. Disposition planning, treatment for placement to SNF for rehabilitation given deconditioning. Arrangements for post discharge hemodialysis. Status: Acute (2) Coagulopathy: Maintaining fibrinogen at 92. Recheck DIC panel. Hold off additional cryoprecipitate. Continue heparin for VT prophylaxis. Status: Acute (3) Decompensated hepatic cirrhosis: Recheck ammonia level elevated, although having bowel movements. Continue lact ulose. Fibrinogen level better. With concern for hepatorenal syndrome. No beds available for transfer to [email or web address]. We are also checking flu. At [facility] [email or web address]] not a candidate for transplantation currently given BMI, and has been less than 6 months since last alcoholic drink. Reported to be at the end of April. She is currently also not a resident of [place] having moved from the [facility] to [place]. states they are considering whether to possibly move back to [place] in the future. Will need hepatology follow-up. Consideration for liver transplantation if becomes a candidate. BMI back in July was 48. Meld score has been 34-36. We have had no luck finding a bed, for now holding off additional transfer for says she is improving, perhaps could resume on outpatient side arrangements for follow-up with hepatology. Status: Acute (4) Septic shock: Septic shock resolved. Decrease prednisone dose to 10 mg. Low-grade fever today 100 Fahrenheit on 09/08. Not have a clear cause as she is feeling well symptomatically. Oxygenating well. No abdominal symptoms. Perhaps mild aspiration as she had a difficult night at night. Follow-up blood cultures. Continue empiric antibiotics as currently. Pneumonia. Possible SBP. Continue fluconazole with suspected genitourinary infection. GB US not suggestive of cholecystitis, cholangitis. Discussed with her some GB dilation, cholelithiasis, wall thickening. CT scan usually not performed due to her being on CRRT. Requested ultrasound yesterday, hepatomegaly noted with coarse hepatic echotexture. Dilated gallbladder with cholelithiasis. Mild gallbladder wall thickening some which is likely due to hepatocellular disease. Common bile duct not well seen. No intrahepatic biliary duct dilation. No hydronephrosis right kidney. Perihepatic ascites. Status: Acute (5) Acute hepatic encephalopathy: Recheck ammonia. He is having bowel movements. Somewhat somnolent today. Better. Still rather sluggish, takes her a while to process information. Continue lactulose, aim for 2-3 soft bowel movements per day. Underlying infections, pneumonia, possible SBP. Empiric antibiotics. Status: Acute (6) Altered mental status: Status: Acute (7) Acute hypotension: Status: Acute (8) Hyperbilirubinemia: As above. Status: Acute (9) Ascites: Status: Acute (10) Pleural effusion: Status: Acute (11) HCAP (healthcare-associated pneumonia): Continue empiric antibiotic coverage. Status: Acute (12) Hepatorenal syndrome: Status: Acute (13) UTI (urinary tract infection): Possible candidal UTI, continue albicans growing in urine, continue on Diflucan. Status: Acute Plan Physical deconditioning: Continue mobilization with therapy. Continue post discharge planning. Troponin elevation Likely demand ischemia. Chronic Hypotension Midodrine Anemia of chronic disease Acute on chronic anemia Generalized Rash Nonspecific dermatitis appears with improvement. Dry, scaly skin with excoriations of torso, upper arms. Not significantly erythematous. Hypothyroidism Levothyroixine 125 mcg PO daily GERD Protonix 40 mg PO daily Debility PT/OT consult Fall Precautions DVT ppx SCDS Attestations Medical Necessity Statement*: Continue admission for reassessment of renal function with hepatorenal syndrome. Reassessment of blood cultures given fever. Pending timing of placement of tunneled dialysis catheter. Disposition planning and arrangements. Coding Level of Care Code Acute Product Development Technician for Chg Fwd Diagnoses Acute kidney injury superimposed on CKD N17.9; N18.9 Coagulopathy D68.9 Decompensated hepatic cirrhosis K72.90; K74.60 Septic shock A41.9; R65.21 Acute hepatic encephalopathy K72.00 Altered mental status R41.82 Acute hypotension I95.9 Hyperbilirubinemia E80.6 Ascites R18.8 Pleural effusion J90 HCAP (healthcare-associated pneumonia) J18.9 Hepatorenal syndrome K76.7 UTI (urinary tract infection) N39.0
[2021-09-11] VITALS (7 sets, daily range): BP systolic 112–131; BP diastolic 64–79; PULSE 79–89; RESP 16–20; TEMP 36.5–36.9; O2SAT 93–96
[2021-09-11] MEDS: heparin 5,000 unit/mL INJ 1 mL 5000 UNIT SUBCUT ×2 (01:04→18:00)
[2021-09-11] MEDS: pantoprazole 40 mg SDV IVP (01:31)
[2021-09-11] MEDS: midodrine 5 mg TABLET 10 MG PO ×3 (03:57→18:01)
[2021-09-11 04:55] LABS: Basophils % 0.1 %; Eosinophils # 0.2 10^3/uL (0.0-0.8); Eosinophils % 1.8 %; Hematocrit 27.2 % (37.0-47.0); Hemoglobin 8.6 g/dL (11.5-15.3); Lymphocytes % 8.9 %; Mean Corpuscular HGB Conc 31.6 g/dL (30.0-36.0); Mean Corpuscular Hemoglobin 31.9 pg (28.0-34.0); Mean Corpuscular Volume 100.7 fl (81-99); Mean Platelet Volume 11.1 fL (7.4-10.4); Monocytes # 1.2 10^3/uL (0.2-0.9); Monocytes % 10.3 %; Neutrophils # 8.85 10^3/uL (1.8-7.7); Neutrophils % 77.5 %; Nucleated Red Blood Cells % 0.2 %; Platelet Count 79 10^3/cmm (130-400); White Blood Count 11.4 10^3/uL (4.0-10.0)
[2021-09-11 05:12] LABS: Alanine Aminotransferase 11 U/L (0-33); Albumin Level 3.4 g/dL (3.5-5.2); Alkaline Phosphatase 231 IU/L (35-105); Anion Gap 17.3 (5-19); Aspartate Amino Transferase 65 U/L (0-32); Blood Urea Nitrogen 28 mg/dL (6-20); Calcium 8.1 mg/dL (8.5-10.5); Carbon Dioxide 25 mmol/L (22-29); Chloride 104 mmol/L (98-107); Globulin 2.5 g/dL (1.3-4.6); Glucose 153 mg/dL (65-115); Osmolality Calculated 305 mOsm/kg (285-295); Potassium 3.3 mmol/L (3.5-5.1); Sodium 143 mmol/L (136-145); Total Bilirubin 3.6 mg/dL (0.15-1.2); Total Protein 5.9 g/dL (6.6-8.7)
--- NOTE | 2021-09-11 05:31 | PC.NURSE ---
SHIFT SUMMARY Has not slept tonight. Has been playing games on phone. Medicated X1 with po Tylenol for c/o generalized pain. Has pitting edema to BLE. Arms wrinkled and loose where edema has gone down. CVL in place to right IJ. Receiving IV antibiotics as ordered. Dialysis catheter in place to right femoral vein. Has interdry to excoriated abd fold areas. Rainey intact and draining very dark evaristo urine. Was up to BSC this am for a large loose BM. Needs 2 assist but actually did pretty well getting to BSC with walker. at bedside all shift.
[2021-09-11] MEDS: levothyroxine 125 mcg Tablet PO (06:12)
--- NOTE | 2021-09-11 07:27 | PM.PN ---
Subjective Subjective: Ms. Randhawa feels well today with no specific complaints. She still has some lower extremity edema. Urine output is now starting to curing pickling packer. Breathing comfortably on room air. Eating and drinking well. She remains deconditioned and very weak but has no other acute complaints today. Medications: Reviewed: Yes Vitals/I&O/Wt Last Vital Signs Temp 98.5 F 09/11/21 07:16 Pulse 79 09/11/21 07:16 Resp 20 H 09/11/21 07:16 BP 126/69 09/11/21 07:16 Pulse Ox 94 09/11/21 07:16 09/10/21 09/11/21 09/11/21 22:59 06:59 14:59 Intake Total 220 / 920 340 / 1260 Output Total 250 / 400 200 / 600 Balance -30 / 520 140 / 660 Weight last 48 hrs Weight 136.531 kg Weight 136.123 kg Physical Exam Narrative: Constitutional: Awake, comfortable HEENT: Wet mucosa, no jvp, non icteric Lungs: Bilaterally clear without discernible wheeze, rales in all lung zones CVS: S1 S2, no murmurs Abdo: Soft, BS ok Ext 4: global 1-2+ edema, peripheral perfusion with no cyanosis Neurological: Grossly non-focal Urinary Catheter Management: Rainey: Cath Placed During This Visit: yes Reason for Continuing Indwelling Catheter: Other Urinary Catheter Date of Insertion: 09/02/21 Urinary Catheter Time of Insertion: 18:50 Data : 09/11/21 04:06 09/11/21 04:06 A&P Assessment and plan (1) Hepatorenal syndrome: Status: Acute Plan 1. Acute kidney injury Clinical picture consistent with hepatorenal syndrome Urine output now starting to curing pickling packer with only small incremental increase in serum creatinine. Ideally I would like to give her a few more days to see if she is on the cusp of recovery prior to dialyzing her again or placing a permacath. Monitoring for renal recovery Strict I's and O's Dose medication for GFR less than 15 2. Sepsis Being treated for pneumonia and SBP with combination antibiotics 3. Chemistry Low dose K replacement 4. Hemodynamics Blood pressure and pulse remain relatively stable at this time. 5. Dispo PT/OT and discharge planning Gonzales Johnson MD Nephrology [phone] Patient seen and examined via telemedicine, with the assistance of the bedside RN > 25 min spent in evaluation and mgmt of patient Attestations Medical Necessity Statement*: eval for KAT Coding Level of Care Code Acute Internetworking Technician for Karli Medina Diagnoses Hepatorenal syndrome K76.7
[2021-09-11] MEDS: fluconazole 100 mg Tablet PO (09:36)
[2021-09-11] MEDS: predniSONE 10 mg Tablet PO (09:37)
--- NOTE | 2021-09-11 11:40 | PM.PN ---
Subjective Subjective: She reports intermittently having some discomfort feeling like she needs to urinate even though she has a Rainey catheter in place. Was having little bit of trouble breathing last night, but this improved with repositioning and did not end up requiring supplemental oxygen. Medications: Reviewed: Yes Vitals/I&O/Wt Last Vital Signs Temp 98.5 F 09/11/21 07:16 Pulse 79 09/11/21 07:16 Resp 20 H 09/11/21 07:16 BP 126/69 09/11/21 07:16 Pulse Ox 94 09/11/21 07:16 09/10/21 09/11/21 09/11/21 22:59 06:59 14:59 Intake Total 220 / 920 340 / 1260 Output Total 250 / 400 200 / 600 Balance -30 / 520 140 / 660 Weight last 48 hrs Weight 136.531 kg Weight 136.123 kg Physical Exam Narrative: is at bedside. Const: COMMON NORMALS: no acute distress GENERAL APPEARANCE: cooperative NUTRITIONAL APPEARANCE: obese morbidly obese ORIENTATION/CONSCIOUSNESS: Yes awake OTHER: Somnolent HENMT: COMMON NORMALS: oropharynx normal Eye: SCLERA: scleral abnormal Laterality of scleral abnormality: positive bilateral scleral icterus Neck/C-Spine: COMMON NORMALS: no JVD Resp: COMMON NORMALS: normal respiratory effort and clear to auscultation bilaterally AUSCULTATION: clear to auscultation bilaterally Cardio: COMMON NORMALS: no JVD, regular rhythm, S1 normal heart sound present, S2 normal heart sound present and No murmurs present (Cardio) RHYTHM: regular rhythm HEART SOUNDS: S1 normal heart sound present and S2 normal heart sound present GI: COMMON NORMALS: Normal to inspection, nondistended, normoactive bowel sounds present, Soft to palpation and non-tender PALPATION: Yes Soft to palpation Extremity: COMMON NORMALS: no joint enlargement GENERAL: Yes edema (2-3+) Neuro: COMMON NORMALS: moves all extremities Skin: GENERAL SKIN EXAM: other (Dry, scaly skin over torso, upper arms, improving rash, few excoriations) Urinary Catheter Management: Rainey: Cath Placed During This Visit: yes Reason for Continuing Indwelling Catheter: Other Urinary Catheter Date of Insertion: 09/02/21 Urinary Catheter Time of Insertion: 18:50 Data : 09/11/21 04:06 09/11/21 04:06 A&P Assessment and plan (1) Acute kidney injury superimposed on CKD: Discussed with nephrology, patient and . As she is producing urine, with some improvement in renal function continue to monitor renal function and urine output, hopefully with further improvement may end up avoiding needing hemodialysis. Follow-up additional blood cultures after episode of fever. Otherwise tunneled catheter although for now, will see if can be placed later over the or Sunday. Noted a low-grade fever, 100 Fahrenheit on 09/08. Continue midodrine. Monitor blood pressures. Off octreotide. Off pressor. Reassess renal function, I&O. Disposition planning, treatment for placement to SNF for rehabilitation given deconditioning. Arrangements for post discharge hemodialysis. Status: Acute (2) Coagulopathy: Maintaining fibrinogen at 92. Recheck DIC panel. Hold off additional cryoprecipitate. Continue heparin for VT prophylaxis. Status: Acute (3) Decompensated hepatic cirrhosis: Continue lactulose. Fibrinogen level better. Will need follow-up with hepatology. With concern for hepatorenal syndrome. No beds available for transfer to [facility], [facility]. We are also checking flu. At [facility] not a candidate for transplantation currently given BMI, and has been less than 6 months since last alcoholic drink. Reported to be at the end of April. She is currently also not a resident of [place] having [facility] to [place]. states they are considering whether to possibly move back to [place] in the future. Will need hepatology follow-up. Consideration for liver transplantation if becomes a candidate. BMI back in July was 48. Meld score has been 34-36. We have had no luck finding a bed, for now holding off additional transfer for says she is improving, perhaps could resume on outpatient side arrangements for follow-up with hepatology. Status: Acute (4) Septic shock: Some leukocytosis noted today, 11.4. Has been on antibiotics since 09/03 for pneumonia, possible SBP. Check procalcitonin. Consider de-escalation of antibiotic if no additional fever, no growth on cultures. Septic shock resolved. Obtain peripheral access if possible, will see if can remove central line. Decreased prednisone dose to 10 mg. Continue to taper down. Continue fluconazole with suspected genitourinary infection. Low-grade fever today 100 Fahrenheit on 09/08. Not have a clear cause as she is feeling well symptomatically. Oxygenating well. No abdominal symptoms. Perhaps mild aspiration as she had a difficult night at night. Follow-up repeated blood cultures. GB US not suggestive of cholecystitis, cholangitis. Discussed with her some GB dilation, cholelithiasis, wall thickening. CT scan usually not performed due to her being on CRRT. Requested ultrasound yesterday, hepatomegaly noted with coarse hepatic echotexture. Dilated gallbladder with cholelithiasis. Mild gallbladder wall thickening some which is likely due to hepatocellular disease. Common bile duct not well seen. No intrahepatic biliary duct dilation. No hydronephrosis right kidney. Perihepatic ascites. Status: Acute (5) Acute hepatic encephalopathy: Improved. Remains awake, alert, and somewhat sluggish. Continue lactulose, aim for 2-3 soft bowel movements per day. Status: Acute (6) Altered mental status: Status: Acute (7) Acute hypotension: Status: Acute (8) Hyperbilirubinemia: As above. Status: Acute (9) Ascites: Status: Acute (10) Pleural effusion: Status: Acute (11) HCAP (healthcare-associated pneumonia): Continue empiric antibiotic coverage. Status: Acute (12) Hepatorenal syndrome: Status: Acute (13) UTI (urinary tract infection): Possible candidal UTI, continue albicans growing in urine, continue on Diflucan. Status: Acute Plan Physical deconditioning: Continue mobilization with therapy. Continue post discharge planning. Arrangements for SNF. Troponin elevation Likely demand ischemia. Chronic Hypotension Midodrine Anemia of chronic disease Acute on chronic anemia Generalized Rash Nonspecific dermatitis appears with improvement. Dry, scaly skin with excoriations of torso, upper arms. Not significantly erythematous. Hypothyroidism Levothyroixine 125 mcg PO daily GERD Protonix 40 mg PO daily Debility PT/OT consult Fall Precautions DVT ppx SCDS Attestations Medical Necessity Statement*: Continue admission for reassessment of renal function pending decision regarding need for additional hemodialysis, de-escalation of antibiotics, disposition planning and arrangements. Coding Level of Care Code Acute Bag Machine Helper for g Fwd Diagnoses Acute kidney injury superimposed on CKD N17.9; N18.9 Coagulopathy D68.9 Decompensated hepatic cirrhosis K72.90; K74.60 Septic shock A41.9; R65.21 Acute hepatic encephalopathy K72.00 Altered mental status R41.82 Acute hypotension I95.9 Hyperbilirubinemia E80.6 Ascites R18.8 Pleural effusion J90 HCAP (healthcare-associated pneumonia) J18.9 Hepatorenal syndrome K76.7 UTI (urinary tract infection) N39.0
[2021-09-11] MEDS: potassium chloride ER 20 mEq Tablet PO (12:25)
[2021-09-11 12:29] LABS: Procalcitonin 0.17 ng/mL (0-0.5)
[2021-09-11] MEDS: acetaminophen 325 mg Tablet 650 MG PO (20:04)
[2021-09-12] VITALS (12 sets, daily range): BP systolic 113–129; BP diastolic 66–76; PULSE 84–94; RESP 14–19; TEMP 36.5–37.2; O2SAT 94–96
[2021-09-12] MEDS: heparin 5,000 unit/mL INJ 1 mL 5000 UNIT SUBCUT (03:04)
[2021-09-12] MEDS: pantoprazole 40 mg SDV IVP (03:14)
[2021-09-12 04:15] LABS: Eosinophils # 0.7 10^3/uL (0.0-0.8); Eosinophils % 7.2 %; Hematocrit 26.9 % (37.0-47.0); Hemoglobin 8.4 g/dL (11.5-15.3); Lymphocytes # 1.1 10^3/uL (0.8-4.8); Lymphocytes % 10.2 %; Mean Corpuscular HGB Conc 31.2 g/dL (30.0-36.0); Mean Corpuscular Hemoglobin 31.9 pg (28.0-34.0); Mean Corpuscular Volume 102.3 fl (81-99); Mean Platelet Volume 10.5 fL (7.4-10.4); Monocytes # 1.1 10^3/uL (0.2-0.9); Monocytes % 10.6 %; Neutrophils # 7.26 10^3/uL (1.8-7.7); Neutrophils % 70.9 %; Nucleated Red Blood Cells % 0 %; Platelet Count 67 10^3/cmm (130-400); Red Blood Count 2.63 10^6/uL (4.1-5.3); Red Cell Distribution Width 20.9 % (12.1-15.1); White Blood Count 10.3 10^3/uL (4.0-10.0)
[2021-09-12 04:42] LABS: Alanine Aminotransferase 14 U/L (0-33); Albumin Level 3.2 g/dL (3.5-5.2); Alkaline Phosphatase 229 IU/L (35-105); Anion Gap 14.5 (5-19); Aspartate Amino Transferase 60 U/L (0-32); Blood Urea Nitrogen 28 mg/dL (6-20); Carbon Dioxide 25 mmol/L (22-29); Chloride 106 mmol/L (98-107); Globulin 2.3 g/dL (1.3-4.6); Glomerular Filtration Rate 34.1 mL/min (90-130); Glucose 144 mg/dL (65-115); Osmolality Calculated 302 mOsm/kg (285-295); Potassium 3.5 mmol/L (3.5-5.1); Sodium 142 mmol/L (136-145); Total Bilirubin 3.3 mg/dL (0.15-1.2); Total Protein 5.5 g/dL (6.6-8.7)
--- NOTE | 2021-09-12 06:00 | XRR_ITS ---
PROCEDURE INFORMATION: Exam: XR Chest Exam date and time: 09/12/2021 6:00 AM Age: 51 years old Clinical indication: Other: Hypoxia TECHNIQUE: Imaging protocol: XR of the chest. Views: 1 view. COMPARISON: CR (CHEST, ) 09/03/2021 8:55 AM FINDINGS: Tubes, catheters and devices: A right internal jugular vein central venous line is placed with its tip at the level of the right atrium. Lungs: There is some indistinctness of the pulmonary vasculature seen and some increased linear opacities present in the mid lower hemithoraces, findings that may represent pulmonary edema. Bilateral basilar atelectasis cannot be excluded. Pleural spaces: The left hemidiaphragm is obscured likely secondary to a left pleural effusion. Heart/Mediastinum: Unremarkable. No cardiomegaly. Bones/joints: Unremarkable. XR/XR chest 1V portable [id number] IMPRESSION: 1. Probable small left pleural effusion 2. Indistinct pulmonary vasculature and increased linear opacities in the lower hemithoraces, findings that may represent pulmonary edema. Bilateral basilar atelectasis cannot be excluded as well.
[2021-09-12] MEDS: acetaminophen 325 mg Tablet 650 MG PO (06:26)
[2021-09-12] MEDS: levothyroxine 125 mcg Tablet PO (06:26)
[2021-09-12 07:04] LABS: Add Urine Microscopic? YES; Bilirubin Urine 2+ (Negative); Blood Urine 2+ (Negative); Glucose Urine UA Norm (Normal); Ketones Urine 1+ (Negative); Leukocyte Esterase Urine 2+ (Negative); Nitrate Urine Positive (Negative); Protein Urine 1+ (Negative); Specific Gravity, Urine 1.015 (1.005-1.030); Urine Appearance Clear (CLEAR); Urine Color Dark Yellow (Yellow); Urobilinogen Urine 4 mg/dL (Negative); pH Urine 5 (5-7)
[2021-09-12 07:14] LABS: Bacteria Urine 1+ /hpf; Mucus Urine 1+ /hpf; Squamous Epithelial Cell Urine 0-4 /hpf (0-5); WBC Urine 15-25 /hpf (0-5)
[2021-09-12 07:25] LABS: Calcium Oxalate Crystals Urine 0-4 /hpf; Other Crystals Urine SULFA /hpf
[2021-09-12 07:26] LABS: Add Urine Culture? Yes
--- NOTE | 2021-09-12 08:13 | PC.OT ---
addendum to treatment plan: patient will be seen 5x/ week Sunday-Sunday
[2021-09-12] MEDS: midodrine 5 mg TABLET 10 MG PO (11:23)
[2021-09-12] MEDS: fluconazole 100 mg Tablet PO (11:23)
[2021-09-12] MEDS: predniSONE 10 mg Tablet PO (11:23)
--- NOTE | 2021-09-12 12:12 | PC.CHAP ---
Pastoral Care Encounter/Spiritual Assessment Type of Contact [] Declined director cardiovascular visit [] Patient/Family/Request visit [] Outpatient visit [] Follow-up visit [] Physician referral [] Code/Alert [x] Routine visit [] Staff referral [] Actively dying [] Patient sleeping [] Family support [] [] Out of room [] Palliative care [] [] Receiving care in room [] Pre-surgical visit [] Trauma [] Long length of stay [] ICU visit [] Other: Relational/Emotional Strength [x] Patient feels connected with others/family/visitors/staff [] Distress [] Loneliness/isolation [] Abandonment Spirituality of Patient [] Person of Linn [] Attends Pentecostal of their [place]inn [x] Believes in Prayer [] Reads Bible or Yarsanism materials [] There are Spiritual issues to be addressed Pharmacy Resource Tech Interventions [x] Prayer [x] Active listening [x] Non-anxious presence x[] Spiritual/emotional support [] Crisis/trauma care [x] Spiritual counseling [] Bereavement support [] Provided bereavement packet [] Provided Bible/devotional materials [] Provided toy/stuffed animal, coloring book to patient or family member [] Provided Communion [] Anointing/[place] [] Salvation [x] Completed spiritual assessment [] Other: Impact on Illness or Injury [] Angry [] Fearful [] Anxious [] Often cries [] Exhaustion [] Unable to work [] Unable to attend baptism [] Unable to walk/stand [] Unable to read [] Unable to drive [] Unable to eat/drink [] Unable to sleep [] Unable to be with family [] Patient intubated [] Other: Summary Time spent with patient 10 min
--- NOTE | 2021-09-12 13:51 | P.PN_ITS ---
Subjective Subjective: Patient is awake and alert No active signs of encephalopathy at the bedside There is plan to remove her dialysis catheter Awaiting senior care placement manager outreach updated Vitals/I&O/Wt Last Vital Signs Temp 97.7 F 09/12/21 12:00 Pulse 85 09/12/21 12:00 Resp 18 09/12/21 12:00 BP 125/74 09/12/21 12:00 Pulse Ox 94 09/12/21 12:00 09/11/21 09/12/21 09/12/21 22:59 06:59 14:59 Intake Total 100 / 440 500 / 940 240 / 240 Output Total 450 / 450 300 / 750 Balance -350 / -10 200 / 190 240 / 240 Weight last 48 hrs Weight 138.482 kg Weight 136.531 kg Physical Exam Narrative: No active signs of hepatic encephalopathy Patient is sitting in her bed Awake and alert Anasarca 3+ pitting edema of legs Shiley catheter right groin No asterixis S1, S2 No audible stridor or wheezing Saturating well on room air Pale complexion Scleral icterus Extremely dry skin Urinary Catheter Management: Ariney: Cath Placed During This Visit: yes Reason for Continuing Indwelling Catheter: Other Urinary Catheter Date of Insertion: 09/02/21 Urinary Catheter Time of Insertion: 18:50 Data : 09/12/21 04:04 09/12/21 04:04 A&P Assessment and plan (1) Hepatorenal syndrome: Status: Acute (2) Coagulopathy: Status: Acute (3) Decompensated hepatic cirrhosis: Status: Acute (4) Acute kidney injury superimposed on CKD: Status: Acute (5) Septic shock: Status: Acute (6) UTI (urinary tract infection): Status: Acute Plan Septic shock: Resolved UTI: Resolved candidia is normal urinary tract yovani I would not continue treatment at this point Acute hepatic encephalopathy: Resolved Hold on on lactulose as she is having 3-4 bowel movements a day Decompensated liver cirrhosis with coagulopathy She will need TIPS and liver transplant SBP not ruled out however abdomen is nontender, afebrile Discontinue steroids Hepatorenal syndrome plan for removal of right groin Shiley catheter Awaiting senior care placement Full code DVT prophylaxis: Attestations Medical Necessity Statement*: Awaiting senior care placement Time Spent in Patient Care: 20min Coding Level of Care Code Acute Note Specialist for Vidhyag Fwd Diagnoses Hepatorenal syndrome K76.7 Coagulopathy D68.9 Decompensated hepatic cirrhosis K72.90; K74.60 Acute kidney injury superimposed on CKD N17.9; N18.9 Septic shock A41.9; R65.21 UTI (urinary tract infection) N39.0
--- NOTE | 2021-09-12 15:50 | PM.PN ---
Subjective Subjective: No acute issues with Talia today, she feels well. Some very mild lower extremity edema. Urine output is really picking up now. Eating and drinking well. No uremic symptoms. Medications: Reviewed: Yes Vitals/I&O/Wt Last Vital Signs Temp 98.2 F 09/12/21 15:49 Pulse 84 09/12/21 15:49 Resp 18 09/12/21 15:49 BP 125/74 09/12/21 15:49 Pulse Ox 95 09/12/21 15:49 09/12/21 09/12/21 09/12/21 06:59 14:59 22:59 Intake Total 500 / 940 240 / 240 Output Total 300 / 750 Balance 200 / 190 240 / 240 Weight last 48 hrs Weight 138.482 kg Weight 136.531 kg Physical Exam Narrative: Constitutional: Awake, comfortable HEENT: Wet mucosa, no jvp, non icteric Lungs: Bilaterally clear without discernible wheeze, rales in all lung zones CVS: S1 S2, no murmurs Abdo: Soft, BS ok Ext 4: global 1-2+ edema, peripheral perfusion with no cyanosis Neurological: Grossly non-focal Urinary Catheter Management: Rainey: Cath Placed During This Visit: yes Reason for Continuing Indwelling Catheter: Other Urinary Catheter Date of Insertion: 09/02/21 Urinary Catheter Time of Insertion: 18:50 Data : 09/12/21 04:04 09/12/21 04:04 A&P Assessment and plan (1) Hepatorenal syndrome: Status: Acute Plan 1. Acute kidney injury Clinical picture consistent with hepatorenal syndrome Urine output is improving nicely, creatinine coming down. She has recovered from renal failure. This is excellent news. Dialysis lines can be removed. Strict I's and O's Dose medication for GFR < 60 2. Sepsis Being treated for pneumonia and SBP with combination antibiotics 3. Chemistry Well balanced 4. Hemodynamics Blood pressure and pulse remain relatively stable at this time. 5. Dispo PT/OT and discharge planning Gonzales Johnson MD Nephrology [phone] Patient seen and examined via telemedicine, with the assistance of the bedside RN > 25 min spent in evaluation and mgmt of patient Attestations Medical Necessity Statement*: Eval for KAT Coding Level of Care Code Acute Ballaster for g Fwd Diagnoses Hepatorenal syndrome K76.7
[2021-09-13] VITALS (10 sets, daily range): BP systolic 100–115; BP diastolic 57–70; PULSE 81–99; RESP 16–19; TEMP 36.6–36.8; O2SAT 95–97
[2021-09-13] MEDS: pantoprazole 40 mg SDV IVP (02:03)
[2021-09-13 03:27] LABS: Basophils % 0.1 %; Eosinophils # 0.6 10^3/uL (0.0-0.8); Eosinophils % 5.6 %; Hematocrit 27.4 % (37.0-47.0); Hemoglobin 8.5 g/dL (11.5-15.3); Lymphocytes # 0.9 10^3/uL (0.8-4.8); Lymphocytes % 9.6 %; Mean Corpuscular Hemoglobin 31.8 pg (28.0-34.0); Mean Corpuscular Volume 102.6 fl (81-99); Mean Platelet Volume 10.9 fL (7.4-10.4); Monocytes # 1.1 10^3/uL (0.2-0.9); Monocytes % 11.4 %; Neutrophils # 7.07 10^3/uL (1.8-7.7); Neutrophils % 72.5 %; Nucleated Red Blood Cells % 0 %; Platelet Count 72 10^3/cmm (130-400); Red Blood Count 2.67 10^6/uL (4.1-5.3); White Blood Count 9.8 10^3/uL (4.0-10.0)
[2021-09-13 03:47] LABS: Alanine Aminotransferase 13 U/L (0-33); Albumin Level 3.1 g/dL (3.5-5.2); Alkaline Phosphatase 215 IU/L (35-105); Anion Gap 13.8 (5-19); Aspartate Amino Transferase 54 U/L (0-32); Blood Urea Nitrogen 26 mg/dL (6-20); Calcium 8.9 mg/dL (8.5-10.5); Carbon Dioxide 25 mmol/L (22-29); Chloride 107 mmol/L (98-107); Globulin 2.5 g/dL (1.3-4.6); Glomerular Filtration Rate 47.6 mL/min (90-130); Glucose 142 mg/dL (65-115); Osmolality Calculated 301 mOsm/kg (285-295); Potassium 3.8 mmol/L (3.5-5.1); Sodium 142 mmol/L (136-145); Total Bilirubin 3.6 mg/dL (0.15-1.2); Total Protein 5.6 g/dL (6.6-8.7)
[2021-09-13] MEDS: levothyroxine 125 mcg Tablet PO (05:15)
[2021-09-13] MEDS: pantoprazole DR 40 mg Tablet PO (08:19)
--- NOTE | 2021-09-13 11:43 | P.PN_ITS ---
Subjective Subjective: Urine output, plan to remove Rainey catheter Patient is awake and alert Not endorsing complaint Awaiting residential placement Hemoglobin stable Vitals/I&O/Wt Last Vital Signs Temp 97.9 F 09/13/21 11:05 Pulse 99 09/13/21 11:05 Resp 18 09/13/21 11:05 BP 115/62 09/13/21 11:05 Pulse Ox 95 09/13/21 11:05 09/12/21 09/13/21 09/13/21 22:59 06:59 14:59 Intake Total 240 / 600 240 / 240 Output Total 600 / 600 525 / 1125 Balance -360 / 0 -525 / -525 240 / 240 Weight last 48 hrs Weight 139.57 kg Weight 138.482 kg Physical Exam Narrative: Patient is sitting in her bed Saturating well on room air No active signs of hepatic encephalopathy Asterixis negative Scleral icterus Anasarca Pitting edema of legs Rainey cath draining concentrated urine Abdomen soft No audible stridor or wheezing Urinary Catheter Management: Rainey: Cath Placed During This Visit: yes Reason for Continuing Indwelling Catheter: Acute Urinary Retention or Obstruction Urinary Catheter Date of Insertion: 09/02/21 Urinary Catheter Time of Insertion: 18:50 Data : 09/13/21 03:07 09/13/21 03:07 Micro: Microbiology 09/12/21 04:10 Urine Culture - Preliminary Urine,Clean Catch A&P Assessment and plan (1) UTI (urinary tract infection): Status: Acute (2) Coagulopathy: Status: Acute (3) Hepatorenal syndrome: Status: Acute (4) Septic shock: Status: Acute (5) Hepatorenal syndrome: Status: Acute (6) Acute hepatic encephalopathy: Status: Acute (7) Altered mental status: Status: Acute (8) Decompensated hepatic cirrhosis: Status: Acute (9) Hyperbilirubinemia: Status: Acute Plan Alcohol-related liver cirrhosis Decompensated No signs of cholangitis No signs of SBP Blood pressure stable She is having 3-4 bowel movements a day Hepatorenal syndrome: Plan to remove straight catheter, urine output has picked up, creatinine 1.2 No acute indication for dialysis Continue rifaximin Lactulose on hold No active Metabolic encephalopathy: Improved Signs of UTI: Resolved Antimicrobials discontinued Regular diet Full code Awaiting residential placement Attestations Medical Necessity Statement*: Awaiting residential placement Time Spent in Patient Care: 20min Coding Level of Care Code Acute Highway Truck Driver for g Fwd Diagnoses UTI (urinary tract infection) N39.0 Coagulopathy D68.9 Hepatorenal syndrome K76.7 Septic shock A41.9; R65.21 Hepatorenal syndrome K76.7 Acute hepatic encephalopathy K72.00 Altered mental status R41.82 Decompensated hepatic cirrhosis K72.90; K74.60 Hyperbilirubinemia E80.6
[2021-09-13] MEDS: FUROsemide 40 mg Tablet PO (12:29)
[2021-09-13] MEDS: spironolactone 25 mg Tablet PO (12:29)
--- NOTE | 2021-09-13 13:27 | P.PN_ITS ---
Subjective Subjective: Talia is doing well today with no acute issues. Some LE edema and no other hypervol Sx. Rainey remains in place. No uremic Sx. Medications: Reviewed: Yes Vitals/I&O/Wt Last Vital Signs Temp 97.9 F 09/13/21 11:05 Pulse 99 09/13/21 11:05 Resp 18 09/13/21 11:05 BP 115/62 09/13/21 11:05 Pulse Ox 95 09/13/21 11:05 09/12/21 09/13/21 09/13/21 22:59 06:59 14:59 Intake Total 240 / 600 240 / 240 Output Total 600 / 600 525 / 1125 Balance -360 / 0 -525 / -525 240 / 240 Weight last 48 hrs Weight 139.57 kg Weight 138.482 kg Physical Exam Narrative: Constitutional: Awake, comfortable HEENT: Wet mucosa, no jvp, non icteric Lungs: Bilaterally clear without discernible wheeze, rales in all lung zones CVS: S1 S2, no murmurs Abdo: Soft, BS ok Ext 4: global 1-2+ edema, peripheral perfusion with no cyanosis Neurological: Grossly non-focal Urinary Catheter Management: Rainey: Cath Placed During This Visit: yes Reason for Continuing Indwelling Catheter: Acute Urinary Retention or Obstruction Urinary Catheter Date of Insertion: 09/02/21 Urinary Catheter Time of Insertion: 18:50 Data : 09/13/21 03:07 09/13/21 03:07 Micro: Microbiology 09/12/21 04:10 Urine Culture - Preliminary Urine,Clean Catch A&P Assessment and plan (1) Hepatorenal syndrome: Status: Acute Plan 1. Acute kidney injury Recovery Dialysis line out Rainey out Strict I's and O's Dose medication for GFR < 60 2. Sepsis Being treated for pneumonia and SBP with combination antibiotics 3. Chemistry Well balanced 4. Hemodynamics Blood pressure and pulse remain relatively stable at this time. Resume [place] and Lasix 5. Dispo PT/OT and discharge planning Gonzales Johnson MD Nephrology [phone] Patient seen and examined via telemedicine, with the assistance of the bedside RN > 25 min spent in evaluation and mgmt of patient Attestations Medical Necessity Statement*: eval for KAT Coding Level of Care Code Acute Hydrogen Plant Operations Manager for Chg Fwd Diagnoses Hepatorenal syndrome K76.7
[2021-09-13] MEDS: acetaminophen 325 mg Tablet 650 MG PO ×2 (14:41→21:12)
[2021-09-14] MEDS: pantoprazole 40 mg SDV IVP (02:50)
[2021-09-14 04:00] VITALS: BP 112/68; PULSE 90; RESP 16; TEMP 36.7; O2SAT 93
[2021-09-14 05:17] VITALS: PULSE 88
[2021-09-14] MEDS: levothyroxine 125 mcg Tablet PO (05:25)
[2021-09-14 06:06] LABS: Anion Gap 12.5 (5-19); Blood Urea Nitrogen 27 mg/dL (6-20); Calcium 8.9 mg/dL (8.5-10.5); Carbon Dioxide 26 mmol/L (22-29); Chloride 106 mmol/L (98-107); Glomerular Filtration Rate 58.7 mL/min (90-130); Glucose 131 mg/dL (65-115); Osmolality Calculated 299 mOsm/kg (285-295); Potassium 3.5 mmol/L (3.5-5.1); Sodium 141 mmol/L (136-145)
[2021-09-14 07:32] VITALS: BP 108/65; PULSE 94; RESP 18; TEMP 36.8; O2SAT 93
--- NOTE | 2021-09-14 09:01 | PM.PN ---
Subjective Subjective: Patient this morning is feeling much better, she is stating that if assisted could not be arranged today she would like to go home is planning to apply for [place] insurance and go to [facility] once that is set up Vitals/I&O/Wt Last Vital Signs Temp 98.2 F 09/14/21 07:32 Pulse 94 09/14/21 07:32 Resp 18 09/14/21 07:32 BP 108/65 09/14/21 07:32 Pulse Ox 93 09/14/21 07:32 09/13/21 09/14/21 09/14/21 22:59 06:59 14:59 Output Total 930 / 930 40 / 970 Balance -930 / -450 -40 / -490 Weight last 48 hrs Weight 139.253 kg Weight 139.57 kg Physical Exam Narrative: Patient is 75 position Saturating well on room air Much more awake and alert No active signs of encephalopathy No asterixis Rainey catheter has been removed Shiley catheter removed yesterday as well Nonfocal neuro exam No audible stridor or wheezing She is awake and alert cooperative Anasarca positive Urinary Catheter Management: Rainey: Cath Placed During This Visit: yes, but has since been removed by the nurse Reason for Continuing Indwelling Catheter: Acute Urinary Retention or Obstruction Urinary Catheter Date of Insertion: 09/02/21 Urinary Catheter Time of Insertion: 18:50 Date Urinary Catheter Removed: 09/13/21 Time Urinary Catheter Discontinued: 18:11 Data : 09/13/21 03:07 09/14/21 05:20 Micro: Microbiology 09/12/21 04:10 Urine Culture - Final Urine,Clean Catch 09/08/21 11:33 Blood Culture - Final Blood NO GROWTH AFTER 5 DAYS 09/08/21 11:35 Blood Culture - Final Blood NO GROWTH AFTER 5 DAYS A&P Assessment and plan (1) UTI (urinary tract infection): Status: Acute (2) Coagulopathy: Status: Acute (3) Hepatorenal syndrome: Status: Acute (4) Hepatorenal syndrome: Status: Acute (5) Acute hepatic encephalopathy: Status: Acute (6) Altered mental status: Status: Acute (7) Acute kidney injury superimposed on CKD: Status: Acute (8) Decompensated hepatic cirrhosis: Status: Acute (9) Hyperbilirubinemia: Status: Acute (10) Ascites: Status: Acute Plan Hepatorenal syndrome: Shiley catheter removed yesterday, continue Lasix 40 mg daily, patient is making good amount of urine, potassium 3.5 Alcohol-related liver cirrhosis: Patient is agreeable to go to [facility] once her [place] insurance is set up Encephalopathy: Resolved, continue lactulose rifaximin along spironolactone UTI: Resolved Hypotension: Resolved Shiley catheter and Rainey catheter removed yesterday 09/13 Full code Cardiac diet Thrombocytopenia Avoid anticoagulating agent Attestations Medical Necessity Statement*: Awaiting assisted placement Time Spent in Patient Care: 20min Coding Level of Care Code Acute Human Resources Executive for [facility] Fwd Diagnoses UTI (urinary tract infection) N39.0 Coagulopathy D68.9 Hepatorenal syndrome K76.7 Hepatorenal syndrome K76.7 Acute hepatic encephalopathy K72.00 Altered mental status R41.82 Acute kidney injury superimposed on CKD N17.9; N18.9 Decompensated hepatic cirrhosis K72.90; K74.60 Hyperbilirubinemia E80.6 Ascites R18.8
[2021-09-14] MEDS: FUROsemide 40 mg Tablet PO (09:24)
[2021-09-14] MEDS: pantoprazole DR 40 mg Tablet PO (09:25)
[2021-09-14] MEDS: spironolactone 25 mg Tablet PO (09:25)
[2021-09-14 12:00] VITALS: BP 120/79; PULSE 63; RESP 19; TEMP 36.8; O2SAT 93
--- NOTE | 2021-09-14 12:16 | P.DS_ITS ---
Discharge Providers Date of Admission: 09/03/21 00:58 Date of Discharge: September 14, 2021 Attending Provider at Admission: Diamond Delgado Attending Provider at Discharge: Kandy Ji MD Diagnoses at Discharge Discharge Diagnosis (1) UTI (urinary tract infection): Status: Acute (2) Coagulopathy: Status: Acute (3) Hepatorenal syndrome: Status: Acute (4) Hepatorenal syndrome: Status: Acute (5) Acute hepatic encephalopathy: Status: Acute (6) Altered mental status: Status: Acute (7) Acute kidney injury superimposed on CKD: Status: Acute (8) Decompensated hepatic cirrhosis: Status: Acute (9) Hyperbilirubinemia: Status: Acute (10) Ascites: Status: Acute Reason for Visit Reason for Visit: WEAKNESS Hospital Course Hospital Course admit note by Dr Delgado 51-year-old female with a past medical history significant for hypothyroidism, liver cirrhosis due to alcoholism with subsequent recurrent ascites requiring paracenteses, encephalopathy on lactulose, who was recenlty discharged from hospital now presenting again with generalized weakenss. Patient stated she had similar symptoms as prior.? Upon arrival to hospital patient was noted to be confused. Head CT initially performed showed possible intraparenmal hemorrhage however head CT was repeated which did not show any acute intracranial abnormality. Lab work up showed a WBC of 11.2, hemoglobin of 7.9, hematocrit of 27.6 and a a platelet count of 158.? Sodium 135, potassium 5.2, chloride 99, bicarb 21, BUN 32 and a creatinine of 2.4. Ammonia of 157. Chest x-ray showed interval development of mild interstitial pulmonary edema with superimposed alveolar edema versus atelectasis versus pneumonia in the left lower lobe.At the time of my eval patient was awake hwoever weak. BP was noted to be 68/40. Was started on levophed and broad specturm abx. Hosp course:- Patient was admitted for decompensated liver cirrhosis, recurrent ascites, hepatic encephalopathy, sepsis related to UTI. SBP ruled out. She developed Hepatorenal syndrome & required CRRT and then intermittent hemodialysis( started this admission). There was plan to place tunneled vas catheter however renal function improved and we were able to remove her right femoral shiley catheter on 09/12. She was given stress dose steroids which were tapered down gradually however no signs of adrenal insuff.. Secondary to coagulopathy and low fibrinogen cryoprecipatate was given. In total she received 7 days of antibiotics. Cultures remain negative other than Xiao in urine. She was treated with caspofungin initially & later on with fluconazole. Hepatic encephalopathy improved, she was kept on rifaximin+ lactulose. Her is in the process of switching to [employer] insurance. They do not want to consider [place]/U[facility] anymore. Her last alcoholic drink was in April. Needs 6 months absentenance from alcohol which she will finish in September. She is being discharged to [facility]. She clearly understand that If she needs to come to the hospital again, she should be transferred from the ER directly to [facility] or [facility] for TIPS interim procedure before liver transplant scre shravan . Physical Exam Narrative: Saturating well on room air Much more awake and alert No active signs of encephalopathy No asterixis [facility] as well Nonfocal neuro exam No audible stridor or wheezing She is awake and alert cooperative Anasarca positive Urinary Catheter Management: Raniey: Cath Placed During This Visit: yes, but has since been removed by the nurse Reason for Continuing Indwelling Catheter: Acute Urinary Retention or Obstruction Urinary Catheter Date of Insertion: 09/02/21 Urinary Catheter Time of Insertion: 18:50 Date Urinary Catheter Removed: 09/13/21 Time Urinary Catheter Discontinued: 18:11 Discharge Data Studies Completed and Pending Completed Studies During Hospitalization Category Date Time Status CT head wo con* [id number] Urgent Cat Scan 09/02/21 18:[address] head wo con* [id number] Urgent Cat Scan 09/03/21 00:30 Completed XR chest 1V portable [id number] Routine Exams 09/12/21 06:00 Completed XR chest 1V portable [id number] Stat Exams 09/03/21 08:42 Completed XR chest 1V portable [id number] Urgent Exams 09/02/21 17:48 [place] [id number] Routine Ultrasound 09/07/21 12:43 Completed US abdomen limited [id number] Routine Ultrasound 09/05/21 11:24 Completed Pending at discharge Category Date Time Status Basic Metabolic Panel AM LABS Lab 09/15/21 04:00 Ordered Radiology Impressions Head CT 09/03/21 00:30 IMPRESSION: 1. Negative for acute intracranial abnormality. 2. Stable findings from prior imaging. Abdomen Ultrasound 09/05/21 11:24 IMPRESSION: Technically difficult examination due to body habitus 1. Hepatomegaly with coarse hepatic echotexture likely due to fatty infiltration or hepatocellular disease. Correlation with liver function tests. 2. Dilated gallbladder with cholelithiasis. Mild gallbladder wall thickening some of which is likely due to hepatocellular disease. 3. Common bile duct not well seen. No intrahepatic biliary ductal dilatation. 4. No hydronephrosis in RIGHT kidney. 5. Perihepatic ascites Chest X-Ray 09/12/21 06:00 IMPRESSION: 1. Probable small left pleural effusion 2. Indistinct pulmonary vasculature and increased linear opacities in the lower hemithoraces, findings that may represent pulmonary edema. Bilateral basilar atelectasis cannot be excluded as well. Laboratory Results WBC 9.8 10^3/uL (4.0-10.0) 09/13/21 03:07 Corrected WBC Cancelled 09/02/21 18:21 RBC 2.67 10^6/uL (4.1-5.3) L 09/13/21 03:07 Hgb 8.5 g/dL (11.5-15.3) L 09/13/21 03:07 Hct 27.4 % (37.0-47.0) L 09/13/21 03:07 MCV 102.6 fl (81-99) H 09/13/21 03:07 MCH 31.8 pg (28.0-34.0) 09/13/21 03:07 MCHC 31.0 g/dL (30.0-36.0) 09/13/21 03:07 RDW 21.0 % (12.1-15.1) H 09/13/21 03:07 Plt Count 72 10^3/cmm (130-400) L 09/13/21 03:07 MPV 10.9 fL (7.4-10.4) H 09/13/21 03:07 Gran % Cancelled 09/02/21 18:21 Neut % (Auto) 72.5 % 09/13/21 03:07 Lymph % (Auto) 9.6 % 09/13/21 03:07 [place] % (Auto) 11.4 % 09/13/21 03:07 Eos % (Auto) 5.6 % 09/13/21 03:07 Baso % (Auto) 0.1 % 09/13/21 03:07 Reticulocyte % (Auto) 2.4 % (0.5-2.0) H 09/05/21 03:00 Neut # (Auto) 7.07 10^3/uL (1.8-7.7) 09/13/21 03:07 Lymph # (Auto) 0.9 10^3/uL (0.8-4.8) 09/13/21 03:07 [place] # (Auto) 1.1 10^3/uL (0.2-0.9) H 09/13/21 03:07 Eos # (Auto) 0.6 10^3/uL (0.0-0.8) 09/13/21 03:07 Baso # (Auto) 0.0 10^3/uL (0.0-0.1) 09/13/21 03:07 Absolute Gran (auto) Cancelled 09/02/21 18:21 Nucleated RBC % (auto) 0 % 09/13/21 03:07 Nucleated RBCs # 0.0 /100WBC 09/13/21 03:07 Retic Production Index 1.29 09/05/21 03:00 Haptoglobin 10.0 mg/L (30-200) L 09/05/21 03:00 PT 21.00 SECONDS (12.1-14.9) H 09/10/21 05:20 INR 1.77 (0.8-1.2) H 09/10/21 05:20 APTT 35.7 SECONDS (23.9-36.7) 09/10/21 05:20 Fibrinogen 92 mg/dL (174-498) L 09/10/21 05:20 Fibrin Degrad Products Pos, 10-40 ug/mL (NEG) H 09/10/21 05:20 D-Dimer 3.69 ug/mIFEU (0-0.59) H 09/10/21 05:20 Specimen Type Arterial 09/05/21 04:00 Sample Site Radial, right 09/05/21 04:00 ABG pH 7.43 (7.35-7.45) 09/05/21 04:00 ABG pCO2 36.1 mmHg (35-45) 09/05/21 04:00 ABG pO2 74.0 mmHg (80.0-100.0) L 09/05/21 04:00 ABG HCO3 23.9 mmol/L (22-26) 09/05/21 04:00 ABG Base Excess -0.3 mmol/L (-2.0-2.0) 09/05/21 04:00 Caleb Test Pos 09/05/21 04:00 Hematocrit 22.7 % (37-47) L 09/05/21 04:00 O2 Delivery Device Room air 09/05/21 04:00 Unit Control Worker ID [email or web address] 09/05/21 04:00 Sodium 141 mmol/L (136-145) 09/14/21 05:20 Potassium 3.5 mmol/L (3.5-5.1) 09/14/21 05:20 Chloride 106 mmol/L (98-107) 09/14/21 05:20 Carbon Dioxide 26 mmol/L (22-29) 09/14/21 05:20 Anion Gap 12.5 (5-19) 09/14/21 05:20 BUN 27 mg/dL (6-20) H 09/14/21 05:20 Creatinine 1.0 mg/dL (0.5-0.9) H 09/14/21 05:20 GFR Calculation 58.7 mL/min (90-130) L 09/14/21 05:20 Glucose 131 mg/dL (65-115) H 09/14/21 05:20 Calculated Osmolality 299 mOsm/kg (285-295) H 09/14/21 05:20 Lactate 2.4 mmol/L (0.5-2.2) H 09/06/21 04:03 Calcium 8.9 mg/dL (8.5-10.5) 09/14/21 05:20 Phosphorus 5.6 mg/dL (2.5-4.5) H 09/07/21 04:14 Magnesium 2.4 mg/dL (1.7-2.3) H 09/07/21 04:14 Total Bilirubin 3.6 mg/dL (0.15-1.2) H 09/13/21 03:07 AST 54 U/L (0-32) H 09/13/21 03:07 ALT 13 U/L (0-33) 09/13/21 03:07 Alkaline Phosphatase 215 IU/L (35-105) H 09/13/21 03:07 Ammonia 121 umol/L (11-51) H 09/10/21 05:20 Lactate Dehydrogenase 228 U/L (135-214) H 09/05/21 03:00 Creatine Kinase 27 U/L (26-192) 09/06/21 04:03 Troponin T Baseline 41 ng/L (0-10) H 09/02/21 19:45 Troponin T 120 Minute 41.16 ng/L (0-10) H 09/02/21 22:05 Delta Troponin T 0.16 ABS# (0-10) 09/02/21 22:05 C-Reactive Protein 32.2 mg/L (0.0-4.9) H 09/06/21 04:03 NT-Pro-B Natriuret Pep 78711 pg/mL (0-125) H 09/06/21 04:03 Total Protein 5.6 g/dL (6.6-8.7) L 09/13/21 03:07 Albumin 3.1 g/dL (3.5-5.2) L 09/13/21 03:07 Globulin 2.5 g/dL (1.3-4.6) 09/13/21 03:07 Lipase 24 U/L (13-60) 09/02/21 19:45 Procalcitonin 0.17 ng/mL (0-0.5) 09/11/21 04:06 TSH 2.02 uIU/mL (0.27-4.20) 09/03/21 09:50 Random Cortisol 58.78 ug/dL (2.47-19.5) H 09/03/21 09:50 Urine Color Dark yellow (Yellow) 09/12/21 04:10 Urine Appearance Clear (CLEAR) 09/12/21 04:10 Urine pH 5 (5-7) 09/12/21 04:10 Ur Specific [place] 1.015 (1.005-1.030) 09/12/21 04:10 Urine Protein 1+ (Negative) H 09/12/21 04:10 Urine Glucose (UA) Norm (Normal) 09/12/21 04:10 Urine Ketones 1+ (Negative) H 09/12/21 04:10 Urine Blood 2+ (Negative) H 09/12/21 04:10 Urine Nitrate Positive (Negative) H 09/12/21 04:10 Urine Bilirubin 2+ (Negative) H 09/12/21 04:10 Urine Urobilinogen 4 mg/dL (Negative) H 09/12/21 04:10 Ur Leukocyte Esterase 2+ (Negative) H 09/12/21 04:10 Urine RBC 10-15 /hpf (0-2) H 09/12/21 04:10 Urine WBC 15-25 /hpf (0-5) H 09/12/21 04:10 Ur Squamous Epith Cells 0-4 /hpf (0-5) H 09/12/21 04:10 Calcium Oxalate Crystal 0-4 /hpf H 09/12/21 04:10 Uric Acid Crystals 5-10 /hpf H 09/12/21 04:10 Other Crystals Sulfa /hpf 09/12/21 04:10 Amorphous Sediment Not Reportable 09/12/21 04:10 Urine Bacteria 1+ /hpf (NONE) H 09/12/21 04:10 Hyaline Casts 5-10 /lpf H 09/12/21 04:10 Urine Mucus 1+ /hpf 09/12/21 04:10 Ur Random Sodium 18 mmol/L 09/03/21 10:40 Urine Creatinine 116 mg/dL (28-217) 09/03/21 10:40 Vancomycin Trough 29.7 ug/mL (10-15) H* 09/09/21 04:45 Random Vancomycin 21.3 ug/mL (20.0-40.0) 09/10/21 05:20 Hep Bs Antigen Non-reactive (Nonreactive) 09/04/21 10:15 Hep Bs Antibody 4.6 (11.5-1000) L 09/04/21 10:15 Hep B Core Total Ab Non-reactive (Nonreactive) 09/04/21 10:15 Hepatitis C Antibody Non-reactive (Nonreactive) 09/04/21 10:15 Blood Type A Positive 09/05/21 10:00 Rho(D) Type Positive 09/05/21 10:00 Antibody Screen Negative 09/05/21 10:00 Crossmatch See Detail 09/05/21 10:00 Vitals Last Vital Signs Temp 98.2 F 09/14/21 12:00 Pulse 63 09/14/21 12:00 Resp 19 H 09/14/21 12:00 BP 120/79 09/14/21 12:00 Pulse Ox 93 09/14/21 12:00 Discharge Plan Discharge Patient Disposition: Xfer SNF Condition: Stable Prescriptions: Continued levothyroxine [Euthyrox] 125 mcg tablet 125 mcg PO DAILY 0RF midodrine 5 mg tablet 5 mg PO TID 0RF furosemide [Lasix] 80 mg tablet 80 mg PO BID Qty: 90 7RF spironolactone 100 mg tablet 100 mg PO DAILY Qty: 90 5RF lactulose 10 gram/15 mL solution 10 g PO DAILY PRN (Reason: laxative effect) Qty: 946 5RF potassium chloride 20 mEq tablet extended release 20 meq PO DAILY Qty: 90 5RF pantoprazole 40 mg tablet,delayed release (DR/EC) 40 mg PO DAILY 0RF hydroxyzine pamoate 25 mg capsule 12 mg PO Q12H PRN (Reason: Itching) 0RF Discharge Orders: Discharge Order (Routine); Ordered 09/14/21 Ordered By: Kandy Ji Discharge Diet: Cardiac Discharge Activity: Increase activity as tolerated Patient Instructions: Urinary Tract Infection in Women (GEN) Activity Restrictions/Additional Instructions: PLEASE FOLLOW-UP WITH PRIMARY CARE PROVIDER Discharge Attestations Time Spent in Discharge Care*: less than 30 min Quality Metrics Clinical Quality Measures [ No reported AMI, CVA or VTE this stay] Coding Level of Care Code Acute Chg FW DC note Diagnoses UTI (urinary tract infection) N39.0 Coagulopathy D68.9 Hepatorenal syndrome K76.7 Hepatorenal syndrome K76.7 Acute hepatic encephalopathy K72.00 Altered mental status R41.82 Acute kidney injury superimposed on CKD N17.9; N18.9 Decompensated hepatic cirrhosis K72.90; K74.60 Hyperbilirubinemia E80.6 Ascites R18.8
[2021-09-14 13:22] LABS: SARS Covid-2 Antigen Negative (Negative)
[2021-09-14 14:00] VITALS: PULSE 63
--- NOTE | 2021-09-14 14:34 | PM.PN ---
Subjective Subjective: No new issues with Ms. Randhawa today. She feels well. Energetic, she is about to be discharged. Dialysis line removed, Rainey catheter removed. Medications: Reviewed: Yes Vitals/I&O/Wt Last Vital Signs Temp 98.2 F 09/14/21 12:00 Pulse 63 09/14/21 14:00 Resp 19 H 09/14/21 12:00 BP 120/79 09/14/21 12:00 Pulse Ox 93 09/14/21 12:00 09/13/21 09/14/21 09/14/21 22:59 06:59 14:59 Intake Total 240 / 240 Output Total 930 / 930 40 / 970 Balance -930 / -450 -40 / -490 240 / 240 Weight last 48 hrs Weight 139.253 kg Weight 139.57 kg Physical Exam Narrative: Constitutional: Awake, comfortable HEENT: Wet mucosa, no jvp, non icteric Lungs: Bilaterally clear without discernible wheeze, rales in all lung zones CVS: S1 S2, no murmurs Abdo: Soft, BS ok Ext 4: global 1-2+ edema, peripheral perfusion with no cyanosis Neurological: Grossly non-focal Urinary Catheter Management: Rainey: Cath Placed During This Visit: yes, but has since been removed by the nurse Reason for Continuing Indwelling Catheter: Acute Urinary Retention or Obstruction Urinary Catheter Date of Insertion: 09/02/21 Urinary Catheter Time of Insertion: 18:50 Date Urinary Catheter Removed: 09/13/21 Time Urinary Catheter Discontinued: 18:11 Data : 09/13/21 03:07 09/14/21 05:20 Micro: Microbiology 09/12/21 04:10 Urine Culture - Final Urine,Clean Catch 09/08/21 11:33 Blood Culture - Final Blood NO GROWTH AFTER 5 DAYS 09/08/21 11:35 Blood Culture - Final Blood NO GROWTH AFTER 5 DAYS A&P Assessment and plan (1) Hepatorenal syndrome: Status: Acute Plan 1. Acute kidney injury Recovery Dialysis line out Rainey out Strict I's and O's Dose medication for GFR < 60 2. Sepsis Being treated for pneumonia and SBP with combination antibiotics 3. Chemistry Well balanced 4. Hemodynamics Blood pressure and pulse remain relatively stable at this time. Resume Ehrhardt and Lasix 5. Dispo DC pending Will S/o, f/u with PCP Gonzales Johnson MD Nephrology [phone] Patient seen and examined via telemedicine, with the assistance of the bedside RN > 25 min spent in evaluation and mgmt of patient Attestations Medical Necessity Statement*: eval for KAT Coding Level of Care Code Acute Molding Utility Worker for Vidhyag Fwd Diagnoses Hepatorenal syndrome K76.7
== END 2021-09-14 15:00 | disposition skilled nursing facility (03) | DRG 871 ==
LOC: ER 09-03 01:05 → ICU 09-03 01:06 → MEDSURG 09-09 13:31
PROVIDERS: Family Medicine; Internal Medicine; Internal Medicine Nephrology; Surgery; Admitting Provider Hospitalist; Emergency Provider Emergency Medicine; Visit Provider Internal Medicine
PROC: 06HM33Z Insertion of Infusion Device into Right Femoral Vein, Percutaneous Approach (ICD-10-PCS; principal; 2021-09-04 11:00)
DX: A41.9 Sepsis, unspecified organism (principal); J18.9 Pneumonia, unspecified organism; K76.7 Hepatorenal syndrome; E87.1 Hypo-osmolality and hyponatremia; N17.9 Acute kidney failure, unspecified; I24.8 Other forms of acute ischemic heart disease; D68.9 Coagulation defect, unspecified; B37.49 Other urogenital candidiasis; N18.9 Chronic kidney disease, unspecified; F10.21 Alcohol dependence, in remission; K70.40 Alcoholic hepatic failure without coma; E03.9 Hypothyroidism, unspecified; I95.9 Hypotension, unspecified; Y95 Nosocomial condition; L30.9 Dermatitis, unspecified; K21.9 Gastro-esophageal reflux disease without esophagitis; D63.8 Anemia in other chronic diseases classified elsewhere; K80.20 Calculus of gallbladder without cholecystitis without obstruction
CPT/HCPCS: 36415; 36430; 36592; 36600; 51702; 70450; 71045; 76705; 80048; 80053; 80069; 80202; 80500; 81001; 81003; 82140; 82274; 82533; 82550; 82575; 82803; 83010; 83605; 83615; 83690; 83735; 83880; 84100; 84132; 84145; 84300; 84443; 84484; 85014; 85018; 85025; 85045; 85362; 85378; 85384; 85610; 85730; 86140; 86704; 86706; 86803; 86850; 86900; 86920; 86927; 87040; 87086; 87340; 87426; 90935; 93005; 93970; 96360; 96372; 97110; 97161; 97165; 97530; 97535; 99285; C1751; C9113; J0743; J1450; J1644; J1720; J1940; J2060; J2250; J2270; J2354; J2543; J2704; J3370; J3490; J7030; J7512; P9012; P9016; P9047; Q3014